=== PATIENT | female | born 1935 | race Caucasian/White ===

== ENCOUNTER → 2017-01-07 | Outpatient (CLI) | payer MEDICARE ==
[~2017-01-07] MED LIST: AMLO5TAB2 PO; ASP325T PO; ATEN50TA PO; GLIP10TA13 PO; LEVO88TA26 PO; LISI1TAB6 PO; LRT10T PO; MTF500T PO; NIAC1000 PO; OMEP20TA2 PO; PROP15DR OP; SIMV40TA2 PO
== END ==
LOC: RAD 10:31
PROVIDERS: ATTEND Nurse Practitioner
DX: Z12.31 Encounter for screening mammogram for malignant neoplasm of breast (principal)
CPT/HCPCS: 77067

== ENCOUNTER → 2017-02-02 | Outpatient (CLI) | payer MEDICARE ==
--- NOTE | 2017-02-02 12:55 | Diagnostic Imaging Report ---
INDICATION: Dyspnea PA and lateral views of the chest are obtained. Comparison is made to study of 12/23/2015. Overall heart size and pulmonary vascularity are at the upper limits of normal. There is blunting of the costophrenic sulci, bilaterally. No consolidation is seen to indicate lobar pneumonia. There is no pneumothorax. Adrenal calcification left upper quadrant of the abdomen is not significantly changed. IMPRESSION: Heart size and pulmonary vascularity are at the upper limits of normal with development of small amount of bilateral pleural fluid or thickening. No overt edema or other acute abnormality is identified. Dictated by: Dictated on workstation # [id number]
== END ==
LOC: RAD 12:05
PROVIDERS: ATTEND Internal Medicine
DX: R06.00 Dyspnea, unspecified (principal)
CPT/HCPCS: 71020

== ENCOUNTER → 2017-02-14 | Outpatient (CLI) | payer MEDICARE ==
--- NOTE | 2017-02-14 11:49 | Diagnostic Imaging Report ---
INDICATION: F/U PLEURAL EFFUSION COMPARISON: 02/02/2017 FINDINGS: Frontal and lateral views of the chest demonstrate normal heart size and pulmonary vascularity. The lungs are clear. There are no signs of infiltrate, pleural effusions or pneumothoraces. The visualized osseous structures show no acute abnormalities. IMPRESSION: 1. No acute process. No signs of infiltrates, effusions or pneumothoraces. Dictated by: Dictated on workstation # [id number]
== END ==
LOC: RAD 10:28
PROVIDERS: ATTEND Internal Medicine
DX: J90 Pleural effusion, not elsewhere classified (principal)
CPT/HCPCS: 71020

== ENCOUNTER 2017-03-08 10:21 | Inpatient (IN) | payer MEDICARE, MEDICAID ==
[~2017-03-08] VITALS: Ht 162.6 cm; Wt 100.9 kg
--- OUTSIDE RECORDS SUMMARY | 2017-03-08 10:26 | XMS REPORT | Referral Summary ---
Author Author [facility] Organization [facility] Address Unknown Phone Unavailable Encounter [facility] [id number] Date(s): 11/19/14 - 11/19/14 [facility] [address] [place] [address]- Discharge Disposition: 01-Home or Self Care Attending Physician: Rekha Romero MD Admitting Physician: Rekha Romero MD Vital Signs No data available for this section Problem List No data available for this section Allergies, Adverse Reactions, Alerts No data available for this section Medications No data available for this section Results No data available for this section Immunizations No data available for this section Procedures No data available for this section Social History No data available for this section Assessment and Plan No data available for this section
--- OUTSIDE RECORDS SUMMARY | 2017-03-08 10:27 | XMS REPORT ---
Author Author [facility] Address Unknown Care Team Providers [facility] Concierge Name Role Phone TYSHAWN ALVIN Unavailable PROBLEMS Unknown Problems ALLERGIES Substance Reaction Event Type Date Status N.K.D.A. Unknown Non Drug Allergy Apr, Unknown SOCIAL HISTORY No smoking Hx information available PLAN OF CARE Activity Details Follow Up prn Reason:prophy VITAL SIGNS Blood pressure systolic 158 mmHg 2016-05-07 Blood pressure diastolic 70 mmHg 2016-05-07 MEDICATIONS Medication Instructions Dosage Frequency Start Date End Date Duration Status Crestor Active Synthroid Active Amlodipine & Diet Manage Prod Active Omeprazole Active Effient Active Metformin HCl Active Lisinopril-Hydrochlorothiazide Active GlipiZIDE Active Atenolol Active RESULTS No Results PROCEDURES Procedure Date Ordered Related Diagnosis Body Site LTD ORAL EVALUATION - PROBLEM FOCUS May 07, 2016 INTRAORL-PERIAPICAL 1 FILM [id number] May 07, 2016 AMALGAM-TWO SURFACES PRIMARY/PERM May 07, 2016 IMMUNIZATIONS No Known Immunizations
[2017-03-08] MEDS ORDERED: fentaNYL INJECTION 100 MCG/2 ML AMP IVP ONE (10:45)
[2017-03-08 11:06] LABS: BASOPHILS % (AUTO) 0 % (0-10); EOSINOPHILS % (AUTO) 0 % (0-10); LYMPHOCYTES # (AUTO) 1.1 X 10^3 (1.0-4.0); LYMPHOCYTES % (AUTO) 8 % (12-44); MEAN CORPUSCULAR HEMOGLOBIN 29 PG (25-34); MEAN CORPUSCULAR HGB CONC 32 G/DL (32-36); MEAN CORPUSCULAR VOLUME 91 FL (80-99); MEAN PLATELET VOLUME 10.6 FL (7.4-10.4); MONOCYTES # (AUTO) 0.6 X 10^3 (0.0-1.0); MONOCYTES % (AUTO) 4 % (0-12); NEUTROPHILS # (AUTO) 12.4 X 10^3 (1.8-7.8); NEUTROPHILS % (AUTO) 88 % (42-75); PLATELET COUNT 289 10^3/uL (130-400); RED BLOOD COUNT 3.01 10^6/uL (4.35-5.85); RED CELL DISTRIBUTION WIDTH 13.7 % (10.0-14.5); WHITE BLOOD COUNT 14.1 10^3/uL (4.3-11.0)
[2017-03-08 11:22] LABS: BAND NEUTROPHILS 1 %; BASOPHILS % (MANUAL) 0 %; EOSINOPHILS % (MANUAL) 0 %; LYMPHOCYTES % (MANUAL) 8 %; NEUTROPHILS % (MANUAL) 90 %
[2017-03-08 11:26] LABS: ALBUMIN 3.8 GM/DL (3.2-4.5); BILIRUBIN,TOTAL 0.6 MG/DL (0.1-1.0); CALCIUM 8.9 MG/DL (8.5-10.1); CREATININE SERUM 1.82 MG/DL (0.60-1.30); POTASSIUM 4.6 MMOL/L (3.6-5.0); TOTAL PROTEIN 6.5 GM/DL (6.4-8.2)
--- NOTE | 2017-03-08 11:26 | Diagnostic Imaging Report ---
INDICATION: Recent fall. COMPARISON: 02/14/2017. FINDINGS: Single frontal view of the chest demonstrates normal heart size and pulmonary vascularity. The lungs are well aerated and clear. No large pleural effusion or pneumothorax is seen. The visualized osseous structures show no acute abnormalities. There is aortic atherosclerosis. IMPRESSION: 1. No acute cardiopulmonary process. Dictated by: Dictated on workstation # [id number]
--- NOTE | 2017-03-08 11:34 | Diagnostic Imaging Report ---
INDICATION: Fall. COMPARISON: None. FINDINGS: Four radiographic views of the right femur were obtained. There is acute comminuted fracture of the right femoral shaft near the junction of the mid and distal third portions. There is lateral subluxation of the distal fracture fragment by nearly one shaft width. There is also mild angulation with the apex projecting posteriorly. There is no extension into the joint space of the knee. Right femoral acetabular joint space appears maintained as well. Note is made of calcified arteriosclerosis. No unexpected radiopaque foreign bodies are seen. IMPRESSION: 1. Acute fracture of the right femur as described above. Dictated by: Dictated on workstation # [id number]
--- NOTE | 2017-03-08 11:34 | Diagnostic Imaging Report ---
INDICATION: Fall. COMPARISON: Femur radiographs from same day. FINDINGS: Single frontal radiographic view of the pelvis was obtained. There is foreshortened appearance to the bilateral proximal femurs. This however is felt to be positional. There is otherwise no evidence of acute fracture or dislocation of the pelvis or included portions of bilateral proximal femurs. Femoral acetabular joint spaces appear to be within normal limits on this single frontal view. Note is made of calcified arteriosclerosis. No unexpected radiopaque foreign bodies are seen. IMPRESSION: No radiographic evidence of acute fracture of the pelvis. Dictated by: Dictated on workstation # [id number]
--- NOTE | 2017-03-08 11:43 | ED Fall/Injury ---
General Chief Complaint: Trauma-Non Activation Stated Complaint: FALL Source: patient, EMS, old records Exam Limitations: no limitations History of Present Illness Time seen by provider: 10:22 Initial Comments This delightful 81-year-old woman presents to the emergency room via EMS after having a fall in her home. She was walking to the kitchen this morning and slipped on a piece of cucumber. She landed on her right side injuring her right thigh. She reports pain as 7 out of 10. She laid on the floor for a few hours unable to ambulate until the [employer] truck driver heavy came to her house. She had the truck driver heavy call 911. Patient denies any head or neck injury. She denies any loss of consciousness. The mechanism of fall seems to be purely mechanical. She has some numbness in her right lower extremity but can feel palpation on exam. She also complains of some shortness of breath recently, particularly with exertion. She was referred to Dr. Wright by Dr. Bojorquez for further evaluation of her dyspnea. She was to have an appointment today hence the [employer] arrival at her house. Dr. Raymond's her primary care provider and Dr. Bojorquez is her electric meter inspector. Allergies and Home Medications Allergies Coded Allergies: lisinopril (Unverified Allergy, Unknown, 10/22/14) DRY COUGH Home Medications Amlodipine Besylate 5 Mg Tablet, 5 MG PO DAILY, (Reported) Aspirin 325 Mg Tab, 325 MG PO DAILY, (Reported) Atenolol 50 Mg Tablet, 50 MG PO DAILY, (Reported) Glipizide 10 Mg Tablet, 10 MG PO BID, (Reported) Hctz/Lisinopril 1 Each Tablet, 1 EACH PO DAILY, (Reported) Levothyroxine Sodium 88 Mcg Tablet, 88 MCG PO DAILY, (Reported) Loratadine 10 Mg Tab, 10 MG PO DAILY PRN, (Reported) Metformin Hcl 500 Mg Tab, 1,000 MG PO BID, (Reported) Niacin 1,000 Mg Tablet.sa, 1,000 MG PO HS, (Reported) Omeprazole 20 Mg Tablet.dr, 20 MG PO PRN, (Reported) Propylene Glycol/Peg 400 5 Ml Drops, 5 ML OP QID, (Reported) Simvastatin 40 Mg Tablet, 40 MG PO DAILY, (Reported) Constitutional: no symptoms reported Eyes: No Symptoms Reported Ears, Nose, Mouth, Throat: no symptoms reported Respiratory: see HPI Cardiovascular: no symptoms reported Gastrointestinal: no symptoms reported Genitourinary: no symptoms reported Musculoskeletal: no symptoms reported Skin: no symptoms reported Psychiatric/Neurological: No Symptoms Reported Past Blyctvp-Uewloq-Rjogny Hx Surgeries History of Surgeries: Yes Surgeries: Coronary Stent, Eye Surgery Respiratory History of Respiratory Disorde: Yes (pulmonary hypertension) Cardiovascular History of Cardiac Disorders: Yes (pulmonary hypertension) Cardiac Disorders: Coronary Artery Disease, Hypertension, Valvular Heart Disease (aortic sclerosis) Neurological History of Neurological Disord: No Reproductive System : No Genitourinary History of Genitourinary Disor: No Gastrointestinal History of Gastrointestinal Di: No Musculoskeletal History of Musculoskeletal Dis: No Endocrine History of Endocrine Disorders: Yes Endocrine Disorders: Hypothyroidsim, Diabetes, Non-Insulin dep HEENT History of HEENT Disorders: Yes (diabetic retinopathy) HEENT Disorders: Macular Degeneration Cancer History of Cancer: No Psychosocial History of Psychiatric Problem: No Integumentary History of Skin or Integumenta: No Physical Exam Vital Signs Vital Sign - Last 12Hours 03/08/17 10:21 Temp 97.5 Pulse 86 Resp 18 B/P (MAP) 98/60 Pulse Ox 96 O2 Delivery Room Air Capillary Refill : General Appearance: WD/WN, mild distress HEENT: PERRL/EOMI, normal ENT inspection Neck: normal inspection Cardiovascular: regular rate, rhythm, no edema, no murmur Respiratory: lungs clear, normal breath sounds, no respiratory distress, no accessory muscle use Gastrointestinal: normal bowel sounds, non tender, soft Extremities: other (there is tenderness in the distal and mid right thigh. No tenderness over the hip joint. Pedal pulse, sensation, and movement of the foot intact. External rotation of the right leg noted) Neurologic/Psychiatric: silk spreader II-XII nml as tested, no motor/sensory deficits, alert, normal mood/affect, oriented x 3 Skin: normal color, warm/dry Progress/Results/Core Measures Results/Orders Lab Results Laboratory Tests Test 03/08/17 11:00 03/08/17 11:55 Range/Units White Blood Count 14.1 H 4.3-11.0 10^3/uL Red Blood Count 3.01 L 4.35-5.85 10^6/uL Hemoglobin 8.7 L 11.5-16.0 G/DL Hematocrit 28 L 35-52 % Mean Corpuscular Volume 91 80-99 FL Mean Corpuscular Hemoglobin 29 25-34 PG Mean Corpuscular Hemoglobin Concent 32 32-36 G/DL Red Cell Distribution Width 13.7 10.0-14.5 % Platelet Count 289 130-400 10^3/uL Mean Platelet Volume 10.6 H 7.4-10.4 FL Neutrophils (%) (Auto) 88 H 42-75 % Lymphocytes (%) (Auto) 8 L 12-44 % Monocytes (%) (Auto) 4 0-12 % Eosinophils (%) (Auto) 0 0-10 % Basophils (%) (Auto) 0 0-10 % Neutrophils # (Auto) 12.4 H 1.8-7.8 X 10^3 Lymphocytes # (Auto) 1.1 1.0-4.0 X 10^3 Monocytes # (Auto) 0.6 0.0-1.0 X 10^3 Eosinophils # (Auto) 0.0 0.0-0.3 10^3/uL Basophils # (Auto) 0.0 0.0-0.1 10^3/uL Neutrophils % (Manual) 90 % Lymphocytes % (Manual) 8 % Monocytes % (Manual) 1 % Eosinophils % (Manual) 0 % Basophils % (Manual) 0 % Band Neutrophils 1 % Blood Morphology Comment NORMAL Sodium Level 135 135-145 MMOL/L Potassium Level 4.6 3.6-5.0 MMOL/L Chloride Level 103 98-107 MMOL/L Carbon Dioxide Level 20 L 21-32 MMOL/L Anion Gap 12 5-14 MMOL/L Blood Urea Nitrogen 53 H 7-18 MG/DL Creatinine 1.82 H 0.60-1.30 MG/DL Estimat Glomerular Filtration Rate 27 BUN/Creatinine Ratio 29 Glucose Level 264 H 70-105 MG/DL Calcium Level 8.9 8.5-10.1 MG/DL Total Bilirubin 0.6 0.1-1.0 MG/DL Aspartate Amino Transf (AST/SGOT) 14 5-34 U/L Alanine Aminotransferase (ALT/SGPT) 12 0-55 U/L Alkaline Phosphatase 79 40-136 U/L Total Protein 6.5 6.4-8.2 GM/DL Albumin 3.8 3.2-4.5 GM/DL Urine Color YELLOW Urine Clarity SLIGHTLY CLOUDY Urine pH 5 5-9 Urine Specific [place] 1.015 L 1.016-1.022 Urine Protein 3+ H NEGATIVE Urine Glucose (UA) NEGATIVE NEGATIVE Urine Ketones NEGATIVE NEGATIVE Urine Nitrite NEGATIVE NEGATIVE Urine Bilirubin NEGATIVE NEGATIVE Urine Urobilinogen NORMAL NORMAL MG/DL Urine Leukocyte Esterase NEGATIVE NEGATIVE Urine RBC (Auto) NEGATIVE NEGATIVE Urine RBC RARE /HPF Urine WBC NONE /HPF Urine Squamous Epithelial Cells RARE /HPF Urine Crystals PRESENT H /LPF Urine Amorphous Sediment FEW ROSA URATES H /LPF Urine Bacteria NEGATIVE /HPF Urine Casts NONE /LPF Urine Mucus NEGATIVE /LPF Urine Culture Indicated NO My Orders Orders - JORGE LUIS DESAI MD Cbc With Automated Diff (03/08/17 10:38) Comprehensive Metabolic Panel (03/08/17 10:38) Ua Culture If Indicated (03/08/17 10:38) Saline Lock/Iv-Start (03/08/17 10:38) Chest 1 View, Ap/Pa Only (03/08/17 10:38) Femur, Right, 2 Views (03/08/17 10:38) Pelvis (03/08/17 10:38) Fentanyl Injection (Sublimaze Injection (03/08/17 10:45) Manual Differential (03/08/17 11:00) Medications Given in ED Current Medications Medications Dose Ordered Sig/Michael Route Start Time Stop Time Status Last Admin Dose Admin Fentanyl Citrate 25 mcg ONCE ONCE IVP 03/08/17 10:45 03/08/17 10:46 DC 03/08/17 11:05 25 MCG Vital Signs/I&O Vital Sign - Last 12Hours 03/08/17 03/08/17 03/08/17 10:21 11:05 12:00 Temp 97.5 98.1 97.5 Pulse 86 70 Resp 18 16 B/P (MAP) 98/60 98/68 (78) Pulse Ox 96 O2 Delivery Room Air Room Air Progress Note : Progress Note Femur fracture was identified on x-rays. Patient was given fentanyl for pain management. Anderson catheter was placed. Dr. Garduno and Dr. Katz was presented to the emergency room to evaluate the patient. Patient requested a DNR status. Diagnostic Imaging Diagonstic Imaging: Xray Plain Films/CT/US/NM/MRI: leg (right femur) Comments Right femur x-ray viewed by me and report reviewed. See report below: NAME: MARYSOL GALEAS REC#: [id number] PT STATUS: REG ER : 1935 PHYSICIAN: JORGE LUIS DESAI MD ADMIT DATE: 03/08/17/ER Draft Date of Exam:03/08/17 FEMUR, RIGHT, 2 VIEWS INDICATION: Fall. COMPARISON: None. FINDINGS: Four radiographic views of the right femur were obtained. There is acute comminuted fracture of the right femoral shaft near the junction of the mid and distal third portions. There is lateral subluxation of the distal fracture fragment by nearly one shaft width. There is also mild angulation with the apex projecting posteriorly. There is no extension into the joint space of the knee. Right femoral acetabular joint space appears maintained as well. Note is made of calcified arteriosclerosis. No unexpected radiopaque foreign bodies are seen. IMPRESSION: 1. Acute fracture of the right femur as described above. Dictated on workstation # [id number] Dict: 03/08/17 1125 Trans: 03/08/17 1133 [id number] Interpreted by: SARI WHITE MD Diagonstic Imaging: Xray Plain Films/CT/US/NM/MRI: chest Comments Pelvis x-ray viewed by me and report reviewed parents report below: NAME: MARYSOL GALEAS REC#: [id number] PT STATUS: REG ER : 1935 PHYSICIAN: JORGE LUIS DESAI MD ADMIT DATE: 03/08/17/ER Draft Date of Exam:03/08/17 PELVIS INDICATION: Fall. COMPARISON: Femur radiographs from same day. FINDINGS: Single frontal radiographic view of the pelvis was obtained. There is foreshortened appearance to the bilateral proximal femurs. This however is felt to be positional. There is otherwise no evidence of acute fracture or dislocation of the pelvis or included portions of bilateral proximal femurs. Femoral acetabular joint spaces appear to be within normal limits on this single frontal view. Note is made of calcified arteriosclerosis. No unexpected radiopaque foreign bodies are seen. IMPRESSION: No radiographic evidence of acute fracture of the pelvis. Dictated on workstation # [id number] Dict: 03/08/17 1127 Trans: 03/08/[address] [facility] [id number] Interpreted by: SARI WHITE MD Diagonstic Imaging: Xray Plain Films/CT/US/NM/MRI: chest Comments Chest x-ray viewed by me and report reviewed. See report below: NAME: MARYSOL GALEAS REC#: [id number] PT STATUS: REG ER : 1935 PHYSICIAN: JORGE LUIS DESAI MD ADMIT DATE: 03/08/17/ER Draft Date of Exam:03/08/17 CHEST 1 VIEW, AP/PA ONLY INDICATION: Recent fall. COMPARISON: 02/14/2017. FINDINGS: Single frontal view of the chest demonstrates normal heart size and pulmonary vascularity. The lungs are well aerated and clear. No large pleural effusion or pneumothorax is seen. The visualized osseous structures show no acute abnormalities. There is aortic atherosclerosis. IMPRESSION: 1. No acute cardiopulmonary process. Dictated on workstation # [id number] Dict: 03/08/17 1124 Trans: 03/08/17 1126 [facility] [phone] Interpreted by: SARI WHITE MD Departure Communication (Admissions) Time/Spoke to Admitting Phy: 11:46 Communication Case reviewed with Dr. Garduno. Films were reviewed by him. He agrees with admission to his service for surgery planned for tomorrow. He requests cardiology and internal medicine consults. Time/Spoke to Consulting Phy: 12:20 Communication/Consulting Case was reviewed with Dr. Katz and Dr. Bojorquez who both except consultation. Impression Impression: Primary Impression: Left femoral shaft fracture Qualified Codes: S72.352A - Displaced comminuted fracture of shaft of left femur, initial encounter for closed fracture Additional Impressions: Fall on same level from slipping Qualified Codes: W01.0XXA - Fall on same level from slipping, tripping and stumbling without subsequent striking against object, initial encounter Dyspnea Qualified Codes: R06.00 - Dyspnea, unspecified Chronic renal insufficiency Qualified Codes: N18.9 - Chronic kidney disease, unspecified Anemia Qualified Codes: D64.9 - Anemia, unspecified Disposition: 09 ADMITTED INPATIENT Condition: Improved Admissions Decision to Admit Reason: Admit from ER (Trauma) Decision to Admit/Date: Mar 08, 2017 Time/Decision to Admit Time: 11:30 Departure-Patient Inst. Referrals: FELIX RAYMOND MD (PCP/Family) Primary Care Physician JORGE LUIS DESAI MD Mar 08, 2017 11:43
[2017-03-08 12:04] LABS: BILIRUBIN,URINE NEGATIVE (NEGATIVE); KETONES,URINE NEGATIVE (NEGATIVE); LEUKOCYTE ESTERASE ,URINE NEGATIVE (NEGATIVE); NITRITE,URINE NEGATIVE (NEGATIVE); PH,URINE 5 (5-9); PROTEIN,URINE 3+ (NEGATIVE); UROBILINOGEN,URINE NORMAL (NORMAL)
[2017-03-08 12:14] LABS: SQUAMOUS EPITHELIAL CELL,UR RARE /HPF
[2017-03-08] MEDS ORDERED: morphine PCA 30 MG/30 ML VIAL IV PRN (12:45)
--- NOTE | 2017-03-08 12:55 | Consultation-Hospitalist ---
HPI History of Present Illness: HPI/Chief Complaint CC: Fall HPI: Pt is an 81yoCF with a PMH of CAD s/p stent, HTN, DMII who presented to the ER following a fall this morning. She report she awoke and was walking to her kitchen but did not use her flashlight to assist her as she normally does and she ended up slipping on a cucumber and falling. This was around 6am. She was unable to stand up or crawl to call for help. She was on the ground until about 10am when her [facility] arrived to bring her to Dr. Wright's office for a visit. She was then brought to the ER where she was found to have a distal femur fracture. Prior to this she reports she is in relatively good health. She states that she lives in assisted living and can normally walk, do her own grocery shopping, and care for herself. She has recently developed MORTENSEN though. She has a history of CAD and follows with Dr. Bojorquez and was evaluated for this by him and referred to Dr. Wright for further evaluation. She is unsure of the cause of her dyspnea. She is a lifetime nonsmoker. She reports compliance with her medicines. Source: patient, family, RN/MD Exam Limitations: no limitations Date Seen 03/08/17 Attending Physician Nani Katz MD PCP Carlos Ferguson MD Referring Physician Date of Admission Mar 08, 2017 at 12:24 Home Medications & Allergies Home Medications Reviewed patient Home Medication Reconciliation Form Allergies Allergies Coded Allergies lisinopril (Unverified Allergy, Unknown, 10/22/14) DRY COUGH Past Qrimtyq-Erbosp-Pegsvz Hx Patient Social History Employed/Student: retired Alcohol Use: Denies Use Recreational Drug Use: No Smoking Status: Never a Smoker Recent Foreign Travel: No Contact w/other who traveled: No Recent Infectious Disease Expo: No Surgeries Coronary Stent Respiratory No Cardiovascular Coronary Artery Disease, Hypertension Reproductive System : No Genitourinary No Gastrointestinal No Musculoskeletal No Endocrine History of Endocrine Disorders: Yes Endocrine Disorders: Diabetes, Insulin dep HEENT History of HEENT Disorders: No Cancer No Psychosocial History of Psychiatric Problem: No Integumentary History of Skin or Integumenta: No Review of Systems Constitutional: No chills, No fever EENTM: No blurred vision, No double vision Respiratory: No cough, dyspnea on exertion, short of breath Cardiovascular: No chest pain, Hx of Intervention, No palpitations Gastrointestinal: No constipation, No diarrhea, No nausea, No vomiting Genitourinary: No dysuria, No frequency Musculoskeletal: back pain, joint pain Skin: no symptoms reported Psychiatric/Neurological: No Symptoms Reported Physical Exam Physical Exam Vital Signs Vital Sign - Last 12Hours 03/08/17 10:21 Temp 97.5 Pulse 86 Resp 18 B/P (MAP) 98/60 Pulse Ox 96 O2 Delivery Room Air Capillary Refill : Less Than 3 Seconds General Appearance: No Apparent Distress, WD/WN Respiratory: Normal Breath Sounds, No Accessory Muscle Use, No Respiratory Distress Cardiovascular: Regular Rate, Rhythm, No Edema, No JVD, No Murmur, Normal Peripheral Pulses Gastrointestinal: Normal Bowel Sounds, No Organomegaly, No Pulsatile Mass, Non Tender, Soft Extremity: Normal Capillary Refill, No Calf Tenderness, No Pedal Edema, Other ( right leg externally rotated and appears shorter, tenderness to palpation over lower thigh, sensation intact, 2+ pulse in DP) Neurologic/Psychiatric: Alert, Oriented x3, No Motor/Sensory Deficits, Normal Mood/Affect Results Results/Procedures Lab Laboratory Tests 03/08/17 11:00 Radiology FEMUR, RIGHT, 2 VIEWS FINDINGS: Four radiographic views of the right femur were obtained. There is acute comminuted fracture of the right femoral shaft near the junction of the mid and distal third portions. There is lateral subluxation of the distal fracture fragment by nearly one shaft width. There is also mild angulation with the apex projecting posteriorly. There is no extension into the joint space of the knee. Right femoral acetabular joint space appears maintained as well. Note is made of calcified arteriosclerosis. No unexpected radiopaque foreign bodies are seen. IMPRESSION: 1. Acute fracture of the right femur as described above. Assessment/Plan Admission Diagnosis acute comminuted fracture of the right femoral shaft Diagnosis/Problems Diagnosis/Problems (1) Closed right femoral fracture Status: Acute Assessment & Plan: Management per ortho (primary service) Fentanyl for pain RCRI scores 2, risk of 6.6% for major cardiac event - Most risk as optimized as possible though will continue to provide IVF for JEY - Will defer recommendation regarding MORTENSEN to Dr. Bojorquez Qualifiers: Qualified Codes: S72.354A - Nondisplaced comminuted fracture of shaft of right femur, initial encounter for closed fracture (2) Acute on chronic renal insufficiency Status: Acute Assessment & Plan: I personally called and spoke with Dr. Ferguson's office Most recent creatinine 1.3 in December 18. today, will check CK and start IVF recheck in AM Will hold diuretic (3) Dyspnea Status: Acute Assessment & Plan: Has been progressing over past few months, is able to do grocery shopping (~4 mets) but at times can be short of breath Was to see Dr. Wright today as referred by Dr. Bojorquez during outpatient visit Will consult Dr. Wright while admitted for any further recommendations Qualifiers: Qualified Codes: R06.09 - Other forms of dyspnea (4) Anemia Status: Chronic Assessment & Plan: Again per report from Dr. Ferguson's office normal hemoglobin 9.6 T&S x2U per Ortho's request in prep for OR Qualifiers: Qualified Codes: D64.9 - Anemia, unspecified (5) CAD (coronary artery disease) Status: Chronic Assessment & Plan: Follows with Dr. Bojorquez, consulted- appreciate recs Feature of dyspnea concerning as possible cardiac etiology Defer to Dr. Bojorquez Hold ASA currently Qualifiers: Qualified Codes: I25.10 - Atherosclerotic heart disease of [place] coronary artery without angina pectoris (6) Essential (primary) hypertension Status: Chronic Assessment & Plan: Well controlled, will continue home meds when tolerating PO (7) Hypothyroidism Status: Chronic Assessment & Plan: Continue Synthroid (8) Diabetes mellitus Status: Chronic Assessment & Plan: A1c from December- 12.25 Relatively well controlled for age Will continue Lantus, hold Metformin Will start on SSI A Qualifiers: Qualified Codes: E11.9 - Type 2 diabetes mellitus without complications; Z79.4 - watermaster (current) use of insulin NANI KATZ MD Mar 08, 2017 12:55
[2017-03-08] MEDS ORDERED: NS IV 1000 ML 1,000 ML ONE (13:00)
[2017-03-08 13:21] LABS: PROTHROMBIN TIME PATIENT 13.3 SEC (12.2-14.7)
[2017-03-08] MEDS ORDERED: LOSA1TAB23 PO (13:23)
[2017-03-08] MEDS ORDERED: INSU100I10 SC (13:23)
[2017-03-08] MEDS ORDERED: AMLO10TA2 PO (13:23)
[2017-03-08] MEDS ORDERED: METF500T4 PO (13:23)
[2017-03-08] MEDS ORDERED: GLIP5TAB13 PO (13:23)
[2017-03-08] MEDS ORDERED: HYDR25TA4 PO (13:23)
[2017-03-08] MEDS ORDERED: POTA10TA14 PO (13:23)
[2017-03-08] MEDS ORDERED: ROSU5TAB9 PO (13:23)
[2017-03-08] MEDS ORDERED: LEVO88TA54 PO (13:23)
[2017-03-08] MEDS ORDERED: FURO20TA4 PO (13:23)
[2017-03-08 13:30] VITALS: BP 129/61
--- NOTE | 2017-03-08 13:32 | HISTORY AND PHYSICAL ---
DATE OF SERVICE: 03/08/2017 REASON FOR ADMISSION: Right femur fracture, closed, displaced. HISTORY: The patient is an 81-year-old independently living female who slipped on a cucumber this morning and was on the floor. She was found down and was brought to the emergency department where she was found to have a displaced right femoral shaft fracture which extends intraarticularly. She denies antecedent pain. She denies loss of consciousness. REVIEW OF SYSTEMS: No recent chest pain, shortness of breath, or dysuria. MEDICATIONS: Amlodipine, aspirin, atenolol, glipizide, hydrochlorothiazide, levothyroxine, loratadine, metformin, niacin, omeprazole, simvastatin. ALLERGIES: LISINOPRIL. PHYSICAL EXAMINATION: The right lower extremity is shortened and externally rotated. She has intact dorsiflexion, plantarflexion of the toes with symmetric pulses and brisk capillary refill. Sensation is intact throughout. Radiographs reveal a displaced right distal 3rd/middle 3rd shaft fracture which extends intraarticularly into the intercondylar notch as seen on the lateral projection. IMPRESSION: Right femoral shaft fracture with intraarticular extension, closed and displaced. PLAN: Open reduction and internal fixation of the right femur. The risks, benefits, alternatives, ramifications, and recovery were discussed with the patient and her sister. They understand and wish to proceed. Job ID: [id number] DocumentID: [id number] Dictated Date: 03/08/2017 12:39:27 Recycling Technician Date: 03/08/2017 13:31:57 Dictated By: CRISTÓBAL SOLIS MD
[2017-03-08] MEDS ORDERED: LORA10TA7 PO (13:56)
[2017-03-08] MEDS ORDERED: PROP15DR OU (13:56)
[2017-03-08] MEDS ORDERED: OMEP20TA7 PO (13:56)
[2017-03-08] MEDS ORDERED: ASPI-808 PO (13:56)
[2017-03-08] MEDS ORDERED: ATEN50TA PO (13:56)
[2017-03-08] MEDS ORDERED: NS IV 1000 ML 1,000 ML IV SCH (14:00)
[2017-03-08] MEDS ORDERED: LORATADINE (CLARITIN) 10 MG TAB PO PRN (14:45)
[2017-03-08] MEDS ORDERED: ARTIFICAL TEARS 0.4 ML UNIT DOSE (REFRESH PLUS) OU PRN (15:00)
--- NOTE | 2017-03-08 15:44 | Consultation-Cardiology ---
HPI-Cardiology Cardiology Consultation Date of Consultation 03/08/17 Date of Admission Time Seen by Provider: 15:38 Indication: Femur fracture, preoperative cardiac evaluation HPI 81 years old lady with history of coronary artery disease, COPD, hypertension and hyperlipidemia, was walking in her apartment when she slipped over a cucumber floor, sustained a fracture to her femur. Did not have a syncopal episode. Patient is reporting some chest tightness recently while she was in a class reunion and had to walk for a distance. She had to sit down and rest for a while. No palpitation, no syncope or near syncopal episodes. Currently having pain in her leg. Home Medications & Allergies Allergies: Coded Allergies: lisinopril (Unverified Allergy, Unknown, 10/22/14) DRY COUGH Home Medication List Reviewed: Yes CML-Vsdhna-Eqdolm Hx Patient Social History Employed/Student: retired Alcohol Use: Denies Use Recreational Drug Use: No Smoking Status: Never a Smoker Recent Foreign Travel: No Recent Infectious Disease Expo: No Physical Abuse Screen: No Sexual Abuse: No Past Medical History past medical history as discussed Family Medical History Family History: 19 FATHER Kidney disease Diabetes mellitus Cardiovascular disease 19 MOTHER Diabetes mellitus Cardiovascular disease G8 SISTER Diabetes mellitus Constitutional: no symptoms reported, see HPI EENTM: see HPI, no symptoms reported Respiratory: see HPI, No cough, dyspnea on exertion, No hemoptysis, No orthopnea, No phlegm, short of breath, No stridor, No wheezing, No other Cardiovascular: see HPI, chest pain, No edema, No Hx of Intervention, No palpitations, No syncope, No vascular heart diseas, No other Gastrointestinal: see HPI Genitourinary: no symptoms reported, see HPI Musculoskeletal: see HPI, back pain, joint pain, other (Fracture right femur) Skin: no symptoms reported, see HPI Psychiatric/Neurological: No Symptoms Reported, See HPI Reviewed Test Results Reviewed Test Results Lab Laboratory Tests Test 03/08/17 11:00 03/08/17 11:55 03/08/17 13:00 Range/Units White Blood Count 14.1 H 4.3-11.0 10^3/uL Red Blood Count 3.01 L 4.35-5.85 10^6/uL Hemoglobin 8.7 L 11.5-16.0 G/DL Hematocrit 28 L 35-52 % Mean Corpuscular Volume 91 80-99 FL Mean Corpuscular Hemoglobin 29 25-34 PG Mean Corpuscular Hemoglobin Concent 32 32-36 G/DL Red Cell Distribution Width 13.7 10.0-14.5 % Platelet Count 289 130-400 10^3/uL Mean Platelet Volume 10.6 H 7.4-10.4 FL Neutrophils (%) (Auto) 88 H 42-75 % Lymphocytes (%) (Auto) 8 L 12-44 % Monocytes (%) (Auto) 4 0-12 % Eosinophils (%) (Auto) 0 0-10 % Basophils (%) (Auto) 0 0-10 % Neutrophils # (Auto) 12.4 H 1.8-7.8 X 10^3 Lymphocytes # (Auto) 1.1 1.0-4.0 X 10^3 Monocytes # (Auto) 0.6 0.0-1.0 X 10^3 Eosinophils # (Auto) 0.0 0.0-0.3 10^3/uL Basophils # (Auto) 0.0 0.0-0.1 10^3/uL Neutrophils % (Manual) 90 % Lymphocytes % (Manual) 8 % Monocytes % (Manual) 1 % Eosinophils % (Manual) 0 % Basophils % (Manual) 0 % Band Neutrophils 1 % Blood Morphology Comment NORMAL Sodium Level 135 135-145 MMOL/L Potassium Level 4.6 3.6-5.0 MMOL/L Chloride Level 103 98-107 MMOL/L Carbon Dioxide Level 20 L 21-32 MMOL/L Anion Gap 12 5-14 MMOL/L Blood Urea Nitrogen 53 H 7-18 MG/DL Creatinine 1.82 H 0.60-1.30 MG/DL Estimat Glomerular Filtration Rate 27 BUN/Creatinine Ratio 29 Glucose Level 264 H 70-105 MG/DL Calcium Level 8.9 8.5-10.1 MG/DL Total Bilirubin 0.6 0.1-1.0 MG/DL Aspartate Amino Transf (AST/SGOT) 14 5-34 U/L Alanine Aminotransferase (ALT/SGPT) 12 0-55 U/L Alkaline Phosphatase 79 40-136 U/L Total Creatine Kinase 120 29-168 U/L Total Protein 6.5 6.4-8.2 GM/DL Albumin 3.8 3.2-4.5 GM/DL Urine Color YELLOW Urine Clarity SLIGHTLY CLOUDY Urine pH 5 5-9 Urine Specific [place] 1.015 L 1.016-1.022 Urine Protein 3+ H NEGATIVE Urine Glucose (UA) NEGATIVE NEGATIVE Urine Ketones NEGATIVE NEGATIVE Urine Nitrite NEGATIVE NEGATIVE Urine Bilirubin NEGATIVE NEGATIVE Urine Urobilinogen NORMAL NORMAL MG/DL Urine Leukocyte Esterase NEGATIVE NEGATIVE Urine RBC (Auto) NEGATIVE NEGATIVE Urine RBC RARE /HPF Urine WBC NONE /HPF Urine Squamous Epithelial Cells RARE /HPF Urine Crystals PRESENT H /LPF Urine Amorphous Sediment FEW ROSA URATES H /LPF Urine Bacteria NEGATIVE /HPF Urine Casts NONE /LPF Urine Mucus NEGATIVE /LPF Urine Culture Indicated NO Prothrombin Time 13.3 12.2-14.7 SEC INR Comment 1.0 0.8-1.4 Activated Partial Thromboplast Time 27 24-35 SEC Physical Exam Vital Signs Vital Sign - Last 12Hours 03/08/17 10:21 Temp 97.5 Pulse 86 Resp 18 B/P (MAP) 98/60 Pulse Ox 96 O2 Delivery Room Air Capillary Refill : Less Than 3 SecondsLess Than 3 Seconds General Appearance: WD/WN, Mild Distress Eyes: Bilateral Eye Normal Inspection, Bilateral Eye PERRL, Bilateral Eye EOMI HEENT: PERRL/EOMI, TMs Normal, Normal ENT Inspection, Pharynx Normal Neck: Full Range of Motion, Normal Inspection, Non Tender, Supple, Carotid Bruit Respiratory: Chest Non Tender, Lungs Clear, Normal Breath Sounds, No Accessory Muscle Use, No Respiratory Distress Cardiovascular: Regular Rate, Rhythm, No Edema, No JVD, Normal Peripheral Pulses, Systolic Murmur, Gallop/S3 Gastrointestinal: Normal Bowel Sounds, No Organomegaly, No Pulsatile Mass, Non Tender, Soft Back: Normal Inspection, No CVA Tenderness, No Vertebral Tenderness Extremity: Normal Capillary Refill, Normal Inspection, Non Tender, No Calf Tenderness, No Pedal Edema, Other (Right femur fracture) Neurologic/Psychiatric: Alert, Oriented x3, No Motor/Sensory Deficits, Normal Mood/Affect Skin: Normal Color, Warm/Dry Lymphatic: No Adenopathy A/P-Cardiology Admission Diagnosis Femur fracture Chest pain nonspecific etiology Coronary artery disease Shortness of breath Assessment/Plan Right femur fracture, scheduled for surgery with Dr. Garduno tomorrow. Chest pain nonspecific urology, had an episode recently, had extensive workup last year. I will evaluate 12-lead EKG. Coronary artery disease, history of cardiac catheterization done in November 2014 stent to the mid LAD using 2.514 mm resolute integrity stent done by Dr. Dontrell Vuong in [facility]. Otherwise she had mild to moderate disease. Most recent stress test and 2-D echocardiogram in March 2016 revealed no ischemia or infarct with normal EF. Continue current medication, continue to monitor Shortness of breath, Dyspnea on exertion, history of COPD, seen and followed by Dr. Wright Cough, secondary to ADRIAN inhibitor, intolerant to ADRIAN inhibitor. Continue to monitor. Chronic renal insufficiency, worsening on losartan, it was discontinued. Continue to monitor electrolytes closely Severe allergic reaction to IV contrast after the cardiac catheterization. continue to monitor History of TIA, echocardiogram showed normal LV size with moderate LVH, sigmoid shaped septum, EF 60 percent, mild MR, mild TR, PA 25 mmHg. Hypertension, start home medication and monitor blood pressure Hyperlipidemia, last lipid profile available from June 2016 showing total cholesterol 142, HDL 38, triglyceride 204, LDL 63, monitor lipids Obstructive sleep apnea, using C Pap machine, not using it at this time, followed by Dr. Wright Diabetes mellitus, managed and followed by primary care physician. Hypothyroidism, managed and followed by primary care physician. Mild bilateral carotid stenosis nonobstructive disease. Last ultrasound was done in earlier this month, continue to monitor. KIF6 positive. Patient is responsive to statin with improvement in her risk factors after statin administration. BMI 38, patient was educated previously on exercise, currently she will start with physical therapy after her surgery. CRISS BANUELOS MD Mar 08, 2017 3:44 pm
[2017-03-08 16:00] VITALS: BP 123/64
[2017-03-08] MEDS: NS IV 1000 ML 1,000 ML IV SCH (16:32)
[2017-03-08] MEDS ORDERED: inSUlin (REGULAR) HUMAN 1 UNIT/0.01 ML (CHARGE PER UNIT) ONE (16:50)
[2017-03-08] MEDS: inSUlin ASPART (NovoLOG) 1 UNIT/0.01 ML (CHARGE PER UNIT) SC SCH ×2 (18:10→21:05)
[2017-03-08] MEDS ORDERED: inSUlin ASPART (NovoLOG) 1 UNIT/0.01 ML (CHARGE PER UNIT) SC SCH (21:00)
[2017-03-08] MEDS: ATENOLOL 50 MG (TENORMIN) TAB PO SCH (21:05)
[2017-03-08 23:25] VITALS: BP 137/60
[2017-03-09] VITALS (7 sets, daily range): BP systolic 129–149; BP diastolic 60–74
[2017-03-09] MEDS: NS IV 1000 ML 1,000 ML IV SCH ×3 (00:57→20:32)
[2017-03-09 05:52] LABS: BASOPHILS % (AUTO) 0 % (0-10); EOSINOPHILS # (AUTO) 0.1 10^3/uL (0.0-0.3); EOSINOPHILS % (AUTO) 1 % (0-10); LYMPHOCYTES # (AUTO) 2.3 X 10^3 (1.0-4.0); LYMPHOCYTES % (AUTO) 24 % (12-44); MEAN CORPUSCULAR HEMOGLOBIN 30 PG (25-34); MEAN CORPUSCULAR HGB CONC 32 G/DL (32-36); MEAN CORPUSCULAR VOLUME 91 FL (80-99); MEAN PLATELET VOLUME 10.9 FL (7.4-10.4); MONOCYTES # (AUTO) 0.9 X 10^3 (0.0-1.0); MONOCYTES % (AUTO) 9 % (0-12); NEUTROPHILS # (AUTO) 6.4 X 10^3 (1.8-7.8); NEUTROPHILS % (AUTO) 66 % (42-75); PLATELET COUNT 219 10^3/uL (130-400); RED BLOOD COUNT 2.41 10^6/uL (4.35-5.85); RED CELL DISTRIBUTION WIDTH 13.7 % (10.0-14.5); WHITE BLOOD COUNT 9.7 10^3/uL (4.3-11.0)
[2017-03-09] MEDS: LEVOTHYROXINE 88 MCG (LEVOTHORID) TAB PO SCH (06:10)
[2017-03-09 06:43] LABS: ALBUMIN 3.4 GM/DL (3.2-4.5); BILIRUBIN,TOTAL 0.5 MG/DL (0.1-1.0); CALCIUM 8.2 MG/DL (8.5-10.1); CREATININE SERUM 1.65 MG/DL (0.60-1.30); POTASSIUM 4.5 MMOL/L (3.6-5.0)
[2017-03-09] MEDS: inSUlin ASPART (NovoLOG) 1 UNIT/0.01 ML (CHARGE PER UNIT) SC SCH ×4 (06:53→21:48)
[2017-03-09] MEDS ORDERED: PANTOPRAZOLE 20 MG TABLET (PROTONIX) PO PRN (07:00)
--- NOTE | 2017-03-09 09:00 | Cardiology Progress Note ---
Subjective Date Seen by Provider: Mar 09, 2017 Time Seen by Provider: 08:51 Subjective/Events-last exam Patient in bed. Complaining of right leg pain. Denies any CP or dyspnea. Review of Systems General: No Night Sweats, No Fatigue, No Malaise HEENT: No Visual Changes, No Dysphasia, No Sore Throat Pulmonary: No Dyspnea, No Cough, No Pleuritic Chest Pain Cardiovascular: Edema (RLE with trace edema), No: Chest Pain, Palpitations, Paroxysmal Noc. Dyspnea Gastrointestinal: No: Nausea, Vomiting, Abdominal Pain Genitourinary: No Dysuria, No Frequency Musculoskeletal: leg pain (right leg pain), No: neck pain, back pain Objective-Cardiology Exam Last Set of Vital Signs Vital Signs 03/09/17 03/10/17 03/10/17 15:16 04:00 06:13 Temp 98.0 Pulse 67 Resp 16 B/P (MAP) 142/70 Pulse Ox 95 O2 Delivery Nasal Cannula O2 Flow Rate 3.00 FiO2 28 Capillary Refill : Less Than 3 SecondsLess Than 3 Seconds I&O Intake and Output 03/11/17 00:00 Intake Total 200 ml Output Total 425 ml Balance -225 ml Intake Oral 200 ml Output Urine Total 425 ml General: Alert, Oriented X3, Cooperative HEENT: Atraumatic, PERRLA Neck: Supple, No JVD, No Thyromegaly Lungs: Clear to Auscultation, Normal Air Movement Heart: Regular Rate, Normal S1, Normal S2, No Murmurs Abdomen: Normal Bowel Sounds, Soft, No Tenderness, No Hepatosplenomegaly, No Masses Extremities: No Clubbing, No Cyanosis, No Edema, Normal Pulses, No Tenderness/ Swelling Skin: No Rashes, No Breakdown, No Significant Lesion Neuro: Normal Speech, Strength at 5/5 X4 Ext, Cranial Nerves 3-12 NL Psych/Mental Status: Mental Status NL, Mood NL Results Lab Laboratory Tests 03/09/17 13:40 03/10/17 05:39 A/P-Cardiology Admission Diagnosis Femur fracture Chest pain nonspecific etiology Coronary artery disease Shortness of breath Assessment/Plan Right femur fracture, scheduled for surgery with Dr. Garduno later today. Chest pain nonspecific etiology, had an episode recently, had extensive workup last year. EKG reveals no acute ST changes. Denies any pain at this time. Coronary artery disease, history of cardiac catheterization done in November 2014 stent to the mid LAD using 2.514 mm resolute integrity stent done by Dr. Dontrell Vuong in [facility]. Otherwise she had mild to moderate disease. Most recent stress test and 2-D echocardiogram in March 2016 revealed no ischemia or infarct with normal EF. Continue current medication, continue to monitor Shortness of breath, Dyspnea on exertion, history of COPD, seen and followed by Dr. Wright Cough, secondary to ADRIAN inhibitor, intolerant to ADRIAN inhibitor. Continue to monitor. Chronic renal insufficiency, worsening on losartan, it was discontinued. Continue to monitor electrolytes closely Acute on chronic anemia- Hgb 7.1. Continue to monitor. Transfuse as needed Severe allergic reaction to IV contrast after the cardiac catheterization. continue to monitor History of TIA, echocardiogram showed normal LV size with moderate LVH, sigmoid shaped septum, EF 60 percent, mild MR, mild TR, PA 25 mmHg. Hypertension, controlled. Continue to monitor BP/HR Hyperlipidemia, last lipid profile available from June 2016 showing total cholesterol 142, HDL 38, triglyceride 204, LDL 63, monitor lipids Obstructive sleep apnea, using C Pap machine, not using it at this time, followed by Dr. Wright Diabetes mellitus, managed and followed by primary care physician. Hypothyroidism, managed and followed by primary care physician. Mild bilateral carotid stenosis nonobstructive disease. Last ultrasound was done in earlier this month, continue to monitor. KIF6 positive. Patient is responsive to statin with improvement in her risk factors after statin administration. BMI 38, patient was educated previously on exercise, currently she will start with physical therapy after her surgery. Clinical Quality Measures DVT/VTE Risk/Contraindication: Risk Factor Score Per Nursin RFS Level Per Nursing on Admit: 4+=Very High Supervisory-Addendum Brief Supervisory Addendum Participated in pt care: history, MDM, physical Personally performed: exam, history, MDM Care discussed with: CAMMY Results interpretation: agree with documentation Notes: Late input for the evaluation on March 09, 2017 Patient was seen and evaluated yesterday postoperatively, she was recovering well. Denied any pain. Procedure done without complication. On examination lungs were clear to auscultation bilaterally, heart is regular. Normal S1 and S2. I will continue on current medication, monitor H&H closely. RICARDO BOBBY Mar 09, 2017 09:00 CRISS BANUELOS MD Mar 10, 2017 08:44
--- NOTE | 2017-03-09 09:52 | Pulmonary Consultation ---
History of Present Illness History of Present Illness Date of Consultation 03/09/17 09:46 Time Seen by Provider: 09:46 Date of Admission Reason for Visit: Femur fracture, preoperative cardiac evaluation History of Present Illness 81yo presented to ED after falling after slipping on a cucumber. Pt was suppose to see me in the office just prior to this admission. When brynn arrived they found her on the floor. She was unable to get up. I am consulted for pulmonary management. Allergies and Home Medications Allergies Coded Allergies: lisinopril (Unverified Allergy, Unknown, 10/22/14) DRY COUGH Home Medications Aspirin 325 Mg Tablet, 325 MG PO 1200, (Reported) Atenolol 50 Mg Tablet, 50 MG PO HS, (Reported) Diclofenac Sodium 100 Gm Gel..gram., 0 GM TOP QID PRN for PAIN-MILD for 30 Days , #1 Prescribed by: BETTY IGNACIO on 03/25/17858 Furosemide 20 Mg Tablet, 20 MG PO 1200, (Reported) Glipizide 5 Mg Tablet, 10 MG PO BID, (Reported) TAKES 2 (5MG) TABLETS Insulin Glargine,Hum.rec.anlog 100 Unit/1 Ml Insuln.pen, 6 UNITS SC HS, ( Reported) Lactulose 20 Gm/30 Ml Solution, 10 GM PO BID for 30 Days, #1 Prescribed by: BETTY IGNACIO on 03/25/17858 Levothyroxine Sodium 88 Mcg Tablet, 88 MCG PO DAILY, (Reported) Loratadine 10 Mg Tablet, 10 MG PO DAILY PRN for ALLERGIES, (Reported) Omeprazole 20 Mg Tablet.dr, 20 MG PO DAILY PRN for HEARTBURN, (Reported) Propylene Glycol/Peg 400 15 Ml Drops, 1-2 DROPS OU QID PRN for DRY EYES, ( Reported) Rosuvastatin Calcium 5 Mg Tablet, 5 MG PO 1200, (Reported) Tramadol HCl 50 Mg Tablet, 50 MG PO TID PRN for PAIN-MODERATE for 14 Days, #60 Prescribed by: BETTY IGNACIO on 03/25/17858 Past Uiyoktr-Lcgqfr-Thaqai Hx Patient Social History Alcohol Use: Denies Use Recreational Drug Use: No Smoking Status: Never a Smoker Recent Foreign Travel: No Contact w/Someone Who Travel: No Recent Infectious Disease Expo: No Immunizations Up To Date Date of Pneumonia Vaccine: October 18, 2014 Seasonal Allergies Seasonal Allergies: Yes (HEAD FULL X 2 MONTHS) Surgeries History of Surgeries: Yes (HEART STENT, EYE SURGERY (CATARACT) , RIGHT EYE SURGERY TO REMOVE FLUID) Surgeries: Coronary Stent Respiratory History of Respiratory Disorde: No Currently Using CPAP: No Currently Using BIPAP: No Cardiovascular History of Cardiac Disorders: Yes (pulmonary hypertension) Cardiac Disorders: Coronary Artery Disease, Hypertension Neurological History of Neurological Disord: No Reproductive System : No Genitourinary History of Genitourinary Disor: No Gastrointestinal History of Gastrointestinal Di: No Musculoskeletal History of Musculoskeletal Dis: No Endocrine History of Endocrine Disorders: Yes Endocrine Disorders: Diabetes, Insulin dep HEENT History of HEENT Disorders: No HEENT Disorders: Macular Degeneration Cancer History of Cancer: No Psychosocial History of Psychiatric Problem: No Integumentary History of Skin or Integumenta: No Blood Transfusions History of Blood Disorders: Yes (ANEMIA) Adverse Reaction to a Blood Tr: No Family Medical History Family Medial History: Cardiovascular disease 19 FATHER 19 MOTHER Diabetes mellitus 19 FATHER 19 MOTHER G8 SISTER Kidney disease 19 FATHER Review of Systems Time Seen by Provider: 09:16 Exam Exam Vital Signs Date Time Temp Pulse Resp B/P (MAP) Pulse Ox O2 Delivery O2 Flow Rate FiO2 03/09/17 08:00 96.9 60 20 133/60 94 Room Air 03/09/17 06:13 16 03/09/17 04:57 97.8 64 18 129/63 95 Room Air 03/08/17 23:25 98.1 67 18 137/60 95 Room Air 03/08/17 16:00 97.0 66 18 123/64 96 Room Air 03/08/17 14:25 95 Room Air 03/08/17 13:30 97.2 70 20 129/61 98 Room Air 03/08/17 12:40 97.5 70 16 96 03/08/17 12:00 97.5 70 16 98/68 (78) Room Air 03/08/17 11:05 98.1 03/08/17 10:21 97.5 86 18 98/60 96 Room Air General Appearance: No Apparent Distress, WD/WN HEENT: PERRL/EOMI, TMs Normal, Normal ENT Inspection, Pharynx Normal Neck: Full Range of Motion, Normal Inspection, Non Tender, Supple, Carotid Bruit Respiratory: Normal Breath Sounds, No Accessory Muscle Use, No Respiratory Distress Cardiovascular: Regular Rate, Rhythm, No Edema, No JVD, No Murmur, Normal Peripheral Pulses Capillary Refill: Less Than 3 Seconds Gastrointestinal: normal bowel sounds, non tender, soft Extremity: Normal Capillary Refill, No Calf Tenderness, No Pedal Edema, Other ( right leg externally rotated and appears shorter, tenderness to palpation over lower thigh, sensation intact, 2+ pulse in DP) Neurologic/Psychiatric: Alert, Oriented x3, No Motor/Sensory Deficits, Normal Mood/Affect Skin: Normal Color, Warm/Dry Lymphatic: No Adenopathy Results Lab Laboratory Tests 03/08/17 11:00 03/09/17 05:13 Assessment/Plan Assessment/Plan Right femur fracture post fall -Surgery pending COPD hx with Dyspnea -CXR shows no acute process -Sp02 is 95% on RA -SVNS CAD DANIELLE -Continue CPAP therapy Obesity Pt is ok from pulmonary standpoint for surgery. 254 Diagnosis/Problems Problems/Diagonsis (1) Closed right femoral fracture Status: Acute Assessment & Plan: Management per ortho (primary service) Fentanyl for pain RCRI scores 2, risk of 6.6% for major cardiac event - Most risk as optimized as possible though will continue to provide IVF for JEY - Will defer recommendation regarding MORTENSEN to Dr. Bojorquez Qualifiers: Qualified Codes: S72.354A - Nondisplaced comminuted fracture of shaft of right femur, initial encounter for closed fracture (2) Acute on chronic renal insufficiency Status: Resolved Assessment & Plan: I personally called and spoke with Dr. Ferguson's office Most recent creatinine 1.3 in December 18.8 today, will check CK and start IVF recheck in AM Will hold diuretic (3) Dyspnea Status: Acute Assessment & Plan: Has been progressing over past few months, is able to do grocery shopping (~4 mets) but at times can be short of breath Was to see Dr. Wright today as referred by Dr. Bojorquez during outpatient visit Will consult Dr. Wright while admitted for any further recommendations Qualifiers: Qualified Codes: R06.09 - Other forms of dyspnea (4) Anemia Status: Chronic Assessment & Plan: Again per report from Dr. Ferguson's office normal hemoglobin 9.6 T&S x2U per Ortho's request in prep for OR Qualifiers: Qualified Codes: D64.9 - Anemia, unspecified (5) CAD (coronary artery disease) Status: Chronic Assessment & Plan: Follows with Dr. Bojorquez, consulted- appreciate recs Feature of dyspnea concerning as possible cardiac etiology Defer to Dr. Bojorquez Hold ASA currently Qualifiers: Qualified Codes: I25.10 - Atherosclerotic heart disease of pala coronary artery without angina pectoris (6) Essential (primary) hypertension Status: Chronic Assessment & Plan: Well controlled, will continue home meds when tolerating PO (7) Hypothyroidism Status: Chronic Assessment & Plan: Continue Synthroid (8) Diabetes mellitus Status: Chronic Assessment & Plan: A1c from December- . Relatively well controlled for age Will continue Lantus, hold Metformin Will start on SSI A Qualifiers: Qualified Codes: E11.9 - Type 2 diabetes mellitus without complications; Z79.4 - FCI (current) use of insulin Clinical Quality Measures DVT/VTE Risk/Contraindication: Risk Factor Score Per Nursin RFS Level Per Nursing on Admit: 4+=Very High JAMES WRIGHT DO Mar 09, 2017 09:51
[2017-03-09] MEDS ORDERED: LIDOCAINE PF 2% 5 ML (XYLOCAINE) VIAL ONE (10:16)
[2017-03-09] MEDS ORDERED: proPOfol 200 MG/20 ML (DIPRIVAN) VIAL IV ONE (10:16)
[2017-03-09] MEDS ORDERED: SEVOFLURANE (ULTANE) 15 ML INHAL SOLN ONE ×8 (10:16→12:43)
[2017-03-09] MEDS ORDERED: fentaNYL INJECTION 100 MCG/2 ML AMP ONE (10:17)
[2017-03-09] MEDS ORDERED: ONDANSETRON 4 MG/2 ML (SDV) Z0FRAN ONE (10:17)
[2017-03-09] MEDS ORDERED: ROCURONIUM 50 MG/5 ML (ZEMURON) VIAL IV ONE (10:17)
--- NOTE | 2017-03-09 10:18 | Progress Note-Hospitalist ---
Progress Note HPI/CC on Admission CC: Fall HPI: Pt is an 81yoCF with a PMH of CAD s/p stent, HTN, DMII who presented to the ER following a fall this morning. She report she awoke and was walking to her kitchen but did not use her flashlight to assist her as she normally does and she ended up slipping on a cucumber and falling. This was around 6am. She was unable to stand up or crawl to call for help. She was on the ground until about 10am when her [facility] arrived to bring her to Dr. Wright's office for a visit. She was then brought to the ER where she was found to have a distal femur fracture. Prior to this she reports she is in relatively good health. She states that she lives in assisted living and can normally walk, do her own grocery shopping, and care for herself. She has recently developed MORTENSEN though. She has a history of CAD and follows with Dr. Bojorquez and was evaluated for this by him and referred to Dr. Wright for further evaluation. She is unsure of the cause of her dyspnea. She is a lifetime nonsmoker. She reports compliance with her medicines. Progress Notes/Assess & Plan Date Seen 03/09/17 Time Seen by Provider: 09:30 Diagonsis/Assessment & Plan Patient doing ok just waiting on surgery. Transfusion is ordered and will be initiated during surgery No pain reported currently Reviewed meds and labs AFVSS, pleasant, pale, chronically ill, obese RRR, CTAB minimal excursion No edema Assessment: (1) Closed right femoral fracture Status: Acute Assessment & Plan: Management per ortho (primary service) Fentanyl for pain RCRI scores 2, risk of 6.6% for major cardiac event - Most risk as optimized as possible though will continue to provide IVF for JEY - Will defer recommendation regarding MORTENSEN to Dr. Bojorquez Qualifiers: Qualified Codes: S72.354A - Nondisplaced comminuted fracture of shaft of right femur, initial encounter for closed fracture (2) Acute on chronic renal insufficiency Status: Acute Assessment & Plan: Dr Katz personally called and spoke with Dr. Ferguson's office Most recent creatinine 1.3 in December 18.8 today, will check CK and start IVF Monitor labs post op Will hold diuretic (3) Dyspnea Status: Acute Assessment & Plan: Has been progressing over past few months, is able to do grocery shopping (~4 mets) but at times can be short of breath Was to see Dr. Wright yesterday as referred by Dr. Bojorquez during outpatient visit Consulted Dr. Wright while admitted for any further recommendations Qualifiers: Qualified Codes: R06.09 - Other forms of dyspnea (4) Anemia Status: Chronic Assessment & Plan: Again per report from Dr. Ferguson's office normal hemoglobin 9.6 T&S x2U per Ortho's request and transfusing currently and will continue edwin- operative and post op transfusion Qualifiers: Qualified Codes: D64.9 - Anemia, unspecified (5) CAD (coronary artery disease) Status: Chronic Assessment & Plan: Follows with Dr. Bojorquez, consulted- appreciate recs Feature of dyspnea concerning as possible cardiac etiology Defer to Dr. Bojorquez Hold ASA currently Qualifiers: Qualified Codes: I25.10 - Atherosclerotic heart disease of [place] coronary artery without angina pectoris (6) Essential (primary) hypertension Status: Chronic Assessment & Plan: Well controlled, will continue home meds when tolerating PO (7) Hypothyroidism Status: Chronic Assessment & Plan: Continue Synthroid (8) Diabetes mellitus Status: Chronic Assessment & Plan: A1c from December- .8 Relatively well controlled for age Will continue Lantus, hold Metformin Will start on SSI A Qualifiers: Qualified Codes: E11.9 - Type 2 diabetes mellitus without complications; Z79.4 - prison (current) use of insulin Plan: Monitor BP and hgb post op Appreciate Mateus Wright and Maryellen's help SSI SCD's FINLEYROB BAXTERGabe BANKS Mar 09, 2017 10:18
[2017-03-09] MEDS ORDERED: LACTATED RINGERS 1,000 ML IV PRN (10:22)
[2017-03-09] MEDS ORDERED: morphine PCA 30 MG/30 ML VIAL IV PRN (11:00)
[2017-03-09] MEDS ORDERED: oxyCODONE/APAP 5/325MG (PERCOCET 5) TABLET PO PRN (11:00)
[2017-03-09] MEDS ORDERED: ACETAMINOPHEN 325 MG TABLET/CAPLET (TYLENOL) PO PRN (11:00)
[2017-03-09] MEDS ORDERED: ONDANSETRON 4 MG/2 ML (SDV) Z0FRAN IVP PRN ×2 (11:00→13:15)
[2017-03-09] MEDS ORDERED: ceFAZolin INJECTION 1,000 MG in NS (IVPB) 50 ML IV ONE (11:00)
[2017-03-09] MEDS ORDERED: ceFAZolin 1,000 MG (ANCEF) VIAL ONE (11:29)
[2017-03-09] MEDS ORDERED: NS (IVPB) 50 ML ONE (11:30)
[2017-03-09] MEDS ORDERED: BUPIVACAINE 0.5% 30 ML (SENSORCAINE) VIAL ONE (11:41)
[2017-03-09] MEDS: ROSUVASTATIN 5 MG (CRESTOR) TABLET PO SCH (12:00)
[2017-03-09] MEDS ORDERED: SUCCINYLCHOLINE INJ 100 MG/5 ML SYR ONE (12:44)
[2017-03-09] MEDS ORDERED: HETASTARCH 6% IV ONE (12:44)
[2017-03-09] MEDS ORDERED: MEPERIDINE (DEMEROL) INJ 50 MG/ML IVP PRN (13:15)
--- NOTE | 2017-03-09 13:27 | Progress Note-Post Operative ---
Post-Operative Progess Note Surgeon (s)/Loading Shovel Oiler (s) Surgeon CRISTÓBAL SOLIS MD Loading Shovel Oiler: Fareed Earl Pre-Operative Diagnosis closed, displaced right femur shaft fracture Post-Operative Diagnosis closed, displaced right femur shaft fracture Procedure & Operative Findings Date of Procedure 03/09/17 Procedure Performed/Findings open reduction and internal fixation of the right femur Anesthesia Type GETA Estimated Blood Loss Estimated blood loss (mL): 375 ml Specimens/Packing Specimens Removed none Packing: none CRISTÓBAL SOLIS MD Mar 09, 2017 13:27
[2017-03-09] MEDS ORDERED: morphine INJ 10 MG/ML 1ML (SYR OR VIAL) ONE (13:29)
[2017-03-09] MEDS: morphine INJ 10 MG/ML 1ML (SYR OR VIAL) IVP PRN ×2 (13:40→13:45)
--- NOTE | 2017-03-09 13:40 | Diagnostic Imaging Report ---
INDICATION: Right femur fracture IMPRESSION: 52.8 seconds of fluoroscopy was used by Dr. Mendoza during internal fixation of the right femur. Submitted digital images for the procedure show plate transfixing the distal femur fracture with screws proximal and distal to the fracture line. Bones appear to be in good alignment. Dictated by: Dictated on workstation # [id number]
[2017-03-09] MEDS ORDERED: RT-ALBUTEROL SULF 2.5 MG/3 ML PRE-MIX VIAL IH PRN (15:30)
[2017-03-09] MEDS: ceFAZolin INJECTION 1,000 MG in NS (IVPB) 50 ML IV SCH (18:49)
[2017-03-09] MEDS: ATENOLOL 50 MG (TENORMIN) TAB PO SCH (21:51)
[2017-03-09] MEDS: inSUlin DETERMIR 1 UNIT/0.01 ML (LEVEMIR) CHARGE PER UNIT SQ SCH (21:51)
[2017-03-10] VITALS (11 sets, daily range): BP systolic 141–195; BP diastolic 64–81
[2017-03-10] MEDS: ceFAZolin INJECTION 1,000 MG in NS (IVPB) 50 ML IV SCH (04:33)
[2017-03-10] MEDS: NS IV 1000 ML 1,000 ML IV SCH ×3 (04:34→20:59)
[2017-03-10] MEDS: inSUlin ASPART (NovoLOG) 1 UNIT/0.01 ML (CHARGE PER UNIT) SC SCH ×4 (06:03→20:59)
[2017-03-10] MEDS: LEVOTHYROXINE 88 MCG (LEVOTHORID) TAB PO SCH (06:03)
--- NOTE | 2017-03-10 07:21 | Pulmonary Progress Note ---
Subjective Time Seen by Provider: 07:20 Subjective/Events-last exam No complications noted. Exam Exam Vital Signs Date Time Temp Pulse Resp B/P (MAP) Pulse Ox O2 Delivery O2 Flow Rate FiO2 03/10/17 06:13 16 03/10/17 04:00 98.0 67 13 142/70 95 Nasal Cannula 3.00 03/10/17 02:20 93 Nasal Cannula 0.50 03/10/17 00:48 97.7 68 16 141/64 97 Nasal Cannula 3.00 03/09/17 22:35 98 Nasal Cannula 3.00 03/09/17 21:00 16 03/09/17 20:10 97.2 75 20 139/73 99 Nasal Cannula 3.00 03/09/17 18:56 98 Nasal Cannula 3.00 03/09/17 16:05 97.3 69 18 146/74 100 Nasal Cannula 3.00 03/09/17 15:16 60 97 28 03/09/17 15:15 97 Nasal Cannula 2.00 03/09/17 14:45 94.4 65 24 148/67 90 Nasal Cannula 3.00 03/09/17 13:45 97.0 03/09/17 13:45 97.0 03/09/17 12:21 98.2 62 03/09/17 08:00 96.9 60 20 133/60 94 Room Air General Appearance: No Apparent Distress, WD/WN HEENT: PERRL/EOMI, TMs Normal, Normal ENT Inspection, Pharynx Normal Neck: Full Range of Motion, Normal Inspection, Non Tender, Supple, Carotid Bruit Respiratory: Normal Breath Sounds, No Accessory Muscle Use, No Respiratory Distress Cardiovascular: Regular Rate, Rhythm, No Edema, No JVD, No Murmur, Normal Peripheral Pulses Capillary Refill: Less Than 3 Seconds Gastrointestinal: normal bowel sounds, non tender, soft Extremity: Normal Capillary Refill, No Calf Tenderness, No Pedal Edema, Other ( right leg externally rotated and appears shorter, tenderness to palpation over lower thigh, sensation intact, 2+ pulse in DP) Neurologic/Psychiatric: Alert, Oriented x3, No Motor/Sensory Deficits, Normal Mood/Affect Skin: Normal Color, Warm/Dry Lymphatic: No Adenopathy Results Lab Laboratory Tests 03/08/17 11:00 03/09/17 05:13 03/09/17 13:40 03/10/17 05:39 Assessment/Plan Assessment/Plan Right femur fracture post fall -s/p Surgery COPD hx with Dyspnea -CXR shows no acute process -Sp02 is 95% on RA -SVNS -outpatient PFT -advair CAD DANIELLE -pt is not compliant with CPAP therapy Obesity 232 Clinical Quality Measures DVT/VTE Risk/Contraindication: Risk Factor Score Per Nursin RFS Level Per Nursing on Admit: 4+=Very High JAMES BROWN DO Mar 10, 2017 07:21
[2017-03-10] MEDS ORDERED: NS IV 500 ML 500 ML IV ONE (07:45)
--- NOTE | 2017-03-10 07:45 | Progress Note-Standard ---
Standard Progress Note Progress Notes/Assess & Plan Date Seen by Provider: Mar 10, 2017 Time Seen by Provider: 07:43 Progress/Assessment & Plan no complaints Vital Signs Date Time Temp Pulse Resp B/P (MAP) Pulse Ox O2 Delivery O2 Flow Rate FiO2 03/10/17 06:13 16 03/10/17 04:00 98.0 67 13 142/70 95 Nasal Cannula 3.00 03/10/17 02:20 93 Nasal Cannula 0.50 03/10/17 00:48 97.7 68 16 141/64 97 Nasal Cannula 3.00 03/09/17 22:35 98 Nasal Cannula 3.00 03/09/17 21:00 16 03/09/17 20:10 97.2 75 20 139/73 99 Nasal Cannula 3.00 03/09/17 18:56 98 Nasal Cannula 3.00 03/09/17 16:05 97.3 69 18 146/74 100 Nasal Cannula 3.00 03/09/17 15:16 60 97 28 03/09/17 15:15 97 Nasal Cannula 2.00 03/09/17 14:45 94.4 65 24 148/67 90 Nasal Cannula 3.00 03/09/17 13:45 97.0 03/09/17 13:45 97.0 03/09/17 12:21 98.2 62 03/09/17 08:00 96.9 60 20 133/60 94 Room Air Laboratory Tests Test 03/09/17 13:40 03/09/17 16:09 03/09/17 21:00 03/10/17 05:13 Range/Units Hemoglobin 9.4 #L 11.5-16.0 G/DL Hematocrit 29 L 35-52 % Glucometer 183 H 233 H 218 H 70-110 MG/DL Test 03/10/17 05:39 Range/Units Hemoglobin 7.9 L 11.5-16.0 G/DL Hematocrit 24 L 35-52 % RLE--dressing intact. Intact DF and PF of toes and ankle. 2 plus DP pulse with brisk cap refill. Sensation intact throughout s/p ORIF R femur anemia--chronic with intra op blood loss--transfuse 2 units PRBC continue Anderson until tomorrow AM mobillize 50% WB RLE IRF CRISTÓBAL Santiago MD Mar 10, 2017 07:45
--- NOTE | 2017-03-10 08:29 | Cardiology Progress Note ---
Subjective Date Seen by Provider: Mar 10, 2017 Time Seen by Provider: 08:27 Subjective/Events-last exam Patient is in bed. Complains of right leg pain. Denies any CP or dyspnea. Review of Systems General: No Night Sweats, No Fatigue, No Malaise HEENT: No Visual Changes, No Dysphasia Pulmonary: No Dyspnea, No Cough Cardiovascular: No: Chest Pain, Palpitations, Orthopnea Gastrointestinal: No: Nausea, Vomiting, Abdominal Pain, Constipation Genitourinary: No Dysuria, No Frequency Musculoskeletal: leg pain (right leg), No: neck pain, back pain Neurological: Weakness, No: Numbness, Change in speech, Confusion Objective-Cardiology Exam Last Set of Vital Signs Vital Signs 03/09/17 03/10/17 03/10/17 15:16 04:00 06:13 Temp 98.0 Pulse 67 Resp 16 B/P (MAP) 142/70 Pulse Ox 95 O2 Delivery Nasal Cannula O2 Flow Rate 3.00 FiO2 28 Capillary Refill : Less Than 3 SecondsLess Than 3 Seconds I&O Intake and Output 03/11/17 00:00 Intake Total 200 ml Output Total 425 ml Balance -225 ml Intake Oral 200 ml Output Urine Total 425 ml General: Alert, Oriented X3, Cooperative HEENT: Atraumatic, PERRLA Neck: Supple, No JVD, No Thyromegaly Lungs: Clear to Auscultation, Normal Air Movement Heart: Regular Rate, Normal S1, Normal S2, No Murmurs Abdomen: Normal Bowel Sounds, Soft, No Tenderness, No Hepatosplenomegaly, No Masses Extremities: No Clubbing, No Cyanosis, No Edema, Normal Pulses, No Tenderness/ Swelling Skin: No Rashes, No Breakdown, No Significant Lesion Neuro: Normal Speech, Strength at 5/5 X4 Ext, Cranial Nerves 3-12 NL Psych/Mental Status: Mental Status NL, Mood NL Results Lab Laboratory Tests 03/09/17 13:40 03/10/17 05:39 A/P-Cardiology Admission Diagnosis Femur fracture Chest pain nonspecific etiology Coronary artery disease Shortness of breath Assessment/Plan Right femur fracture, s/p ORIF right femur on 03/09/17. Patient slowly recovering. Chest pain nonspecific etiology, had an episode recently, had extensive workup last year. EKG reveals no acute ST changes. Denies any pain at this time. Coronary artery disease, history of cardiac catheterization done in November 2014 stent to the mid LAD using 2.514 mm resolute integrity stent done by Dr. Dontrell Vuong in [facility]. Otherwise she had mild to moderate disease. Most recent stress test and 2-D echocardiogram in March 2016 revealed no ischemia or infarct with normal EF. Continue current medication, continue to monitor Shortness of breath, Dyspnea on exertion, history of COPD, seen and followed by Dr. Wright Cough, secondary to ADRIAN inhibitor, intolerant to ADRIAN inhibitor. Continue to monitor. Chronic renal insufficiency, worsening on losartan, it was discontinued. Continue to monitor electrolytes closely Acute on chronic anemia- Continue to monitor. Transfuse as needed Severe allergic reaction to IV contrast after the cardiac catheterization. continue to monitor History of TIA, echocardiogram showed normal LV size with moderate LVH, sigmoid shaped septum, EF 60 percent, mild MR, mild TR, PA 25 mmHg. Hypertension, controlled. Continue to monitor BP/HR Hyperlipidemia, last lipid profile available from June 2016 showing total cholesterol 142, HDL 38, triglyceride 204, LDL 63, monitor lipids Obstructive sleep apnea, using C Pap machine, not using it at this time, followed by Dr. Wright Diabetes mellitus, managed and followed by primary care physician. Hypothyroidism, managed and followed by primary care physician. Mild bilateral carotid stenosis nonobstructive disease. Last ultrasound was done in earlier this month, continue to monitor. KIF6 positive. Patient is responsive to statin with improvement in her risk factors after statin administration. BMI 38, patient was educated previously on exercise, currently she will start with physical therapy after her surgery. Clinical Quality Measures DVT/VTE Risk/Contraindication: Risk Factor Score Per Nursin RFS Level Per Nursing on Admit: 4+=Very High Supervisory-Addendum Brief Supervisory Addendum Participated in pt care: history, MDM, physical Personally performed: exam, history, MDM Care discussed with: CAMMY Results interpretation: agree with documentation Notes: patient was seen and evaluated, denied any chest pain, recovering from the surgery, receiving blood transfusion today. On examination lungs were clear to auscultation bilaterally, heart is regular rate and rhythm. Known to have extensive history, blood pressure is controlled. I will continue on current medication continue to monitor blood pressure and lipids. No changes are recommended. RICARDO BOBBY Mar 10, 2017 08:29 CRISS BANUELOS MD Mar 10, 2017 08:45
[2017-03-10] MEDS: RT-ADVAIR HFA 115/21 MCG PER PUFF IH SCH ×2 (08:40→19:08)
[2017-03-10] MEDS: ENOXAPARIN 40 MG/0.4 ML (LOVENOX) SYR SC SCH (08:56)
--- NOTE | 2017-03-10 10:59 | Physical Therapy Evaluation ---
PT Evaluation-General Medical Diagnosis Admission Date Mar 08, 2017 at 12:24 Medical Diagnosis: right femur fx Onset Date: Mar 09, 2017 Therapy Diagnosis Therapy Diagnosis: impaired mobility, strength, endurance Height/Weight Height (Feet): 5 Height (Inches): 4.00 Weight (Pounds): 222 Weight (Ounces): 7.0 Precautions Precautions/Isolations: Fall Prevention, Standard Precautions Weight Bear Status Weight Bearing Restriction: Partial Weight Bearing Location Restriction: R LE Comments 50% WB Referral Physician: Fareed Earl Reason for Referral: Evaluation/Treatment Medical History Pertinent Medical History: CAD, COPD, DM, HTN Additional Medical History obstructive sleep apnea, obesity Current History Patient fell at home and had a right femur fx Reviewed History: Yes Social History Home: Apartment Current Living Status: Alone Entry Into Home: Level Entry Prior/Core FIM Prior Level of Function Functional [place] Measure 0=Not Assessed/NA 4=Minimal Assistance 1=Total Assistance 5=Supervision or Setup 2=Maximal Assistance 6=Modified [place] 3=Moderate Assistance 7=Complete [place] Bed Mobility: 7 Transfers (B,C,W/C) (FIM): 7 Gait: 7 PT Evaluation-Current Subjective Patient in bed pre tx, agrees to PT, has pain of 6/10 in right leg. Patient has low hemoglobin and will be getting blood right after PT. Will not attempt to stand or walk at this time. Pt/Family Goals to be independent at home Objective Patient Orientation: Person, Place, Situation Attachments: Oxygen, Anderson Catheter, IV ROM/Strength ROM Lower Extremities NT Strenght Lower Extremities 2/5 gross right lower extremity Integumentary/Posture Bladder Incontinence: Anderson Cath Sensory Vision: Wears Glasses Hearing: Functional Sensation Right Lower Extremit: Intact Sensation Left Lower Extremity: Intact Sensation Lower Extremities Patient does describe some numbness around her incision on the right leg. Transfers Functional [place] Measure 0=Not Assessed/NA 4=Minimal Assistance 1=Total Assistance 5=Supervision or Setup 2=Maximal Assistance 6=Modified [place] 3=Moderate Assistance 7=Complete [place] Transfers (B, C, W/C) (FIM): 2 Scootin Rollin Supine to/from Sit: 2 Patient max assist of 2 for bed mobility and supine to sit. She was able to sit at the edge of the bed for about 10 min before laying back down. Patient had to roll after laying down to change draw sheet which was wet. Balance Sitting Static: Fair Sitting Dynamic: Fair Assessment/Needs Patient has impaired mobility, strength, endurance post right femur fx. Rehab Potential: Fair PT Inventory Coordinator Goals Senior Care Goals PT Inventory Coordinator Goals Time Frame: Mar 17, 2017 Transfers (B,C,W/C) (FIM): 4 Gait (FIM): 1 Distance: 10' Gait Level of Assist: 4 PT Plan Problem List Problem List: Activity Tolerance, Functional Strength, Safety, Balance, Gait, Transfer, Bed Mobility, ROM Treatment/Plan Treatment Plan: Continue Plan of Care Treatment Plan: Bed Mobility, Education, Functional Activity Lalo, Functional Strength, Gait, Safety, Therapeutic Exercise, Transfers Treatment Duration: Mar 17, 2017 Frequency: 11 times per week Estimated Hrs Per Day: .25 hour per day (15-30') Patient and/or Family Agrees t: Yes Safety Risks/Education Patient Education: Transfer Techniques, Reviewed Precautions, Correct Positioning, Safety Issues Teaching Recipient: Patient Teaching Methods: Demonstration, Discussion Response to Teaching: Reinforcement Needed Discharge Recommendations Plan Patient will perform bed mobility and transfer training, balance and endurance training, functional strengthening, stair training, gait training, and education , to improve functional mobility and independence at home. Therapy D/C Recommendations: Assisted Living, Home w/ Family Support, Retirement (TCU/NH) Time/GCodes Time In: 1030 Time Out: 1050 Total Billed Treatment Time: 20 Total Billed Treatment 1 visit NELIDA 20' MIKAELA GUO PT Mar 10, 2017 10:59
--- NOTE | 2017-03-10 11:50 | Progress Note-Hospitalist ---
Standard Progress Note Progress Notes/Assess & Plan Date Seen 03/10/17 Time Seen by Provider: 11:45 Diagnosis acute comminuted fracture of the right femoral shaft Assess & Plan/Chief Complaint The patient is a pleasant 81-year-old white female. She suffered a fall in her home and fractured her right femur. This was repaired on 03/09. To this point she is not done much more than 7 on the side of the bed. She had a hemoglobin of 8.7 at admission which fell to 7.1 and she had a 2 unit transfusion. This raised her hemoglobin to 9.4. Today it has fallen again to 7.9 and she is to receive 2 more units of blood. There is red blood noted on the lateral aspect of her right thigh dressing. She also states that she has had a relatively chronic problem with anemia but is not clear about to what degree. Physical exam: She is very pleasant and alert. Lungs are clear to auscultation. CV is regular without murmur. Abdomen is soft. Extremity as noted above shows fresh blood on her right thigh dressing. Impression: Comminuted fracture right femoral shaft. 2. Past history of anemia. 3.past history of arteriosclerotic heart disease and stenting. Plan: 2 units of packed red blood cells. IRF assessment. She will need to stabilize before going to IRF Labs Laboratory Tests 03/09/17 05:13 03/09/17 13:40 03/10/17 05:39 Diagnosis/Problems Diagnosis/Problems (1) Closed right femoral fracture Status: Acute Assessment & Plan: Management per ortho (primary service) Fentanyl for pain RCRI scores 2, risk of 6.6% for major cardiac event - Most risk as optimized as possible though will continue to provide IVF for JEY - Will defer recommendation regarding MORTENSEN to Dr. Bojorquez Qualifiers: Qualified Codes: S72.354A - Nondisplaced comminuted fracture of shaft of right femur, initial encounter for closed fracture (2) Acute on chronic renal insufficiency Status: Acute Assessment & Plan: I personally called and spoke with Dr. Ferguson's office Most recent creatinine 1.3 in December 18.8 today, will check CK and start IVF recheck in AM Will hold diuretic (3) Dyspnea Status: Acute Assessment & Plan: Has been progressing over past few months, is able to do grocery shopping (~4 mets) but at times can be short of breath Was to see Dr. Wright today as referred by Dr. Bojorquez during outpatient visit Will consult Dr. Wright while admitted for any further recommendations Qualifiers: Qualified Codes: R06.09 - Other forms of dyspnea (4) Anemia Status: Chronic Assessment & Plan: Again per report from Dr. Ferguson's office normal hemoglobin 9.6 T&S x2U per Ortho's request in prep for OR Qualifiers: Qualified Codes: D64.9 - Anemia, unspecified (5) CAD (coronary artery disease) Status: Chronic Assessment & Plan: Follows with Dr. Bojorquez, consulted- appreciate recs Feature of dyspnea concerning as possible cardiac etiology Defer to Dr. Bojorquez Hold ASA currently Qualifiers: Qualified Codes: I25.10 - Atherosclerotic heart disease of [place] coronary artery without angina pectoris (6) Essential (primary) hypertension Status: Chronic Assessment & Plan: Well controlled, will continue home meds when tolerating PO (7) Hypothyroidism Status: Chronic Assessment & Plan: Continue Synthroid (8) Diabetes mellitus Status: Chronic Assessment & Plan: A1c from December- 12.25 Relatively well controlled for age Will continue Lantus, hold Metformin Will start on SSI A Qualifiers: Qualified Codes: E11.9 - Type 2 diabetes mellitus without complications; Z79.4 - shelter (current) use of insulin TREY MCKNIGHT MD Mar 10, 2017 11:50
[2017-03-10] MEDS: ROSUVASTATIN 5 MG (CRESTOR) TABLET PO SCH (12:03)
--- NOTE | 2017-03-10 13:30 | Anesthesia-General Post-Op ---
General Patient Condition Mental Status/LOC: Same as Preop Cardiovascular: Satisfactory Nausea/Vomiting: Absent Respiratory: Satisfactory Pain: Controlled Complications: Absent Post Op Complications Complications None Follow Up Care/Instructions Patient Instructions None needed. Anesthesia/Patient Condition Patient Condition Patient is doing well, no complaints, stable vital signs, no apparent adverse anesthesia problems. No complications reported per nursing. IRVIN CASTRO CRNA Mar 10, 2017 13:30
--- NOTE | 2017-03-10 13:50 | Physical Therapy Daily Note ---
PT Daily Note-Current Subjective Patient receiving 1st of 2 units of PRBC. Agrees to exercises only. Pain Numeric Pain Scale: 10-Worst Possible Pain Location: Right Location Body Site: Thigh Pain Description: Acute, Sharp Mental Status Patient Orientation: Normal For Age Attachments: Oxygen, Anderson Catheter, IV Transfers Functional [place] Measure 0=Not Assessed/NA 4=Minimal Assistance 1=Total Assistance 5=Supervision or Setup 2=Maximal Assistance 6=Modified [place] 3=Moderate Assistance 7=Complete IndependenceIRFPAI Quality Coding Scale 6 Independent with activity with or without an assistive device 5 Patient requires set up or clean up by helper. Patient completes activity by themselves 4 Supervision or touching assist (CGA). Alfred provide cues , steadying assist 3 The helper provides less than half the effort to complete the activity 2 The helper provides more than half the effort to complete the activity 1 Dependent. The helper does all the effort to complete an activity 7 Patient refused to complete or attempt activity 9 The patient did not perform the activity before the current illness or injury 88 Not attempted due to Medical conditions or safety concerns Exercises Supine Ex: Ankle pumps, Glut sets, Heel Slides, Hip abd/add Supine Reps: 15 (AAROM with limited right knee flexion due to pain) Assessment Patient tolerated treatment well, however is very limited due to pain and receiving blood. Patient is PWB right LE, however, this will be difficult for patient to comply with due to morbid obesity, age and strength. From a PT standpoint, patient will require extended care to attain full recovery. PT Instructor Ground Services Goals [facility] Goals PT [facility] Goals Time Frame: Mar 17, 2017 Transfers (B,C,W/C) (FIM): 4 Gait (FIM): 1 Distance: 10' Gait Level of Assist: 4 PT Plan Treatment/Plan Treatment Plan: Continue Plan of Care Treatment Plan: Bed Mobility, Education, Functional Activity Lalo, Functional Strength, Gait, Safety, Therapeutic Exercise, Transfers Treatment Duration: Mar 17, 2017 Frequency: 11 times per week Estimated Hrs Per Day: .25 hour per day (15-30') Patient and/or Family Agrees t: Yes Discharge Recommendations Therapy D/C Recommendations: Usp (TCU/NH) Time/GCodes Time In: 1331 Time Out: 1341 Total Billed Treatment Time: 10 Total Billed Treatment 1 visit EX 10 min AGUSTÍN PHILLIPS PT Mar 10, 2017 13:50
[2017-03-10] MEDS: ATENOLOL 50 MG (TENORMIN) TAB PO SCH (20:59)
[2017-03-10] MEDS: inSUlin DETERMIR 1 UNIT/0.01 ML (LEVEMIR) CHARGE PER UNIT SQ SCH (20:59)
--- NOTE | 2017-03-10 22:16 | OPERATIVE REPORT ---
DATE OF SERVICE: 03/09/2017 PREOPERATIVE DIAGNOSIS: Right closed, displaced distal shaft femur fracture. POSTOPERATIVE DIAGNOSIS: Right closed, displaced distal shaft femur fracture. PROCEDURE: Open reduction and internal fixation of the right femur. SURGEON: Tyree Garduno MD METAL ROOM DENTAL TECHNICIAN: Fareed DOMINGUEZ, who assisted throughout the procedure and closed the incision. ANESTHESIA: General endotracheal by Fareed Lockhart CRNA ESTIMATED BLOOD LOSS: 375 mL. DRAINS: None. COMPLICATIONS: None. MATERIALS: Synthes 4.5 distal femoral plate. The patient was transported to the recovery room awake and in stable condition. POSTOPERATIVE PLAN: 50% weight bearing right lower extremity. STATEMENT OF MEDICAL NECESSITY: The patient is an 81-year-old female who sustained a right femoral shaft fracture. Radiographs revealed extension to the distal femur into the metaphysis with several butterfly fragments and because of this, it was not felt that she was a candidate for an intramedullary nail. Due to the displaced nature of the fracture, it was recommended the patient undergo operative fixation. PROCEDURE: After risks and benefits of the procedure were discussed and questions were answered and informed consent was signed and placed on the chart. The operative site was confirmed in the preoperative holding area and initialed by the surgeon. The patient was then transported to the operating room and after adequate levels of general endotracheal anesthesia was obtained, a time out was called confirming the operative site. The right lower extremity was then prepped and draped in the usual sterile fashion. An incision was made laterally from the knee joint extending proximally approximately one-third up the lateral thigh. Soft tissues were carefully dissected. Hemostasis was obtained with cautery. The iliotibial band was incised in-line with the incision and the vastus lateralis was elevated off of the femur. The fracture site was identified and anatomically reduced. A Synthes 4.5 distal femoral plate was then placed and the fracture demonstrated multiple butterfly fragments. The fracture site itself was felt to be in anatomic alignment and the plate was then fixed with temporary fixation. A compression screw was placed in the distal fragment and the distal cluster of screw holes were then filled with 5.0 locking screws with excellent purchase obtained. Five cortical screws were then placed proximal to the fracture site, all with excellent purchase. Additional compression screws were placed distally in standard fashion, grabbing the medial and posterior butterfly fragment with excellent purchase obtained. Fluoroscopy in the AP and lateral planes revealed well-reduced fracture with well-placed hardware. Under direct visualization, the fracture was stable to knee range of motion and distress at the fracture site. The wound was then irrigated with pulse lavage. The iliotibial band was closed in a running fashion with #1 Vicryl. Then, 0 Vicryl was used in the deep subcutaneous tissue, 2-0 Vicryl in the superficial subcutaneous tissues, harpal were used on the skin. A soft dressing was applied and the patient was transferred to the recovery room awake and in stable condition. Job ID: [id number] DocumentID: [id number] Dictated Date: 03/09/2017 13:24:22 Cost Estimator Date: 03/10/2017 07:15:10 Dictated By: TYREE GARDUNO MD
[2017-03-11 00:45] VITALS: BP 142/79
[2017-03-11 04:36] VITALS: BP 131/77
[2017-03-11] MEDS: inSUlin ASPART (NovoLOG) 1 UNIT/0.01 ML (CHARGE PER UNIT) SC SCH (05:54)
[2017-03-11] MEDS: LEVOTHYROXINE 88 MCG (LEVOTHORID) TAB PO SCH (05:54)
--- NOTE | 2017-03-11 06:42 | Progress Note-Standard ---
Standard Progress Note Progress Notes/Assess & Plan Date Seen by Provider: Mar 11, 2017 Time Seen by Provider: 06:40 Progress/Assessment & Plan no complaints Vital Signs Date Time Temp Pulse Resp B/P (MAP) Pulse Ox O2 Delivery O2 Flow Rate FiO2 03/10/17 06:13 16 03/10/17 04:00 98.0 67 13 142/70 95 Nasal Cannula 3.00 03/10/17 02:20 93 Nasal Cannula 0.50 03/10/17 00:48 97.7 68 16 141/64 97 Nasal Cannula 3.00 03/09/17 22:35 98 Nasal Cannula 3.00 03/09/17 21:00 16 03/09/17 20:10 97.2 75 20 139/73 99 Nasal Cannula 3.00 03/09/17 18:56 98 Nasal Cannula 3.00 03/09/17 16:05 97.3 69 18 146/74 100 Nasal Cannula 3.00 03/09/17 15:16 60 97 28 03/09/17 15:15 97 Nasal Cannula 2.00 03/09/17 14:45 94.4 65 24 148/67 90 Nasal Cannula 3.00 03/09/17 13:45 97.0 03/09/17 13:45 97.0 03/09/17 12:21 98.2 62 03/09/17 08:00 96.9 60 20 133/60 94 Room Air Laboratory Tests Test 03/09/17 13:40 03/09/17 16:09 03/09/17 21:00 03/10/17 05:13 Range/Units Hemoglobin 9.4 #L 11.5-16.0 G/DL Hematocrit 29 L 35-52 % Glucometer 183 H 233 H 218 H 70-110 MG/DL Test 03/10/17 05:39 Range/Units Hemoglobin 7.9 L 11.5-16.0 G/DL Hematocrit 24 L 35-52 % RLE--dressing intact. Intact DF and PF of toes and ankle. 2 plus DP pulse with brisk cap refill. Sensation intact throughout s/p ORIF R femur anemia--chronic with intra op blood loss--transfuse 2 units PRBC continue Anderson until tomorrow AM mobillize 50% WB RLE IRF eval Final Diagnosis No complaints Vital Signs Date Time Temp Pulse Resp B/P (MAP) Pulse Ox O2 Delivery O2 Flow Rate FiO2 03/11/17 06:22 18 03/11/17 04:36 98.9 69 20 131/77 96 Nasal Cannula 3.00 03/11/17 00:45 98.1 66 18 142/79 96 Nasal Cannula 3.00 03/10/17 21:36 98 Nasal Cannula 3.00 03/10/17 21:00 16 03/10/17 20:50 98.9 75 14 195/81 97 Nasal Cannula 3.00 03/10/17 20:00 Nasal Cannula 3.00 03/10/17 19:09 98 Nasal Cannula 3.00 03/10/17 16:34 99.8 73 14 179/78 93 Nasal Cannula 3.00 03/10/17 14:55 94 Room Air 03/10/17 14:17 98.0 72 16 170/74 03/10/17 14:05 99.4 73 151/64 03/10/17 14:02 99.4 73 151/64 03/10/17 12:00 98.4 68 20 152/68 94 Nasal Cannula 3.00 03/10/17 11:51 98.9 65 157/64 03/10/17 11:35 98.4 68 152/68 03/10/17 11:26 95 Room Air 03/10/17 08:41 95 Room Air 03/10/17 08:00 99.0 70 20 164/69 96 Nasal Cannula 3.00 03/10/17 08:00 94 Nasal Cannula 3.00 Laboratory Tests Test 03/10/17 11:05 03/10/17 12:40 03/10/17 15:59 03/10/17 20:48 Range/Units Glucometer 217 H 230 H 302 H 70-110 MG/DL Lab Scanned Report Transfusion Reaction Form [id number] Test 03/11/17 04:59 Range/Units Glucometer 183 H 70-110 MG/DL RLE--incision clean and dry. No calf tenderness. 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
[2017-03-11] MEDS ORDERED: morphine INJ 4 MG/ML 1 ML (VIAL/SYRINGE) IVP PRN (06:45)
[2017-03-11 08:00] VITALS: BP 161/70
[2017-03-11] MEDS: ENOXAPARIN 40 MG/0.4 ML (LOVENOX) SYR SC SCH (08:40)
--- NOTE | 2017-03-11 09:08 | Cardiology Progress Note ---
Subjective Date Seen by Provider: Mar 11, 2017 Time Seen by Provider: 09:07 Subjective/Events-last exam patient is laying down in bed, feeling better, denied any chest pain or shortness of breath Review of Systems General: No Chills, No Night Sweats, No Fatigue, No Malaise, No Appetite, No Other HEENT: No Head Aches, No Visual Changes, No Eye Pain, No Ear Pain, No Dysphasia , No Sinus Congestion, No Post Nasal Drip, No Sore Throat, No Other Pulmonary: No Dyspnea, No Cough, No Pleuritic Chest Pain, No Other Cardiovascular: No: Chest Pain, Palpitations, Orthopnea, Paroxysmal Noc. Dyspnea, Edema, Lt Headedness, Other Objective-Cardiology Exam Last Set of Vital Signs Vital Signs 03/09/17 03/11/17 15:16 08:00 Temp 98.9 Pulse 71 Resp 16 B/P (MAP) 161/70 Pulse Ox 100 O2 Delivery Nasal Cannula O2 Flow Rate 3.00 FiO2 28 Capillary Refill : Less Than 3 SecondsLess Than 3 Seconds I&O Intake and Output 03/12/17 00:00 Intake Total 300 ml Output Total 675 ml Balance -375 ml Intake Oral 300 ml Output Urine Total 675 ml General: Alert, Oriented X3, Cooperative HEENT: Atraumatic, PERRLA Neck: Supple, No JVD, No Thyromegaly Lungs: Clear to Auscultation, Normal Air Movement Heart: Regular Rate, Normal S1, Normal S2, No Murmurs Abdomen: Normal Bowel Sounds, Soft, No Tenderness, No Hepatosplenomegaly, No Masses Extremities: No Clubbing, No Cyanosis, No Edema, Normal Pulses, No Tenderness/ Swelling Skin: No Rashes, No Breakdown, No Significant Lesion Neuro: Normal Speech, Strength at 5/5 X4 Ext, Cranial Nerves 3-12 NL Psych/Mental Status: Mental Status NL, Mood NL Results Lab Laboratory Tests 03/11/17 07:11 A/P-Cardiology Admission Diagnosis Femur fracture Chest pain nonspecific etiology Coronary artery disease Shortness of breath Assessment/Plan Right femur fracture, s/p ORIF right femur on 03/09/17. Patient slowly recovering. Chest pain nonspecific etiology, no further episodes of chest pain. Continue to monitor. Coronary artery disease, history of cardiac catheterization done in November 2014 stent to the mid LAD using 2.514 mm resolute integrity stent done by Dr. Dontrell Vuong in [facility]. Otherwise she had mild to moderate disease. Most recent stress test and 2-D echocardiogram in March 2016 revealed no ischemia or infarct with normal EF. Continue current medication, continue to monitor Shortness of breath, Dyspnea on exertion, history of COPD, seen and followed by Dr. Wright Cough, secondary to ADRIAN inhibitor, intolerant to ADRIAN inhibitor. Continue to monitor. Chronic renal insufficiency, worsening on losartan, it was discontinued. Continue to monitor electrolytes closely Anemia, better today. Received blood transfusion yesterday. Monitored by primary care physician Severe allergic reaction to IV contrast after the cardiac catheterization. continue to monitor History of TIA, echocardiogram showed normal LV size with moderate LVH, sigmoid shaped septum, EF 60 percent, mild MR, mild TR, PA 25 mmHg. Hypertension, controlled. Continue to monitor BP/HR Hyperlipidemia, last lipid profile available from June 2016 showing total cholesterol 142, HDL 38, triglyceride 204, LDL 63, monitor lipids Obstructive sleep apnea, using C Pap machine, not using it at this time, followed by Dr. Wright Diabetes mellitus, managed and followed by primary care physician. Hypothyroidism, managed and followed by primary care physician. Mild bilateral carotid stenosis nonobstructive disease. Last ultrasound was done in earlier this month, continue to monitor. KIF6 positive. Patient is responsive to statin with improvement in her risk factors after statin administration. BMI 38, patient was educated previously on exercise, currently she will start with physical therapy after her surgery. Clinical Quality Measures DVT/VTE Risk/Contraindication: Risk Factor Score Per Nursin RFS Level Per Nursing on Admit: 4+=Very High CRISS BANUELOS MD Mar 11, 2017 09:08
[2017-03-11] MEDS ORDERED: OXYC-471 PO (10:03)
[2017-03-11] MEDS ORDERED: MORP4CAR IVP (10:03)
[2017-03-11] MEDS ORDERED: ENOX40DI8 SC (10:03)
--- NOTE | 2017-03-11 10:11 | Progress Note-Hospitalist ---
Subjective HPI/CC On Admission Date Seen by Provider: Mar 11, 2017 Time Seen by Provider: 09:40 CC: Fall HPI: Pt is an 81yoCF with a PMH of CAD s/p stent, HTN, DMII who presented to the ER following a fall this morning. She report she awoke and was walking to her kitchen but did not use her flashlight to assist her as she normally does and she ended up slipping on a cucumber and falling. This was around 6am. She was unable to stand up or crawl to call for help. She was on the ground until about 10am when her [facility] arrived to bring her to Dr. Wright's office for a visit. She was then brought to the ER where she was found to have a distal femur fracture. Prior to this she reports she is in relatively good health. She states that she lives in assisted living and can normally walk, do her own grocery shopping, and care for herself. She has recently developed MORTENSEN though. She has a history of CAD and follows with Dr. Bojorquez and was evaluated for this by him and referred to Dr. Wright for further evaluation. She is unsure of the cause of her dyspnea. She is a lifetime nonsmoker. She reports compliance with her medicines. Subjective/Events-last exam Pt reports feeling well. Ready to DC to rehab Objective Exam Vital Signs Vital Sign - Last 12Hours 03/08/17 03/09/17 03/09/17 10:21 14:45 15:16 Temp 97.5 Pulse 86 Resp 18 B/P (MAP) 98/60 Pulse Ox 96 O2 Delivery Room Air O2 Flow Rate 3.00 FiO2 28 Capillary Refill : Less Than 3 SecondsLess Than 3 Seconds General Appearance: No Apparent Distress, WD/WN Respiratory: Lungs Clear, No Respiratory Distress Cardiovascular: Regular Rate, Rhythm, No Murmur Gastrointestinal: Normal Bowel Sounds, Non Tender, Soft Extremity: Non Tender, No Calf Tenderness Neurologic/Psychiatric: Alert, Oriented x3 Results/Procedures Lab Laboratory Tests 03/11/17 07:11 Assessment/Plan Assessment and Plan Assess & Plan/Chief Complaint Hip fracture Diagnosis/Problems Diagnosis/Problems (1) Closed right femoral fracture Status: Acute Assessment & Plan: Management per ortho (primary service) Morphine for pain Plan to DC to IRF today Qualifiers: Qualified Codes: S72.354A - Nondisplaced comminuted fracture of shaft of right femur, initial encounter for closed fracture (2) Acute on chronic renal insufficiency Status: Resolved Assessment & Plan: Improved (3) Dyspnea Status: Acute Assessment & Plan: Will consult Dr. Wright while admitted for any further recommendations New oxygen requirement, will titrate as able Qualifiers: Qualified Codes: R06.09 - Other forms of dyspnea (4) Anemia Status: Chronic Assessment & Plan: Now s/p 4u pRBCS Hgb up over 2g today Qualifiers: Qualified Codes: D64.9 - Anemia, unspecified (5) CAD (coronary artery disease) Status: Chronic Assessment & Plan: Follows with Dr. Bojoqruez, consulted- appreciate recs Qualifiers: Qualified Codes: I25.10 - Atherosclerotic heart disease of [place] coronary artery without angina pectoris (6) Essential (primary) hypertension Status: Chronic Assessment & Plan: Relatively well controlled, will continue home meds (7) Hypothyroidism Status: Chronic Assessment & Plan: Continue Synthroid (8) Diabetes mellitus Status: Chronic Assessment & Plan: A1c from December- .8 Relatively well controlled for age Continue Lantus, hold Metformin Will start on SSI A Qualifiers: Qualified Codes: E11.9 - Type 2 diabetes mellitus without complications; Z79.4 - alf (current) use of insulin (9) Prophylactic measure Assessment & Plan: Lovenox ADA diet Saline NANI Gomes MD Mar 11, 2017 10:11
--- NOTE | 2017-03-12 07:41 | DISCHARGE SUMMARY ---
DATE OF SERVICE: 03/11/2017 DIAGNOSIS: 1. Right closed displaced distal femoral shaft fracture. 2. Chronic anemia with surgical blood loss. 3. Acute on chronic renal insufficiency. 4. Dyspnea. 5. Coronary artery disease. 6. Essential primary hypertension. 7. Hypothyroidism. 8. Diabetes mellitus. PROCEDURES: 1. Right femur open reduction internal fixation. 2. Transfusion of packed red blood cells. HISTORY: The patient is an 81-year-old female who was admitted the day of a fall. She was found to have a displaced right femoral shaft fracture which extended too far distally for an intramedullary colin. Therefore she underwent open reduction internal fixation. In addition she received packed red blood cells. At the time of discharge her hematocrit was 31. It was 22 postoperatively. The wound was clean and dry. She was progressing well in physical therapy. She had no calf tenderness and a negative Homans' sign. DISCHARGE PLAN: Transfer to the inpatient rehabilitation facility for continued physical and occupational therapy. Job ID: [id number] DocumentID: [id number] Dictated Date: 03/11/2017 12:46:27 [employer] Date: 03/12/2017 07:41:31 Dictated By: CRISTÓBAL SOLIS MD
--- NOTE | 2017-03-14 12:35 | Physician Query Clarification ---
PQ-Further Specificity Admission/Discharge Admission Date: Mar 08, 2017 at 12:24 Discharge Date: Mar 11, 2017 at 10:40 The medical record reflects the following clinical scenario: History/Risk Factors: Chronic anemia-Per Dr. Ferguson's office normal Hgb is 9.6 Surgical Blood Loss Clinical Findings: Hgb 7.1 post op, Hematocrit 22 post op Treatment: Transfused 4 units of Packed red blood cells Question: Can you further specify Anemia per the clinical indicators above? Please document below. 1. Acute blood loss anemia from surgical blood loss on top of chronic anemia. 2. Chronic anemia only. 3. Other, with explanation of the clinical findings. 4. Clinically undetermined, no explanation for the clinical findings. PHYSICIAN RESPONSE Can you specify per above: 1 In responding to this query, please exercise your independent professional judgment. The purpose of this communication is to more accurately reflect the complexity of your patients condition. The fact that a question is asked does not imply that any particular answer is desired or expected. Thank you for your timely response to this clarification. Requestors name: Adela Nicolas [facility] Phone # ext [phone] or [phone] THIS PHYSICIAN QUERY FORM IS A PERMANENT PART OF THE MEDICAL RECORD ADELA NICOLAS Mar 14, 2017 12:35 CRISTÓBAL SOLIS MD Mar 15, 2017 10:45
--- NOTE | 2017-03-14 12:48 | Physician Query Clarification ---
PQ-Conflicting Diagnosis Admission/Discharge Admission Date: Mar 08, 2017 at 12:24 Discharge Date: Mar 11, 2017 at 10:40 The medical record reflects the following clinical scenario: History/Risk Factors: Acute renal insufficiency Chronic renal insufficiency with (most recent creatinine of 1.[address] Ferguson's office). Clinical Findings: Creatinine of 1.82 on admission. Treatment: IV fluids at 1,000ml@100mls/hr-.Q10H Question: Do you agree with the impression of the JEY (acute kidney injury). Per consulting physician,Dr. Jayashree Katz's consult " will continue to provide IVF for JEY. Please document a response below. PHYSICIAN RESPONSE Do you agree w/Consulting Dx?: Yes In responding to this query, please exercise your independent professional judgment. The purpose of this communication is to more accurately reflect the complexity of your patients condition. The fact that a question is asked does not imply that any particular answer is desired or expected. Thank you for your timely response to this clarification. Requestors name: Wade Nioclas [facility] Phone # ext [phone] or [phone] THIS PHYSICIAN QUERY FORM IS A PERMANENT PART OF THE MEDICAL RECORD WADE NICOLAS Mar 14, 2017 12:47 CRISTÓBAL SOLIS MD Mar 16, 2017 07:35
[2017-03-25] MEDS ORDERED: LACT20SO2 PO (08:59)
[2017-03-25] MEDS ORDERED: TRAM50TA2 PO (08:59)
[2017-03-25] MEDS ORDERED: DICL100G18 TOP (08:59)
== END 2017-03-11 10:40 | DRG 481 ==
LOC: EDUNIT# 10:21 → ER 10:22 → 4TH 12:24
PROVIDERS: ADMIT Orthopaedic Surgery; ATTEND Orthopaedic Surgery
PROC: 0QS804Z Reposition Right Femoral Shaft with Internal Fixation Device, Open Approach (ICD-10-PCS; principal; 2017-03-09 11:20)
DX: S72.351A Displaced comminuted fracture of shaft of right femur, initial encounter for closed fracture (principal); I27.2 Other secondary pulmonary hypertension; D62 Acute posthemorrhagic anemia; N17.9 Acute kidney failure, unspecified; I12.9 Hypertensive chronic kidney disease with stage 1 through stage 4 chronic kidney disease, or unspecified chronic kidney disease; N18.9 Chronic kidney disease, unspecified; I25.10 Atherosclerotic heart disease of native coronary artery without angina pectoris; E11.319 Type 2 diabetes mellitus with unspecified diabetic retinopathy without macular edema; Z66 Do not resuscitate; R07.9 Chest pain, unspecified; J44.9 Chronic obstructive pulmonary disease, unspecified; G47.33 Obstructive sleep apnea (adult) (pediatric); E03.9 Hypothyroidism, unspecified; E78.5 Hyperlipidemia, unspecified; I08.1 Rheumatic disorders of both mitral and tricuspid valves; E66.9 Obesity, unspecified; I70.0 Atherosclerosis of aorta; H35.30 Unspecified macular degeneration; J30.2 Other seasonal allergic rhinitis; I65.23 Occlusion and stenosis of bilateral carotid arteries; W01.0XXA Fall on same level from slipping, tripping and stumbling without subsequent striking against object, initial encounter; Y92.000 Kitchen of unspecified non-institutional (private) residence as the place of occurrence of the external cause; Z95.5 Presence of coronary angioplasty implant and graft; Z68.38 Body mass index [BMI] 38.0-38.9, adult; Z86.73 Personal history of transient ischemic attack (TIA), and cerebral infarction without residual deficits; Z79.4 Long term (current) use of insulin
CPT/HCPCS: 36415; 51702; 71010; 72170; 73552; 76937; 80053; 81000; 82550; 82962; 85007; 85014; 85018; 85025; 85027; 85610; 85730; 86850; 86900; 86901; 86920; 87081; 93005; 94640; 94664; 94760; 96374

== ENCOUNTER 2017-03-11 10:11 | Inpatient (IN) | payer MEDICARE ==
[~2017-03-11] VITALS: Ht 162.6 cm; Wt 107.0 kg
[~2017-03-11 10:11] MED LIST changes: +AMLO10TA2 PO; +ASPI-808 PO; +ENOX40DI8 SC; +FURO20TA4 PO; +GLIP5TAB13 PO; +HYDR25TA4 PO; +INSU100I10 SC; +LEVO88TA54 PO; +LORA10TA7 PO; +LOSA1TAB70 PO; +METF500T4 PO; +MORP4CAR IVP; +OMEP20TA7 PO; +OXYC-471 PO; +POTA10TA14 PO; +PROP15DR OU; +ROSU5TAB9 PO
--- NOTE | 2017-03-11 11:43 | Physical Therapy Evaluation ---
PT Evaluation-General Medical Diagnosis Admission Date Mar 11, 2017 at 10:41 Medical Diagnosis: right distal femur fracture Onset Date: Mar 08, 2017 Therapy Diagnosis Therapy Diagnosis: generalized weakness/debility Height/Weight Height (Feet): 5 Height (Inches): 4.00 Weight (Pounds): 222 Weight (Ounces): 7.0 Precautions Precautions/Isolations: Standard Precautions Weight Bear Status Weight Bearing Restriction: Partial Weight Bearing Location Restriction: R LE Referral Physician: Ernesto Reason for Referral: Evaluation/Treatment Medical History Pertinent Medical History: CAD, COPD, DM, HTN Additional Medical History slipped on a cucumber on the floor Current History transfer to ARU Reviewed History: Yes Social History Home: Apartment Current Living Status: Alone Entry Into Home: Level Entry Prior/Core FIM Prior Level of Function Functional Hardy Measure 0=Not Assessed/NA 4=Minimal Assistance 1=Total Assistance 5=Supervision or Setup 2=Maximal Assistance 6=Modified Hardy 3=Moderate Assistance 7=Complete Hardy Bed Mobility: 7 Transfers (B,C,W/C) (FIM): 7 Gait: 7 cane short distances PT Evaluation-Current Subjective Patient agrees to PT. Pain Numeric Pain Scale: 8 Location: Right Location Body Site: Thigh Pain Description: Acute Pt/Family Goals return to home Objective Patient Orientation: Normal For Age Problem Solving: Good ROM/Strength ROM Lower Extremities right LE limited due to distal femur fracture left LE WNL Strenght Lower Extremities right knee flexion/extension 2-/5; hip flexion 2-/5; ankle dorsi/plantarflexion 2/5 left knee flexion/extension 3+/5; hip flexion 3/5; ankle dorsi/plantarflexion 3/ 5 Integumentary/Posture Integumentary refer to nursing notes Bowel Incontinence: No Bladder Incontinence: No Posture hip flexed posture Neuromuscular (Tone, Coordination, Reflexes) grossly intact Sensory Vision: Wears Glasses Hearing: Functional Sensation Right Lower Extremit: Intact Sensation Left Lower Extremity: Intact Transfers Functional Hardy Measure 0=Not Assessed/NA 4=Minimal Assistance 1=Total Assistance 5=Supervision or Setup 2=Maximal Assistance 6=Modified Hardy 3=Moderate Assistance 7=Complete IndependenceIRFPAI Quality Coding Scale 6 Independent with activity with or without an assistive device 5 Patient requires set up or clean up by helper. Patient completes activity by themselves 4 Supervision or touching assist (CGA). [place] provide cues , steadying assist 3 The helper provides less than half the effort to complete the activity 2 The helper provides more than half the effort to complete the activity 1 Dependent. The helper does all the effort to complete an activity 7 Patient refused to complete or attempt activity 9 The patient did not perform the activity before the current illness or injury 88 Not attempted due to Medical conditions or safety concerns Transfers (B, C, W/C) (FIM): 2 Scootin Rollin Roll Left to Right (QC): 2 Supine to/from Sit: 2 Sit to/from Stand: 2 bed t/f WC(FIM only if WC use): 2 Sit to Lying (QC): 2 Lying to Sitting/Side of Bed(Q: 2 Sit to Stand (QC): 2 Chair/Uqt-vc-Imiic Xfer(QC): 2 Car Transfer (QC): 2 Patient has difficulty maintaining PWB right LE due to inactivity PLOF and morbid obesity Gait Does the Patient Walk?: No and Walking Goal IS indicated Mode of Locomotion: Walk Anticipated Mode of Locomotion: Walk Gait Assistive Device: FWW Wheelchair Training Does the Pt Use a Wheelchair?: Yes Wheelchair (FIM): 1 Wheelchair Level of Assist: 1 Wheel 50 ft with 2 turns (QC): 1 Wheel 150 ft (QC): 1 Type of Wheelchair: Manual Stairs 1 Step (curb) (QC): 88 4 Steps (QC): 88 12 Steps (QC): 9 If not tested on admit;explain Patient unable to maintain PWB right LE due to weakness and morbid obesity Balance Sitting Static: Normal Sitting Dynamic: Normal Standing Static: Fair Treatment Patient performed sit to stand transfers in parallel bars x 6 sets max assist with patient maintaining stand for 1 minute each. bilateral LE exercises 15 reps x 2 sets AP, LAQ and standing right LE knee flexion/hip flexion (in parallel bars) Assessment/Needs 81 y.o. female, will benefit from skilled PT to address functional strength and mobility to improve current LOF and safely return to either home or care facility at maximum LOF. Rehab Potential: Good PT Senior Care Goals Senior Care Goals PT Senior Care Goals Time Frame: Apr 08, 2017 Transfers (B,C,W/C) (FIM): 6 Sit to Lying (QC): 5 Lying-Sitting on Side/Bed(QC): 5 Sit to Stand (QC): 5 Rollin Roll Left to Right (QC): 5 Chair/Dei-yy-Rldaf Xfer(QC): 5 Car Transfer (QC): 5 Does the Patient Walk: Yes Gait (FIM): 2 Gait distance (FIM): 3=718-91 ft (75') Distance: 75' Walk 10 feet (QC): 5 Walk 10ft-Uneven Surface(QC): 5 Walk 50ft with 2 Turns (QC): 5 Walk 150 ft (QC): 88 Gait Level of Assist: 6 Gait Assistive Device: FWW # of Steps: 1 1 Step (curb) (QC): 4 4 Steps (QC): 88 12 Steps (QC): 88 Stairs Level Of Assist: 5 Picking up an Object (QC): 4 PT Plan Problem List Problem List: Activity Tolerance, Functional Strength, Balance, Gait, Transfer , Bed Mobility, ROM Treatment/Plan Treatment Plan: Continue Plan of Care Treatment Plan: Bed Mobility, Concurrent Therapy, Education, Functional Activity Lalo, Functional Strength, Group Therapy, Gait, Safety, Therapeutic Exercise, Transfers Treatment Duration: Apr 08, 2017 Frequency: At least 5 of 7 days/Wk (IRF) Estimated Hrs Per Day: 1.5 hours per day Patient and/or Family Agrees t: Yes Safety Risks/Education Patient Education: Transfer Techniques, Safety Issues Teaching Recipient: Patient Teaching Methods: Demonstration, Discussion Response to Teaching: Verbalize Understanding, Return Demonstration Discharge Recommendations Therapy D/C Recommendations: Assisted Living, Physical Therapy Home Care, Halfway Placement Equpiment Recommendations-D/C: Front Wheeled Walker Time/GCodes Time In: 1025 Time Out: 1110 Total Billed Treatment Time: 45 Total Billed Treatment 1 visit EVModC 25 min FA 20 min G Codes Necessary: AGUSTÍN Wiggins PT Mar 11, 2017 11:43
--- NOTE | 2017-03-11 12:55 | Occupational Therapy Eval ---
OT Evaluation-General/PLF Medical Diagnosis Admission Date Mar 11, 2017 at 10:41 Medical Diagnosis: right distal femur fracture, anemia, dyspnea Onset Date: Mar 08, 2017 Therapy Diagnosis Therapy Diagnosis: weakness, decr self care, decr funct mob, decr activ tolerance Height/Weight Height (Feet): 5 Height (Inches): 4.00 Weight (Pounds): 222 Weight (Ounces): 7.0 Precautions Precautions/Isolations: Standard Precautions Weight Bear Status Weight Bearing Restriction: Partial Weight Bearing Location Restriction: R LE Referral Physician: Ernesto Referral Reason: Evaluation/Treatment Medical History Pertinent Medical History: CAD, COPD, DM, HTN, Hypothroidism Additional Medical History Aortic sclerosis, sleep apnea, obesity, eye problem affecting macula and vitreous (not macular degeneration, per patient report). Chronic renal insufficiency Current History Slipped on a cucumber slice at home. Was on the floor about 3 hours. ORIF on Social History Home: Apartment ([facility] in [place]) Current Living Status: Alone Entry Into Home: Level Entry ADL-Prior Level of Function ADL PLOF Comments Pt reported that she has been able to manage her basic self care needs at home. She doesn't drive because of her decreased vision and uses a magnifying glass to read. 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 DME/Equipment: Shower, Tub Occupation: retired Drive Self: No OT Current Status Subjective Pt seen inroom, up in w/c, agreeable to OT. Pain reported 0/10 Appearance Alert, cooperative. She tends to close her eyes when talking Mental Status/Objective Patient Orientation: Person, Place, Time, Situation Current Hearing Aids: No Dentures/Partials: No (had a partial but doesn't use it) Hand Dominance: Right Upper Extremity ROM Grossly WFL bilat Upper Extremity Sensation Pt reported no problems Upper Extremity Strength Grossly 4/5 bilat ADL-Treatment ADL-Current Pt's family will bring her clothes. After transfer attempt, discussed transfers with nursing and PT. Sit to stand lift would most likely put too much resistance to R femur, which has WB restriction. She transfers best to her L side. Functional [place] Measure 0=Not Assessed/NA 4=Minimal Assistance 1=Total Assistance 5=Supervision or Setup 2=Maximal Assistance 6=Modified [place] 3=Moderate Assistance 7=Complete IndependenceIRFPAI Quality Coding Scale 6 Independent with activity with or without an assistive device 5 Patient requires set up or clean up by helper. Patient completes activity by themselves 4 Supervision or touching assist (CGA). [place] provide cues , steadying assist 3 The helper provides less than half the effort to complete the activity 2 The helper provides more than half the effort to complete the activity 1 Dependent. The helper does all the effort to complete an activity 7 Patient refused to complete or attempt activity 9 The patient did not perform the activity before the current illness or injury 88 Not attempted due to Medical conditions or safety concerns Eating (FIM): 6 (Pt reported she doesn't have any difficulty opening packages, cutting food, feeding herself. May take extra time) Eating (QC): 6 Transfers (B, C, W/C) (FIM): 1 (Attempted transfer from w/c. Max assist sit to stand with FWW. Able to stand but unable to bear any weight on R LE and pivot to recliner. Two people required. Pt returned to w/c) Pt left up in w/c, per her request. All needs met. Education OT Patient Education: Purpose of tx/functional activities, Rehab process, Safety issues, Transfer techniques, Use of adapted equipment Teaching Recipient: Patient, Family Teaching Methods: Demonstration, Discussion Response to Teaching: Verbalize Understanding, Return Demonstration OT Short Term Goals Short Term Goals Time Frame: Mar 25, 2017 Lower Body Dressing(FIM): 3 Toilet/Commode Transfer(FIM): 3 Shower Transfer(FIM): 3 Additional Short Term Goals: 1-Demonstrate ADL Tasks, 2-Verbalize Understanding , 3-ImproveStrength/Lalo 1=Demonstrate adherence to instructed precautions during ADL tasks. 2=Patient will verbalize/demonstrate understanding of assistive devices/ modifications for ADL. 3=Patient will improve strength/tolerance for activity to enable patient to perform ADL's. OT Mechanical Engineering Lecturer Goals Nursing Home Goals Time Frame: Apr 08, 2017 Eating (FIM): 6 Eating (QC): 6 Groomin Oral Hygiene (QC): 6 Bathing(FIM): 5 Shower/Bathe Self (QC): 4 Upper Body Dressing(FIM): 5 Upper Body Dressing (QC): 5 Lower Body Dressing(FIM): 5 Lower Body Dressing (QC): 4 On/Off Footwear (QC): 5 Toileting(FIM): 5 Toileting Hygiene (QC): 4 Toilet/Commode Transfer(FIM): 5 Toilet/Commode Transfer (QC): 4 Shower Transfer(FIM): 5 Additional Goals: 2-Verbalize Understanding, 3-ImproveStrength/Lalo 1=Demonstrate adherence to instructed precautions during ADL tasks. 2=Patient will verbalize/demonstrate understanding of assistive devices/ modifications for ADL. 3=Patient will improve strength/tolerance for activity to enable patient to perform ADL's. OT Education/Plan Problem List/Assessment Assessment: Decreased Activ Tolerance, Decreased UE Strength, Dependent Transfers, Impaired Funct Balance, Impaired Self-Care Skills Pt would benefit from skilled OT to increase her independence in basic self care to allow her to safely return to her apartment and to decrease caregiver burden. Discharge Recommendations Plan/Recommendations: Continue POC Barriers to Progress decreased activity prior to injury. obesity Treatment Plan/Plan of Care Treatment,Training & Education: Yes Patient would benefit from OT for education, treatment and training to promote independence in ADL's, mobility, safety and/or upper extremity function for ADL' s. Plan of Care: ADL Retraining, Functional Mobility, Group Exercise/Act as Ind ( education, exercise, activ tolerance, funct activities, socialization), UE Funct Exercise/Act, UE Neuromus Re-Ed/Coord Treatment Duration: Apr 08, 2017 Frequency: At least 5 of 7 days/Wk (IRF) Estimated Hrs Per Day: 1.5 hours per day Agreement: Yes Rehab Potential: Fair Time/GCodes Start Time: 11:10 Stop Time: 12:05 Total Time Billed (hr/min): 55 Billed Treatment Time visit, evaluation moderate intensity 30 minutes, ADL 25 minutes JOSE ANGEL ORLANDO OT Mar 11, 2017 12:55
--- NOTE | 2017-03-11 13:00 | ST Cognitive Linguistic Eval ---
Speech Evaluation-General Medical Diagnosis right distal femur fracture Onset Date: Mar 08, 2017 Therapy Diagnosis Therapy Diagnosis: Cognitive Linguistic Skills Grossly WNL Precautions Precautions/Isolations: Standard Precautions Referral Referring Physician: Dr. Loyd Orozco Reason for Referral: Evaluation/Treatment Cognitive Linguistic Evaluation Medical History Pertinent Medical History: CAD, COPD, DM, HTN Reviewed History: Yes Social History Current Living Status: Alone Speech PLF-Current Status Prior Level of Function The patient denied prior challenges with speech, language, or cognition. Subjective The patient was recently admitted to [facility] following a right hip procedure. The patient greeted the clinician appropriately and was agreeable to participation in the cognitive linguistic evaluation. To note, the patient appeared fatigued, requiring intermittent verbal prompts from clinician for alertness. Per patient, she was "a little foggy" after the anesthesia, however, believes she is returning to baseline. Language Eval: Auditory Comprehends Simple Yes/No Ques: Functional Indent/Objects Multiple Gomez: Functional Ident/Pics in Multiple Gomez: Functional Follows 1-Step Commands: Functional Follows Complex Directions: Mild (Repetition and redirection to task was intermittently required. The patient appeared to perseverate on the reasoning for her hospitalization.) Follows General Conversations: Mild Language Eval: Verbal Language Completes Spontaneous Greeting: Functional Produces Auto, Serial Info: Functional Imitates Simple Words/Phrases: Functional Word Finding: Mild Requests Basic Needs: Functional States Basic Personal Info: Functional Expresses Complex Ideas: Functional Language Evaluation: Reading Comprehends Single Nouns: Functional Follows Simple Written Direct: Functional Cognitive Patient Orientation The patient is oriented to month, year, and location. The patient required one verbal prompt from the clinician for adequate identification of day of week and date. Objective Cognitive Domain Attention: WNL Memory: Mild Problem Solving: Mild Objective Impression The patient displayed minimal to mild intermittent confusion and tangential thought throughout the evaluation. The patient associated this tangential thought to her fatigue, which was displayed throughout the assessment. The patient displays cognitive linguistic skills grossly within normal limits for her age. If colleagues experience difficulty with problem solving following rest (an alleviation of her fatigue), speech pathology will re-evaluate. Communication/Social Cognition Comprehension: 5 Expression: 5 Social Interaction: 5 Problem Solvin Memory: 5 Speech Patient Assess Expression of Ideas/Wants: Expression (4) Understanding [place] Content: Usually Understands (3) Brief Interview-Mental Status: Yes Repetition of Three Words: Three (3) Temporal Orientation: Year: Correct (3) Temporal Orientation: Month: Accurate within 5 days(2) Temporal Orientation: Day: Incorrect or No Answer(0) Recall : Wear to say "Sock": No, could not recall (0) Recall : Color: Yes, no cue required (2) Recall : Bed: Yes, no cue required (2) Speech-Plan Treatment Plan Speech Therapy Treatment Plan: Discontinue ST Evaluation, only. Frequency: Modified Program (IRF) Estimated Hrs Per Day: Other Rehab Potential: Good Safety Risks/Education Teaching Recipient: Patient, Family Teaching Methods: Discussion Response to Teaching: Verbalize Understanding Education Topics Provided: Results, Recommendations, Plan of Care Time Speech Therapy Time In: 12:05 Speech Therapy Time Out: 12:20 Total Billed Time: 15 Billed Treatment Time 1, JIGNA ALFARO Mar 11, 2017 13:00
[2017-03-11] MEDS ORDERED: morphine INJ 4 MG/ML 1 ML (VIAL/SYRINGE) IVP PRN (14:03)
[2017-03-11] MEDS ORDERED: RT-ALBUTEROL SULF 2.5 MG/3 ML PRE-MIX VIAL IH PRN (14:03)
[2017-03-11] MEDS ORDERED: ENOXAPARIN 40 MG/0.4 ML (LOVENOX) SYR SC SCH (14:03)
[2017-03-11] MEDS ORDERED: LORATADINE (CLARITIN) 10 MG TAB PO PRN (14:03)
--- NOTE | 2017-03-11 14:43 | PM&R Post Admission Assessment ---
Post Admission Physician Asses The preadmission screen agrees with the post admission assessment that the patient is a good candidate for inpatient rehabilitation. The patient will have a comprehensive program of inpatient rehabilitation with a goal of maximizing level of functional independence prior to discharge home with [facility]. The patient will have PT/OT ninety minutes per day, each discipline , five days a week for 2 weeks for gait, strengthening, conditioning, balance, ADLs, any patient/family/caregiver training as necessary. Speech therapy to do cognitive assessment and treat as indicated. Rehabilitation nursing to assist with bowel, bladder, skin, wound care, medication administration, pain management. Mine Safety Engineer to assist with discharge planning, community reentry. SCD's for DVT prophylaxis. She appears to be well motivated to participate in three hours of therapy a day. She should be able to tolerate three hours of therapy a day from a medical and surgical standpoint. She should benefit from the three hours of therapy a day. She has a reasonable discharge plan, reasonable discharge rehabilitation goals and a supportive family. She has various comorbidities that need to be closely monitored with medications and treatments adjusted on a daily basis as needed. These include: Postop resp insufficiency DM Postop anemia COPD DANIELLE-noncompliant with CPAP Barriers to discharge for this patient who had been independent prior to this are for her to be modified independent to supervision for ADLs and mobility skills prior to discharge home with [facility], so as to lessen the burden of the caregivers. May have to focus on w/c level of function due to limited WB Status RLE Risks for this patient include: 1. Fall 2. Fracture 3. DVT 4. Pulmonary embolism 5. Wound infection 6. Skin breakdown 7. Contractures 8. Poorly controlled pain 9. Urinary retention 10. UTI 11. Respiratory infection 12. Aspiration 13. Exacerbation of COPD 14, Poorly controlled DM Estimated Length of Stay: 14days Prognosis: Rehab prognosis appears good for goal of discharge home with [facility] modified independent to supervision for ADLs and mobility skills at the W/C level of function.. BETTY IGNACIO MD Mar 11, 2017 14:43
--- NOTE | 2017-03-11 14:52 | Therapy Group Daily Note ---
Therapy Daily Group Note Patient Education Topic Fall Prevention, Other List Below Exercises LE Seated Exercise, Other Other/Notes Pt was an active participant in OT/PT group. She introduced herself and talked about the first car that she drove. She contributed to education/discussion on ARU/rehab process and fall prevention, identifying ways to help prevent future falls. She also did seated UE and LE exercises, modifying them as needed for her impairment. She was brought to group and returned to her room per w/c, O2 in place throughout. She transferred to bed with max assist stand pivot transfer and was left up in bed, all needs met. Start Time: 13:00 Stop Time: 14:20 Total Billed Treatment Time: 80 Total Billed Treatment visit, group 80 minutes JOSE ANGEL ORLANDO OT Mar 11, 2017 14:52
[2017-03-11] MEDS: oxyCODONE/APAP 5/325MG (PERCOCET 5) TABLET PO PRN (16:05)
[2017-03-11] MEDS: inSUlin ASPART (NovoLOG) 1 UNIT/0.01 ML (CHARGE PER UNIT) SC SCH ×2 (16:09→22:14)
--- NOTE | 2017-03-11 18:17 | HISTORY AND PHYSICAL ---
DATE OF SERVICE: 03/11/2017 CHIEF COMPLAINT: Difficulty with walking. HISTORY OF PRESENT ILLNESS: The patient is an 81-year-old female who had been independent living on her own half-way apartment in [place], [place] who tripped over a cucumber in her kitchen and sustained a right femoral shaft fracture with intraarticular extension closed and displaced. The patient was admitted to the service of Dr. Garduno, orthopedist and underwent ORIF of the right femur. She was made partial weight bearing right lower extremity. Postoperatively she was followed by hospitalist service in lieu of PCP Dr. Ferguson. The patient had respiratory insufficiency postoperatively and is currently on O2. Her Accu-Cheks were monitored. Her home insulin was adjusted accordingly. She requires assistance for ADLs and mobility skills at this point and is referred to inpatient rehabilitation unit for comprehensive program of inpatient orthopedic rehabilitation. She has a friend that lives nearby in her half-way complex. She has a sister that lives in [place], [place]. 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 PAST SURGICAL HISTORY: As per above. She does have history of COPD and DANIELLE as well and she is not compliant with CPAP therapy. CBC on 03/11 shows hemoglobin 10.3, hematocrit 31, platelet 219,000. Chemistry on 03/09 shows serum sodium 134, CO2 19, BUN 53, creatinine 1.65. Blood glucose 128, glucometer reading 269, calcium 8.2. Total protein 6.0. UA was negative on 03/08. ALLERGIES: LISINOPRIL. FAMILY HISTORY: Noncontributory. SOCIAL HISTORY: Single, retired and as per above. REVIEW OF SYSTEMS: A 10-point review of systems significant for leg pain, some shortness of breath. MEDICATIONS: Atenolol 50 mg p.o. q. bedtime, Synthroid 88 mcg p.o. q. day, Claritin 10 mg p.o. q. day p.r.n. allergies, Refresh Plus eye drops one drop as needed p.r.n. dry eyes, Crestor 5 mg p.o. q. day, Levemir insulin 6 units subcu q. bedtime, Protonix 20 mg p.o. q. day p.r.n. heartburn, sliding scale insulin regimen A, Percocet 5/325 1-2 tablets p.o. q. 4 hours p.r.n. moderate pain, Tylenol 650 mg p.o. q. 4 hours p.r.n. mild pain, Lovenox 40 mg subcu q. day for DVT prophylaxis, Proventil q. 6 hours p.r.n. wheezing, Advair 2 puffs b.i.d. PHYSICAL EXAMINATION: GENERAL: Significant for a pleasant female appearing her stated age. Alert and oriented in no acute distress. VITAL SIGNS: Within normal limits. She is afebrile. HEENT: Vision, speech and hearing grossly intact. No oral lesion is noted. NECK: Supple without mass. HEART: Regular rhythm. LUNGS: Clear. ABDOMEN: Soft, nontender. Bowel sounds present. EXTREMITIES: Trace edema. Right ankle incision healing well with dressing in place. MUSCULOSKELETAL: The patient has functional passive range of motion bilateral upper extremities and left lower extremity. NEUROLOGIC: Cognition intact. Speech therapy has seen and signed off. Sensation is grossly intact to touch. Strength left knee flexion and extension 3+/5, hip flexion 3/5, ankle dorsi and plantar flexion 3/5, right knee flexion and extension 2-/5, hip flexion 2-/5, ankle dorsi and plantar flexion 2/5. She has functional strength both upper extremities. She is currently max assist for transfers, bed mobility and has difficulty maintaining partial weight bearing right lower extremity with ambulation short distances with front wheeled walker. She is set up for eating and grooming, max assist for lower body dressing, mod assist for upper body dressing, min assist for grooming, mod assist for bathing. IMPRESSION: 1. Ambulatory dysfunction status post fall with resulting distal right femoral shaft fracture with intraarticular extension, closed and displaced, status post open reduction internal fixation of the right femur, Dr. Garduno, partial weightbearing right lower extremity. 2. Diabetes mellitus controlled with medication. 3. Postoperative anemia. 4. Chronic obstructive pulmonary disease. 5. Coronary artery disease stable. 6. Obesity. 7. Obstructive sleep apnea noncompliant with CPAP. 8. Hypertension, controlled with medication. 9. Postoperative respiratory insufficiency on O2 by nasal cannula. PLAN: The patient will have comprehensive program of inpatient rehabilitation with goal of maximizing level of functional independence prior to discharge back to her independent senior apartment. The patient will have PT and OT 90 minutes per day each discipline 5 days a week for 2 weeks for gait strengthening, conditioning, balance, ADLs, any patient and family caregiver training necessary, adaptive equipment training necessary. Will focus on wheelchair level of function, most likely due to her limited weight bearing status right lower extremity, limited tolerance for maintaining that weight bearing status. Speech therapy to do cognitive assessment and treat as indicated. They have done already and signed off. Rehabilitation nursing to assist with bowel, bladder, skin care, medication administration, pain management, wound care. human services supervisor for discharge planning and community reentry. Follow up with Hospitalist service and Dr. Garduno as per their schedule. Continue current medications. Therapy with cardiac and fall precautions. Respiratory therapy to follow up with O2 administration and weaning as able. Monitoring O2 sats. Monitor Accu-Cheks and adjust medications as necessary. Estimated length of stay: 2 weeks. PROGNOSIS: Rehab prognosis appears good for goal of discharging to home with home health care, hopefully modified independent supervision at the wheelchair level of function for ADLs and mobility skills. DIET: Carb consistent. CODE STATUS: Full code. Job ID: [id number] DocumentID: [id number] Dictated Date: 03/11/2017 14:33:55 Child Adolescent Psychiatrist Date: 03/11/2017 15:19:11 Dictated By: BETTY IGNACIO MD [facility]
[2017-03-11] MEDS: RT-ADVAIR HFA 115/21 MCG PER PUFF IH SCH (19:05)
[2017-03-11 20:00] VITALS: BP 131/67
[2017-03-11] MEDS: inSUlin DETERMIR 1 UNIT/0.01 ML (LEVEMIR) CHARGE PER UNIT SQ SCH (22:13)
[2017-03-11] MEDS: ATENOLOL 50 MG (TENORMIN) TAB PO SCH (22:13)
[2017-03-12 05:00] VITALS: BP 144/64
[2017-03-12] MEDS: inSUlin ASPART (NovoLOG) 1 UNIT/0.01 ML (CHARGE PER UNIT) SC SCH ×4 (06:01→20:31)
[2017-03-12] MEDS: LEVOTHYROXINE 88 MCG (LEVOTHORID) TAB PO SCH (06:23)
[2017-03-12] MEDS: oxyCODONE/APAP 5/325MG (PERCOCET 5) TABLET PO PRN ×2 (06:24→20:31)
[2017-03-12] MEDS: ENOXAPARIN 40 MG/0.4 ML (LOVENOX) SYR SC SCH (08:11)
--- NOTE | 2017-03-12 09:06 | Progress Note-Standard ---
Standard Progress Note Progress Notes/Assess & Plan Date Seen by Provider: Mar 12, 2017 Time Seen by Provider: 09:06 Progress/Assessment & Plan No complaints RLE dressing in place no calf tenderness. Neg Polo's s/p ORIF R femur PT/OT CRISTÓBAL SOLIS MD Mar 12, 2017 09:06
--- NOTE | 2017-03-12 09:41 | Occupational Ther Daily Note ---
OT Current Status-Daily Note Subjective No pain reported. Appearance Pt. in bed. Agrees to work with OT. Mental Status/Objective Patient Orientation: Person, Place Functional [place] Measure 0=Not Assessed/NA 4=Minimal Assistance 1=Total Assistance 5=Supervision or Setup 2=Maximal Assistance 6=Modified [place] 3=Moderate Assistance 7=Complete [place] Attachments: Oxygen ADL-Treatment Functional [place] Measure 0=Not Assessed/NA 4=Minimal Assistance 1=Total Assistance 5=Supervision or Setup 2=Maximal Assistance 6=Modified [place] 3=Moderate Assistance 7=Complete IndependenceIRFPAI Quality Coding Scale 6 Independent with activity with or without an assistive device 5 Patient requires set up or clean up by helper. Patient completes activity by themselves 4 Supervision or touching assist (CGA). [place] provide cues , steadying assist 3 The helper provides less than half the effort to complete the activity 2 The helper provides more than half the effort to complete the activity 1 Dependent. The helper does all the effort to complete an activity 7 Patient refused to complete or attempt activity 9 The patient did not perform the activity before the current illness or injury 88 Not attempted due to Medical conditions or safety concerns Bathing (FIM): 3 (Pt. requires assistance to wash [place] areas and bilateral LE. Able to wash torso and UE.) Shower/Bathe Self (QC): 3 Upper Body (FIM): 3 (Pt. unable to don her own bra. Demonstrated difficulty doing this. States she doesn't know how to do it without standing. ) Upper Body Dressing (QC): 3 Lower Body Dressing (FIM): 2 (Pt. requires max assist to don underwear, socks, and pants.) Lower Body Dressing (QC): 2 On/Off Footwear (QC): 2 Toileting (FIM): 2 (Max assist for clothing and to wipe self standing.) Toileting Hygiene (QC): 2 Transfers (B, C, W/C) (FIM): 2 (Max assist supine-sit and max sit-stand with walker.) Toilet/Commode Transfer (FIM): 1 (Max x 2 to pivot to commode.) Toilet Transfer (QC): 1 Other Treatment Pt. agrees to spongebathe on side of bed. After bath, requests to use the BSC. Demonstrates difficulty standing and pivoting to commode, maintaining PWB status. Stands, and then requires assist to pivot around to commode. Education OT Patient Education: Correct positioning, Modified ADL techniques, Progress toward Goal/Update tx plan, Purpose of tx/functional activities, Reviewed precautions, Rehab process, Transfer techniques Teaching Recipient: Patient Teaching Methods: Demonstration, Discussion Response to Teaching: Verbalize Understanding, Return Demonstration OT Short Term Goals Short Term Goals Time Frame: Mar 25, 2017 Lower Body Dressing(FIM): 3 Toilet/Commode Transfer(FIM): 3 Shower Transfer(FIM): 3 Additional Short Term Goals: 1-Demonstrate ADL Tasks, 2-Verbalize Understanding , 3-ImproveStrength/Lalo 1=Demonstrate adherence to instructed precautions during ADL tasks. 2=Patient will verbalize/demonstrate understanding of assistive devices/ modifications for ADL. 3=Patient will improve strength/tolerance for activity to enable patient to perform ADL's. OT Oil Burner Goals Oil Burner Goals Time Frame: Apr 08, 2017 Eating (FIM): 6 Eating (QC): 6 Groomin Oral Hygiene (QC): 6 Bathing(FIM): 5 Shower/Bathe Self (QC): 4 Upper Body Dressing(FIM): 5 Upper Body Dressing (QC): 5 Lower Body Dressing(FIM): 5 Lower Body Dressing (QC): 4 On/Off Footwear (QC): 5 Toileting(FIM): 5 Toileting Hygiene (QC): 4 Toilet/Commode Transfer(FIM): 5 Toilet/Commode Transfer (QC): 4 Shower Transfer(FIM): 5 Additional Goals: 2-Verbalize Understanding, 3-ImproveStrength/Lalo 1=Demonstrate adherence to instructed precautions during ADL tasks. 2=Patient will verbalize/demonstrate understanding of assistive devices/ modifications for ADL. 3=Patient will improve strength/tolerance for activity to enable patient to perform ADL's. OT Education/Plan Problem List/Assessment Assessment: Decreased Activ Tolerance, Decreased UE Strength, Dependent Transfers, Impaired Bed Mobility, Impaired Funct Balance, Impaired I ADL's, Impaired Self-Care Skills Pt would benefit from skilled OT to increase her independence in basic self care to allow her to safely return to her apartment and to decrease caregiver burden. Discharge Recommendations Plan/Recommendations: Continue POC Therapy D/C Recommendations: 24 hr Supervision Treatment Plan/Plan of Care Treatment,Training & Education: Yes Patient would benefit from OT for education, treatment and training to promote independence in ADL's, mobility, safety and/or upper extremity function for ADL' s. Plan of Care: ADL Retraining, Functional Mobility, Group Exercise/Act as Ind ( education, exercise, activ tolerance, funct activities, socialization), UE Funct Exercise/Act, UE Neuromus Re-Ed/Coord Treatment Duration: Apr 08, 2017 Frequency: At least 5 of 7 days/Wk (IRF) Estimated Hrs Per Day: 1.5 hours per day Agreement: Yes Rehab Potential: Fair Time/GCodes Start Time: 07:50 Stop Time: 08:30 Total Time Billed (hr/min): 40 Billed Treatment Time 1, ADL x 3 TRISTAN SHAFER OT Mar 12, 2017 09:41
[2017-03-12] MEDS: RT-ADVAIR HFA 115/21 MCG PER PUFF IH SCH ×3 (10:11→19:31)
--- NOTE | 2017-03-12 10:30 | Physical Therapy Daily Note ---
PT Daily Note-Current Subjective Pt. in bed, groggy, agrees to Rx. Explains that she has had falls previously as well as some back problems that cause her to stoop Pain Numeric Pain Scale: 4 Location: Right Location Body Site: Thigh Pain Description: Ache Transfers Functional [place] Measure 0=Not Assessed/NA 4=Minimal Assistance 1=Total Assistance 5=Supervision or Setup 2=Maximal Assistance 6=Modified [place] 3=Moderate Assistance 7=Complete IndependenceIRFPAI Quality Coding Scale 6 Independent with activity with or without an assistive device 5 Patient requires set up or clean up by helper. Patient completes activity by themselves 4 Supervision or touching assist (CGA). [place] provide cues , steadying assist 3 The helper provides less than half the effort to complete the activity 2 The helper provides more than half the effort to complete the activity 1 Dependent. The helper does all the effort to complete an activity 7 Patient refused to complete or attempt activity 9 The patient did not perform the activity before the current illness or injury 88 Not attempted due to Medical conditions or safety concerns Transfers (B, C, W/C) (FIM): 2 Scootin Rollin Supine to/from Sit: 3 Sit to/from Stand: 2 Weight Bearing Weight Bearing Restriction: Partial Weight Bearing Location Restriction: R LE Gait Training Does the Patient Walk?: No and Walking Goal IS indicated Gait (FIM): 1 Distance (FIM): 1=up to 49 ft (3-4 scooting ) Gait Level of Assist: 3 Gait Persons Needed: 1 Gait Assistive Device: FWW pt. with difficulty standing erect, shorter walker was obtained in hopes pt. can get better leverage. Pt. has great difficulty taking a step and realizing PWB etc Exercises Supine Ex: Ankle pumps, Quad Set, Rolling, Glut sets, Heel Slides, Short Arc Quads, Scooting, Straight leg raise, Hip abd/add Supine Reps: 12 (assist for all) Seated Therapy Exercises: Ankle pumps, Long arc quads Seated Reps: 10 Assessment Current Status: Fair Progress lethargic, dependent for all PT Law Instructor Goals Fdc Goals PT Law Instructor Goals Time Frame: Apr 08, 2017 Transfers (B,C,W/C) (FIM): 6 Sit to Lying (QC): 5 Lying-Sitting on Side/Bed(QC): 5 Sit to Stand (QC): 5 Rollin Roll Left to Right (QC): 5 Chair/Psu-xc-Bljea Xfer(QC): 5 Car Transfer (QC): 5 Does the Patient Walk: Yes Gait (FIM): 2 Gait distance (FIM): 7=672-66 ft (75') Distance: 75' Walk 10 feet (QC): 5 Walk 10ft-Uneven Surface(QC): 5 Walk 50ft with 2 Turns (QC): 5 Walk 150 ft (QC): 88 Gait Level of Assist: 6 Gait Assistive Device: FWW # of Steps: 1 1 Step (curb) (QC): 4 4 Steps (QC): 88 12 Steps (QC): 88 Stairs Level Of Assist: 5 Picking up an Object (QC): 4 PT Plan Treatment/Plan Treatment Plan: Continue Plan of Care Treatment Plan: Bed Mobility, Concurrent Therapy, Education, Functional Activity Lalo, Functional Strength, Group Therapy, Gait, Safety, Therapeutic Exercise, Transfers Treatment Duration: Apr 08, 2017 Frequency: At least 5 of 7 days/Wk (IRF) Estimated Hrs Per Day: 1.5 hours per day Patient and/or Family Agrees t: Yes Safety Risks/Education Patient Education: Gait Training, Transfer Techniques, Correct Positioning, Safety Issues Teaching Recipient: Patient Teaching Methods: Demonstration, Discussion Response to Teaching: Verbalize Understanding, Return Demonstration, Reinforcement Needed Time/GCodes Time In: 910 Time Out: 950 Total Billed Treatment Time: 40 Total Billed Treatment 1,FA25m,EX15m G Codes Necessary: AMANDA Singletary PBX TEACHER Mar 12, 2017 10:30
[2017-03-12] MEDS: FUROSEMIDE 20 MG (LASIX) TAB PO SCH (12:19)
[2017-03-12] MEDS: ROSUVASTATIN 5 MG (CRESTOR) TABLET PO SCH (12:19)
[2017-03-12] MEDS: ARTIFICAL TEARS 0.4 ML UNIT DOSE (REFRESH PLUS) OU PRN (12:20)
[2017-03-12] MEDS: glipiZIDE 5 MG (GLUCOTROL) TAB PO SCH (16:46)
[2017-03-12 17:41] VITALS: BP 143/64
[2017-03-12] MEDS: metFORMIN 500 MG (GLUCOPHAGE) TAB PO SCH (17:41)
[2017-03-12] MEDS: LACTULOSE SYRUP 10GM/15ML (ENULOSE) 30ML UDC PO SCH (20:30)
[2017-03-12] MEDS: ATENOLOL 50 MG (TENORMIN) TAB PO SCH (20:31)
[2017-03-12] MEDS: inSUlin DETERMIR 1 UNIT/0.01 ML (LEVEMIR) CHARGE PER UNIT SQ SCH (20:32)
[2017-03-13 05:49] VITALS: BP 147/70
[2017-03-13] MEDS: glipiZIDE 5 MG (GLUCOTROL) TAB PO SCH ×2 (05:54→15:20)
[2017-03-13] MEDS: metFORMIN 500 MG (GLUCOPHAGE) TAB PO SCH ×2 (05:54→16:14)
[2017-03-13] MEDS: inSUlin ASPART (NovoLOG) 1 UNIT/0.01 ML (CHARGE PER UNIT) SC SCH ×4 (05:54→20:43)
[2017-03-13] MEDS: LEVOTHYROXINE 88 MCG (LEVOTHORID) TAB PO SCH (05:54)
[2017-03-13] MEDS: oxyCODONE/APAP 5/325MG (PERCOCET 5) TABLET PO PRN ×3 (07:22→20:44)
[2017-03-13] MEDS: RT-ADVAIR HFA 115/21 MCG PER PUFF IH SCH ×2 (08:00→20:00)
[2017-03-13] MEDS: ENOXAPARIN 40 MG/0.4 ML (LOVENOX) SYR SC SCH (08:41)
[2017-03-13] MEDS: LACTULOSE SYRUP 10GM/15ML (ENULOSE) 30ML UDC PO SCH ×2 (08:43→20:42)
[2017-03-13] MEDS: FUROSEMIDE 20 MG (LASIX) TAB PO SCH (11:06)
[2017-03-13] MEDS: ROSUVASTATIN 5 MG (CRESTOR) TABLET PO SCH (11:06)
[2017-03-13] MEDS: ARTIFICAL TEARS 0.4 ML UNIT DOSE (REFRESH PLUS) OU PRN ×2 (11:07→15:20)
[2017-03-13 17:49] VITALS: BP 133/74
[2017-03-13] MEDS: ATENOLOL 50 MG (TENORMIN) TAB PO SCH (20:42)
[2017-03-13] MEDS: inSUlin DETERMIR 1 UNIT/0.01 ML (LEVEMIR) CHARGE PER UNIT SQ SCH (20:43)
[2017-03-14] MEDS: oxyCODONE/APAP 5/325MG (PERCOCET 5) TABLET PO PRN ×2 (04:58→15:44)
[2017-03-14] MEDS: inSUlin ASPART (NovoLOG) 1 UNIT/0.01 ML (CHARGE PER UNIT) SC SCH ×4 (05:02→21:13)
[2017-03-14 05:34] VITALS: BP 148/72
[2017-03-14] MEDS: metFORMIN 500 MG (GLUCOPHAGE) TAB PO SCH ×2 (06:20→16:02)
[2017-03-14] MEDS: LEVOTHYROXINE 88 MCG (LEVOTHORID) TAB PO SCH (06:20)
[2017-03-14] MEDS: PANTOPRAZOLE 20 MG TABLET (PROTONIX) PO PRN (06:20)
[2017-03-14] MEDS: glipiZIDE 5 MG (GLUCOTROL) TAB PO SCH ×2 (06:20→15:52)
--- NOTE | 2017-03-14 07:40 | Progress Note-Standard ---
Standard Progress Note Progress Notes/Assess & Plan Date Seen by Provider: Mar 14, 2017 Time Seen by Provider: 07:40 Progress/Assessment & Plan No complaints RLE dressing in place no calf tenderness. Neg Polo's s/p ORIF R femur PT/OT Final Diagnosis No complaints In chair RLE--dressing intact. No calf tenderness. Neg Polo's s/p ORIF R femur continue rehab CRISTÓBAL SOLIS MD Mar 14, 2017 07:40
[2017-03-14] MEDS: ENOXAPARIN 40 MG/0.4 ML (LOVENOX) SYR SC SCH (08:49)
[2017-03-14] MEDS: RT-ADVAIR HFA 115/21 MCG PER PUFF IH SCH ×3 (08:51→20:30)
[2017-03-14] MEDS: LACTULOSE SYRUP 10GM/15ML (ENULOSE) 30ML UDC PO SCH ×2 (08:51→21:15)
[2017-03-14 09:42] VITALS: BP 88/58
[2017-03-14 09:50] VITALS: BP 111/64
--- NOTE | 2017-03-14 09:52 | Physical Therapy Daily Note ---
PT Daily Note-Current Subjective Pt reports she feels groggy. Wonders if it is related to pain meds. Post treatment, reports she feels tired. Mental Status Patient Orientation: Person, Confused (slight in relation to problem solving or awareness), Place, Time, Situation Transfers Functional [place] Measure 0=Not Assessed/NA 4=Minimal Assistance 1=Total Assistance 5=Supervision or Setup 2=Maximal Assistance 6=Modified [place] 3=Moderate Assistance 7=Complete IndependenceIRFPAI Quality Coding Scale 6 Independent with activity with or without an assistive device 5 Patient requires set up or clean up by helper. Patient completes activity by themselves 4 Supervision or touching assist (CGA). [place] provide cues , steadying assist 3 The helper provides less than half the effort to complete the activity 2 The helper provides more than half the effort to complete the activity 1 Dependent. The helper does all the effort to complete an activity 7 Patient refused to complete or attempt activity 9 The patient did not perform the activity before the current illness or injury 88 Not attempted due to Medical conditions or safety concerns Sit to stand from recliner with mod of 2 assist. Stood a few minutes and then performed sPT with FWW with skilled cues for PWB status right and min assist to transfer. Slow with transfer using FWW and min assist at the gait belt and skilled cues for sequencing. Pt in wheelchair to the gym. Sit to lining closer // bars x 4 with mod assist to stand. Attempted to walk in the // bars but unable to PWB througth the right to advance the left foot. Pt able to stand with CG- SBA in // bars. Exercises Seated Therapy Exercises: Ankle pumps, Long arc quads, Hip flexion Seated Reps: 10 (2 reps; to increase LE strength for functional transfers and gait progression. ) Assessment Current Status: Fair Progress Able to slide feet for SPT transfer but unable to take steps in the // bars. In standing able to to PWB but unsure she will maintain precaution if she takes a step. She is aware of her PWB status and attempts to maintain. PT Senior Care Goals Senior Care Goals PT Senior Care Goals Time Frame: Apr 08, 2017 Transfers (B,C,W/C) (FIM): 6 Sit to Lying (QC): 5 Lying-Sitting on Side/Bed(QC): 5 Sit to Stand (QC): 5 Rollin Roll Left to Right (QC): 5 Chair/Orn-pb-Attmn Xfer(QC): 5 Car Transfer (QC): 5 Does the Patient Walk: Yes Gait (FIM): 2 Gait distance (FIM): 1=512-69 ft (75') Distance: 75' Walk 10 feet (QC): 5 Walk 10ft-Uneven Surface(QC): 5 Walk 50ft with 2 Turns (QC): 5 Walk 150 ft (QC): 88 Gait Level of Assist: 6 Gait Assistive Device: FWW # of Steps: 1 1 Step (curb) (QC): 4 4 Steps (QC): 88 12 Steps (QC): 88 Stairs Level Of Assist: 5 Picking up an Object (QC): 4 PT Plan Problem List Problem List: Activity Tolerance, Functional Strength, Safety, Balance, Gait, Transfer, Bed Mobility Treatment/Plan Treatment Plan: Continue Plan of Care Treatment Plan: Bed Mobility, Concurrent Therapy, Education, Functional Activity Lalo, Functional Strength, Group Therapy, Gait, Safety, Therapeutic Exercise, Transfers Treatment Duration: Apr 08, 2017 Frequency: At least 5 of 7 days/Wk (IRF) Estimated Hrs Per Day: 1.5 hours per day Patient and/or Family Agrees t: Yes Safety Risks/Education Patient Education: Reviewed Precautions, Safety Issues Teaching Recipient: Patient Teaching Methods: Demonstration, Discussion Response to Teaching: Verbalize Understanding, Reinforcement Needed Time/GCodes Time In: 830 Time Out: 933 Total Billed Treatment Time: 63 Total Billed Treatment visit FA 45 EX 18 MARYLIN DIXON PT Mar 14, 2017 09:52
--- NOTE | 2017-03-14 11:25 | Occupational Ther Daily Note ---
OT Current Status-Daily Note Subjective Pt sitting up in chair. Agrees to therapy. C/o dizziness, BP 88/55. Nrsg aware. Mental Status/Objective Patient Orientation: Person, Place, Time, Situation Functional [place] Measure 0=Not Assessed/NA 4=Minimal Assistance 1=Total Assistance 5=Supervision or Setup 2=Maximal Assistance 6=Modified [place] 3=Moderate Assistance 7=Complete [place] Attachments: IV ADL-Treatment Functional [place] Measure 0=Not Assessed/NA 4=Minimal Assistance 1=Total Assistance 5=Supervision or Setup 2=Maximal Assistance 6=Modified [place] 3=Moderate Assistance 7=Complete IndependenceIRFPAI Quality Coding Scale 6 Independent with activity with or without an assistive device 5 Patient requires set up or clean up by helper. Patient completes activity by themselves 4 Supervision or touching assist (CGA). [place] provide cues , steadying assist 3 The helper provides less than half the effort to complete the activity 2 The helper provides more than half the effort to complete the activity 1 Dependent. The helper does all the effort to complete an activity 7 Patient refused to complete or attempt activity 9 The patient did not perform the activity before the current illness or injury 88 Not attempted due to Medical conditions or safety concerns Bathing (FIM): 4 (After set up, pt able to complete bathing while seated. Assistance to dry feet. Using LH sponge, shower bench, grab bars, and handheld shower. ) Bathing Location: L Arm, R Arm, L Upper Leg, R Upper Leg, Chest, Abdomen, Buttocks, Perineal Area Shower/Bathe Self (QC): 3 Upper Body (FIM): 4 (Assistance to don bra, pt able to clasp by self. Dons shirt by self while seated. ) Upper Body Dressing (QC): 3 Lower Body Dressing (FIM): 2 (Pt donned L foot into underwear then assistance for R foot. Assistance to don underwear and pants. Max A x2 to stand and pull pants over hips. Assistance to don/doff socks. ) Lower Body Dressing (QC): 2 On/Off Footwear (QC): 2 (Assistance to don and doff socks. ) Transfers (B, C, W/C) (FIM): 2 (Max A for sit to stand, stand pivot transfer. Max A EOB to supine. ) Shower Transfer(FIM): 2 (Max A stand pivot in/out of shower using w/c, grab bars, and shower bench. ) Extended time needed for transfers. After therapy, pt lying in bed with phone and call light in reach. All needs met in room. OT Short Term Goals Short Term Goals Time Frame: Mar 25, 2017 Lower Body Dressing(FIM): 3 Toilet/Commode Transfer(FIM): 3 Shower Transfer(FIM): 3 Additional Short Term Goals: 1-Demonstrate ADL Tasks, 2-Verbalize Understanding , 3-ImproveStrength/Lalo 1=Demonstrate adherence to instructed precautions during ADL tasks. 2=Patient will verbalize/demonstrate understanding of assistive devices/ modifications for ADL. 3=Patient will improve strength/tolerance for activity to enable patient to perform ADL's. OT Setter Induction Heating Equipment Goals Setter Induction Heating Equipment Goals Time Frame: Apr 08, 2017 Eating (FIM): 6 Eating (QC): 6 Groomin Oral Hygiene (QC): 6 Bathing(FIM): 5 Shower/Bathe Self (QC): 4 Upper Body Dressing(FIM): 5 Upper Body Dressing (QC): 5 Lower Body Dressing(FIM): 5 Lower Body Dressing (QC): 4 On/Off Footwear (QC): 5 Toileting(FIM): 5 Toileting Hygiene (QC): 4 Toilet/Commode Transfer(FIM): 5 Toilet/Commode Transfer (QC): 4 Shower Transfer(FIM): 5 Additional Goals: 2-Verbalize Understanding, 3-ImproveStrength/Lalo 1=Demonstrate adherence to instructed precautions during ADL tasks. 2=Patient will verbalize/demonstrate understanding of assistive devices/ modifications for ADL. 3=Patient will improve strength/tolerance for activity to enable patient to perform ADL's. OT Education/Plan Problem List/Assessment Pt would benefit from skilled OT to increase her independence in basic self care to allow her to safely return to her apartment and to decrease caregiver burden. Discharge Recommendations Plan/Recommendations: Continue POC Treatment Plan/Plan of Care Patient would benefit from OT for education, treatment and training to promote independence in ADL's, mobility, safety and/or upper extremity function for ADL' s. Plan of Care: ADL Retraining, Functional Mobility, Group Exercise/Act as Ind ( education, exercise, activ tolerance, funct activities, socialization), UE Funct Exercise/Act, UE Neuromus Re-Ed/Coord Treatment Duration: Apr 08, 2017 Frequency: At least 5 of 7 days/Wk (IRF) Estimated Hrs Per Day: 1.5 hours per day Agreement: Yes Rehab Potential: Fair Time/GCodes Start Time: 10:00 Stop Time: 11:15 Total Time Billed (hr/min): 75 Billed Treatment Time 1 visit, ADL 5 (75 minutes) MARYLIN VILLARREAL Mar 14, 2017 11:25
[2017-03-14] MEDS: ONDANSETRON 4 MG/2 ML (SDV) Z0FRAN IVP PRN (11:52)
[2017-03-14 12:10] VITALS: BP 114/69
[2017-03-14] MEDS: FUROSEMIDE 20 MG (LASIX) TAB PO SCH (12:22)
[2017-03-14] MEDS: ROSUVASTATIN 5 MG (CRESTOR) TABLET PO SCH (12:22)
--- NOTE | 2017-03-14 13:30 | Occupational Ther Daily Note ---
OT Current Status-Daily Note Subjective Pt sitting in w/c. No c/o pain. Agrees to therapy. Mental Status/Objective Patient Orientation: Person, Place, Time, Situation Functional [place] Measure 0=Not Assessed/NA 4=Minimal Assistance 1=Total Assistance 5=Supervision or Setup 2=Maximal Assistance 6=Modified [place] 3=Moderate Assistance 7=Complete [place] Attachments: IV ADL-Treatment Functional [place] Measure 0=Not Assessed/NA 4=Minimal Assistance 1=Total Assistance 5=Supervision or Setup 2=Maximal Assistance 6=Modified [place] 3=Moderate Assistance 7=Complete IndependenceIRFPAI Quality Coding Scale 6 Independent with activity with or without an assistive device 5 Patient requires set up or clean up by helper. Patient completes activity by themselves 4 Supervision or touching assist (CGA). [place] provide cues , steadying assist 3 The helper provides less than half the effort to complete the activity 2 The helper provides more than half the effort to complete the activity 1 Dependent. The helper does all the effort to complete an activity 7 Patient refused to complete or attempt activity 9 The patient did not perform the activity before the current illness or injury 88 Not attempted due to Medical conditions or safety concerns Other Treatment Pt educated on AE used for dressing. Pt verbalized understanding of dressing stick, sock aid, and director external communications. Pt doffed socks using dressing stick and donned socks with sock aid requiring verbal cues. Pt transferred from w/c to EOB and EOB to supine with mod A. After therapy, pt lying in bed with phone and call light in reach. All needs met. Education OT Patient Education: Use of adapted equipment Teaching Recipient: Patient Teaching Methods: Demonstration, Discussion Response to Teaching: Verbalize Understanding, Return Demonstration OT Short Term Goals Short Term Goals Time Frame: Mar 25, 2017 Lower Body Dressing(FIM): 3 Toilet/Commode Transfer(FIM): 3 Shower Transfer(FIM): 3 Additional Short Term Goals: 1-Demonstrate ADL Tasks, 2-Verbalize Understanding , 3-ImproveStrength/Lalo 1=Demonstrate adherence to instructed precautions during ADL tasks. 2=Patient will verbalize/demonstrate understanding of assistive devices/ modifications for ADL. 3=Patient will improve strength/tolerance for activity to enable patient to perform ADL's. OT Facility Operations Manager Goals Detention Goals Time Frame: Apr 08, 2017 Eating (FIM): 6 Eating (QC): 6 Groomin Oral Hygiene (QC): 6 Bathing(FIM): 5 Shower/Bathe Self (QC): 4 Upper Body Dressing(FIM): 5 Upper Body Dressing (QC): 5 Lower Body Dressing(FIM): 5 Lower Body Dressing (QC): 4 On/Off Footwear (QC): 5 Toileting(FIM): 5 Toileting Hygiene (QC): 4 Toilet/Commode Transfer(FIM): 5 Toilet/Commode Transfer (QC): 4 Shower Transfer(FIM): 5 Additional Goals: 2-Verbalize Understanding, 3-ImproveStrength/Lalo 1=Demonstrate adherence to instructed precautions during ADL tasks. 2=Patient will verbalize/demonstrate understanding of assistive devices/ modifications for ADL. 3=Patient will improve strength/tolerance for activity to enable patient to perform ADL's. OT Education/Plan Problem List/Assessment Pt would benefit from skilled OT to increase her independence in basic self care to allow her to safely return to her apartment and to decrease caregiver burden. Discharge Recommendations Plan/Recommendations: Continue POC Treatment Plan/Plan of Care Patient would benefit from OT for education, treatment and training to promote independence in ADL's, mobility, safety and/or upper extremity function for ADL' s. Plan of Care: ADL Retraining, Functional Mobility, Group Exercise/Act as Ind ( education, exercise, activ tolerance, funct activities, socialization), UE Funct Exercise/Act, UE Neuromus Re-Ed/Coord Treatment Duration: Apr 08, 2017 Frequency: At least 5 of 7 days/Wk (IRF) Estimated Hrs Per Day: 1.5 hours per day Agreement: Yes Rehab Potential: Fair Time/GCodes Start Time: 13:00 Stop Time: 13:25 Total Time Billed (hr/min): 25 Billed Treatment Time 1 visit, FA 2 (25 minutes) MARYLIN VILLARREAL Mar 14, 2017 13:30
[2017-03-14 15:45] VITALS: BP 148/73
--- NOTE | 2017-03-14 15:52 | Physical Therapy Daily Note ---
PT Daily Note-Current Subjective Reports nausea during lunch but feeling better now. Mental Status Patient Orientation: Person, Place, Time, Situation Transfers Functional [place] Measure 0=Not Assessed/NA 4=Minimal Assistance 1=Total Assistance 5=Supervision or Setup 2=Maximal Assistance 6=Modified [place] 3=Moderate Assistance 7=Complete IndependenceIRFPAI Quality Coding Scale 6 Independent with activity with or without an assistive device 5 Patient requires set up or clean up by helper. Patient completes activity by themselves 4 Supervision or touching assist (CGA). [place] provide cues , steadying assist 3 The helper provides less than half the effort to complete the activity 2 The helper provides more than half the effort to complete the activity 1 Dependent. The helper does all the effort to complete an activity 7 Patient refused to complete or attempt activity 9 The patient did not perform the activity before the current illness or injury 88 Not attempted due to Medical conditions or safety concerns Treatments Supine to sit EOB with HOB elevated with mod assist. Sit to stand with mod assist and SPT to wheelchair with FWW with close min asssit and PWB right cues. Slow with transfer and takes extra time, unable to fully lift feet to take steps, rather she scoots her feet. Wheelchair mobility in her room using B UE' s x 20 ft and then in the gaines x 40 ft with 1 turn. Pt in chair post treatment with OT to follow. Assessment Progressing slowly. Difficulty unweighting to take steps and difficulty with PWB status. PT Assisted Goals Assisted Goals PT Assisted Goals Time Frame: Apr 08, 2017 Transfers (B,C,W/C) (FIM): 6 Sit to Lying (QC): 5 Lying-Sitting on Side/Bed(QC): 5 Sit to Stand (QC): 5 Rollin Roll Left to Right (QC): 5 Chair/[place]ckot Xfer(QC): 5 Car Transfer (QC): 5 Does the Patient Walk: Yes Gait (FIM): 2 Gait distance (FIM): 8=447-23 ft (75') Distance: 75' Walk 10 feet (QC): 5 Walk 10ft-Uneven Surface(QC): 5 Walk 50ft with 2 Turns (QC): 5 Walk 150 ft (QC): 88 Gait Level of Assist: 6 Gait Assistive Device: FWW # of Steps: 1 1 Step (curb) (QC): 4 4 Steps (QC): 88 12 Steps (QC): 88 Stairs Level Of Assist: 5 Picking up an Object (QC): 4 PT Plan Problem List Problem List: Activity Tolerance, Functional Strength Treatment/Plan Treatment Plan: Continue Plan of Care Treatment Plan: Bed Mobility, Concurrent Therapy, Education, Functional Activity Lalo, Functional Strength, Group Therapy, Gait, Safety, Therapeutic Exercise, Transfers Treatment Duration: Apr 08, 2017 Frequency: At least 5 of 7 days/Wk (IRF) Estimated Hrs Per Day: 1.5 hours per day Patient and/or Family Agrees t: Yes Safety Risks/Education Patient Education: Transfer Techniques, Reviewed Precautions (PWB) Teaching Recipient: Patient Teaching Methods: Demonstration, Discussion Response to Teaching: Reinforcement Needed Time/GCodes Time In: 1229 Time Out: 1300 Total Billed Treatment Time: 31 Total Billed Treatment visit FA 15 WC 16 MARYLIN DIXON PT Mar 14, 2017 15:51
--- NOTE | 2017-03-14 21:02 | PM & R (SOAP) Progress Note ---
Subjective Time Seen by Provider: 20:45 Subjective/Events-last exam Patient was seen in her room this evening Had nausea this AM but feeling better now Accucheks noted Patient min assist for transfers PWB RLE.Appreciate DR Ziegler note and DR Ruggiero orders. Review of Systems Gastrointestinal: Nausea Musculoskeletal: leg pain Objective Exam Last Set of Vital Signs Vital Signs Date Time Temp Pulse Resp B/P (MAP) Pulse Ox O2 Delivery O2 Flow Rate FiO2 03/14/17 15:45 97.7 65 20 148/73 98 Room Air 03/12/17 17:41 0.00 03/12/17 10:17 21 Capillary Refill : Less Than 3 Seconds I&O Intake and Output 03/15/17 00:00 Intake Total 1370 ml Balance 1370 ml Intake Oral 1370 ml # Voids 6 # Bowel Movements 1 General: Alert, Oriented X3, Cooperative, No Acute Distress HEENT: Atraumatic, PERRLA, EOMI, Mucous Memb Moist/[place] Neck: Supple, No JVD Lungs: Clear to Auscultation Heart: Regular Rate Abdomen: Normal Bowel Sounds, Soft, No Tenderness, Other (obese) Extremities: Other (normal postop swelling rt leg) Skin: Other ([place] dressing in place clean and dry) Neuro: Other (RT LE Strength 2/5 Left LE 3+/5) Results Lab Laboratory Tests 03/11/17 21:51: Glucometer 272H 03/12/17 05:44: Glucometer 196H 03/12/17 10:50: Glucometer 195H 03/12/17 16:15: Glucometer 269H 03/12/17 20:23: Glucometer 242H 03/13/17 05:52: Glucometer 110 03/13/17 11:09: Glucometer 195H 03/13/17 16:13: Glucometer 165H 03/13/17 20:35: Glucometer 202H 03/14/17 04:57: Glucometer 113H 03/14/17 12:12: Glucometer 219H 03/14/17 15:50: Glucometer 127H Assessment/Plan Assessment Fall with fracture rt distal femur s/p ORIF DR Garduno PWB RLE Nausea resolved HTN controlled DM controlled Plan Continue PT/OT TEam Conference 03/16/17 Monitor labs and adjust meds as appropriate with Hospitalist service following BETTY IGNACIO MD Mar 14, 2017 21:02
[2017-03-14] MEDS: ATENOLOL 50 MG (TENORMIN) TAB PO SCH (21:15)
[2017-03-14] MEDS: inSUlin DETERMIR 1 UNIT/0.01 ML (LEVEMIR) CHARGE PER UNIT SQ SCH (21:15)
[2017-03-15] MEDS: oxyCODONE/APAP 5/325MG (PERCOCET 5) TABLET PO PRN (03:40)
[2017-03-15] MEDS: inSUlin ASPART (NovoLOG) 1 UNIT/0.01 ML (CHARGE PER UNIT) SC SCH ×4 (05:56→20:53)
[2017-03-15 06:26] VITALS: BP 131/70
[2017-03-15] MEDS: LEVOTHYROXINE 88 MCG (LEVOTHORID) TAB PO SCH (06:26)
[2017-03-15] MEDS: metFORMIN 500 MG (GLUCOPHAGE) TAB PO SCH ×2 (06:26→17:57)
[2017-03-15] MEDS: glipiZIDE 5 MG (GLUCOTROL) TAB PO SCH ×2 (06:26→17:57)
[2017-03-15] MEDS: RT-ADVAIR HFA 115/21 MCG PER PUFF IH SCH (08:00)
[2017-03-15] MEDS: LACTULOSE SYRUP 10GM/15ML (ENULOSE) 30ML UDC PO SCH ×2 (08:38→21:21)
[2017-03-15] MEDS: PANTOPRAZOLE 20 MG TABLET (PROTONIX) PO PRN (08:38)
[2017-03-15] MEDS: ENOXAPARIN 40 MG/0.4 ML (LOVENOX) SYR SC SCH (08:38)
[2017-03-15] MEDS: ONDANSETRON 4 MG/2 ML (SDV) Z0FRAN IVP PRN (08:39)
[2017-03-15 09:07] LABS: CALCIUM 8.3 MG/DL (8.5-10.1); CREATININE SERUM 1.8 MG/DL (0.60-1.30); POTASSIUM 4.2 MMOL/L (3.6-5.0)
--- NOTE | 2017-03-15 09:22 | Progress Note-Hospitalist ---
Progress Note Progress Notes/Assess & Plan Date Seen 03/15/17 Time Seen by Provider: 09:00 Diagonsis/Assessment & Plan Pt doing well Creat 1.8 today BM moving ok Pain controlled Checked meds and labs AFVSS, [place], O x 3 RRR, CTAB No edema A/P: hip fracture status post uncomplicated repair Chronic debility on severe debility since hip fracture Diabetes mellitus COPD DANIELLE CAD Plan: rehab DM treatment BM regimen JOSE FINLEY DO Mar 15, 2017 09:22
--- NOTE | 2017-03-15 10:16 | Physical Therapy Daily Note ---
PT Daily Note-Current Subjective Agreeable to PT. Continues to note feeling "woozy" at times during treatment but able to participate. Pain Numeric Pain Scale: 5-Moderate Pain Location: Right Location Body Site: Hip (thigh region) Pain Description: Ache Comment: declines pain meds at this time. Mental Status Patient Orientation: Person, Place, Time, Situation Transfers Functional [place] Measure 0=Not Assessed/NA 4=Minimal Assistance 1=Total Assistance 5=Supervision or Setup 2=Maximal Assistance 6=Modified [place] 3=Moderate Assistance 7=Complete IndependenceIRFPAI Quality Coding Scale 6 Independent with activity with or without an assistive device 5 Patient requires set up or clean up by helper. Patient completes activity by themselves 4 Supervision or touching assist (CGA). [place] provide cues , steadying assist 3 The helper provides less than half the effort to complete the activity 2 The helper provides more than half the effort to complete the activity 1 Dependent. The helper does all the effort to complete an activity 7 Patient refused to complete or attempt activity 9 The patient did not perform the activity before the current illness or injury 88 Not attempted due to Medical conditions or safety concerns Supine to sit eOB with HOB upright with min assist and skilled cues for sequencing. Pt able to slide her left leg in bed with her sock removed--thus reducing friction and making it easier. Sit to stand with min assist and skilled cues for sequencing and SPT bed to commode to wheelchair with close CGA and pt lifting up on toes left to twist/ turn. Takes extra time to transfer and skilled cuing but does not need significant physical assist. Sit to card punching machine operator // bars x 2 with min assist. Weight Bearing Right Lower Extremity: Right Left Lower Extremity: Left Full Weight Bearing Wheelchair Training Wheelchair mobility x 25 ft and then 50 ft with 1 turn with SBA primarily using UEs to propel. Treatments Had discussion regarding her primary limit is PWB status and question if she will be able to maintain and still ambulate. Pt feels she would be able to manage in her home at a wheelchair level if necessary until the WB status progressed. Assessment She is making functional progress and did better with transfers today. working of effectively performing SPT with FWW. PT Research Methodologist Goals Research Methodologist Goals PT Group Home Goals Time Frame: Apr 08, 2017 Transfers (B,C,W/C) (FIM): 6 Sit to Lying (QC): 5 Lying-Sitting on Side/Bed(QC): 5 Sit to Stand (QC): 5 Rollin Roll Left to Right (QC): 5 Chair/Kgz-sz-Usjoe Xfer(QC): 5 Car Transfer (QC): 5 Does the Patient Walk: Yes Gait (FIM): 2 Gait distance (FIM): 6=791-39 ft (75') Distance: 75' Walk 10 feet (QC): 5 Walk 10ft-Uneven Surface(QC): 5 Walk 50ft with 2 Turns (QC): 5 Walk 150 ft (QC): 88 Gait Level of Assist: 6 Gait Assistive Device: FWW # of Steps: 1 1 Step (curb) (QC): 4 4 Steps (QC): 88 12 Steps (QC): 88 Stairs Level Of Assist: 5 Picking up an Object (QC): 4 PT Plan Problem List Problem List: Activity Tolerance, Functional Strength, Safety, Balance, Gait, Transfer, Bed Mobility Treatment/Plan Treatment Plan: Continue Plan of Care Treatment Plan: Bed Mobility, Concurrent Therapy, Education, Functional Activity Lalo, Functional Strength, Group Therapy, Gait, Safety, Therapeutic Exercise, Transfers Treatment Duration: Apr 08, 2017 Frequency: At least 5 of 7 days/Wk (IRF) Estimated Hrs Per Day: 1.5 hours per day Patient and/or Family Agrees t: Yes Safety Risks/Education Patient Education: Transfer Techniques, Safety Issues Teaching Recipient: Patient Teaching Methods: Demonstration, Discussion Response to Teaching: Verbalize Understanding, Reinforcement Needed Discharge Recommendations Therapy D/C Recommendations: Physical Therapy Home Care Time/GCodes Time In: 830 Time Out: 932 Total Billed Treatment Time: 62 Total Billed Treatment visit FA 47 WC 15 MARYLIN DIXON PT Mar 15, 2017 10:16
[2017-03-15] MEDS: ROSUVASTATIN 5 MG (CRESTOR) TABLET PO SCH (11:37)
[2017-03-15] MEDS: FUROSEMIDE 20 MG (LASIX) TAB PO SCH (11:37)
--- NOTE | 2017-03-15 12:23 | Occupational Ther Daily Note ---
OT Current Status-Daily Note Subjective Pt sitting up in w/c. Agrees to therapy. C/o nausea, nrsg aware and gave meds. Mental Status/Objective Patient Orientation: Person, Place, Time, Situation Functional [place] Measure 0=Not Assessed/NA 4=Minimal Assistance 1=Total Assistance 5=Supervision or Setup 2=Maximal Assistance 6=Modified [place] 3=Moderate Assistance 7=Complete [place] Attachments: IV ADL-Treatment Functional [place] Measure 0=Not Assessed/NA 4=Minimal Assistance 1=Total Assistance 5=Supervision or Setup 2=Maximal Assistance 6=Modified [place] 3=Moderate Assistance 7=Complete IndependenceIRFPAI Quality Coding Scale 6 Independent with activity with or without an assistive device 5 Patient requires set up or clean up by helper. Patient completes activity by themselves 4 Supervision or touching assist (CGA). [place] provide cues , steadying assist 3 The helper provides less than half the effort to complete the activity 2 The helper provides more than half the effort to complete the activity 1 Dependent. The helper does all the effort to complete an activity 7 Patient refused to complete or attempt activity 9 The patient did not perform the activity before the current illness or injury 88 Not attempted due to Medical conditions or safety concerns Grooming (FIM): 6 (Pt able to brush teeth, comb hair, wash face and hands while seated at sink. ) Oral Hygiene (QC): 6 Upper Body (FIM): 5 (After set up, pt able to don/doff shirt by self. Bra already on. ) Upper Body Dressing (QC): 5 Lower Body Dressing (FIM): 2 (Using dressing stick, pt donned L foot into underwear and pants then assistance for R foot. Mod A x2 to stand and pull pants over hips. Assistance needed to get sock aid over heels to don socks. ) Lower Body Dressing (QC): 2 On/Off Footwear (QC): 3 (Pt able to doff socks with dressing stick. Assistance to get sock aid over heel when donning socks.) Transfers (B, C, W/C) (FIM): 2 (Mod A sit to stand. Max assist stand pivot transfer, pt stops in middle and sits down before it is safe. ) Other Treatment After ADL tasks, pt propelled self to therapy gym approximately 30 ft then transported rest of way to increase UE strength for w/c mobility. Pt completes w /c pushups 1 arm at a time, 3 sets of 5 to increase tricep strength for sit to stand transfers. Pt is transported back to room in w/c. Pt transfers from w/c to bed using FWW and mod A sit to stand, in middle of transfer pt stops and states she can't do it then sits suddenly as therapist pivots pt to safe sitting on EOB. Pt educated on transfers and feeling surface on back of legs before sitting. EOB to supine with max A. After therapy, pt lying in bed with phone and call light in reach. All needs met. Education OT Patient Education: Safety issues, Transfer techniques Teaching Recipient: Patient Teaching Methods: Demonstration, Discussion Response to Teaching: Verbalize Understanding OT Short Term Goals Short Term Goals Time Frame: Mar 25, 2017 Lower Body Dressing(FIM): 3 Toilet/Commode Transfer(FIM): 3 Shower Transfer(FIM): 3 Additional Short Term Goals: 1-Demonstrate ADL Tasks, 2-Verbalize Understanding , 3-ImproveStrength/Lalo 1=Demonstrate adherence to instructed precautions during ADL tasks. 2=Patient will verbalize/demonstrate understanding of assistive devices/ modifications for ADL. 3=Patient will improve strength/tolerance for activity to enable patient to perform ADL's. OT Residential Goals Residential Goals Time Frame: Apr 08, 2017 Eating (FIM): 6 Eating (QC): 6 Groomin Oral Hygiene (QC): 6 Bathing(FIM): 5 Shower/Bathe Self (QC): 4 Upper Body Dressing(FIM): 5 Upper Body Dressing (QC): 5 Lower Body Dressing(FIM): 5 Lower Body Dressing (QC): 4 On/Off Footwear (QC): 5 Toileting(FIM): 5 Toileting Hygiene (QC): 4 Toilet/Commode Transfer(FIM): 5 Toilet/Commode Transfer (QC): 4 Shower Transfer(FIM): 5 Additional Goals: 2-Verbalize Understanding, 3-ImproveStrength/Lalo 1=Demonstrate adherence to instructed precautions during ADL tasks. 2=Patient will verbalize/demonstrate understanding of assistive devices/ modifications for ADL. 3=Patient will improve strength/tolerance for activity to enable patient to perform ADL's. OT Education/Plan Problem List/Assessment Pt would benefit from skilled OT to increase her independence in basic self care to allow her to safely return to her apartment and to decrease caregiver burden. Discharge Recommendations Plan/Recommendations: Continue POC Treatment Plan/Plan of Care Patient would benefit from OT for education, treatment and training to promote independence in ADL's, mobility, safety and/or upper extremity function for ADL' s. Plan of Care: ADL Retraining, Functional Mobility, Group Exercise/Act as Ind ( education, exercise, activ tolerance, funct activities, socialization), UE Funct Exercise/Act, UE Neuromus Re-Ed/Coord Treatment Duration: Apr 08, 2017 Frequency: At least 5 of 7 days/Wk (IRF) Estimated Hrs Per Day: 1.5 hours per day Agreement: Yes Rehab Potential: Fair Time/GCodes Start Time: 10:00 Stop Time: 11:00 Total Time Billed (hr/min): 60 Billed Treatment Time 1 visit, ADL 3 (40 minutes) EX 1 (20 minutes) MARYLIN VILLARREAL Mar 15, 2017 12:23
--- NOTE | 2017-03-15 13:22 | PM & R (SOAP) Progress Note ---
Subjective Time Seen by Provider: 07:45 Subjective/Events-last exam Patient was seen in her room this AM No further nausea but RN relates that patient c/o dizziness which patient associates with Percocet generic and requests something else for pain Will try Tramodol.Patient CGA for transfere Min assist for gait in // bars short distances Review of Systems Neurological: Other (dizziness) Objective Exam Last Set of Vital Signs Vital Signs Date Time Temp Pulse Resp B/P (MAP) Pulse Ox O2 Delivery O2 Flow Rate FiO2 03/15/17 08:33 96 Nasal Cannula 03/15/17 06:26 98.7 64 18 131/70 03/12/17 17:41 0.00 03/12/17 10:17 21 Capillary Refill : Less Than 3 Seconds I&O Intake and Output 03/16/17 00:00 Intake Total 600 ml Balance 600 ml Intake Oral 600 ml # Voids 2 General: Alert, Oriented X3, Cooperative, No Acute Distress HEENT: Atraumatic, PERRLA, EOMI, Mucous Memb Moist/[place] Neck: Supple, No JVD Lungs: Clear to Auscultation Heart: Regular Rate Abdomen: Normal Bowel Sounds, Soft, No Tenderness, Other (obese) Extremities: Other (normal postop swelling rt leg) Skin: Other ([place] dressing in place clean and dry) Neuro: Other (RT LE Strength 2/5 Left LE 3+/5) Results Lab Laboratory Tests 03/12/17 16:15: Glucometer 269H 03/12/17 20:23: Glucometer 242H 03/13/17 05:52: Glucometer 110 03/13/17 11:09: Glucometer 195H 03/13/17 16:13: Glucometer 165H 03/13/17 20:35: Glucometer 202H 03/14/17 04:57: Glucometer 113H 03/14/17 12:12: Glucometer 219H 03/14/17 15:50: Glucometer 127H 03/14/17 20:50: Glucometer 87 03/15/17 05:06: Glucometer 127H 03/15/17 08:35: Sodium Level 133L, Potassium Level 4.2, Chloride Level 102, Carbon Dioxide Level 20L, Anion Gap 11, Blood Urea Nitrogen 52H, Creatinine 1.80H, Estimat Glomerular Filtration Rate 27, BUN/Creatinine Ratio 29, Glucose Level 154H, Calcium Level 8.3L 03/15/17 11:08: Glucometer 211H Assessment/Plan Assessment Fall with fracture rt distal femur s/p ORIF DR Garduno PWB RLE Nausea resolved HTN controlled DM controlled Dizziness-tracey change pain meds Plan Continue PT/OT TEam Conference tomorrow 03/16/17 Monitor labs and adjust meds as appropriate with Hospitalist service following Trial of Tramadol See orders BETTY IGNACIO MD Mar 15, 2017 13:21
--- NOTE | 2017-03-15 13:25 | Occupational Ther Daily Note ---
OT Current Status-Daily Note Subjective Pt lying in bed. Agrees to therapy. States that she is feeling a little better but very tired. Mental Status/Objective Patient Orientation: Person, Place, Time, Situation Functional [place] Measure 0=Not Assessed/NA 4=Minimal Assistance 1=Total Assistance 5=Supervision or Setup 2=Maximal Assistance 6=Modified [place] 3=Moderate Assistance 7=Complete [place] Attachments: IV ADL-Treatment Functional [place] Measure 0=Not Assessed/NA 4=Minimal Assistance 1=Total Assistance 5=Supervision or Setup 2=Maximal Assistance 6=Modified [place] 3=Moderate Assistance 7=Complete IndependenceIRFPAI Quality Coding Scale 6 Independent with activity with or without an assistive device 5 Patient requires set up or clean up by helper. Patient completes activity by themselves 4 Supervision or touching assist (CGA). [place] provide cues , steadying assist 3 The helper provides less than half the effort to complete the activity 2 The helper provides more than half the effort to complete the activity 1 Dependent. The helper does all the effort to complete an activity 7 Patient refused to complete or attempt activity 9 The patient did not perform the activity before the current illness or injury 88 Not attempted due to Medical conditions or safety concerns Other Treatment Pt completed 6 B UE exercises with min resistive theraband 3 sets 10 reps to increase strength and activity tolerance for ADLs and transfers. Pt tolerated well with verbal reminders and demonstration before every set on proper technique. After therapy, pt sitting in bed with phone and call light in reach. All needs met. OT Short Term Goals Short Term Goals Time Frame: Mar 25, 2017 Lower Body Dressing(FIM): 3 Toilet/Commode Transfer(FIM): 3 Shower Transfer(FIM): 3 Additional Short Term Goals: 1-Demonstrate ADL Tasks, 2-Verbalize Understanding , 3-ImproveStrength/Lalo 1=Demonstrate adherence to instructed precautions during ADL tasks. 2=Patient will verbalize/demonstrate understanding of assistive devices/ modifications for ADL. 3=Patient will improve strength/tolerance for activity to enable patient to perform ADL's. OT Paintings Conservator Goals Paintings Conservator Goals Time Frame: Apr 08, 2017 Eating (FIM): 6 Eating (QC): 6 Groomin Oral Hygiene (QC): 6 Bathing(FIM): 5 Shower/Bathe Self (QC): 4 Upper Body Dressing(FIM): 5 Upper Body Dressing (QC): 5 Lower Body Dressing(FIM): 5 Lower Body Dressing (QC): 4 On/Off Footwear (QC): 5 Toileting(FIM): 5 Toileting Hygiene (QC): 4 Toilet/Commode Transfer(FIM): 5 Toilet/Commode Transfer (QC): 4 Shower Transfer(FIM): 5 Additional Goals: 2-Verbalize Understanding, 3-ImproveStrength/Lalo 1=Demonstrate adherence to instructed precautions during ADL tasks. 2=Patient will verbalize/demonstrate understanding of assistive devices/ modifications for ADL. 3=Patient will improve strength/tolerance for activity to enable patient to perform ADL's. OT Education/Plan Problem List/Assessment Pt would benefit from skilled OT to increase her independence in basic self care to allow her to safely return to her apartment and to decrease caregiver burden. Discharge Recommendations Plan/Recommendations: Continue POC Treatment Plan/Plan of Care Patient would benefit from OT for education, treatment and training to promote independence in ADL's, mobility, safety and/or upper extremity function for ADL' s. Plan of Care: ADL Retraining, Functional Mobility, Group Exercise/Act as Ind ( education, exercise, activ tolerance, funct activities, socialization), UE Funct Exercise/Act, UE Neuromus Re-Ed/Coord Treatment Duration: Apr 08, 2017 Frequency: At least 5 of 7 days/Wk (IRF) Estimated Hrs Per Day: 1.5 hours per day Agreement: Yes Rehab Potential: Fair Time/GCodes Start Time: 12:50 Stop Time: 13:20 Total Time Billed (hr/min): 30 Billed Treatment Time 1 visit, EX 2 (30 minutes) MARYLIN VILLARREAL Mar 15, 2017 13:24
--- NOTE | 2017-03-15 14:01 | Individualized Plan of Care ---
Individualized Plan of Care Rehab Nursing IPOC Order Admission Date Mar 11, 2017 at 10:41 Current Orders Orders Admission-Acute Rehab Unit (03/11/17 10:25) Pt Evaluate/Treat Request (03/11/17 10:25) Request Ot Evaluate & Treat (03/11/17 10:25) Request Speech/Language Servic (03/11/17 10:25) Admission Arrival Bed Request (03/11/17 10:25) Admission Arrival Bed Request (03/11/17 10:25) Admission-Acute Rehab Unit (03/11/17 10:43) Code/Resuscitation (03/11/17 12:09) Accucheck Achs ACHS (03/11/17 12:09) Dressing Order & Int (Surg/Med DAILY (03/11/17 12:09) Ice: Apply To Affected Area (03/11/17 12:09) Incentive Spirometry (Nursing) Q2H (03/11/17 12:09) Initiate Admission Nursing Pro .admission (03/11/17 12:09) Mat Protocol-Rt Rfs (03/11/17 12:14) Mdi Rt-Rfs (03/11/17 12:19) Up With Assistance As Tolerate (03/11/17 12:19) Sequential Compression Device 08,20 (03/11/17 12:19) Chandler Lorrainee , (03/11/17 12:19) Cho 60g/M 1snack (16-2000 Marcial) (03/11/17 Lunch) Patient Visit (03/11/17 ) Speech Sound Lang Comp (03/11/17 ) Patient Visit (03/11/17 ) Pt Eval Moderate Complexity (03/11/17 ) Functional Activities, Ea 15 (03/11/17 ) Ambulate TID (03/11/17 13:39) Sequential Compression Device 08,20 (03/11/17 13:39) Dvt/Vte Risk - Notifiy Physici (03/11/17 13:39) Atenolol Tablet (Tenormin Tablet) (03/11/17 14:03) Levothyroxine Tablet (Synthroid Tablet) (03/11/17 14:03) Loratadine Tablet (Claritin Tablet) (03/11/17 14:03) Carboxymethylcell Ophth Soln (Refresh Pl (03/11/17 14:03) Rosuvastatin Tablet (Crestor Tablet) (03/11/17 14:03) Insulin Determir (Per Unit) (Levemir (Pe (03/11/17 14:03) Pantoprazole Tablet (Protonix Tablet) (03/11/17 14:03) Insulin Aspart (Novolog) (Novolog (Charg (03/11/17 14:03) Oxycodone/Apap 5/325mg Tablet (Percocet (03/11/17 14:03) Acetaminophen Tablet/Caplet (Tylenol T (03/11/17 14:03) Ondansetron Injection (Zofran Injectio (03/11/17 14:03) Enoxaparin Injection (Lovenox Injection) (03/11/17 14:03) Albuterol Pre-Mix Nebs (Rt) (Proventil P (03/11/17 14:03) Fluticasone/Salmeterol Common (Advair 11 (03/11/17 14:03) Morphine Injection (Morphine Injection (03/11/17 14:03) Influenza Vac Order Indicated (03/11/17 15:03) Enoxaparin Injection (Lovenox Injection) (03/12/17 08:00) Patient Visit (03/11/17 ) Furosemide Tablet (Lasix Tablet) (03/12/17 12:00) Glipizide Tablet (Glucotrol Tablet) (03/12/17 16:00) Metformin Tablet (Glucophage Tablet) (03/12/17 17:00) Consult Physician (03/12/17 11:40) Lactulose Oral Solution (Enulose Oral So (03/12/17 21:00) Patient Visit (03/12/17 ) Functional Activities, Ea 15 (03/12/17 ) Exercise Therap, Ea 15 Min (03/12/17 ) Basic Metabolic Panel (03/15/17 06:00) Patient Visit (03/14/17 ) Functional Activities, Ea 15 (03/14/17 ) Wheelchair Mgmt/Propulsn 15min (03/14/17 ) Exercise Therap, Ea 15 Min (03/14/17 ) Diclofenac 1% Gel (Voltaren 1% Gel) (03/15/17 10:30) Tramadol Tablet (Ultram Tablet) (03/15/17 13:30) Other Nursing Orders: monitor for postop constipation and urinary retention Intensity of Therapy to be met Patient to be seen: Min.3h per day/5 of 7d PT IPOC Problem List: Activity Tolerance, Functional Strength, Safety, Balance, Gait, Transfer, Bed Mobility Treatment Plan: Continue Plan of Care Bed Mobility, Concurrent Therapy, Education, Functional Activity Lalo, Functional Strength, Group Therapy, Gait, Safety, Therapeutic Exercise, Transfers Treatment Duration: Apr 08, 2017 Frequency: At least 5 of 7 days/Wk (IRF) Estimated Hrs Per Day: 1.5 hours per day OT IPOC Problems: Decreased Activ Tolerance, Decreased UE Strength, Dependent Transfers , Impaired Bed Mobility, Impaired Funct Balance, Impaired I ADL's, Impaired Self -Care Skills OT Treatment, Training and Edu: Yes OT Problems Pt would benefit from skilled OT to increase her independence in basic self care to allow her to safely return to her apartment and to decrease caregiver burden. Plan of Care: ADL Retraining, Functional Mobility, Group Exercise/Act as Ind ( education, exercise, activ tolerance, funct activities, socialization), UE Funct Exercise/Act, UE Neuromus Re-Ed/Coord Treatment Duration: Apr 08, 2017 Frequency: At least 5 of 7 days/Wk (IRF) Estimated Hrs Per Day: 1.[address] IPOC Speech Therapy Treatment Plan: Discontinue ST Treatment Duration: Mar 14, 2017 Frequency: Modified Program (IRF) Estimated Hrs Per Day: Other Regulatory Leader/Case Mgmt Regulatory Leader/Case Managemen: Discharge Planning, Patient/Family Counseling Physician IPOC Medical Issues being managed closely and that require the 24 hour availability of a physician:post op dizziness and nausea ,DM,COPD,DANIELLE,CAD Medical Issues: Bowel/Bladder Function, DVT Prophylaxis, Falls Precautions, Fluid/Electrolyte/Nutrition Balance, Infection Protection, Pain Management, Weight Bearing Precautions, Wound Care, Other (List) (as per above) Brief Synthesis of Preadmission Screen, Post-Admission Evaluation, and Therapy Evaluations: 81 yo female who slipped on a cucumber and had resulting distal femur frx s/p ORIF DR Garduno.Had been Independent prior to this Had postop nausea and dizziness with meds adjusted,Comorbidities as per above Medical Prognosis: good Anticipated Length of Stay: 04-08-2017 Rehab Goals Modified Independent for mobility and adls at the w/c level of function due to limited WB RLE Anticipated discharge destinat: Home with [facility] BETTY IGNACIO MD Mar 15, 2017 14:01
--- NOTE | 2017-03-15 15:40 | Physical Therapy Daily Note ---
PT Daily Note-Current Subjective Pt was lying in bed prior to tx and agreeable to PT. Pt reports she needs to use bathroom and completes toileting during tx. Pt reports 5/10 pain in R LE. Pt was lying in bed with nurse call, phone, tray in reach, all needs met post tx. Pain Numeric Pain Scale: 5-Moderate Pain Location Body Site: Hip Pain Description: Ache Mental Status Patient Orientation: Normal For Age Transfers Functional [place] Measure 0=Not Assessed/NA 4=Minimal Assistance 1=Total Assistance 5=Supervision or Setup 2=Maximal Assistance 6=Modified [place] 3=Moderate Assistance 7=Complete IndependenceIRFPAI Quality Coding Scale 6 Independent with activity with or without an assistive device 5 Patient requires set up or clean up by helper. Patient completes activity by themselves 4 Supervision or touching assist (CGA). [place] provide cues , steadying assist 3 The helper provides less than half the effort to complete the activity 2 The helper provides more than half the effort to complete the activity 1 Dependent. The helper does all the effort to complete an activity 7 Patient refused to complete or attempt activity 9 The patient did not perform the activity before the current illness or injury 88 Not attempted due to Medical conditions or safety concerns Transfers (B, C, W/C) (FIM): 4 Sit to/from Stand: 4 Pt completes stand pivot transfer to/from commode with min assist. Pt requires set up and transfers to her right, as she has difficulty with stepping with right leg and complying with WBS. Weight Bearing Right Lower Extremity: Right Partial Weight Bearing Left Lower Extremity: Left Full Weight Bearing Exercises Supine Ex: Ankle pumps, Quad Set, Glut sets, Heel Slides Supine Reps: 20 Treatments Pt is toileted during treatment and completes stand pivot transfers using FWW for support. Pt also completes supine exercises to increase functional LE strengthening. Assessment Current Status: Fair Progress Pt does not comply with WBS. Pt is also verbally cued for hand placement and safety throughout tx. PT Supervisory Lifeguard Goals Supervisory Lifeguard Goals PT Correction Goals Time Frame: Apr 08, 2017 Transfers (B,C,W/C) (FIM): 6 Sit to Lying (QC): 5 Lying-Sitting on Side/Bed(QC): 5 Sit to Stand (QC): 5 Rollin Roll Left to Right (QC): 5 Chair/Pxh-yp-[place] Xfer(QC): 5 Car Transfer (QC): 5 Does the Patient Walk: Yes Gait (FIM): 2 Gait distance (FIM): 2=643-38 ft (75') Distance: 75' Walk 10 feet (QC): 5 Walk 10ft-Uneven Surface(QC): 5 Walk 50ft with 2 Turns (QC): 5 Walk 150 ft (QC): 88 Gait Level of Assist: 6 Gait Assistive Device: FWW # of Steps: 1 1 Step (curb) (QC): 4 4 Steps (QC): 88 12 Steps (QC): 88 Stairs Level Of Assist: 5 Picking up an Object (QC): 4 PT Plan Problem List Problem List: Activity Tolerance, Functional Strength, Safety, Balance, Gait, Transfer, Bed Mobility, ROM Treatment/Plan Treatment Plan: Continue Plan of Care Treatment Plan: Bed Mobility, Concurrent Therapy, Education, Functional Activity Lalo, Functional Strength, Group Therapy, Gait, Safety, Therapeutic Exercise, Transfers Treatment Duration: Apr 08, 2017 Frequency: At least 5 of 7 days/Wk (IRF) Estimated Hrs Per Day: 1.5 hours per day Patient and/or Family Agrees t: Yes Safety Risks/Education Patient Education: Transfer Techniques, Reviewed Precautions, Correct Positioning, Safety Issues Teaching Recipient: Patient Teaching Methods: Demonstration, Discussion Response to Teaching: Verbalize Understanding, Reinforcement Needed Time/GCodes Time In: 1500 Time Out: 1530 Total Billed Treatment Time: 30 Total Billed Treatment 1 visit FA 15 EX 15 MIKAELA GUO PT Mar 15, 2017 15:40
[2017-03-15] MEDS: DICLOFENAC 1% GEL 100 GM (VOLTAREN) TUBE TOP PRN (15:57)
[2017-03-15] MEDS: ATENOLOL 50 MG (TENORMIN) TAB PO SCH (21:21)
[2017-03-15] MEDS: inSUlin DETERMIR 1 UNIT/0.01 ML (LEVEMIR) CHARGE PER UNIT SQ SCH (21:22)
[2017-03-16 06:09] VITALS: BP 125/70
[2017-03-16] MEDS: metFORMIN 500 MG (GLUCOPHAGE) TAB PO SCH (06:15)
[2017-03-16] MEDS: LEVOTHYROXINE 88 MCG (LEVOTHORID) TAB PO SCH (06:15)
[2017-03-16] MEDS: inSUlin ASPART (NovoLOG) 1 UNIT/0.01 ML (CHARGE PER UNIT) SC SCH ×4 (06:15→20:27)
[2017-03-16] MEDS: glipiZIDE 5 MG (GLUCOTROL) TAB PO SCH ×2 (06:15→15:50)
--- NOTE | 2017-03-16 07:28 | Progress Note-Standard ---
Standard Progress Note Progress Notes/Assess & Plan Date Seen by Provider: Mar 16, 2017 Time Seen by Provider: 07:27 Progress/Assessment & Plan No complaints RLE dressing in place no calf tenderness. Neg Polo's s/p ORIF R femur PT/OT Final Diagnosis No complaints RLE--incision clean and dry. no calf tenderness. Neg Polo's s/p R femur ORIF continue PT/OT CRISTÓBAL SOLIS MD Mar 16, 2017 07:28
[2017-03-16] MEDS: ENOXAPARIN 40 MG/0.4 ML (LOVENOX) SYR SC SCH (08:30)
[2017-03-16] MEDS: PANTOPRAZOLE 20 MG TABLET (PROTONIX) PO SCH (08:31)
[2017-03-16] MEDS: LACTULOSE SYRUP 10GM/15ML (ENULOSE) 30ML UDC PO SCH ×2 (08:31→20:27)
--- NOTE | 2017-03-16 08:55 | PM & R (SOAP) Progress Note ---
Subjective Time Seen by Provider: 07:40 Subjective/Events-last exam Patient was seen in her room this AM Discussed case with RN Patient still with occasional nausea in AM Pain meds adjusted yesterday Protonix scheduled for today.Patient CGA for SP Transfers Review of Systems Gastrointestinal: Nausea Objective Exam Last Set of Vital Signs Vital Signs Date Time Temp Pulse Resp B/P (MAP) Pulse Ox O2 Delivery O2 Flow Rate FiO2 03/16/17 06:09 98.4 59 16 125/70 96 Room Air 03/12/17 17:41 0.00 03/12/17 10:17 21 Capillary Refill : Less Than 3 Seconds I&O Intake and Output 03/17/17 00:00 Intake Total 300 ml Balance 300 ml Intake Oral 300 ml # Voids 2 # Bowel Movements 1 General: Alert, Oriented X3, Cooperative, No Acute Distress HEENT: Atraumatic, PERRLA, EOMI, Mucous Memb Moist/[place] Neck: Supple, No JVD Lungs: Clear to Auscultation Heart: Regular Rate Abdomen: Normal Bowel Sounds, Soft, No Tenderness, Other (obese) Extremities: Other (normal postop swelling rt leg) Skin: Other ([place] dressing in place clean and dry) Neuro: Other (RT LE Strength 2/5 Left LE 3+/5) Results Lab Laboratory Tests 03/13/17 11:09: Glucometer 195H 03/13/17 16:13: Glucometer 165H 03/13/17 20:35: Glucometer 202H 03/14/17 04:57: Glucometer 113H 03/14/17 12:12: Glucometer 219H 03/14/17 15:50: Glucometer 127H 03/14/17 20:50: Glucometer 87 03/15/17 05:06: Glucometer 127H 03/15/17 08:35: Sodium Level 133L, Potassium Level 4.2, Chloride Level 102, Carbon Dioxide Level 20L, Anion Gap 11, Blood Urea Nitrogen 52H, Creatinine 1.80H, Estimat Glomerular Filtration Rate 27, BUN/Creatinine Ratio 29, Glucose Level 154H, Calcium Level 8.3L 03/15/17 11:08: Glucometer 211H 03/15/17 15:30: Glucometer 125H 03/15/17 20:38: Glucometer 200H 03/16/17 05:20: Glucometer 97 Assessment/Plan Assessment Fall with fracture rt distal femur s/p ORIF DR Garduno PWB RLE Nausea meds adjusted further HTN controlled DM controlled Dizziness-will change pain meds-improved -See bunny Plan Continue PT/OT TEam Conference later today- 03/16/17-See report for full functional update and POC and ELOS Monitor labs and adjust meds as appropriate with Hospitalist service following Trial of Tramadol-done D/C Percocet-done Schedule Protonix-done See orders F/U with DR Garduno and Hospitalist PRN-Appreciate their notes BETTY IGNACIO MD Mar 16, 2017 08:55
[2017-03-16] MEDS: RT-ADVAIR HFA 115/21 MCG PER PUFF IH SCH ×3 (10:12→19:16)
--- NOTE | 2017-03-16 10:29 | Occupational Ther Daily Note ---
OT Current Status-Daily Note Subjective Pt sitting in chair. No c/o pain. Agrees to therapy and shower. Mental Status/Objective Patient Orientation: Person, Place, Time, Situation Functional [place] Measure 0=Not Assessed/NA 4=Minimal Assistance 1=Total Assistance 5=Supervision or Setup 2=Maximal Assistance 6=Modified [place] 3=Moderate Assistance 7=Complete [place] Attachments: IV ADL-Treatment Functional [place] Measure 0=Not Assessed/NA 4=Minimal Assistance 1=Total Assistance 5=Supervision or Setup 2=Maximal Assistance 6=Modified [place] 3=Moderate Assistance 7=Complete IndependenceIRFPAI Quality Coding Scale 6 Independent with activity with or without an assistive device 5 Patient requires set up or clean up by helper. Patient completes activity by themselves 4 Supervision or touching assist (CGA). [place] provide cues , steadying assist 3 The helper provides less than half the effort to complete the activity 2 The helper provides more than half the effort to complete the activity 1 Dependent. The helper does all the effort to complete an activity 7 Patient refused to complete or attempt activity 9 The patient did not perform the activity before the current illness or injury 88 Not attempted due to Medical conditions or safety concerns Grooming (FIM): 6 (Pt brushes teeth and hair while seated at sink. Washes face and hands in shower. ) Bathing (FIM): 4 (After set up, pt able to complete bathing while seated. Assistance to stand to dry buttocks and [place] area. Using LH sponge, shower bench , grab bars, and handheld shower. ) Bathing Location: L Arm, R Arm, L Upper Leg, R Upper Leg, L Lower Leg ( including foot), R Lower Leg (including foot), Chest, Abdomen, Buttocks, Perineal Area Upper Body (FIM): 5 (After set up, pt able to don and doff bra and shirt by self. ) Lower Body Dressing (FIM): 3 (Assistance to R foot into underwear. Assist to don pants over feet with dressing stick, assist to stand and pull pants over hips. Pt able to don socks with sock aid. Doff socks with dressing stick. Extended time needed to dress lower body. ) Transfers (B, C, W/C) (FIM): 3 (Mod A stand pivot transfer using FWW. Verbal cues needed to move feet and put weight through arms. ) Shower Transfer(FIM): 3 (Mod A stand pivot transfer into shower using w/c, grab bars, and shower bench. Verbal cues needed to move feet. ) Pt requires verbal cues with all transfers for foot placement and when to sit down. Pt has difficulty with moving feet in standing and gets 'stuck' then wants to sit down. Encouragement is needed for pt to keep trying to move feet. Transfers take increased time to complete. Pt incontinent of urine in shower. Other Treatment Pt completed bathing and dressing with extended time to transfer to and from w/c , shower bench,and recliner. After therapy, pt sitting in recliner with phone and call light in reach. Guests present. All needs met. Education OT Patient Education: Transfer techniques Teaching Recipient: Patient Teaching Methods: Demonstration, Discussion Response to Teaching: Verbalize Understanding, Return Demonstration OT Short Term Goals Short Term Goals Time Frame: Mar 25, 2017 Lower Body Dressing(FIM): 3 Toilet/Commode Transfer(FIM): 3 Shower Transfer(FIM): 3 Additional Short Term Goals: 1-Demonstrate ADL Tasks, 2-Verbalize Understanding , 3-ImproveStrength/Lalo 1=Demonstrate adherence to instructed precautions during ADL tasks. 2=Patient will verbalize/demonstrate understanding of assistive devices/ modifications for ADL. 3=Patient will improve strength/tolerance for activity to enable patient to perform ADL's. OT Fci Goals Fci Goals Time Frame: Apr 08, 2017 Eating (FIM): 6 Eating (QC): 6 Groomin Oral Hygiene (QC): 6 Bathing(FIM): 5 Shower/Bathe Self (QC): 4 Upper Body Dressing(FIM): 5 Upper Body Dressing (QC): 5 Lower Body Dressing(FIM): 5 Lower Body Dressing (QC): 4 On/Off Footwear (QC): 5 Toileting(FIM): 5 Toileting Hygiene (QC): 4 Toilet/Commode Transfer(FIM): 5 Toilet/Commode Transfer (QC): 4 Shower Transfer(FIM): 5 Additional Goals: 2-Verbalize Understanding, 3-ImproveStrength/Lalo 1=Demonstrate adherence to instructed precautions during ADL tasks. 2=Patient will verbalize/demonstrate understanding of assistive devices/ modifications for ADL. 3=Patient will improve strength/tolerance for activity to enable patient to perform ADL's. OT Education/Plan Problem List/Assessment Pt would benefit from skilled OT to increase her independence in basic self care to allow her to safely return to her apartment and to decrease caregiver burden. Discharge Recommendations Plan/Recommendations: Continue POC Treatment Plan/Plan of Care Patient would benefit from OT for education, treatment and training to promote independence in ADL's, mobility, safety and/or upper extremity function for ADL' s. Plan of Care: ADL Retraining, Functional Mobility, Group Exercise/Act as Ind ( education, exercise, activ tolerance, funct activities, socialization), UE Funct Exercise/Act, UE Neuromus Re-Ed/Coord Treatment Duration: Apr 08, 2017 Frequency: At least 5 of 7 days/Wk (IRF) Estimated Hrs Per Day: 1.5 hours per day Agreement: Yes Rehab Potential: Fair Time/GCodes Start Time: 09:00 Stop Time: 10:30 Total Time Billed (hr/min): 90 Billed Treatment Time 1 visit, ADL 6 (90 minutes) MARYLIN VILLARREAL Mar 16, 2017 10:29
[2017-03-16] MEDS: FUROSEMIDE 20 MG (LASIX) TAB PO SCH (11:06)
[2017-03-16] MEDS: ROSUVASTATIN 5 MG (CRESTOR) TABLET PO SCH (11:06)
--- NOTE | 2017-03-16 12:31 | Physical Therapy Daily Note ---
PT Daily Note-Current Subjective Pt. up in chair. Agrees to Rx. Describes that she is not active at home, even having someone get her mail for her. Sates a lot of her problem is a past fractured ankle on right as well as history of back pain and problems. pt. strongly wants to go home ans is not in favor of skilled care for her rehab but feels she is worn out here by therapies. Pain Numeric Pain Scale: 2 Location: Right Location Body Site: Thigh Pain Description: Ache Mental Status Patient Orientation: Normal For Age pt. has consistent difficulty with following commands and instruction for w/c use as well as gait sequence and sit to stand safe habits. Transfers Functional [place] Measure 0=Not Assessed/NA 4=Minimal Assistance 1=Total Assistance 5=Supervision or Setup 2=Maximal Assistance 6=Modified [place] 3=Moderate Assistance 7=Complete IndependenceIRFPAI Quality Coding Scale 6 Independent with activity with or without an assistive device 5 Patient requires set up or clean up by helper. Patient completes activity by themselves 4 Supervision or touching assist (CGA). [place] provide cues , steadying assist 3 The helper provides less than half the effort to complete the activity 2 The helper provides more than half the effort to complete the activity 1 Dependent. The helper does all the effort to complete an activity 7 Patient refused to complete or attempt activity 9 The patient did not perform the activity before the current illness or injury 88 Not attempted due to Medical conditions or safety concerns Transfers (B, C, W/C) (FIM): 5 Scootin Rollin Supine to/from Sit: 5 Sit to/from Stand: 5 Weight Bearing Right Lower Extremity: Right Partial Weight Bearing Left Lower Extremity: Left Full Weight Bearing Gait Training Does the Patient Walk?: Yes Gait (FIM): 1 Distance (FIM): 1=up to 49 ft (8ftx2, 3ftx3) Gait Level of Assist: 3 Gait Persons Needed: 1 Gait Assistive Device: FWW w/c to follow, pt. extraordinarly slow and has extreme toe out bilaterally and knees bent with heels touching and actually inhibiting each step . Great difficulty with gait, not really wt bearing even 50% on RLE. Pt. admitting fear is in her way Wheelchair Training Does the Pt Use a Wheelchair?: Yes Wheelchair (FIM): 3 Wheelchair Distance: 3=150 ft Wheelchair Level of Assist: 3 Type of Wheelchair: Manual needs instruction for all jones turns and reminders every time to lock unlock brakes of w/c Exercises Supine Ex: Ankle pumps, Quad Set, Rolling, Glut sets, Heel Slides, Hip abd/add Supine Reps: 12 Seated Therapy Exercises: Ankle pumps, Sit to stand, Long arc quads Seated Reps: 15 Treatments much tome spent on gait and TRF SPT. Pt. stands in place an very long time before attempting a step forward. this WORK ORDER CLERK encouraging and educating pt a great deal today but no real increase in gait stability Assessment Current Status: Fair Progress pt. making minimal progress, requires assist for all mobility. Pt. may be more successful in Skilled therapy with shorter Rx time and longer duration etc. Pt. fatigued with Rx PT Assisted Goals Assisted Goals PT Water Reclamation Systems Operator Goals Time Frame: Apr 08, 2017 Transfers (B,C,W/C) (FIM): 6 Sit to Lying (QC): 5 Lying-Sitting on Side/Bed(QC): 5 Sit to Stand (QC): 5 Rollin Roll Left to Right (QC): 5 Chair/Hnv-wr-Coaio Xfer(QC): 5 Car Transfer (QC): 5 Does the Patient Walk: Yes Gait (FIM): 2 Gait distance (FIM): 5=518-86 ft (75') Distance: 75' Walk 10 feet (QC): 5 Walk 10ft-Uneven Surface(QC): 5 Walk 50ft with 2 Turns (QC): 5 Walk 150 ft (QC): 88 Gait Level of Assist: 6 Gait Assistive Device: FWW # of Steps: 1 1 Step (curb) (QC): 4 4 Steps (QC): 88 12 Steps (QC): 88 Stairs Level Of Assist: 5 Picking up an Object (QC): 4 PT Plan Treatment/Plan Treatment Plan: Continue Plan of Care Treatment Plan: Bed Mobility, Concurrent Therapy, Education, Functional Activity Lalo, Functional Strength, Group Therapy, Gait, Safety, Therapeutic Exercise, Transfers Treatment Duration: Apr 08, 2017 Frequency: At least 5 of 7 days/Wk (IRF) Estimated Hrs Per Day: 1.5 hours per day Patient and/or Family Agrees t: Yes Safety Risks/Education Patient Education: Gait Training, Transfer Techniques, Correct Positioning, Disease Process, Safety Issues Teaching Recipient: Patient Teaching Methods: Demonstration, Discussion Response to Teaching: Verbalize Understanding, Return Demonstration, Reinforcement Needed Time/GCodes Time In: 1105 Time Out: 1230 Total Billed Treatment Time: 85 Total Billed Treatment 1,GT30m,WC30m,EX25m G Codes Necessary: AMANDA Singletary WORK ORDER CLERK Mar 16, 2017 12:31
--- NOTE | 2017-03-16 14:36 | Physical Therapy Daily Note ---
PT Daily Note-Current Subjective Pt. agrees to exercise Transfers Functional [place] Measure 0=Not Assessed/NA 4=Minimal Assistance 1=Total Assistance 5=Supervision or Setup 2=Maximal Assistance 6=Modified [place] 3=Moderate Assistance 7=Complete IndependenceIRFPAI Quality Coding Scale 6 Independent with activity with or without an assistive device 5 Patient requires set up or clean up by helper. Patient completes activity by themselves 4 Supervision or touching assist (CGA). [place] provide cues , steadying assist 3 The helper provides less than half the effort to complete the activity 2 The helper provides more than half the effort to complete the activity 1 Dependent. The helper does all the effort to complete an activity 7 Patient refused to complete or attempt activity 9 The patient did not perform the activity before the current illness or injury 88 Not attempted due to Medical conditions or safety concerns Weight Bearing Right Lower Extremity: Right Partial Weight Bearing Left Lower Extremity: Left Full Weight Bearing Exercises Supine Ex: Ankle pumps, Quad Set, Heel Slides, Short Arc Quads, Straight leg raise, Hip abd/add Supine Reps: 12 Assessment Current Status: Fair Progress continues with difficulty progressing functionally PT Employee Development Director Goals Employee Development Director Goals PT Intermediate Goals Time Frame: Apr 08, 2017 Transfers (B,C,W/C) (FIM): 6 Sit to Lying (QC): 5 Lying-Sitting on Side/Bed(QC): 5 Sit to Stand (QC): 5 Rollin Roll Left to Right (QC): 5 Chair/Dgn-ml-Gtpyi Xfer(QC): 5 Car Transfer (QC): 5 Does the Patient Walk: Yes Gait (FIM): 2 Gait distance (FIM): 0=445-77 ft (75') Distance: 75' Walk 10 feet (QC): 5 Walk 10ft-Uneven Surface(QC): 5 Walk 50ft with 2 Turns (QC): 5 Walk 150 ft (QC): 88 Gait Level of Assist: 6 Gait Assistive Device: FWW # of Steps: 1 1 Step (curb) (QC): 4 4 Steps (QC): 88 12 Steps (QC): 88 Stairs Level Of Assist: 5 Picking up an Object (QC): 4 PT Plan Treatment/Plan Treatment Plan: Continue Plan of Care Treatment Plan: Bed Mobility, Concurrent Therapy, Education, Functional Activity Lalo, Functional Strength, Group Therapy, Gait, Safety, Therapeutic Exercise, Transfers Treatment Duration: Apr 08, 2017 Frequency: At least 5 of 7 days/Wk (IRF) Estimated Hrs Per Day: 1.5 hours per day Patient and/or Family Agrees t: Yes Time/GCodes Time In: 1430 Time Out: 1440 Total Billed Treatment Time: 10 Total Billed Treatment 1,EX G Codes Necessary: No AMANDA MARTINEZ SUPERVISOR AREA Mar 16, 2017 14:35
[2017-03-16 19:44] VITALS: BP 125/70
[2017-03-16] MEDS ORDERED: RT-ADVAIR HFA 115/21 MCG PER PUFF IH PRN (20:00)
[2017-03-16] MEDS: ATENOLOL 50 MG (TENORMIN) TAB PO SCH (20:27)
[2017-03-16] MEDS: ACETAMINOPHEN 325 MG TABLET/CAPLET (TYLENOL) PO PRN (20:27)
[2017-03-16] MEDS: inSUlin DETERMIR 1 UNIT/0.01 ML (LEVEMIR) CHARGE PER UNIT SQ SCH (20:28)
[2017-03-17] MEDS: inSUlin ASPART (NovoLOG) 1 UNIT/0.01 ML (CHARGE PER UNIT) SC SCH ×4 (05:48→20:44)
[2017-03-17] MEDS: LEVOTHYROXINE 88 MCG (LEVOTHORID) TAB PO SCH (06:00)
[2017-03-17] MEDS: PANTOPRAZOLE 20 MG TABLET (PROTONIX) PO SCH (06:26)
[2017-03-17] MEDS: glipiZIDE 5 MG (GLUCOTROL) TAB PO SCH ×2 (06:26→16:07)
[2017-03-17 06:29] VITALS: BP 136/71
[2017-03-17] MEDS: LACTULOSE SYRUP 10GM/15ML (ENULOSE) 30ML UDC PO SCH ×2 (09:00→20:45)
[2017-03-17] MEDS: ENOXAPARIN 30 MG/0.3 ML (LOVENOX) SYR SC SCH (09:00)
[2017-03-17] MEDS: ROSUVASTATIN 5 MG (CRESTOR) TABLET PO SCH (11:15)
[2017-03-17] MEDS: FUROSEMIDE 20 MG (LASIX) TAB PO SCH (11:15)
[2017-03-17] MEDS: ACETAMINOPHEN 325 MG TABLET/CAPLET (TYLENOL) PO PRN (12:57)
--- NOTE | 2017-03-17 15:12 | Occupational Ther Daily Note ---
OT Current Status-Daily Note Subjective Pt seen inroom, up in bed, agreeable to OT. No pain mentioned. Appearance Alert, cooperative Mental Status/Objective Patient Orientation: Person, Place, Time, Situation Functional [place] Measure 0=Not Assessed/NA 4=Minimal Assistance 1=Total Assistance 5=Supervision or Setup 2=Maximal Assistance 6=Modified [place] 3=Moderate Assistance 7=Complete [place] ADL-Treatment Pt did not want to shower but agreed to sponge bath. She was able to sit EOB and wash under arms with setup and stood CGA, FWW to wash [place] front and back. Walked with mod assist, FWW about 5 feet to [facility], requiring cues for walker and hand placement. She took very small steps and had difficulty with using arms to lift L leg. After toileting, she tried to stand/pivot to w/c but was unable to move feet adequately so BSc pulled out from behind her and replaced with W/C. Pt left up in w/c, with physician. All ADLs took longer than usual Functional [place] Measure 0=Not Assessed/NA 4=Minimal Assistance 1=Total Assistance 5=Supervision or Setup 2=Maximal Assistance 6=Modified [place] 3=Moderate Assistance 7=Complete IndependenceIRFPAI Quality Coding Scale 6 Independent with activity with or without an assistive device 5 Patient requires set up or clean up by helper. Patient completes activity by themselves 4 Supervision or touching assist (CGA). [place] provide cues , steadying assist 3 The helper provides less than half the effort to complete the activity 2 The helper provides more than half the effort to complete the activity 1 Dependent. The helper does all the effort to complete an activity 7 Patient refused to complete or attempt activity 9 The patient did not perform the activity before the current illness or injury 88 Not attempted due to Medical conditions or safety concerns Bathing (FIM): 4 Upper Body (FIM): 5 (Doffed and donned clothing with setup) Lower Body Dressing (FIM): 4 (CGA to stand to pull pants up/down, FWW. Pt educ dressing stick to doff and don socks and pants. Pt ed use of sock aid to don socks. ) Toileting (FIM): 4 (CGA to manage clothing. Pt able to wipe with setup. BSC) Toilet/Commode Transfer (FIM): 4 (Skilled cues for hand placement, BSC, FWW) Education OT Patient Education: Modified ADL techniques, Purpose of tx/functional activities, Safety issues, Transfer techniques, Use of adapted equipment Teaching Recipient: Patient Teaching Methods: Demonstration, Discussion Response to Teaching: Reinforcement Needed OT Short Term Goals Short Term Goals Time Frame: Mar 25, 2017 Lower Body Dressing(FIM): 3 Toilet/Commode Transfer(FIM): 3 Shower Transfer(FIM): 3 Additional Short Term Goals: 1-Demonstrate ADL Tasks, 2-Verbalize Understanding , 3-ImproveStrength/Lalo 1=Demonstrate adherence to instructed precautions during ADL tasks. 2=Patient will verbalize/demonstrate understanding of assistive devices/ modifications for ADL. 3=Patient will improve strength/tolerance for activity to enable patient to perform ADL's. OT Yarn Washer Goals Correction Goals Time Frame: Apr 08, 2017 Eating (FIM): 6 Eating (QC): 6 Groomin Oral Hygiene (QC): 6 Bathing(FIM): 5 Shower/Bathe Self (QC): 4 Upper Body Dressing(FIM): 5 Upper Body Dressing (QC): 5 Lower Body Dressing(FIM): 5 Lower Body Dressing (QC): 4 On/Off Footwear (QC): 5 Toileting(FIM): 5 Toileting Hygiene (QC): 4 Toilet/Commode Transfer(FIM): 5 Toilet/Commode Transfer (QC): 4 Shower Transfer(FIM): 5 Additional Goals: 2-Verbalize Understanding, 3-ImproveStrength/Lalo 1=Demonstrate adherence to instructed precautions during ADL tasks. 2=Patient will verbalize/demonstrate understanding of assistive devices/ modifications for ADL. 3=Patient will improve strength/tolerance for activity to enable patient to perform ADL's. OT Education/Plan Problem List/Assessment Pt would benefit from skilled OT to increase her independence in basic self care to allow her to safely return to her apartment and to decrease caregiver burden. Discharge Recommendations Plan/Recommendations: Continue POC Treatment Plan/Plan of Care Patient would benefit from OT for education, treatment and training to promote independence in ADL's, mobility, safety and/or upper extremity function for ADL' s. Plan of Care: ADL Retraining, Functional Mobility, Group Exercise/Act as Ind ( education, exercise, activ tolerance, funct activities, socialization), UE Funct Exercise/Act, UE Neuromus Re-Ed/Coord Treatment Duration: Apr 08, 2017 Frequency: At least 5 of 7 days/Wk (IRF) Estimated Hrs Per Day: 1.5 hours per day Agreement: Yes Rehab Potential: Fair Time/GCodes Start Time: 09:00 Stop Time: 10:00 Total Time Billed (hr/min): 60 Billed Treatment Time visit, 60 minutes ADL JOSE ANGEL ORLANDO OT Mar 17, 2017 15:12
--- NOTE | 2017-03-17 15:38 | Occupational Ther Daily Note ---
OT Current Status-Daily Note Subjective Pt seen in room, up in recliner, agreeable to OT. No pain mentioned. Appearance Alert, cooperative Mental Status/Objective Functional [place] Measure 0=Not Assessed/NA 4=Minimal Assistance 1=Total Assistance 5=Supervision or Setup 2=Maximal Assistance 6=Modified [place] 3=Moderate Assistance 7=Complete [place] ADL-Treatment Functional [place] Measure 0=Not Assessed/NA 4=Minimal Assistance 1=Total Assistance 5=Supervision or Setup 2=Maximal Assistance 6=Modified [place] 3=Moderate Assistance 7=Complete IndependenceIRFPAI Quality Coding Scale 6 Independent with activity with or without an assistive device 5 Patient requires set up or clean up by helper. Patient completes activity by themselves 4 Supervision or touching assist (CGA). [place] provide cues , steadying assist 3 The helper provides less than half the effort to complete the activity 2 The helper provides more than half the effort to complete the activity 1 Dependent. The helper does all the effort to complete an activity 7 Patient refused to complete or attempt activity 9 The patient did not perform the activity before the current illness or injury 88 Not attempted due to Medical conditions or safety concerns Other Treatment Pt did 10 reps bilat UE exercise with 1# weight, with pt educ on each exercise and physical/verbal assistance to do them correctly. She also did 10 reps bilat UE ex with yellow theraband, following along with written instructions, with intent to be able to do them independently once she goes home. To strengthen arms to help with weight bearing for standing and walking. pt left up in recliner, all needs met. Education OT Patient Education: Exercise program, Purpose of tx/functional activities Teaching Recipient: Patient Teaching Methods: Demonstration, Discussion Response to Teaching: Verbalize Understanding, Return Demonstration, Reinforcement Needed OT Short Term Goals Short Term Goals Time Frame: Mar 25, 2017 Lower Body Dressing(FIM): 3 Toilet/Commode Transfer(FIM): 3 Shower Transfer(FIM): 3 Additional Short Term Goals: 1-Demonstrate ADL Tasks, 2-Verbalize Understanding , 3-ImproveStrength/Lalo 1=Demonstrate adherence to instructed precautions during ADL tasks. 2=Patient will verbalize/demonstrate understanding of assistive devices/ modifications for ADL. 3=Patient will improve strength/tolerance for activity to enable patient to perform ADL's. OT Custodial Goals Rear Admiral Goals Time Frame: Apr 08, 2017 Eating (FIM): 6 Eating (QC): 6 Groomin Oral Hygiene (QC): 6 Bathing(FIM): 5 Shower/Bathe Self (QC): 4 Upper Body Dressing(FIM): 5 Upper Body Dressing (QC): 5 Lower Body Dressing(FIM): 5 Lower Body Dressing (QC): 4 On/Off Footwear (QC): 5 Toileting(FIM): 5 Toileting Hygiene (QC): 4 Toilet/Commode Transfer(FIM): 5 Toilet/Commode Transfer (QC): 4 Shower Transfer(FIM): 5 Additional Goals: 2-Verbalize Understanding, 3-ImproveStrength/Lalo 1=Demonstrate adherence to instructed precautions during ADL tasks. 2=Patient will verbalize/demonstrate understanding of assistive devices/ modifications for ADL. 3=Patient will improve strength/tolerance for activity to enable patient to perform ADL's. OT Education/Plan Problem List/Assessment Pt would benefit from skilled OT to increase her independence in basic self care to allow her to safely return to her apartment and to decrease caregiver burden. Discharge Recommendations Plan/Recommendations: Continue POC Treatment Plan/Plan of Care Patient would benefit from OT for education, treatment and training to promote independence in ADL's, mobility, safety and/or upper extremity function for ADL' s. Plan of Care: ADL Retraining, Functional Mobility, Group Exercise/Act as Ind ( education, exercise, activ tolerance, funct activities, socialization), UE Funct Exercise/Act, UE Neuromus Re-Ed/Coord Treatment Duration: Apr 08, 2017 Frequency: At least 5 of 7 days/Wk (IRF) Estimated Hrs Per Day: 1.5 hours per day Agreement: Yes Rehab Potential: Fair Time/GCodes Start Time: 13:00 Stop Time: 13:30 Total Time Billed (hr/min): 30 Billed Treatment Time visit, 30 minutes exercise JOSE ANGEL ORLANDO OT Mar 17, 2017 15:38
--- NOTE | 2017-03-17 15:49 | PM & R (SOAP) Progress Note ---
Subjective Time Seen by Provider: 07:55 Subjective/Events-last exam Patient was seen in her room this AM GI norton feeling better no nausea this AM Patient SBA for transfers Review of Systems Musculoskeletal: leg pain Objective Exam Last Set of Vital Signs Vital Signs Date Time Temp Pulse Resp B/P (MAP) Pulse Ox O2 Delivery O2 Flow Rate FiO2 03/17/17 09:38 Room Air 03/17/17 06:29 98.2 61 18 136/71 99 03/16/17 19:44 21 03/12/17 17:41 0.00 Capillary Refill : Less Than 3 Seconds I&O Intake and Output 03/18/17 00:00 Intake Total 100 ml Balance 100 ml Intake Oral 100 ml # Voids 2 General: Alert, Oriented X3, Cooperative, No Acute Distress HEENT: Atraumatic, PERRLA, EOMI, Mucous Memb Moist/[place] Neck: Supple, No JVD Lungs: Clear to Auscultation Heart: Regular Rate Abdomen: Normal Bowel Sounds, Soft, No Tenderness, Other (obese) Extremities: Other (normal postop swelling rt leg) Skin: Other ([place] dressing in place clean and dry) Neuro: Other (RT LE Strength 2/5 Left LE 3+/5) Results Lab Laboratory Tests 03/14/17 15:50: Glucometer 127H 03/14/17 20:50: Glucometer 87 03/15/17 05:06: Glucometer 127H 03/15/17 08:35: Sodium Level 133L, Potassium Level 4.2, Chloride Level 102, Carbon Dioxide Level 20L, Anion Gap 11, Blood Urea Nitrogen 52H, Creatinine 1.80H, Estimat Glomerular Filtration Rate 27, BUN/Creatinine Ratio 29, Glucose Level 154H, Calcium Level 8.3L 03/15/17 11:08: Glucometer 211H 03/15/17 15:30: Glucometer 125H 03/15/17 20:38: Glucometer 200H 03/16/17 05:20: Glucometer 97 03/16/17 10:35: Glucometer 167H 03/16/17 15:50: Glucometer 172H 03/16/17 20:19: Glucometer 185H 03/17/17 05:40: Glucometer 94 03/17/17 10:42: Glucometer 249H Assessment/Plan Assessment Fall with fracture rt distal femur s/p ORIF DR Garduno PWB RLE Nausea meds adjusted further HTN controlled DM controlled Dizziness-will change pain meds-improved -See orders Plan Continue PT/OT TEam Conference held yesterday- 03/16/17-See report for full functional update and POC and ELOS Monitor labs and adjust meds as appropriate with Hospitalist service following Trial of Tramadol-done D/C Percocet-done Schedule Protonix-done See orders F/U with DR Garduno and Hospitalist PRN-Appreciate their notes BETTY IGNACIO MD Mar 17, 2017 15:49
--- NOTE | 2017-03-17 16:19 | Physical Therapy Daily Note ---
PT Daily Note-Current Subjective Pt sitting in recliner upon arrival. Pt reluctantly agrees to PT. Pain Numeric Pain Scale: 5-Moderate Pain Location: Right Location Body Site: Thigh Pain Description: Ache Mental Status Patient Orientation: Person, Place, Situation Transfers Functional [place] Measure 0=Not Assessed/NA 4=Minimal Assistance 1=Total Assistance 5=Supervision or Setup 2=Maximal Assistance 6=Modified [place] 3=Moderate Assistance 7=Complete IndependenceIRFPAI Quality Coding Scale 6 Independent with activity with or without an assistive device 5 Patient requires set up or clean up by helper. Patient completes activity by themselves 4 Supervision or touching assist (CGA). [place] provide cues , steadying assist 3 The helper provides less than half the effort to complete the activity 2 The helper provides more than half the effort to complete the activity 1 Dependent. The helper does all the effort to complete an activity 7 Patient refused to complete or attempt activity 9 The patient did not perform the activity before the current illness or injury 88 Not attempted due to Medical conditions or safety concerns Scootin Sit to/from Stand: 3 Weight Bearing Right Lower Extremity: Right Partial Weight Bearing Left Lower Extremity: Left Full Weight Bearing Gait Training Does the Patient Walk?: Yes Distance (FIM): 1=up to 49 ft Distance: 2' Gait Level of Assist: 2 Gait Assistive Device: FWW Pt's gait is very slow and pt is very anxious to put any weight or weight shift during transfers or attempting to ambulate even short distances. Wheelchair Training Does the Pt Use a Wheelchair?: Yes Wheelchair Distance: 3=150 ft Exercises Seated Therapy Exercises: Ankle pumps, Long arc quads, Hip flexion, Kicking activity Standing: Sit to Stand Treatments Pt attempts to stand and ambulate a couple of feet to [facility]. PT has to pull WC behind pt due to pt reporting could not make it ambulating. PT propels [facility] in hallway to Therapy Gym. Pt completes Seated Ex in [facility]. Pt attempts sit to stand transfers and weight shifting at //bars. Assessment Current Status: Fair Progress Pt has lack of motivation and limits self during tx. Pt continues to exhibit weakness and difficulty transferring/ambulating. PT Hospital Chief Executive Officer Goals Mcfp Goals PT Hospital Chief Executive Officer Goals Time Frame: Apr 08, 2017 Transfers (B,C,W/C) (FIM): 6 Sit to Lying (QC): 5 Lying-Sitting on Side/Bed(QC): 5 Sit to Stand (QC): 5 Rollin Roll Left to Right (QC): 5 Chair/Pym-xh-Vulls Xfer(QC): 5 Car Transfer (QC): 5 Does the Patient Walk: Yes Gait (FIM): 2 Gait distance (FIM): 2=716-70 ft (75') Distance: 75' Walk 10 feet (QC): 5 Walk 10ft-Uneven Surface(QC): 5 Walk 50ft with 2 Turns (QC): 5 Walk 150 ft (QC): 88 Gait Level of Assist: 6 Gait Assistive Device: FWW # of Steps: 1 1 Step (curb) (QC): 4 4 Steps (QC): 88 12 Steps (QC): 88 Stairs Level Of Assist: 5 Picking up an Object (QC): 4 PT Plan Problem List Problem List: Activity Tolerance, Functional Strength, Safety, Balance, Gait, Transfer, Bed Mobility Treatment/Plan Treatment Plan: Continue Plan of Care Treatment Plan: Bed Mobility, Concurrent Therapy, Education, Functional Activity Lalo, Functional Strength, Group Therapy, Gait, Safety, Therapeutic Exercise, Transfers Treatment Duration: Apr 08, 2017 Frequency: At least 5 of 7 days/Wk (IRF) Estimated Hrs Per Day: 1.5 hours per day Patient and/or Family Agrees t: Yes Safety Risks/Education Patient Education: Gait Training, Transfer Techniques, Correct Positioning, W/ C Management, Safety Issues Teaching Recipient: Patient Teaching Methods: Discussion Response to Teaching: Verbalize Understanding Time/GCodes Time In: 1115 Time Out: 1215 Total Billed Treatment Time: 60 Total Billed Treatment visit, FA x2 (30m), W[facility] (15m) & EX (15m) ANTHONY ELY PTA Mar 17, 2017 16:19
--- NOTE | 2017-03-17 16:28 | Physical Therapy Daily Note ---
PT Daily Note-Current Subjective Pt at [facility] upon arrival. Pt agrees to PT. Pain Numeric Pain Scale: 3 Location: Right Location Body Site: Knee Pain Description: Ache Mental Status Patient Orientation: Person, Place, Situation Transfers Functional [place] Measure 0=Not Assessed/NA 4=Minimal Assistance 1=Total Assistance 5=Supervision or Setup 2=Maximal Assistance 6=Modified [place] 3=Moderate Assistance 7=Complete IndependenceIRFPAI Quality Coding Scale 6 Independent with activity with or without an assistive device 5 Patient requires set up or clean up by helper. Patient completes activity by themselves 4 Supervision or touching assist (CGA). [place] provide cues , steadying assist 3 The helper provides less than half the effort to complete the activity 2 The helper provides more than half the effort to complete the activity 1 Dependent. The helper does all the effort to complete an activity 7 Patient refused to complete or attempt activity 9 The patient did not perform the activity before the current illness or injury 88 Not attempted due to Medical conditions or safety concerns Scootin Sit to/from Stand: 3 Sit to Stand (QC): 3 Chair/Hho-xf-Dxbdc Xfer(QC): 3 Weight Bearing Right Lower Extremity: Right Partial Weight Bearing Left Lower Extremity: Left Full Weight Bearing Wheelchair Training Does the Pt Use a Wheelchair?: Yes Wheelchair Distance: 3=150 ft Distance: 150' Wheelchair Level of Assist: 4 Wheel 50 ft with 2 turns (QC): 4 Type of Wheelchair: Manual Exercises Seated Therapy Exercises: Ankle pumps, Long arc quads, Hip flexion, Kicking activity Treatments Pt stands from [facility] to [facility]. PT brings [facility] behind pt & pt sits. Pt propels WC in hallway before resting in [facility]. Pt completes Seated Ex in [facility] followed by transferring from sit to stand using FWW at Min A. Pt stands for 1m before sitting and propelling back to room. Pt transfers back to recliner at end of tx with all needs met. Assessment Current Status: Fair Progress Pt fatigues and continues to have difficulty weight shifting or walking. PT Half-Way Goals Half-Way Goals PT Half-Way Goals Time Frame: Apr 08, 2017 Transfers (B,C,W/C) (FIM): 6 Sit to Lying (QC): 5 Lying-Sitting on Side/Bed(QC): 5 Sit to Stand (QC): 5 Rollin Roll Left to Right (QC): 5 Chair/Bzc-yh-Xavdn Xfer(QC): 5 Car Transfer (QC): 5 Does the Patient Walk: Yes Gait (FIM): 2 Gait distance (FIM): 2=039-01 ft (75') Distance: 75' Walk 10 feet (QC): 5 Walk 10ft-Uneven Surface(QC): 5 Walk 50ft with 2 Turns (QC): 5 Walk 150 ft (QC): 88 Gait Level of Assist: 6 Gait Assistive Device: FWW # of Steps: 1 1 Step (curb) (QC): 4 4 Steps (QC): 88 12 Steps (QC): 88 Stairs Level Of Assist: 5 Picking up an Object (QC): 4 PT Plan Problem List Problem List: Activity Tolerance, Functional Strength, Safety, Balance, Gait, Transfer Treatment/Plan Treatment Plan: Continue Plan of Care Treatment Plan: Bed Mobility, Concurrent Therapy, Education, Functional Activity Lalo, Functional Strength, Group Therapy, Gait, Safety, Therapeutic Exercise, Transfers Treatment Duration: Apr 08, 2017 Frequency: At least 5 of 7 days/Wk (IRF) Estimated Hrs Per Day: 1.5 hours per day Patient and/or Family Agrees t: Yes Safety Risks/Education Patient Education: Gait Training, Transfer Techniques, Correct Positioning, Safety Issues Teaching Recipient: Patient Teaching Methods: Discussion Response to Teaching: Verbalize Understanding Time/GCodes Time In: 1430 Time Out: 1504 Total Billed Treatment Time: 34 Total Billed Treatment visit, [facility] (15m) & [facility] (19m) ANTHONY ELY PTA Mar 17, 2017 16:27
[2017-03-17 17:21] VITALS: BP 146/79
[2017-03-17] MEDS: inSUlin DETERMIR 1 UNIT/0.01 ML (LEVEMIR) CHARGE PER UNIT SQ SCH (20:45)
[2017-03-17] MEDS: ATENOLOL 50 MG (TENORMIN) TAB PO SCH (20:45)
[2017-03-18 05:00] VITALS: BP 134/78
[2017-03-18] MEDS: inSUlin ASPART (NovoLOG) 1 UNIT/0.01 ML (CHARGE PER UNIT) SC SCH ×4 (05:39→21:06)
[2017-03-18] MEDS: glipiZIDE 5 MG (GLUCOTROL) TAB PO SCH ×2 (06:02→16:13)
[2017-03-18] MEDS: PANTOPRAZOLE 20 MG TABLET (PROTONIX) PO SCH (06:02)
[2017-03-18] MEDS: LEVOTHYROXINE 88 MCG (LEVOTHORID) TAB PO SCH (06:02)
--- NOTE | 2017-03-18 06:57 | Progress Note-Standard ---
Standard Progress Note Progress Notes/Assess & Plan Date Seen by Provider: Mar 18, 2017 Time Seen by Provider: 06:56 Progress/Assessment & Plan No complaints RLE dressing in place no calf tenderness. Neg Polo's s/p ORIF R femur PT/OT Final Diagnosis Feeling well RLE--incision clean and dry. no calf tenderness. no pain with IR/ER of thigh s/p ORIF R femur continue PT/OT CRISTÓBAL SOLIS MD Mar 18, 2017 06:57
[2017-03-18] MEDS: ENOXAPARIN 30 MG/0.3 ML (LOVENOX) SYR SC SCH (08:28)
[2017-03-18] MEDS: LACTULOSE SYRUP 10GM/15ML (ENULOSE) 30ML UDC PO SCH ×2 (08:29→20:35)
--- NOTE | 2017-03-18 09:09 | PM & R (SOAP) Progress Note ---
Subjective Time Seen by Provider: 08:00 Subjective/Events-last exam Patient was seen in her room this AM Patient Min assist for transfers Pain control adequate Having BMS Sleeping OK Objective Exam Last Set of Vital Signs Vital Signs Date Time Temp Pulse Resp B/P (MAP) Pulse Ox O2 Delivery O2 Flow Rate FiO2 03/18/17 07:52 95 Room Air 03/18/17 05:00 98.4 50 16 134/78 03/16/17 19:44 21 03/12/17 17:41 0.00 Capillary Refill : Less Than 3 Seconds I&O Intake and Output 03/19/17 00:00 Intake Total 150 ml Balance 150 ml Intake Oral 150 ml # Voids 3 General: Alert, Oriented X3, Cooperative, No Acute Distress HEENT: Atraumatic, PERRLA, EOMI, Mucous Memb Moist/[place] Neck: Supple, No JVD Lungs: Clear to Auscultation Heart: Regular Rate Abdomen: Normal Bowel Sounds, Soft, No Tenderness, Other (obese) Extremities: Other (normal postop swelling rt leg) Skin: Other ([place] dressing in place clean and dry) Neuro: Other (RT LE Strength 2/5 Left LE 3+/5) Results Lab Laboratory Tests 03/15/17 11:08: Glucometer 211H 03/15/17 15:30: Glucometer 125H 03/15/17 20:38: Glucometer 200H 03/16/17 05:20: Glucometer 97 03/16/17 10:35: Glucometer 167H 03/16/17 15:50: Glucometer 172H 03/16/17 20:19: Glucometer 185H 03/17/17 05:40: Glucometer 94 03/17/17 10:42: Glucometer 249H 03/17/17 15:41: Glucometer 143H 03/17/17 20:36: Glucometer 226H 03/18/17 05:38: Glucometer 79 Assessment/Plan Assessment Fall with fracture rt distal femur s/p ORIF DR Garduno PWB RLE Nausea meds adjusted further-improved HTN controlled DM controlled Dizziness-will change pain meds-improved -See orders Plan Continue PT/OT TEam Conference held - 03/16/17-See report for full functional update and POC and ELOS Monitor labs and adjust meds as appropriate with Hospitalist service following Trial of Tramadol-done D/C Percocet-done Schedule Protonix-done See orders F/U with DR Garduno and Hospitalist PRN-Appreciate their notes BETTY IGNACIO MD Mar 18, 2017 09:09
--- NOTE | 2017-03-18 10:08 | Physical Therapy Daily Note ---
PT Daily Note-Current Subjective Pt. states she feels she is better. Agrees to Rx. Pain Numeric Pain Scale: 0-No Pain Mental Status Patient Orientation: Normal For Age following commands better today Transfers Functional [place] Measure 0=Not Assessed/NA 4=Minimal Assistance 1=Total Assistance 5=Supervision or Setup 2=Maximal Assistance 6=Modified [place] 3=Moderate Assistance 7=Complete IndependenceIRFPAI Quality Coding Scale 6 Independent with activity with or without an assistive device 5 Patient requires set up or clean up by helper. Patient completes activity by themselves 4 Supervision or touching assist (CGA). [place] provide cues , steadying assist 3 The helper provides less than half the effort to complete the activity 2 The helper provides more than half the effort to complete the activity 1 Dependent. The helper does all the effort to complete an activity 7 Patient refused to complete or attempt activity 9 The patient did not perform the activity before the current illness or injury 88 Not attempted due to Medical conditions or safety concerns Transfers (B, C, W/C) (FIM): 4 Scootin Rollin Supine to/from Sit: 5 Sit to/from Stand: 5 Bed to/from Chair: 4 Weight Bearing Right Lower Extremity: Right Partial Weight Bearing Left Lower Extremity: Left Full Weight Bearing Gait Training Does the Patient Walk?: Yes Gait (FIM): 1 Distance (FIM): 1=up to 49 ft (8ftx3) Gait Level of Assist: 4 Gait Persons Needed: 1 Gait Assistive Device: FWW flexed at hips and knees with with externally rotated, heels nearly touching and interfering with forward advancement of feet etc Wheelchair Training Does the Pt Use a Wheelchair?: Yes Wheelchair (FIM): 4 Wheelchair Distance: 3=150 ft (x2) Wheelchair Level of Assist: 4 Type of Wheelchair: Manual slow, needs many cues Exercises Supine Ex: Quad Set, Heel Slides, Hip abd/add Supine Reps: 15 Seated Therapy Exercises: Ankle pumps, Sit to stand, Hip abd/add Seated Reps: 15 Assessment Current Status: Good Progress PT Short Term Goals Short Term Goals Wheelchair Distance: 150' PT [facility] Goals [facility] Goals PT [facility] Goals Time Frame: Apr 08, 2017 Transfers (B,C,W/C) (FIM): 6 Sit to Lying (QC): 5 Lying-Sitting on Side/Bed(QC): 5 Sit to Stand (QC): 5 Rollin Roll Left to Right (QC): 5 Chair/Thl-qx-Mgpzp Xfer(QC): 5 Car Transfer (QC): 5 Does the Patient Walk: Yes Gait (FIM): 2 Gait distance (FIM): 1=737-02 ft (75') Distance: 75' Walk 10 feet (QC): 5 Walk 10ft-Uneven Surface(QC): 5 Walk 50ft with 2 Turns (QC): 5 Walk 150 ft (QC): 88 Gait Level of Assist: 6 Gait Assistive Device: FWW # of Steps: 1 1 Step (curb) (QC): 4 4 Steps (QC): 88 12 Steps (QC): 88 Stairs Level Of Assist: 5 Picking up an Object (QC): 4 PT Plan Treatment/Plan Treatment Plan: Continue Plan of Care Treatment Plan: Bed Mobility, Concurrent Therapy, Education, Functional Activity Lalo, Functional Strength, Group Therapy, Gait, Safety, Therapeutic Exercise, Transfers Treatment Duration: Apr 08, 2017 Frequency: At least 5 of 7 days/Wk (IRF) Estimated Hrs Per Day: 1.5 hours per day Patient and/or Family Agrees t: Yes Safety Risks/Education Patient Education: Gait Training, Transfer Techniques, Correct Positioning, W/ C Management, Disease Process, Safety Issues Teaching Recipient: Patient Teaching Methods: Demonstration, Discussion Response to Teaching: Verbalize Understanding, Return Demonstration, Reinforcement Needed Time/GCodes Time In: 930 Time Out: 1000 Total Billed Treatment Time: 30 Total Billed Treatment 1,FA15m,w/c 15m G Codes Necessary: AMANDA Singletary PTA Mar 18, 2017 10:08
[2017-03-18] MEDS: FUROSEMIDE 20 MG (LASIX) TAB PO SCH (12:44)
[2017-03-18] MEDS: ROSUVASTATIN 5 MG (CRESTOR) TABLET PO SCH (12:44)
--- NOTE | 2017-03-18 12:44 | Occupational Ther Daily Note ---
OT Current Status-Daily Note Subjective Pt sitting in chair. No c/o pain. Agrees to therapy, would like to take shower. Mental Status/Objective Patient Orientation: Person, Place, Time, Situation Functional [place] Measure 0=Not Assessed/NA 4=Minimal Assistance 1=Total Assistance 5=Supervision or Setup 2=Maximal Assistance 6=Modified [place] 3=Moderate Assistance 7=Complete [place] ADL-Treatment Functional [place] Measure 0=Not Assessed/NA 4=Minimal Assistance 1=Total Assistance 5=Supervision or Setup 2=Maximal Assistance 6=Modified [place] 3=Moderate Assistance 7=Complete IndependenceIRFPAI Quality Coding Scale 6 Independent with activity with or without an assistive device 5 Patient requires set up or clean up by helper. Patient completes activity by themselves 4 Supervision or touching assist (CGA). [place] provide cues , steadying assist 3 The helper provides less than half the effort to complete the activity 2 The helper provides more than half the effort to complete the activity 1 Dependent. The helper does all the effort to complete an activity 7 Patient refused to complete or attempt activity 9 The patient did not perform the activity before the current illness or injury 88 Not attempted due to Medical conditions or safety concerns Bathing (FIM): 4 (Pt able to complete bathing while seated. Min A to stand while pt washes buttocks and [place] area. Using LH sponge, shower chair, handheld shower, and grab bars. ) Bathing Location: L Arm, R Arm, L Upper Leg, R Upper Leg, L Lower Leg ( including foot), R Lower Leg (including foot), Chest, Abdomen, Buttocks, Perineal Area Upper Body (FIM): 4 (After set up, pt able to don/doff shirt and bra while seated. Assist to fasten bra in back. ) Lower Body Dressing (FIM): 3 (Assist to don underwear and pants over R foot. Able to don L. Assist to stand while pt pulls pants up. Able to don socks using sock aid with assist to get sock aid over R heel. Assist to don shoes. Able to doff shoes/socks using dressing stick. ) Toileting (FIM): 4 (Pt able to manipulate clothing while standing using FWW. Assist to complete hygiene while standing. Using BSC over toilet. ) Transfers (B, C, W/C) (FIM): 3 (Mod A for stand pivot transfer using FWW.) Toilet/Commode Transfer (FIM): 3 (Mod A for stand pivot transfer to/from w/c to BSC over toilet. ) Shower Transfer(FIM): 3 (Mod A for stand pivot transfer from w/c to shower bench using grab bars. ) After therapy, pt sitting in recliner with phone and call light in reach. All needs met. OT Short Term Goals Short Term Goals Time Frame: Mar 25, 2017 Lower Body Dressing(FIM): 3 Toilet/Commode Transfer(FIM): 3 Shower Transfer(FIM): 3 Additional Short Term Goals: 1-Demonstrate ADL Tasks, 2-Verbalize Understanding , 3-ImproveStrength/Lalo 1=Demonstrate adherence to instructed precautions during ADL tasks. 2=Patient will verbalize/demonstrate understanding of assistive devices/ modifications for ADL. 3=Patient will improve strength/tolerance for activity to enable patient to perform ADL's. OT Payer Specialist Goals Payer Specialist Goals Time Frame: Apr 08, 2017 Eating (FIM): 6 Eating (QC): 6 Groomin Oral Hygiene (QC): 6 Bathing(FIM): 5 Shower/Bathe Self (QC): 4 Upper Body Dressing(FIM): 5 Upper Body Dressing (QC): 5 Lower Body Dressing(FIM): 5 Lower Body Dressing (QC): 4 On/Off Footwear (QC): 5 Toileting(FIM): 5 Toileting Hygiene (QC): 4 Toilet/Commode Transfer(FIM): 5 Toilet/Commode Transfer (QC): 4 Shower Transfer(FIM): 5 Additional Goals: 2-Verbalize Understanding, 3-ImproveStrength/Lalo 1=Demonstrate adherence to instructed precautions during ADL tasks. 2=Patient will verbalize/demonstrate understanding of assistive devices/ modifications for ADL. 3=Patient will improve strength/tolerance for activity to enable patient to perform ADL's. OT Education/Plan Problem List/Assessment Pt would benefit from skilled OT to increase her independence in basic self care to allow her to safely return to her apartment and to decrease caregiver burden. Discharge Recommendations Plan/Recommendations: Continue POC Treatment Plan/Plan of Care Patient would benefit from OT for education, treatment and training to promote independence in ADL's, mobility, safety and/or upper extremity function for ADL' s. Plan of Care: ADL Retraining, Functional Mobility, Group Exercise/Act as Ind ( education, exercise, activ tolerance, funct activities, socialization), UE Funct Exercise/Act, UE Neuromus Re-Ed/Coord Treatment Duration: Apr 08, 2017 Frequency: At least 5 of 7 days/Wk (IRF) Estimated Hrs Per Day: 1.5 hours per day Agreement: Yes Rehab Potential: Fair Time/GCodes Start Time: 11:00 Stop Time: 12:06 Total Time Billed (hr/min): 66 Billed Treatment Time 1 visit, ADL 4 (66 minutes) MARYLIN VILLARREAL Mar 18, 2017 12:44
--- NOTE | 2017-03-18 14:44 | Therapy Group Daily Note ---
Therapy Daily Group Note Patient Education Topic Other List Below (memory strategies) Exercises LE Seated Exercise, UE Exercise Other/Notes Pt propelled self to therapy gym via w/c to therapy gym for OT/PT group. Group consisted of introductions (name, place living, shared rehab story), socialization, education on memory strategies, memory activity and identify own memory tools used to strategize. Pt was able to introduce self and share stories with peers appropriately. Pt contributed to conversations throughout group. Pt interacted with peers appropriately and engaged pt sitting beside her in conversation. Pt was able to describe own memory strategy, such as receiving phone calls for reminders. Pt led UE/LE seated exercises without difficulty. Pt propelled self back to room in w/c. After therapy, pt lying in bed with call light/phone in reach. All needs met in room. Start Time: 13:00 Stop Time: 14:15 Total Billed Treatment Time: 75 Total Billed Treatment 1-GRP MARYLIN VILLARREAL Mar 18, 2017 14:44
[2017-03-18] MEDS: DICLOFENAC 1% GEL 100 GM (VOLTAREN) TUBE TOP PRN (14:54)
--- NOTE | 2017-03-18 15:37 | Physical Therapy Daily Note ---
PT Daily Note-Current Subjective Pt was sitting in chair prior to tx and agreeable to PT. Pt reports 6/10 pain in right LE and has just received pain medications from nursing. Pt requests to sit up in chair for awhile, pt is sitting in chair with feet elevated, heels floating, has nurse call, phone, tray, all needs met post tx. Pain Numeric Pain Scale: 6 Location Body Site: Hip (right) Pain Description: Ache Mental Status Patient Orientation: Normal For Age Transfers Functional [place] Measure 0=Not Assessed/NA 4=Minimal Assistance 1=Total Assistance 5=Supervision or Setup 2=Maximal Assistance 6=Modified [place] 3=Moderate Assistance 7=Complete IndependenceIRFPAI Quality Coding Scale 6 Independent with activity with or without an assistive device 5 Patient requires set up or clean up by helper. Patient completes activity by themselves 4 Supervision or touching assist (CGA). [place] provide cues , steadying assist 3 The helper provides less than half the effort to complete the activity 2 The helper provides more than half the effort to complete the activity 1 Dependent. The helper does all the effort to complete an activity 7 Patient refused to complete or attempt activity 9 The patient did not perform the activity before the current illness or injury 88 Not attempted due to Medical conditions or safety concerns Scootin Sit to/from Stand: 5 Pt completes sit to stands (x5) with CGA for safety. Weight Bearing Right Lower Extremity: Right Partial Weight Bearing Left Lower Extremity: Left Full Weight Bearing Exercises Seated Therapy Exercises: Ankle pumps, Sit to stand (5x), Shoulder Flex, Long arc quads, Hip flexion, Hamstring Curls, Reaching activity, Hip abd/add, Glut set Seated Reps: 20 Treatments Pt completes seated LE exercises, weight shifting and reaching, UE strengthening with theraband (x10) to increase functional strength in LEs, trunk , and UEs and sitting balance. Assessment Current Status: Good Progress Pt strength is increasing, patient is in good spirits but in a lot of pain this afternoon, guarded slow movements. PT Short Term Goals Short Term Goals Wheelchair Distance: 150' PT Alf Goals Director Learning Goals PT Director Learning Goals Time Frame: Apr 08, 2017 Transfers (B,C,W/C) (FIM): 6 Sit to Lying (QC): 5 Lying-Sitting on Side/Bed(QC): 5 Sit to Stand (QC): 5 Rollin Roll Left to Right (QC): 5 Chair/Dhp-ef-Wgygm Xfer(QC): 5 Car Transfer (QC): 5 Does the Patient Walk: Yes Gait (FIM): 2 Gait distance (FIM): 6=097-59 ft (75') Distance: 75' Walk 10 feet (QC): 5 Walk 10ft-Uneven Surface(QC): 5 Walk 50ft with 2 Turns (QC): 5 Walk 150 ft (QC): 88 Gait Level of Assist: 6 Gait Assistive Device: FWW # of Steps: 1 1 Step (curb) (QC): 4 4 Steps (QC): 88 12 Steps (QC): 88 Stairs Level Of Assist: 5 Picking up an Object (QC): 4 PT Plan Problem List Problem List: Activity Tolerance, Functional Strength, Safety, Balance, Gait, Transfer, Bed Mobility, ROM Treatment/Plan Treatment Plan: Continue Plan of Care Treatment Plan: Bed Mobility, Concurrent Therapy, Education, Functional Activity Lalo, Functional Strength, Group Therapy, Gait, Safety, Therapeutic Exercise, Transfers Treatment Duration: Apr 08, 2017 Frequency: At least 5 of 7 days/Wk (IRF) Estimated Hrs Per Day: 1.5 hours per day Patient and/or Family Agrees t: Yes Safety Risks/Education Patient Education: Reviewed Precautions, Correct Positioning, Safety Issues Teaching Recipient: Patient Teaching Methods: Demonstration, Discussion Response to Teaching: Verbalize Understanding, Reinforcement Needed Time/GCodes Time In: 1516 Time Out: 1531 Total Billed Treatment Time: 15 Total Billed Treatment 1 visit 15 EX MIKAELA GUO PT Mar 18, 2017 15:37
[2017-03-18 18:20] VITALS: BP 158/76
[2017-03-18] MEDS: ATENOLOL 50 MG (TENORMIN) TAB PO SCH (20:35)
[2017-03-18] MEDS: inSUlin DETERMIR 1 UNIT/0.01 ML (LEVEMIR) CHARGE PER UNIT SQ SCH (21:20)
[2017-03-19 05:27] VITALS: BP 152/79
[2017-03-19] MEDS: inSUlin ASPART (NovoLOG) 1 UNIT/0.01 ML (CHARGE PER UNIT) SC SCH ×4 (05:40→20:22)
[2017-03-19] MEDS: PANTOPRAZOLE 20 MG TABLET (PROTONIX) PO SCH (05:48)
[2017-03-19] MEDS: glipiZIDE 5 MG (GLUCOTROL) TAB PO SCH ×2 (05:48→16:56)
[2017-03-19] MEDS: LEVOTHYROXINE 88 MCG (LEVOTHORID) TAB PO SCH (05:48)
[2017-03-19] MEDS: LACTULOSE SYRUP 10GM/15ML (ENULOSE) 30ML UDC PO SCH ×2 (08:17→20:14)
[2017-03-19] MEDS: ENOXAPARIN 30 MG/0.3 ML (LOVENOX) SYR SC SCH (08:17)
[2017-03-19] MEDS: ROSUVASTATIN 5 MG (CRESTOR) TABLET PO SCH (12:54)
[2017-03-19] MEDS: FUROSEMIDE 20 MG (LASIX) TAB PO SCH (12:54)
[2017-03-19 14:09] VITALS: BP 152/79
--- NOTE | 2017-03-19 14:33 | Physical Therapy Daily Note ---
PT Daily Note-Current Subjective Hopes she is finally making some progress. Agrees to TRF training SPTs and short dist gait Pain Numeric Pain Scale: 0-No Pain Mental Status Patient Orientation: Normal For Age Transfers Functional [place] Measure 0=Not Assessed/NA 4=Minimal Assistance 1=Total Assistance 5=Supervision or Setup 2=Maximal Assistance 6=Modified [place] 3=Moderate Assistance 7=Complete IndependenceIRFPAI Quality Coding Scale 6 Independent with activity with or without an assistive device 5 Patient requires set up or clean up by helper. Patient completes activity by themselves 4 Supervision or touching assist (CGA). [place] provide cues , steadying assist 3 The helper provides less than half the effort to complete the activity 2 The helper provides more than half the effort to complete the activity 1 Dependent. The helper does all the effort to complete an activity 7 Patient refused to complete or attempt activity 9 The patient did not perform the activity before the current illness or injury 88 Not attempted due to Medical conditions or safety concerns Transfers (B, C, W/C) (FIM): 5 Scootin Sit to/from Stand: 5 SPTs x6 trials chair to chair etc. Weight Bearing Right Lower Extremity: Right Partial Weight Bearing Left Lower Extremity: Left Full Weight Bearing Gait Training Does the Patient Walk?: Yes Gait (FIM): 1 Distance (FIM): 1=up to 49 ft (5ftx2) Gait Level of Assist: 4 Gait Persons Needed: 1 Exercises Seated Therapy Exercises: Ankle pumps, Sit to stand, Long arc quads, Hip abd/ add, Glut set Seated Reps: 15 Assessment Current Status: Good Progress increased TRF skills SPTs left to right chair to chair, needs cues to wt bear on hands/FWW for maintaining Wt bearing etc PT Short Term Goals Short Term Goals Wheelchair Distance: 150' PT [employer] Property [employer] Goals Group Home Goals PT Group Home Goals Time Frame: Apr 08, 2017 Transfers (B,C,W/C) (FIM): 6 Sit to Lying (QC): 5 Lying-Sitting on Side/Bed(QC): 5 Sit to Stand (QC): 5 Rollin Roll Left to Right (QC): 5 Chair/Vch-ok-Rmyzq Xfer(QC): 5 Car Transfer (QC): 5 Does the Patient Walk: Yes Gait (FIM): 2 Gait distance (FIM): 5=274-65 ft (75') Distance: 75' Walk 10 feet (QC): 5 Walk 10ft-Uneven Surface(QC): 5 Walk 50ft with 2 Turns (QC): 5 Walk 150 ft (QC): 88 Gait Level of Assist: 6 Gait Assistive Device: FWW # of Steps: 1 1 Step (curb) (QC): 4 4 Steps (QC): 88 12 Steps (QC): 88 Stairs Level Of Assist: 5 Picking up an Object (QC): 4 PT Plan Treatment/Plan Treatment Plan: Continue Plan of Care Treatment Plan: Bed Mobility, Concurrent Therapy, Education, Functional Activity Lalo, Functional Strength, Group Therapy, Gait, Safety, Therapeutic Exercise, Transfers Treatment Duration: Apr 08, 2017 Frequency: At least 5 of 7 days/Wk (IRF) Estimated Hrs Per Day: 1.5 hours per day Patient and/or Family Agrees t: Yes Safety Risks/Education Patient Education: Gait Training, Transfer Techniques Teaching Recipient: Patient Teaching Methods: Demonstration, Discussion Response to Teaching: Verbalize Understanding, Return Demonstration, Reinforcement Needed Time/GCodes Time In: 1310 Time Out: 1340 Total Billed Treatment Time: 30 Total Billed Treatment 1,FA30m G Codes Necessary: AMANDA Singletary CERTIFIED FORKLIFT OPERATOR Mar 19, 2017 14:33
[2017-03-19 18:05] VITALS: BP 102/67
[2017-03-19] MEDS: ACETAMINOPHEN 325 MG TABLET/CAPLET (TYLENOL) PO PRN (18:38)
[2017-03-19] MEDS: inSUlin DETERMIR 1 UNIT/0.01 ML (LEVEMIR) CHARGE PER UNIT SQ SCH (20:16)
[2017-03-19] MEDS: ATENOLOL 50 MG (TENORMIN) TAB PO SCH (20:16)
[2017-03-20 05:00] VITALS: BP 145/79
[2017-03-20] MEDS: PANTOPRAZOLE 20 MG TABLET (PROTONIX) PO SCH (06:27)
[2017-03-20] MEDS: inSUlin ASPART (NovoLOG) 1 UNIT/0.01 ML (CHARGE PER UNIT) SC SCH ×4 (06:27→20:57)
[2017-03-20] MEDS: glipiZIDE 5 MG (GLUCOTROL) TAB PO SCH ×2 (06:27→16:44)
[2017-03-20] MEDS: LEVOTHYROXINE 88 MCG (LEVOTHORID) TAB PO SCH (06:27)
[2017-03-20] MEDS ORDERED: INFLUENZA TRIvalent 2017-2018 0.5 ML/45 MCG SYR IM ONE (07:45)
[2017-03-20] MEDS: ENOXAPARIN 30 MG/0.3 ML (LOVENOX) SYR SC SCH (08:07)
[2017-03-20] MEDS: LACTULOSE SYRUP 10GM/15ML (ENULOSE) 30ML UDC PO SCH ×2 (08:08→21:02)
[2017-03-20] MEDS: ROSUVASTATIN 5 MG (CRESTOR) TABLET PO SCH (12:18)
[2017-03-20] MEDS: FUROSEMIDE 20 MG (LASIX) TAB PO SCH (12:18)
[2017-03-20 18:24] VITALS: BP 122/66
[2017-03-20] MEDS: ATENOLOL 50 MG (TENORMIN) TAB PO SCH (21:02)
[2017-03-20] MEDS: inSUlin DETERMIR 1 UNIT/0.01 ML (LEVEMIR) CHARGE PER UNIT SQ SCH (21:03)
[2017-03-21 05:45] VITALS: BP 135/74
[2017-03-21] MEDS: inSUlin ASPART (NovoLOG) 1 UNIT/0.01 ML (CHARGE PER UNIT) SC SCH ×4 (06:06→21:00)
[2017-03-21] MEDS: PANTOPRAZOLE 20 MG TABLET (PROTONIX) PO SCH (06:16)
[2017-03-21] MEDS: LEVOTHYROXINE 88 MCG (LEVOTHORID) TAB PO SCH (06:16)
[2017-03-21] MEDS: glipiZIDE 5 MG (GLUCOTROL) TAB PO SCH ×2 (06:16→16:57)
[2017-03-21] MEDS: ENOXAPARIN 30 MG/0.3 ML (LOVENOX) SYR SC SCH (08:24)
[2017-03-21] MEDS: LACTULOSE SYRUP 10GM/15ML (ENULOSE) 30ML UDC PO SCH ×2 (08:24→20:22)
[2017-03-21] MEDS: DICLOFENAC 1% GEL 100 GM (VOLTAREN) TUBE TOP PRN (08:29)
--- NOTE | 2017-03-21 09:19 | Physical Therapy Daily Note ---
PT Daily Note-Current Subjective States she feels a little bit better and feels taking a pain pill before Rx really helped as well as better management of her fear Pain Numeric Pain Scale: 0-No Pain Mental Status Patient Orientation: Normal For Age needs multiple repeated instructions for sequence as well as repeated reminders which is left and which is right Transfers Functional [place] Measure 0=Not Assessed/NA 4=Minimal Assistance 1=Total Assistance 5=Supervision or Setup 2=Maximal Assistance 6=Modified [place] 3=Moderate Assistance 7=Complete IndependenceIRFPAI Quality Coding Scale 6 Independent with activity with or without an assistive device 5 Patient requires set up or clean up by helper. Patient completes activity by themselves 4 Supervision or touching assist (CGA). [place] provide cues , steadying assist 3 The helper provides less than half the effort to complete the activity 2 The helper provides more than half the effort to complete the activity 1 Dependent. The helper does all the effort to complete an activity 7 Patient refused to complete or attempt activity 9 The patient did not perform the activity before the current illness or injury 88 Not attempted due to Medical conditions or safety concerns Transfers (B, C, W/C) (FIM): 5 Scootin Sit to/from Stand: 5 Weight Bearing Right Lower Extremity: Right Partial Weight Bearing Left Lower Extremity: Left Full Weight Bearing Gait Training Does the Patient Walk?: Yes Gait (FIM): 1 Distance (FIM): 1=up to 49 ft (15ftx3) Gait Level of Assist: 4 Gait Persons Needed: 1 Gait Assistive Device: FWW w/c close behind. hips and knees bent, kyphotic, PWB RLE Wheelchair Training Does the Pt Use a Wheelchair?: Yes Wheelchair (FIM): 5 Wheelchair Distance: 3=150 ft (x2) Wheelchair Level of Assist: 5 Type of Wheelchair: Manual Exercises Seated Therapy Exercises: Ankle pumps, Sit to stand, Long arc quads Seated Reps: 12 Assessment Current Status: Good Progress PT Short Term Goals Short Term Goals Wheelchair Distance: 150' PT Custodial Goals Custodial Goals PT Custodial Goals Time Frame: Apr 08, 2017 Transfers (B,C,W/C) (FIM): 6 Sit to Lying (QC): 5 Lying-Sitting on Side/Bed(QC): 5 Sit to Stand (QC): 5 Rollin Roll Left to Right (QC): 5 Chair/Fvs-hj-Tmimo Xfer(QC): 5 Car Transfer (QC): 5 Does the Patient Walk: Yes Gait (FIM): 2 Gait distance (FIM): 1=852-43 ft (75') Distance: 75' Walk 10 feet (QC): 5 Walk 10ft-Uneven Surface(QC): 5 Walk 50ft with 2 Turns (QC): 5 Walk 150 ft (QC): 88 Gait Level of Assist: 6 Gait Assistive Device: FWW # of Steps: 1 1 Step (curb) (QC): 4 4 Steps (QC): 88 12 Steps (QC): 88 Stairs Level Of Assist: 5 Picking up an Object (QC): 4 PT Plan Treatment/Plan Treatment Plan: Continue Plan of Care Treatment Plan: Bed Mobility, Concurrent Therapy, Education, Functional Activity Lalo, Functional Strength, Group Therapy, Gait, Safety, Therapeutic Exercise, Transfers Treatment Duration: Apr 08, 2017 Frequency: At least 5 of 7 days/Wk (IRF) Estimated Hrs Per Day: 1.5 hours per day Patient and/or Family Agrees t: Yes Safety Risks/Education Patient Education: Gait Training, Transfer Techniques Teaching Recipient: Patient Teaching Methods: Demonstration, Discussion Response to Teaching: Verbalize Understanding, Return Demonstration, Reinforcement Needed Time/GCodes Time In: 845 Time Out: 930 Total Billed Treatment Time: 45 Total Billed Treatment 1,GT25m,WC20m G Codes Necessary: AMANDA Singletary PTA Mar 21, 2017 09:19
[2017-03-21] MEDS: ROSUVASTATIN 5 MG (CRESTOR) TABLET PO SCH (12:09)
[2017-03-21] MEDS: FUROSEMIDE 20 MG (LASIX) TAB PO SCH (12:09)
--- NOTE | 2017-03-21 13:50 | Occupational Ther Daily Note ---
OT Current Status-Daily Note Subjective Pt seen in room, up in recliner, agreeable to OT. No pain mentioned. Appearance Alert, cooperative Mental Status/Objective Functional [place] Measure 0=Not Assessed/NA 4=Minimal Assistance 1=Total Assistance 5=Supervision or Setup 2=Maximal Assistance 6=Modified [place] 3=Moderate Assistance 7=Complete [place] ADL-Treatment Pt had a little difficulty problem-solving for sequencing ADLs. For example, she wanted to take pants off before transferring to shower bench. Skilled cues to plan sequence for some components of ADLs. All ADLs took longer than usual. Functional [place] Measure 0=Not Assessed/NA 4=Minimal Assistance 1=Total Assistance 5=Supervision or Setup 2=Maximal Assistance 6=Modified [place] 3=Moderate Assistance 7=Complete IndependenceIRFPAI Quality Coding Scale 6 Independent with activity with or without an assistive device 5 Patient requires set up or clean up by helper. Patient completes activity by themselves 4 Supervision or touching assist (CGA). [place] provide cues , steadying assist 3 The helper provides less than half the effort to complete the activity 2 The helper provides more than half the effort to complete the activity 1 Dependent. The helper does all the effort to complete an activity 7 Patient refused to complete or attempt activity 9 The patient did not perform the activity before the current illness or injury 88 Not attempted due to Medical conditions or safety concerns Grooming (FIM): 5 (brushed teeth and combed hair at sink, w/c level, with setup. Washed face and hands in shower. ) Oral Hygiene (QC): 5 Bathing (FIM): 4 (Skilled cues to dry feet using long handled sponge. Washed and dried all parts but CGA needed when standing to wash bottom and [place]. Cues for hand placement on grab bars when standing and washing. Shower bench, grab bars, hand held shower, long handled sponge) Upper Body (FIM): 4 (Doffed top without assistance and donned shirt setup. needed min assist to hook bra in back) Lower Body Dressing (FIM): 3 (Able to get pants over L foot but help needed to get them over R foot, using dressing stick. Assist to use sock aid. CGA to stand and a little help needed to pull pants up over hips. ) Transfers (B, C, W/C) (FIM): 3 (Difficulty bearing weight through arms to be able to move L foot. Help with hand placement and sequencing feet. FWW) Shower Transfer(FIM): 3 (Difficulty moving L leg with SPT and bearing weight through arms and R leg. From w/c to shower bench and back) Pt transferred back to recliner with min assist, FWW and legs elevated. All needs met. Education OT Patient Education: Modified ADL techniques, Progress toward Goal/Update tx plan, Purpose of tx/functional activities, Transfer techniques, Use of adapted equipment Teaching Recipient: Patient Teaching Methods: Demonstration, Discussion Response to Teaching: Verbalize Understanding, Return Demonstration, Reinforcement Needed OT Short Term Goals Short Term Goals Time Frame: Mar 25, 2017 Lower Body Dressing(FIM): 3 Toilet/Commode Transfer(FIM): 3 Shower Transfer(FIM): 3 Additional Short Term Goals: 1-Demonstrate ADL Tasks, 2-Verbalize Understanding , 3-ImproveStrength/Lalo 1=Demonstrate adherence to instructed precautions during ADL tasks. 2=Patient will verbalize/demonstrate understanding of assistive devices/ modifications for ADL. 3=Patient will improve strength/tolerance for activity to enable patient to perform ADL's. OT Database Programmer Analyst Goals Group Home Goals Time Frame: Apr 08, 2017 Eating (FIM): 6 Eating (QC): 6 Groomin Oral Hygiene (QC): 6 Bathing(FIM): 5 Shower/Bathe Self (QC): 4 Upper Body Dressing(FIM): 5 Upper Body Dressing (QC): 5 Lower Body Dressing(FIM): 5 Lower Body Dressing (QC): 4 On/Off Footwear (QC): 5 Toileting(FIM): 5 Toileting Hygiene (QC): 4 Toilet/Commode Transfer(FIM): 5 Toilet/Commode Transfer (QC): 4 Shower Transfer(FIM): 5 Additional Goals: 2-Verbalize Understanding, 3-ImproveStrength/Lalo 1=Demonstrate adherence to instructed precautions during ADL tasks. 2=Patient will verbalize/demonstrate understanding of assistive devices/ modifications for ADL. 3=Patient will improve strength/tolerance for activity to enable patient to perform ADL's. OT Education/Plan Problem List/Assessment Pt would benefit from skilled OT to increase her independence in basic self care to allow her to safely return to her apartment and to decrease caregiver burden. Discharge Recommendations Plan/Recommendations: Continue POC Treatment Plan/Plan of Care Patient would benefit from OT for education, treatment and training to promote independence in ADL's, mobility, safety and/or upper extremity function for ADL' s. Plan of Care: ADL Retraining, Functional Mobility, Group Exercise/Act as Ind ( education, exercise, activ tolerance, funct activities, socialization), UE Funct Exercise/Act, UE Neuromus Re-Ed/Coord Treatment Duration: Apr 08, 2017 Frequency: At least 5 of 7 days/Wk (IRF) Estimated Hrs Per Day: 1.5 hours per day Agreement: Yes Rehab Potential: Fair Time/GCodes Start Time: 09:30 Stop Time: 10:47 Total Time Billed (hr/min): 77 Billed Treatment Time visit, 77 minutes ADL JOSE ANGEL ORLANDO OT Mar 21, 2017 13:50
--- NOTE | 2017-03-21 14:11 | Occupational Ther Daily Note ---
OT Current Status-Daily Note Subjective Pt sitting in chair. No c/o pain. Agrees to therapy. Mental Status/Objective Patient Orientation: Person, Place, Time, Situation Functional [place] Measure 0=Not Assessed/NA 4=Minimal Assistance 1=Total Assistance 5=Supervision or Setup 2=Maximal Assistance 6=Modified [place] 3=Moderate Assistance 7=Complete [place] ADL-Treatment Functional [place] Measure 0=Not Assessed/NA 4=Minimal Assistance 1=Total Assistance 5=Supervision or Setup 2=Maximal Assistance 6=Modified [place] 3=Moderate Assistance 7=Complete IndependenceIRFPAI Quality Coding Scale 6 Independent with activity with or without an assistive device 5 Patient requires set up or clean up by helper. Patient completes activity by themselves 4 Supervision or touching assist (CGA). [place] provide cues , steadying assist 3 The helper provides less than half the effort to complete the activity 2 The helper provides more than half the effort to complete the activity 1 Dependent. The helper does all the effort to complete an activity 7 Patient refused to complete or attempt activity 9 The patient did not perform the activity before the current illness or injury 88 Not attempted due to Medical conditions or safety concerns Other Treatment Pt completed 5 B UE exercises 2 sets of 10 reps, using min resistive theraband to increase strength and activity tolerance for daily functional tasks. Pt tolerated well. After therapy, pt sitting in recliner with phone and call light in reach. All needs met. OT Short Term Goals Short Term Goals Time Frame: Mar 25, 2017 Lower Body Dressing(FIM): 3 Toilet/Commode Transfer(FIM): 3 Shower Transfer(FIM): 3 Additional Short Term Goals: 1-Demonstrate ADL Tasks, 2-Verbalize Understanding , 3-ImproveStrength/Lalo 1=Demonstrate adherence to instructed precautions during ADL tasks. 2=Patient will verbalize/demonstrate understanding of assistive devices/ modifications for ADL. 3=Patient will improve strength/tolerance for activity to enable patient to perform ADL's. OT Replanting Machine Crew Goals Detention Goals Time Frame: Apr 08, 2017 Eating (FIM): 6 Eating (QC): 6 Groomin Oral Hygiene (QC): 6 Bathing(FIM): 5 Shower/Bathe Self (QC): 4 Upper Body Dressing(FIM): 5 Upper Body Dressing (QC): 5 Lower Body Dressing(FIM): 5 Lower Body Dressing (QC): 4 On/Off Footwear (QC): 5 Toileting(FIM): 5 Toileting Hygiene (QC): 4 Toilet/Commode Transfer(FIM): 5 Toilet/Commode Transfer (QC): 4 Shower Transfer(FIM): 5 Additional Goals: 2-Verbalize Understanding, 3-ImproveStrength/Lalo 1=Demonstrate adherence to instructed precautions during ADL tasks. 2=Patient will verbalize/demonstrate understanding of assistive devices/ modifications for ADL. 3=Patient will improve strength/tolerance for activity to enable patient to perform ADL's. OT Education/Plan Problem List/Assessment Pt would benefit from skilled OT to increase her independence in basic self care to allow her to safely return to her apartment and to decrease caregiver burden. Discharge Recommendations Plan/Recommendations: Continue POC Treatment Plan/Plan of Care Patient would benefit from OT for education, treatment and training to promote independence in ADL's, mobility, safety and/or upper extremity function for ADL' s. Plan of Care: ADL Retraining, Functional Mobility, Group Exercise/Act as Ind ( education, exercise, activ tolerance, funct activities, socialization), UE Funct Exercise/Act, UE Neuromus Re-Ed/Coord Treatment Duration: Apr 08, 2017 Frequency: At least 5 of 7 days/Wk (IRF) Estimated Hrs Per Day: 1.5 hours per day Agreement: Yes Rehab Potential: Fair Time/GCodes Start Time: 12:38 Stop Time: 12:54 Total Time Billed (hr/min): 16 Billed Treatment Time 1 visit, EX 1 (16 minutes) MARYLIN VILLARREAL Mar 21, 2017 14:11
--- NOTE | 2017-03-21 14:22 | Physical Therapy Daily Note ---
PT Daily Note-Current Subjective Pt states she has never been in a NH or facility. Agrees to Rx Pain Numeric Pain Scale: 5-Moderate Pain Location: Right Location Body Site: Thigh Pain Description: Pressure Mental Status forgetful Transfers Functional [place] Measure 0=Not Assessed/NA 4=Minimal Assistance 1=Total Assistance 5=Supervision or Setup 2=Maximal Assistance 6=Modified [place] 3=Moderate Assistance 7=Complete IndependenceIRFPAI Quality Coding Scale 6 Independent with activity with or without an assistive device 5 Patient requires set up or clean up by helper. Patient completes activity by themselves 4 Supervision or touching assist (CGA). [place] provide cues , steadying assist 3 The helper provides less than half the effort to complete the activity 2 The helper provides more than half the effort to complete the activity 1 Dependent. The helper does all the effort to complete an activity 7 Patient refused to complete or attempt activity 9 The patient did not perform the activity before the current illness or injury 88 Not attempted due to Medical conditions or safety concerns Transfers (B, C, W/C) (FIM): 5 Scootin Rollin Supine to/from Sit: 5 Sit to/from Stand: 6 SPTs w/c to chair very slow, laborious and require cuing and encouragement Weight Bearing Right Lower Extremity: Right Partial Weight Bearing Left Lower Extremity: Left Full Weight Bearing Gait Training Does the Patient Walk?: Yes Gait (FIM): 1 Distance (FIM): 1=up to 49 ft (8ftx2) Gait Assistive Device: FWW Wheelchair Training Type of Wheelchair: Manual 70-80 ft x3 locks chair indep Exercises Supine Ex: Ankle pumps, Quad Set, Rolling, Glut sets, Heel Slides, Short Arc Quads, Scooting, Straight leg raise (assist x 5 reps), Hip abd/add Supine Reps: 15 Assessment Current Status: Fair Progress struggles with function, gait, TRFs and w/c mob PT Short Term Goals Short Term Goals Wheelchair Distance: 150' PT Peoplesoft Programmer Goals Chcf Goals PT Peoplesoft Programmer Goals Time Frame: Apr 08, 2017 Transfers (B,C,W/C) (FIM): 6 Sit to Lying (QC): 5 Lying-Sitting on Side/Bed(QC): 5 Sit to Stand (QC): 5 Rollin Roll Left to Right (QC): 5 Chair/Zoz-py-Hhhvp Xfer(QC): 5 Car Transfer (QC): 5 Does the Patient Walk: Yes Gait (FIM): 2 Gait distance (FIM): 2=165-17 ft (75') Distance: 75' Walk 10 feet (QC): 5 Walk 10ft-Uneven Surface(QC): 5 Walk 50ft with 2 Turns (QC): 5 Walk 150 ft (QC): 88 Gait Level of Assist: 6 Gait Assistive Device: FWW # of Steps: 1 1 Step (curb) (QC): 4 4 Steps (QC): 88 12 Steps (QC): 88 Stairs Level Of Assist: 5 Picking up an Object (QC): 4 PT Plan Treatment/Plan Treatment Plan: Continue Plan of Care Treatment Plan: Bed Mobility, Concurrent Therapy, Education, Functional Activity Lalo, Functional Strength, Group Therapy, Gait, Safety, Therapeutic Exercise, Transfers Treatment Duration: Apr 08, 2017 Frequency: At least 5 of 7 days/Wk (IRF) Estimated Hrs Per Day: 1.5 hours per day Patient and/or Family Agrees t: Yes Safety Risks/Education Patient Education: Gait Training, Transfer Techniques, Correct Positioning, W/ C Management, Safety Issues Teaching Recipient: Patient Teaching Methods: Demonstration, Discussion Response to Teaching: Verbalize Understanding, Return Demonstration, Reinforcement Needed Time/GCodes Time In: 1345 Time Out: 1430 Total Billed Treatment Time: 45 Total Billed Treatment 1,FA15m,EX15m,WC15m G Codes Necessary: AMANDA Singletary CAKE FORMER Mar 21, 2017 14:22
[2017-03-21 17:15] VITALS: BP 147/71
--- NOTE | 2017-03-21 20:17 | PM & R (SOAP) Progress Note ---
Subjective Time Seen by Provider: 19:15 Subjective/Events-last exam Patient was seen in her room this evening Patient Modified Independent for transfers Accucheks oK Objective Exam Last Set of Vital Signs Vital Signs Date Time Temp Pulse Resp B/P (MAP) Pulse Ox O2 Delivery O2 Flow Rate FiO2 03/21/17 19:00 Room Air 03/21/17 17:15 98.0 62 18 147/71 98 03/19/17 14:09 21 Capillary Refill : Less Than 3 Seconds I&O Intake and Output 03/21/17 23:59 Intake Total 1980 ml Balance 1980 ml Intake Oral 1980 ml # Voids 7 # Bowel Movements 1 General: Alert, Oriented X3, Cooperative, No Acute Distress HEENT: Atraumatic, PERRLA, EOMI, Mucous Memb Moist/[place] Neck: Supple, No JVD Lungs: Clear to Auscultation Heart: Regular Rate Abdomen: Normal Bowel Sounds, Soft, No Tenderness, Other (obese) Extremities: Other (normal postop swelling rt leg) Skin: Other ([place] dressing in place clean and dry) Neuro: Other (RT LE Strength 2/5 Left LE 3+/5) Results Lab Laboratory Tests 03/18/17 20:47: Glucometer 198H 03/19/17 05:35: Glucometer 142H 03/19/17 11:10: Glucometer 234H 03/19/17 16:09: Glucometer 193H 03/19/17 20:07: Glucometer 202H 03/20/17 05:28: Glucometer 100 03/20/17 11:20: Glucometer 171H 03/20/17 16:19: Glucometer 241H 03/20/17 20:16: Glucometer 171H 03/21/17 04:55: Glucometer 131H 03/21/17 10:57: Glucometer 214H 03/21/17 15:46: Glucometer 163H Assessment/Plan Assessment Fall with fracture rt distal femur s/p ORIF DR Garduno PWB RLE Nausea meds adjusted further-improved HTN controlled DM controlled Dizziness-will change pain meds-improved -See orders Plan Continue PT/ Monitor labs and adjust meds as appropriate with Hospitalist service following Trial of Tramadol-done D/C [id number] better Schedule [id number] better See orders F/U with DR Garduno and Hospitalist PRN-Appreciate their notes Next Team Conference 03-23-17 BETTY IGNACIO MD Mar 21, 2017 20:17
[2017-03-21] MEDS: ATENOLOL 50 MG (TENORMIN) TAB PO SCH (20:22)
[2017-03-21] MEDS: inSUlin DETERMIR 1 UNIT/0.01 ML (LEVEMIR) CHARGE PER UNIT SQ SCH (20:22)
[2017-03-22 05:35] VITALS: BP 155/75
[2017-03-22] MEDS: inSUlin ASPART (NovoLOG) 1 UNIT/0.01 ML (CHARGE PER UNIT) SC SCH ×4 (05:50→20:20)
[2017-03-22] MEDS: LEVOTHYROXINE 88 MCG (LEVOTHORID) TAB PO SCH (06:19)
[2017-03-22] MEDS: PANTOPRAZOLE 20 MG TABLET (PROTONIX) PO SCH (06:19)
[2017-03-22] MEDS: glipiZIDE 5 MG (GLUCOTROL) TAB PO SCH ×2 (06:19→16:15)
[2017-03-22] MEDS: ENOXAPARIN 30 MG/0.3 ML (LOVENOX) SYR SC SCH (08:08)
[2017-03-22] MEDS: LACTULOSE SYRUP 10GM/15ML (ENULOSE) 30ML UDC PO SCH ×2 (08:08→20:15)
--- NOTE | 2017-03-22 09:10 | Physical Therapy Daily Note ---
PT Daily Note-Current Subjective Pt laying Supine in bed upon arrival. Pt agrees to PT. Pain Numeric Pain Scale: 5-Moderate Pain Location: Right Location Body Site: Thigh Pain Description: Ache Mental Status Patient Orientation: Person, Place, Situation Transfers Functional [place] Measure 0=Not Assessed/NA 4=Minimal Assistance 1=Total Assistance 5=Supervision or Setup 2=Maximal Assistance 6=Modified [place] 3=Moderate Assistance 7=Complete IndependenceIRFPAI Quality Coding Scale 6 Independent with activity with or without an assistive device 5 Patient requires set up or clean up by helper. Patient completes activity by themselves 4 Supervision or touching assist (CGA). [place] provide cues , steadying assist 3 The helper provides less than half the effort to complete the activity 2 The helper provides more than half the effort to complete the activity 1 Dependent. The helper does all the effort to complete an activity 7 Patient refused to complete or attempt activity 9 The patient did not perform the activity before the current illness or injury 88 Not attempted due to Medical conditions or safety concerns Scootin Rollin Roll Left to Right (QC): 5 Supine to/from Sit: 5 Sit to/from Stand: 5 Sit to Stand (QC): 5 Chair/Zqe-li-Ddxgs Xfer(QC): 4 Bed to/from Chair: 4 Weight Bearing Right Lower Extremity: Right Partial Weight Bearing Left Lower Extremity: Left Full Weight Bearing Gait Training Does the Patient Walk?: Yes Distance (FIM): 1=up to 49 ft Distance: 10' Walk 10 feet (QC): 4 Gait Level of Assist: 4 Gait Persons Needed: 1 Gait Assistive Device: FWW Pt walks with slow ingrid for Weight shifting difficulty. Pt fatigues easy and reports increase in pain w/WB. Wheelchair Training Does the Pt Use a Wheelchair?: Yes Exercises Seated Therapy Exercises: Ankle pumps, Long arc quads, Chair press-ups Seated Reps: 20 Treatments Pt transfers from Supine to EOB to Standing using FWW at A. Pt ambulates from bed to recliner using FWW at [facility]. Pt receives VC to advance LE. Pt completes Seated Ex in recliner. PT and pt discuss Weekly Meeting for tomorrow and what happens as well as what housing is like so pt can prepare/what equipment may be needed. Assessment Current Status: Good Progress Pt has improved with independence and safety of transfers and ambulation. Pt still fatigues easy and has difficulty advancing LE due to WB. PT Short Term Goals Short Term Goals Wheelchair Distance: 150' PT Jail Goals Jail Goals PT Java Software Engineer Goals Time Frame: Apr 08, 2017 Transfers (B,C,W/C) (FIM): 6 Sit to Lying (QC): 5 Lying-Sitting on Side/Bed(QC): 5 Sit to Stand (QC): 5 Rollin Roll Left to Right (QC): 5 Chair/Dtd-vp-Sfrdz Xfer(QC): 5 Car Transfer (QC): 5 Does the Patient Walk: Yes Gait (FIM): 2 Gait distance (FIM): 7=898-49 ft (75') Distance: 75' Walk 10 feet (QC): 5 Walk 10ft-Uneven Surface(QC): 5 Walk 50ft with 2 Turns (QC): 5 Walk 150 ft (QC): 88 Gait Level of Assist: 6 Gait Assistive Device: FWW # of Steps: 1 1 Step (curb) (QC): 4 4 Steps (QC): 88 12 Steps (QC): 88 Stairs Level Of Assist: 5 Picking up an Object (QC): 4 PT Plan Problem List Problem List: Activity Tolerance, Functional Strength, Balance, Gait Treatment/Plan Treatment Plan: Continue Plan of Care Treatment Plan: Bed Mobility, Concurrent Therapy, Education, Functional Activity Lalo, Functional Strength, Group Therapy, Gait, Safety, Therapeutic Exercise, Transfers Treatment Duration: Apr 08, 2017 Frequency: At least 5 of 7 days/Wk (IRF) Estimated Hrs Per Day: 1.5 hours per day Patient and/or Family Agrees t: Yes Safety Risks/Education Patient Education: Gait Training, Transfer Techniques, Correct Positioning, Safety Issues Teaching Recipient: Patient Teaching Methods: Discussion Response to Teaching: Verbalize Understanding Time/GCodes Time In: 805 Time Out: 905 Total Billed Treatment Time: 60 Total Billed Treatment visit, FA x2 (30m), EX (20m) & GT (10m) ANTHONY ELY PTA Mar 22, 2017 09:10
[2017-03-22 09:12] VITALS: BP 155/75
--- NOTE | 2017-03-22 10:46 | PM & R (SOAP) Progress Note ---
Subjective Time Seen by Provider: 08:15 Subjective/Events-last exam Patient was seen in her room this AM Patient min assist for transfers Patient without nausea and havinmg BMS Objective Exam Last Set of Vital Signs Vital Signs Date Time Temp Pulse Resp B/P (MAP) Pulse Ox O2 Delivery O2 Flow Rate FiO2 03/22/17 09:26 Room Air 03/22/17 09:12 95 03/22/17 09:12 63 03/22/17 05:35 90.0 18 155/75 03/19/17 14:09 21 Capillary Refill : Less Than 3 Seconds I&O Intake and Output 03/23/17 00:00 Intake Total 400 ml Balance 400 ml Intake Oral 400 ml # Voids 4 # Bowel Movements 1 General: Alert, Oriented X3, Cooperative, No Acute Distress HEENT: Atraumatic, PERRLA, EOMI, Mucous Memb Moist/[place] Neck: Supple, No JVD Lungs: Clear to Auscultation Heart: Regular Rate Abdomen: Normal Bowel Sounds, Soft, No Tenderness, Other (obese) Extremities: Other (normal postop swelling rt leg) Skin: Other ([place] dressing in place clean and dry) Neuro: Other (RT LE Strength 2/5 Left LE 3+/5) Results Lab Laboratory Tests 03/19/17 11:10: Glucometer 234H 03/19/17 16:09: Glucometer 193H 03/19/17 20:07: Glucometer 202H 03/20/17 05:28: Glucometer 100 03/20/17 11:20: Glucometer 171H 03/20/17 16:19: Glucometer 241H 03/20/17 20:16: Glucometer 171H 03/21/17 04:55: Glucometer 131H 03/21/17 10:57: Glucometer 214H 03/21/17 15:46: Glucometer 163H 03/21/17 20:39: Glucometer 200H 03/22/17 05:15: Glucometer 142H Assessment/Plan Assessment Fall with fracture rt distal femur s/p ORIF DR Garduno PWB RLE Nausea meds adjusted further-improved HTN controlled DM controlled Dizziness-will change pain meds-improved -See orders Plan Continue PT/OT Monitor labs and adjust meds as appropriate with Hospitalist service following Trial of Tramadol-done D/C Mrxieyct-slbs-qchgf better Schedule [id number]-[id number] better See orders F/U with DR Garduno and Hospitalist PRN-Appreciate their notes Next Team Conference tomorrow 03-23-17 BETTY IGNACIO MD Mar 22, 2017 10:46
[2017-03-22] MEDS: FUROSEMIDE 20 MG (LASIX) TAB PO SCH (11:13)
[2017-03-22] MEDS: ROSUVASTATIN 5 MG (CRESTOR) TABLET PO SCH (11:13)
--- NOTE | 2017-03-22 13:45 | Occupational Ther Daily Note ---
OT Current Status-Daily Note Subjective Pt seen in room, up in recliner, agreeable to OT. wants to change clothes and brush teeth but not shower. Appearance Alert, cooperative Mental Status/Objective Functional [place] Measure 0=Not Assessed/NA 4=Minimal Assistance 1=Total Assistance 5=Supervision or Setup 2=Maximal Assistance 6=Modified [place] 3=Moderate Assistance 7=Complete [place] ADL-Treatment Pt agreed to wash under arms and edwin areas with bath pack. She also washed her face and hands with setup. Setup to wash under arms and SBA to stand with FWW to wash dewin and bottom areas. SBA when standing to wash bottom, FWW. Functional [place] Measure 0=Not Assessed/NA 4=Minimal Assistance 1=Total Assistance 5=Supervision or Setup 2=Maximal Assistance 6=Modified [place] 3=Moderate Assistance 7=Complete IndependenceIRFPAI Quality Coding Scale 6 Independent with activity with or without an assistive device 5 Patient requires set up or clean up by helper. Patient completes activity by themselves 4 Supervision or touching assist (CGA). [place] provide cues , steadying assist 3 The helper provides less than half the effort to complete the activity 2 The helper provides more than half the effort to complete the activity 1 Dependent. The helper does all the effort to complete an activity 7 Patient refused to complete or attempt activity 9 The patient did not perform the activity before the current illness or injury 88 Not attempted due to Medical conditions or safety concerns Grooming (FIM): 5 (Pt brushed her teeth and combed her hair with setup to position w/c at sink. washed face and hands with setup) Upper Body (FIM): 5 (Pt education modified technique for donning bra (she said that she usually put it on in standing). Pt educ modified technique for donning bra, which was successful. No difficulty putting pullover shirt on) Lower Body Dressing (FIM): 4 (Pt able to get pants on over both feet using dressing stick, Pt educ use of dressing stick but she recalled technique for using sock aid and was able to get slipper socks on with setup. Pt's slacks dropped to her knees when she stood up. Pt educ to sit to pull pants up to knees if this happens again. Stood SBA, FWW with no LOB) Transfers (B, C, W/C) (FIM): 3 (Pt still needed mod assist to transfer from recliner to w/c but was more purposeful with trying to bear some weight on R LE (within limits). Still has difficulty lifting and moving L foot but did better backing up to recliner than going forward) Other Treatment Pt transported to gym per w/c. Pt did 10 minutes bilat UE exercise on arm bike set at 15W, working at steady pace with one break. To strengthen arms to assist with weight bearing. Pt returned to room and transferred from w/c to recliner, mod-min assist, FWW. pt left up in recliner, legs elevated, all needs met. Education OT Patient Education: Exercise program, Modified ADL techniques, Purpose of tx/ functional activities, Safety issues, Transfer techniques, Use of adapted equipment Teaching Recipient: Patient Teaching Methods: Demonstration, Discussion Response to Teaching: Reinforcement Needed OT Short Term Goals Short Term Goals Time Frame: Mar 25, 2017 Lower Body Dressing(FIM): 3 Toilet/Commode Transfer(FIM): 3 Shower Transfer(FIM): 3 Additional Short Term Goals: 1-Demonstrate ADL Tasks, 2-Verbalize Understanding , 3-ImproveStrength/Lalo 1=Demonstrate adherence to instructed precautions during ADL tasks. 2=Patient will verbalize/demonstrate understanding of assistive devices/ modifications for ADL. 3=Patient will improve strength/tolerance for activity to enable patient to perform ADL's. OT Fdc Goals Pantomimist Goals Time Frame: Apr 08, 2017 Eating (FIM): 6 Eating (QC): 6 Groomin Oral Hygiene (QC): 6 Bathing(FIM): 5 Shower/Bathe Self (QC): 4 Upper Body Dressing(FIM): 5 Upper Body Dressing (QC): 5 Lower Body Dressing(FIM): 5 Lower Body Dressing (QC): 4 On/Off Footwear (QC): 5 Toileting(FIM): 5 Toileting Hygiene (QC): 4 Toilet/Commode Transfer(FIM): 5 Toilet/Commode Transfer (QC): 4 Shower Transfer(FIM): 5 Additional Goals: 2-Verbalize Understanding, 3-ImproveStrength/Lalo 1=Demonstrate adherence to instructed precautions during ADL tasks. 2=Patient will verbalize/demonstrate understanding of assistive devices/ modifications for ADL. 3=Patient will improve strength/tolerance for activity to enable patient to perform ADL's. OT Education/Plan Problem List/Assessment Pt would benefit from skilled OT to increase her independence in basic self care to allow her to safely return to her apartment and to decrease caregiver burden. Discharge Recommendations Plan/Recommendations: Continue POC Treatment Plan/Plan of Care Patient would benefit from OT for education, treatment and training to promote independence in ADL's, mobility, safety and/or upper extremity function for ADL' s. Plan of Care: ADL Retraining, Functional Mobility, Group Exercise/Act as Ind ( education, exercise, activ tolerance, funct activities, socialization), UE Funct Exercise/Act, UE Neuromus Re-Ed/Coord Treatment Duration: Apr 08, 2017 Frequency: At least 5 of 7 days/Wk (IRF) Estimated Hrs Per Day: 1.5 hours per day Agreement: Yes Rehab Potential: Fair Time/GCodes Start Time: 09:00 Stop Time: 10:01 Total Time Billed (hr/min): 61 Billed Treatment Time visit, 45 minutes ADL, 16 minutes exercise JOSE ANGEL ORLANDO OT Mar 22, 2017 13:45
--- NOTE | 2017-03-22 14:10 | Occupational Ther Daily Note ---
OT Current Status-Daily Note Subjective Pt seen in room, up in recliner, agreeable to OT and room exercises. No pain mentioned. Mental Status/Objective Functional [employer] Measure 0=Not Assessed/NA 4=Minimal Assistance 1=Total Assistance 5=Supervision or Setup 2=Maximal Assistance 6=Modified [employer] 3=Moderate Assistance 7=Complete [employer] ADL-Treatment Functional [employer] Measure 0=Not Assessed/NA 4=Minimal Assistance 1=Total Assistance 5=Supervision or Setup 2=Maximal Assistance 6=Modified [employer] 3=Moderate Assistance 7=Complete IndependenceIRFPAI Quality Coding Scale 6 Independent with activity with or without an assistive device 5 Patient requires set up or clean up by helper. Patient completes activity by themselves 4 Supervision or touching assist (CGA). [place] provide cues , steadying assist 3 The helper provides less than half the effort to complete the activity 2 The helper provides more than half the effort to complete the activity 1 Dependent. The helper does all the effort to complete an activity 7 Patient refused to complete or attempt activity 9 The patient did not perform the activity before the current illness or injury 88 Not attempted due to Medical conditions or safety concerns Other Treatment Pt did 15 reps bilat UE exercise with yellow theraband (gentle resistance), with educ on each exercise and occasional physical assistance. Pt also did 10 reps bilat UE exercise with 2# weight, with pt ed on each exercise and skilled cues and assistance to do them correctly. Exercise to strengthen arms to help with weight bearing through arms during standing and transfers. Pt left up in recliner, all needs met. Education OT Patient Education: Energy conservation Teaching Methods: Demonstration, Discussion Response to Teaching: Reinforcement Needed OT Short Term Goals Short Term Goals Time Frame: Mar 25, 2017 Lower Body Dressing(FIM): 3 Toilet/Commode Transfer(FIM): 3 Shower Transfer(FIM): 3 Additional Short Term Goals: 1-Demonstrate ADL Tasks, 2-Verbalize Understanding , 3-ImproveStrength/Lalo 1=Demonstrate adherence to instructed precautions during ADL tasks. 2=Patient will verbalize/demonstrate understanding of assistive devices/ modifications for ADL. 3=Patient will improve strength/tolerance for activity to enable patient to perform ADL's. OT Molecular Biologist Goals Molecular Biologist Goals Time Frame: Apr 08, 2017 Eating (FIM): 6 Eating (QC): 6 Groomin Oral Hygiene (QC): 6 Bathing(FIM): 5 Shower/Bathe Self (QC): 4 Upper Body Dressing(FIM): 5 Upper Body Dressing (QC): 5 Lower Body Dressing(FIM): 5 Lower Body Dressing (QC): 4 On/Off Footwear (QC): 5 Toileting(FIM): 5 Toileting Hygiene (QC): 4 Toilet/Commode Transfer(FIM): 5 Toilet/Commode Transfer (QC): 4 Shower Transfer(FIM): 5 Additional Goals: 2-Verbalize Understanding, 3-ImproveStrength/Lalo 1=Demonstrate adherence to instructed precautions during ADL tasks. 2=Patient will verbalize/demonstrate understanding of assistive devices/ modifications for ADL. 3=Patient will improve strength/tolerance for activity to enable patient to perform ADL's. OT Education/Plan Problem List/Assessment Pt would benefit from skilled OT to increase her independence in basic self care to allow her to safely return to her apartment and to decrease caregiver burden. Discharge Recommendations Plan/Recommendations: Continue POC Treatment Plan/Plan of Care Patient would benefit from OT for education, treatment and training to promote independence in ADL's, mobility, safety and/or upper extremity function for ADL' s. Plan of Care: ADL Retraining, Functional Mobility, Group Exercise/Act as Ind ( education, exercise, activ tolerance, funct activities, socialization), UE Funct Exercise/Act, UE Neuromus Re-Ed/Coord Treatment Duration: Apr 08, 2017 Frequency: At least 5 of 7 days/Wk (IRF) Estimated Hrs Per Day: 1.5 hours per day Agreement: Yes Rehab Potential: Fair Time/GCodes Start Time: 11:31 Stop Time: 12:00 Total Time Billed (hr/min): 29 Billed Treatment Time visit, 29 minute exercise JOSE ANGEL ORLANDO OT Mar 22, 2017 14:10
--- NOTE | 2017-03-22 16:03 | Physical Therapy Daily Note ---
PT Daily Note-Current Subjective Pt sitting in recliner upon arrival. Pt agreed to PT. Pain Numeric Pain Scale: 5-Moderate Pain Location: Right Location Body Site: Thigh Pain Description: Ache Mental Status Patient Orientation: Person, Place, Time, Situation Transfers Functional [place] Measure 0=Not Assessed/NA 4=Minimal Assistance 1=Total Assistance 5=Supervision or Setup 2=Maximal Assistance 6=Modified [place] 3=Moderate Assistance 7=Complete IndependenceIRFPAI Quality Coding Scale 6 Independent with activity with or without an assistive device 5 Patient requires set up or clean up by helper. Patient completes activity by themselves 4 Supervision or touching assist (CGA). [place] provide cues , steadying assist 3 The helper provides less than half the effort to complete the activity 2 The helper provides more than half the effort to complete the activity 1 Dependent. The helper does all the effort to complete an activity 7 Patient refused to complete or attempt activity 9 The patient did not perform the activity before the current illness or injury 88 Not attempted due to Medical conditions or safety concerns Scootin Sit to/from Stand: 5 Sit to Stand (QC): 5 Weight Bearing Right Lower Extremity: Right Partial Weight Bearing Left Lower Extremity: Left Full Weight Bearing Gait Training Does the Patient Walk?: Yes Distance (FIM): 1=up to 49 ft Distance: 25' Walk 10 feet (QC): 3 Gait Level of Assist: 3 Gait Persons Needed: 1 Gait Assistive Device: FWW Pt has very slow ingrid and has difficulty Weight shifting and advancing LLE due to having to WB on RLE. Wheelchair Training Does the Pt Use a Wheelchair?: Yes Wheelchair Distance: 6=774-60 ft Distance: 60' Wheelchair Level of Assist: 5 Wheel 50 ft with 2 turns (QC): 5 Type of Wheelchair: Manual Treatments Pt transferred recliner to standing using FWW at [facility]. Pt ambulates in room to [facility] using FWW at Mod A to advance LLE forward while WBing on RLE. Pt propels [facility] in hallway at [facility]. Pt returns to room to rest and have Wound Care Nurse monitor if any Pressure Sores present. Pt transfers back to recliner using FWW at Mod A. Pt rests in recliner after Nurse check backside and heels with all needs met at end of tx. Assessment Pt has improved with transfers but still has difficulty advancing LLE due to pain on RLE. PT Short Term Goals Short Term Goals Wheelchair Distance: 150' PT Long-Term Goals Long-Term Goals PT Long-Term Goals Time Frame: Apr 08, 2017 Transfers (B,C,W/C) (FIM): 6 Sit to Lying (QC): 5 Lying-Sitting on Side/Bed(QC): 5 Sit to Stand (QC): 5 Rollin Roll Left to Right (QC): 5 Chair/Ync-tr-Wgmzt Xfer(QC): 5 Car Transfer (QC): 5 Does the Patient Walk: Yes Gait (FIM): 2 Gait distance (FIM): 3=997-07 ft (75') Distance: 75' Walk 10 feet (QC): 5 Walk 10ft-Uneven Surface(QC): 5 Walk 50ft with 2 Turns (QC): 5 Walk 150 ft (QC): 88 Gait Level of Assist: 6 Gait Assistive Device: FWW # of Steps: 1 1 Step (curb) (QC): 4 4 Steps (QC): 88 12 Steps (QC): 88 Stairs Level Of Assist: 5 Picking up an Object (QC): 4 PT Plan Problem List Problem List: Activity Tolerance, Functional Strength, Safety, Balance, Gait Treatment/Plan Treatment Plan: Continue Plan of Care Treatment Plan: Bed Mobility, Concurrent Therapy, Education, Functional Activity Lalo, Functional Strength, Group Therapy, Gait, Safety, Therapeutic Exercise, Transfers Treatment Duration: Apr 08, 2017 Frequency: At least 5 of 7 days/Wk (IRF) Estimated Hrs Per Day: 1.5 hours per day Patient and/or Family Agrees t: Yes Safety Risks/Education Patient Education: Gait Training, Transfer Techniques, Correct Positioning, Safety Issues Teaching Recipient: Patient Teaching Methods: Discussion Response to Teaching: Verbalize Understanding Time/GCodes Time In: 1400 Time Out: 1430 Total Billed Treatment Time: 30 Total Billed Treatment visit, FA (20m) & [facility] (10m) ANTHONY ELY PTA Mar 22, 2017 16:03
[2017-03-22 18:00] VITALS: BP 151/71
[2017-03-22] MEDS: inSUlin DETERMIR 1 UNIT/0.01 ML (LEVEMIR) CHARGE PER UNIT SQ SCH (20:15)
[2017-03-22] MEDS: ATENOLOL 50 MG (TENORMIN) TAB PO SCH (20:16)
[2017-03-23 06:01] VITALS: BP 138/65
[2017-03-23] MEDS: LEVOTHYROXINE 88 MCG (LEVOTHORID) TAB PO SCH (06:35)
[2017-03-23] MEDS: PANTOPRAZOLE 20 MG TABLET (PROTONIX) PO SCH (06:35)
[2017-03-23] MEDS: glipiZIDE 5 MG (GLUCOTROL) TAB PO SCH ×2 (06:35→16:48)
[2017-03-23] MEDS: inSUlin ASPART (NovoLOG) 1 UNIT/0.01 ML (CHARGE PER UNIT) SC SCH ×4 (06:35→21:29)
--- NOTE | 2017-03-23 08:54 | Physical Therapy Daily Note ---
PT Daily Note-Current Subjective Agrees to Rx. States she realizes she is vulnerable for falling and has been for quite some time and will consider what she might do if she cannot progress to safe walking and TRFs soon. no c/o pain Pain Numeric Pain Scale: 0-No Pain Mental Status forgets routines, techniques and safety issues that have been reviewed and instructed numerous times Transfers Functional [place] Measure 0=Not Assessed/NA 4=Minimal Assistance 1=Total Assistance 5=Supervision or Setup 2=Maximal Assistance 6=Modified [place] 3=Moderate Assistance 7=Complete IndependenceIRFPAI Quality Coding Scale 6 Independent with activity with or without an assistive device 5 Patient requires set up or clean up by helper. Patient completes activity by themselves 4 Supervision or touching assist (CGA). [place] provide cues , steadying assist 3 The helper provides less than half the effort to complete the activity 2 The helper provides more than half the effort to complete the activity 1 Dependent. The helper does all the effort to complete an activity 7 Patient refused to complete or attempt activity 9 The patient did not perform the activity before the current illness or injury 88 Not attempted due to Medical conditions or safety concerns Transfers (B, C, W/C) (FIM): 4 Scootin Rollin Supine to/from Sit: 5 Sit to/from Stand: 5 Bed to/from Chair: 4 pt. needs w/c right beside chair or bed and still has much difficulty thinking through safe SPT and positioning self safely , attempts to sit before she is at the chair etc Weight Bearing Right Lower Extremity: Right Partial Weight Bearing Left Lower Extremity: Left Full Weight Bearing pt. maintains PWB but appears fearful each step, has to be encouraged to go ahead Gait Training Does the Patient Walk?: Yes Gait (FIM): 1 Distance (FIM): 1=up to 49 ft (25x3,10x1) Gait Level of Assist: 4 (w/c follow) Gait Persons Needed: 1 Gait Assistive Device: FWW needs cues and instruction every step, extreme toe out bilat with heels bumping in to one another each step Wheelchair Training Does the Pt Use a Wheelchair?: Yes Wheelchair (FIM): 5 Wheelchair Distance: 3=150 ft Wheelchair Level of Assist: 5 Type of Wheelchair: Manual needs cues for turns , to lock etc Stair Training unsafe to attempt Exercises Supine Ex: Ankle pumps, Quad Set, Glut sets, Heel Slides, Short Arc Quads, Scooting, Straight leg raise (ssist), Hip abd/add (assist) Supine Reps: 15 Seated Therapy Exercises: Ankle pumps, Sit to stand, Long arc quads Seated Reps: 12 Assessment Current Status: Fair Progress gait and TRFs still not functional without assist, dependent for mobility, memory and safety habits poor PT Short Term Goals Short Term Goals Wheelchair Distance: 60' PT Nuclear Physician Goals Nuclear Physician Goals PT Fdc Goals Time Frame: Apr 08, 2017 Transfers (B,C,W/C) (FIM): 6 Sit to Lying (QC): 5 Lying-Sitting on Side/Bed(QC): 5 Sit to Stand (QC): 5 Rollin Roll Left to Right (QC): 5 Chair/Def-sl-Fhyzq Xfer(QC): 5 Car Transfer (QC): 5 Does the Patient Walk: Yes Gait (FIM): 2 Gait distance (FIM): 5=122-28 ft (75') Distance: 75' Walk 10 feet (QC): 5 Walk 10ft-Uneven Surface(QC): 5 Walk 50ft with 2 Turns (QC): 5 Walk 150 ft (QC): 88 Gait Level of Assist: 6 Gait Assistive Device: FWW # of Steps: 1 1 Step (curb) (QC): 4 4 Steps (QC): 88 12 Steps (QC): 88 Stairs Level Of Assist: 5 Picking up an Object (QC): 4 PT Plan Treatment/Plan Treatment Plan: Continue Plan of Care Treatment Plan: Bed Mobility, Concurrent Therapy, Education, Functional Activity Lalo, Functional Strength, Group Therapy, Gait, Safety, Therapeutic Exercise, Transfers Treatment Duration: Apr 08, 2017 Frequency: At least 5 of 7 days/Wk (IRF) Estimated Hrs Per Day: 1.5 hours per day Patient and/or Family Agrees t: Yes Safety Risks/Education Patient Education: Gait Training, Transfer Techniques, Correct Positioning, W/ C Management, Disease Process, Safety Issues Teaching Recipient: Patient Teaching Methods: Demonstration, Discussion Response to Teaching: Verbalize Understanding, Return Demonstration, Reinforcement Needed Time/GCodes Time In: 800 Time Out: 900 Total Billed Treatment Time: 60 Total Billed Treatment 1GT30m,FA15m,EX15m G Codes Necessary: AMANDA Singletary PTA Mar 23, 2017 08:54
--- NOTE | 2017-03-23 09:04 | Progress Note-Standard ---
Standard Progress Note Progress Notes/Assess & Plan Date Seen by Provider: Mar 23, 2017 Time Seen by Provider: 09:03 Progress/Assessment & Plan No complaints RLE dressing in place no calf tenderness. Neg Polo's s/p ORIF R femur PT/OT Final Diagnosis patient is progressing RLE--incision benign able to flex R hip without pain no calf tenderness. Neg Polo's s/p ORIF R distal femur DC harpal continue PT/OT CRISTÓBAL SOLIS MD Mar 23, 2017 09:04
[2017-03-23] MEDS: LACTULOSE SYRUP 10GM/15ML (ENULOSE) 30ML UDC PO SCH ×2 (09:55→21:27)
[2017-03-23] MEDS: ENOXAPARIN 30 MG/0.3 ML (LOVENOX) SYR SC SCH (09:55)
--- NOTE | 2017-03-23 10:19 | Occupational Ther Daily Note ---
OT Current Status-Daily Note Mental Status/Objective Functional [place] Measure 0=Not Assessed/NA 4=Minimal Assistance 1=Total Assistance 5=Supervision or Setup 2=Maximal Assistance 6=Modified [place] 3=Moderate Assistance 7=Complete [place] ADL-Treatment Pt wanted to shower today. All ADLs took longer than usual. Functional [place] Measure 0=Not Assessed/NA 4=Minimal Assistance 1=Total Assistance 5=Supervision or Setup 2=Maximal Assistance 6=Modified [place] 3=Moderate Assistance 7=Complete IndependenceIRFPAI Quality Coding Scale 6 Independent with activity with or without an assistive device 5 Patient requires set up or clean up by helper. Patient completes activity by themselves 4 Supervision or touching assist (CGA). [place] provide cues , steadying assist 3 The helper provides less than half the effort to complete the activity 2 The helper provides more than half the effort to complete the activity 1 Dependent. The helper does all the effort to complete an activity 7 Patient refused to complete or attempt activity 9 The patient did not perform the activity before the current illness or injury 88 Not attempted due to Medical conditions or safety concerns Bathing (FIM): 4 (Pt was able to wash and dry all parts, with CGA when standing to wash/dry bottom. Shower bench, grab bars, hand held shower. Setup) Upper Body (FIM): 4 (Help to turn bra around when fastened in front (could use bra technical writer). Doffed and donned top with setup) Lower Body Dressing (FIM): 5 (Pt was able to get pants over feet usign dressing stick. Uses stick to get slipper socks and pants off. Uses sock aid to get slipper socks on. SBA when standing to pull pant sup and down. FWW) Transfers (B, C, W/C) (FIM): 4 (Transferring from w/c to EOB, to the right, using FWW. Difficulty weight shifting to move L UE) Shower Transfer(FIM): 3 (Pt had difficulty putting weight on R leg to be able to move L leg during stand pivot transfer on and off shower bench from w/c. Uses grab bar which doesn't facilitate weight bearing through arms. her feet get too close together so she has a very narrow base of support for transfer. Skilled cues needed) Pt is making progress in dressing and bathing but transfers continue to be difficult, especially shower transfers. She lives alone and will need to be able to toilet herself to go home safely. Pt transferred into bed so that harpal could be taken out. Care transferred to RN Education OT Patient Education: Modified ADL techniques, Progress toward Goal/Update tx plan, Purpose of tx/functional activities, Transfer techniques Teaching Recipient: Patient Teaching Methods: Demonstration, Discussion Response to Teaching: Verbalize Understanding, Return Demonstration, Reinforcement Needed OT Short Term Goals Short Term Goals Time Frame: Mar 25, 2017 Lower Body Dressing(FIM): 3 Toilet/Commode Transfer(FIM): 3 Shower Transfer(FIM): 3 Additional Short Term Goals: 1-Demonstrate ADL Tasks, 2-Verbalize Understanding , 3-ImproveStrength/Lalo 1=Demonstrate adherence to instructed precautions during ADL tasks. 2=Patient will verbalize/demonstrate understanding of assistive devices/ modifications for ADL. 3=Patient will improve strength/tolerance for activity to enable patient to perform ADL's. OT Penitentiary Goals Leather Staker Goals Time Frame: Apr 08, 2017 Eating (FIM): 6 Eating (QC): 6 Groomin Oral Hygiene (QC): 6 Bathing(FIM): 5 Shower/Bathe Self (QC): 4 Upper Body Dressing(FIM): 5 Upper Body Dressing (QC): 5 Lower Body Dressing(FIM): 5 Lower Body Dressing (QC): 4 On/Off Footwear (QC): 5 Toileting(FIM): 5 Toileting Hygiene (QC): 4 Toilet/Commode Transfer(FIM): 5 Toilet/Commode Transfer (QC): 4 Shower Transfer(FIM): 5 Additional Goals: 2-Verbalize Understanding, 3-ImproveStrength/Lalo 1=Demonstrate adherence to instructed precautions during ADL tasks. 2=Patient will verbalize/demonstrate understanding of assistive devices/ modifications for ADL. 3=Patient will improve strength/tolerance for activity to enable patient to perform ADL's. OT Education/Plan Problem List/Assessment Pt would benefit from skilled OT to increase her independence in basic self care to allow her to safely return to her apartment and to decrease caregiver burden. Discharge Recommendations Plan/Recommendations: Continue POC Treatment Plan/Plan of Care Patient would benefit from OT for education, treatment and training to promote independence in ADL's, mobility, safety and/or upper extremity function for ADL' s. Plan of Care: ADL Retraining, Functional Mobility, Group Exercise/Act as Ind ( education, exercise, activ tolerance, funct activities, socialization), UE Funct Exercise/Act, UE Neuromus Re-Ed/Coord Treatment Duration: Apr 08, 2017 Frequency: At least 5 of 7 days/Wk (IRF) Estimated Hrs Per Day: 1.5 hours per day Agreement: Yes Rehab Potential: Fair Time/GCodes Start Time: 09:00 Stop Time: 10:00 Total Time Billed (hr/min): 60 Billed Treatment Time visit, 60 minutes ADL JOSE ANGEL ORLANDO OT Mar 23, 2017 10:19
--- NOTE | 2017-03-23 11:01 | PM & R (SOAP) Progress Note ---
Subjective Time Seen by Provider: 09:45 Subjective/Events-last exam Patient was seen in her room this AM with RN Incision rt leg viewed Has healed well Enochs to come out today.Patient MIN assist for transfers Objective Exam Last Set of Vital Signs Vital Signs Date Time Temp Pulse Resp B/P (MAP) Pulse Ox O2 Delivery O2 Flow Rate FiO2 03/23/17 08:00 Room Air 03/23/17 07:10 98.0 03/23/17 06:01 61 20 138/65 95 03/19/17 14:09 21 Capillary Refill : Less Than 3 Seconds I&O Intake and Output 03/24/17 00:00 Intake Total 700 ml Balance 700 ml Intake Oral 700 ml # Voids 5 General: Alert, Oriented X3, Cooperative, No Acute Distress HEENT: Atraumatic, PERRLA, EOMI, Mucous Memb Moist/[place] Neck: Supple, No JVD Lungs: Clear to Auscultation Heart: Regular Rate Abdomen: Normal Bowel Sounds, Soft, No Tenderness, Other (obese) Extremities: Other (normal postop swelling rt leg) Skin: Other (Is[place] dressing in place clean and dry) Neuro: Other (RT LE Strength 2/5 Left LE 3+/5) Results Lab Laboratory Tests 03/20/17 11:20: Glucometer 171H 03/20/17 16:19: Glucometer 241H 03/20/17 20:16: Glucometer 171H 03/21/17 04:55: Glucometer 131H 03/21/17 10:57: Glucometer 214H 03/21/17 15:46: Glucometer 163H 03/21/17 20:39: Glucometer 200H 03/22/17 05:15: Glucometer 142H 03/22/17 10:57: Glucometer 140H 03/22/17 16:00: Glucometer 188H 03/22/17 20:15: Glucometer 268H 03/23/17 05:21: Glucometer 90 Assessment/Plan Assessment Fall with fracture rt distal femur s/p ORIF DR Garduno PWB RLE Nausea meds adjusted further-improved HTN controlled DM controlled Dizziness-will change pain meds-improved -See orders Plan Continue PT/OT Monitor labs and adjust meds as appropriate with Hospitalist service following Trial of Tramadol-done D/C [id number] better Schedule [id number] better See orders F/U with DR Garduno and Hospitalist PRN-Appreciate their notes Next Team Conference later today-See report for full functional update and POC and KENNETH D/C BETTY Diaz MD Mar 23, 2017 11:00
[2017-03-23] MEDS: FUROSEMIDE 20 MG (LASIX) TAB PO SCH (11:48)
[2017-03-23] MEDS: ROSUVASTATIN 5 MG (CRESTOR) TABLET PO SCH (11:48)
--- NOTE | 2017-03-23 13:30 | Physical Therapy Daily Note ---
PT Daily Note-Current Subjective C/O fatigue but willing to work Pain Numeric Pain Scale: 0-No Pain Mental Status needs near constant cues, poor recall Transfers Functional [place] Measure 0=Not Assessed/NA 4=Minimal Assistance 1=Total Assistance 5=Supervision or Setup 2=Maximal Assistance 6=Modified [place] 3=Moderate Assistance 7=Complete IndependenceIRFPAI Quality Coding Scale 6 Independent with activity with or without an assistive device 5 Patient requires set up or clean up by helper. Patient completes activity by themselves 4 Supervision or touching assist (CGA). [place] provide cues , steadying assist 3 The helper provides less than half the effort to complete the activity 2 The helper provides more than half the effort to complete the activity 1 Dependent. The helper does all the effort to complete an activity 7 Patient refused to complete or attempt activity 9 The patient did not perform the activity before the current illness or injury 88 Not attempted due to Medical conditions or safety concerns sit to stand and sup to sit all 'SBA however pt needs repeated cues for SPT, feet crossed up and much struggle Weight Bearing Right Lower Extremity: Right Partial Weight Bearing Left Lower Extremity: Left Full Weight Bearing pt. maintains PWB but appears fearful each step, has to be encouraged to go ahead Gait Training 6-7 ft FWW CGA PWB again much struggle as described in AM note Exercises Supine Ex: Bridging, Ankle pumps, Quad Set, Rolling, Glut sets, Heel Slides, Short Arc Quads, Scooting, Straight leg raise (assist), Hip abd/add (assist) Supine Reps: 12 Treatments w/c mobility with cues and instruction as per AM Assessment Current Status: Fair Progress dependent jones when fatigued PT Short Term Goals Short Term Goals Wheelchair Distance: 60' PT Photovoltaic Testing Technician Goals Penitentiary Goals PT Penitentiary Goals Time Frame: Apr 08, 2017 Transfers (B,C,W/C) (FIM): 6 Sit to Lying (QC): 5 Lying-Sitting on Side/Bed(QC): 5 Sit to Stand (QC): 5 Rollin Roll Left to Right (QC): 5 Chair/Saj-cv-Rxdtr Xfer(QC): 5 Car Transfer (QC): 5 Does the Patient Walk: Yes Gait (FIM): 2 Gait distance (FIM): 3=632-64 ft (75') Distance: 75' Walk 10 feet (QC): 5 Walk 10ft-Uneven Surface(QC): 5 Walk 50ft with 2 Turns (QC): 5 Walk 150 ft (QC): 88 Gait Level of Assist: 6 Gait Assistive Device: FWW # of Steps: 1 1 Step (curb) (QC): 4 4 Steps (QC): 88 12 Steps (QC): 88 Stairs Level Of Assist: 5 Picking up an Object (QC): 4 PT Plan Treatment/Plan Treatment Plan: Continue Plan of Care Treatment Plan: Bed Mobility, Concurrent Therapy, Education, Functional Activity Lalo, Functional Strength, Group Therapy, Gait, Safety, Therapeutic Exercise, Transfers Treatment Duration: Apr 08, 2017 Frequency: At least 5 of 7 days/Wk (IRF) Estimated Hrs Per Day: 1.5 hours per day Patient and/or Family Agrees t: Yes Time/GCodes Time In: 1300 Time Out: 1330 Total Billed Treatment Time: 30 Total Billed Treatment 1,FA15m,EX15m G Codes Necessary: AMANDA Singletary LOGISTICS SYSTEM ENGINEER Mar 23, 2017 13:30
--- NOTE | 2017-03-23 14:26 | Occupational Ther Daily Note ---
OT Current Status-Daily Note Subjective Pt seen in room, agreeable to OT but requested a little time to visit with her friends first. Schedule was accommodated. Appearance Alert, cooperative Mental Status/Objective Functional [place] Measure 0=Not Assessed/NA 4=Minimal Assistance 1=Total Assistance 5=Supervision or Setup 2=Maximal Assistance 6=Modified [place] 3=Moderate Assistance 7=Complete [place] ADL-Treatment Functional [place] Measure 0=Not Assessed/NA 4=Minimal Assistance 1=Total Assistance 5=Supervision or Setup 2=Maximal Assistance 6=Modified [place] 3=Moderate Assistance 7=Complete IndependenceIRFPAI Quality Coding Scale 6 Independent with activity with or without an assistive device 5 Patient requires set up or clean up by helper. Patient completes activity by themselves 4 Supervision or touching assist (CGA). [place] provide cues , steadying assist 3 The helper provides less than half the effort to complete the activity 2 The helper provides more than half the effort to complete the activity 1 Dependent. The helper does all the effort to complete an activity 7 Patient refused to complete or attempt activity 9 The patient did not perform the activity before the current illness or injury 88 Not attempted due to Medical conditions or safety concerns Other Treatment Pt transferred min assist from recliner to w/c, using FWW, with skilled cues for walker placement. She was transported to gym and did 12 minutes bilat UE exercise on arm bike set at 15W resistance (increased time). Exercise is to strengthen arms to help with weight bearing during transfers and ADLs. Pt took only one brief recovery break. She was returned to her room per w/c and transferred from w/c to recliner with min/CGA assist and FWW, with skilled cues for motor planning sequence for transfer. She tends to try to sit before she is in a safe position. Pt left up in recliner, all needs met, legs elevated. Education OT Patient Education: Exercise program, Progress toward Goal/Update tx plan, Purpose of tx/functional activities Teaching Recipient: Patient Teaching Methods: Discussion Response to Teaching: Verbalize Understanding OT Short Term Goals Short Term Goals Time Frame: Mar 25, 2017 Lower Body Dressing(FIM): 3 Toilet/Commode Transfer(FIM): 3 Shower Transfer(FIM): 3 Additional Short Term Goals: 1-Demonstrate ADL Tasks, 2-Verbalize Understanding , 3-ImproveStrength/Lalo 1=Demonstrate adherence to instructed precautions during ADL tasks. 2=Patient will verbalize/demonstrate understanding of assistive devices/ modifications for ADL. 3=Patient will improve strength/tolerance for activity to enable patient to perform ADL's. OT Fish House Worker Goals Fish House Worker Goals Time Frame: Apr 08, 2017 Eating (FIM): 6 Eating (QC): 6 Groomin Oral Hygiene (QC): 6 Bathing(FIM): 5 Shower/Bathe Self (QC): 4 Upper Body Dressing(FIM): 5 Upper Body Dressing (QC): 5 Lower Body Dressing(FIM): 5 Lower Body Dressing (QC): 4 On/Off Footwear (QC): 5 Toileting(FIM): 5 Toileting Hygiene (QC): 4 Toilet/Commode Transfer(FIM): 5 Toilet/Commode Transfer (QC): 4 Shower Transfer(FIM): 5 Additional Goals: 2-Verbalize Understanding, 3-ImproveStrength/Lalo 1=Demonstrate adherence to instructed precautions during ADL tasks. 2=Patient will verbalize/demonstrate understanding of assistive devices/ modifications for ADL. 3=Patient will improve strength/tolerance for activity to enable patient to perform ADL's. OT Education/Plan Problem List/Assessment Pt would benefit from skilled OT to increase her independence in basic self care to allow her to safely return to her apartment and to decrease caregiver burden. Discharge Recommendations Plan/Recommendations: Continue POC Treatment Plan/Plan of Care Patient would benefit from OT for education, treatment and training to promote independence in ADL's, mobility, safety and/or upper extremity function for ADL' s. Plan of Care: ADL Retraining, Functional Mobility, Group Exercise/Act as Ind ( education, exercise, activ tolerance, funct activities, socialization), UE Funct Exercise/Act, UE Neuromus Re-Ed/Coord Treatment Duration: Apr 08, 2017 Frequency: At least 5 of 7 days/Wk (IRF) Estimated Hrs Per Day: 1.5 hours per day Agreement: Yes Rehab Potential: Fair Time/GCodes Start Time: 13:50 Stop Time: 14:20 Total Time Billed (hr/min): 30 Billed Treatment Time visit, 30 minutes exercise JOSE ANGEL ORLANDO OT Mar 23, 2017 14:26
[2017-03-23 15:52] VITALS: BP 151/73
[2017-03-23] MEDS: inSUlin DETERMIR 1 UNIT/0.01 ML (LEVEMIR) CHARGE PER UNIT SQ SCH (21:28)
[2017-03-23] MEDS: ATENOLOL 50 MG (TENORMIN) TAB PO SCH (21:29)
[2017-03-24 05:25] VITALS: BP 138/70
[2017-03-24] MEDS: inSUlin ASPART (NovoLOG) 1 UNIT/0.01 ML (CHARGE PER UNIT) SC SCH ×4 (06:49→20:40)
[2017-03-24] MEDS: LEVOTHYROXINE 88 MCG (LEVOTHORID) TAB PO SCH (06:50)
[2017-03-24] MEDS: PANTOPRAZOLE 20 MG TABLET (PROTONIX) PO SCH (06:50)
[2017-03-24] MEDS: glipiZIDE 5 MG (GLUCOTROL) TAB PO SCH ×2 (06:50→17:44)
[2017-03-24] MEDS: DICLOFENAC 1% GEL 100 GM (VOLTAREN) TUBE TOP PRN (08:39)
[2017-03-24] MEDS: ENOXAPARIN 30 MG/0.3 ML (LOVENOX) SYR SC SCH (08:40)
[2017-03-24] MEDS: LACTULOSE SYRUP 10GM/15ML (ENULOSE) 30ML UDC PO SCH ×2 (08:40→20:01)
--- NOTE | 2017-03-24 10:08 | PM & R (SOAP) Progress Note ---
Subjective Time Seen by Provider: 09:50 Subjective/Events-last exam Patient was seen in GYM this AM.Patient SBA for transfers . Objective Exam Last Set of Vital Signs Vital Signs Date Time Temp Pulse Resp B/P (MAP) Pulse Ox O2 Delivery O2 Flow Rate FiO2 03/24/17 05:25 98.2 63 18 138/70 96 Room Air 03/19/17 14:09 21 Capillary Refill : Less Than 3 Seconds I&O Intake and Output 03/25/17 00:00 Intake Total 1000 ml Balance 1000 ml Intake Oral 1000 ml # Voids 5 General: Alert, Oriented X3, Cooperative, No Acute Distress HEENT: Atraumatic, PERRLA, EOMI, Mucous Memb Moist/[place] Neck: Supple, No JVD Lungs: Clear to Auscultation Heart: Regular Rate Abdomen: Normal Bowel Sounds, Soft, No Tenderness, Other (obese) Extremities: Other (normal postop swelling rt leg) Skin: Other ([place] dressing in place clean and dry) Neuro: Other (RT LE Strength 2/5 Left LE 3+/5) Results Lab Laboratory Tests 03/21/17 10:57: Glucometer 214H 03/21/17 15:46: Glucometer 163H 03/21/17 20:39: Glucometer 200H 03/22/17 05:15: Glucometer 142H 03/22/17 10:57: Glucometer 140H 03/22/17 16:00: Glucometer 188H 03/22/17 20:15: Glucometer 268H 03/23/17 05:21: Glucometer 90 03/23/17 11:04: Glucometer 159H 03/23/17 16:49: Glucometer 156H 03/23/17 21:12: Glucometer 195H 03/24/17 05:07: Glucometer 118H Assessment/Plan Assessment Fall with fracture rt distal femur s/p ORIF DR Garduno PWB RLE Nausea meds adjusted further-improved HTN controlled DM controlled Dizziness-will change pain meds-improved -See orders Plan Continue PT/OT Monitor labs and adjust meds as appropriate with Hospitalist service following Trial of Tramadol-done D/C [id number] better Schedule [id number] better See orders F/U with DR Garduno and Hospitalist PRN-Appreciate their notes Team Conference held yesterday--See report for full functional update and POC and KENNETH Ackerman d/cd Discharge set tentatively for next Tuesday03-28-17 Current meds reviewed BETTY IGNACIO MD Mar 24, 2017 10:08
--- NOTE | 2017-03-24 11:11 | Occupational Ther Daily Note ---
OT Current Status-Daily Note Subjective Pt seen in room, up in w/c, agreeable to OT. No paiin mentioned but she was observed to rub her R lateral knee and said it hurt with prolonged standing. Appearance Alert, cooperative Mental Status/Objective Functional [place] Measure 0=Not Assessed/NA 4=Minimal Assistance 1=Total Assistance 5=Supervision or Setup 2=Maximal Assistance 6=Modified [place] 3=Moderate Assistance 7=Complete [place] ADL-Treatment ADLs took longer than usual. Functional [place] Measure 0=Not Assessed/NA 4=Minimal Assistance 1=Total Assistance 5=Supervision or Setup 2=Maximal Assistance 6=Modified [place] 3=Moderate Assistance 7=Complete IndependenceIRFPAI Quality Coding Scale 6 Independent with activity with or without an assistive device 5 Patient requires set up or clean up by helper. Patient completes activity by themselves 4 Supervision or touching assist (CGA). [place] provide cues , steadying assist 3 The helper provides less than half the effort to complete the activity 2 The helper provides more than half the effort to complete the activity 1 Dependent. The helper does all the effort to complete an activity 7 Patient refused to complete or attempt activity 9 The patient did not perform the activity before the current illness or injury 88 Not attempted due to Medical conditions or safety concerns Grooming (FIM): 6 (Pt brushed her teeth, combed her hair and washed face and hands, w/c level. Able to get up to sink herself and recalled to lock brakes on w/c) Bathing (FIM): 5 (Pt positioned herself at sink for sponge bath, setup. Washed under arms, under breasts and [place] areas with SBA when standing at sink, balancing on counter top. ) Upper Body (FIM): 5 (Pt doffed and donned bra and shirt. Some difficulty with mod technique for hooking bra in front and turning it around because bra is too tight. ) Lower Body Dressing (FIM): 5 (SBA when standing to push pants down and pull pants up. Used dressing stick to get pants off/on over feet. Pushed up from w/c and balanced at sink. Socks and shoes were already on. ) Other Treatment Pt transported to gym per w/c and she did 13 minutes bilat UE exercise with arm bike set at 15W resistance (increased time), taking one brief break. She worked at steady pace and said that she used this bike when she did cardiac rehab. Pt returned to room and walked a few feet from w/c to recliner. She had difficulty weight shifting to be able to advance her L foot and struggled with sequencing. At times her L foot was too far behind her or walker pushed too far out in front for successful weight bearing through arms. Her feet were often touching each other, with extremely narrow base of support. Pt left up in recliner, legs elevated, all needs met. Education OT Patient Education: Progress toward Goal/Update tx plan, Purpose of tx/ functional activities, Safety issues, Transfer techniques Teaching Recipient: Patient Teaching Methods: Demonstration, Discussion Response to Teaching: Verbalize Understanding, Reinforcement Needed OT Short Term Goals Short Term Goals Time Frame: Mar 25, 2017 Lower Body Dressing(FIM): 3 Toilet/Commode Transfer(FIM): 3 Shower Transfer(FIM): 3 Additional Short Term Goals: 1-Demonstrate ADL Tasks, 2-Verbalize Understanding , 3-ImproveStrength/Lalo 1=Demonstrate adherence to instructed precautions during ADL tasks. 2=Patient will verbalize/demonstrate understanding of assistive devices/ modifications for ADL. 3=Patient will improve strength/tolerance for activity to enable patient to perform ADL's. OT Ballistics Expert Forensic Goals Ballistics Expert Forensic Goals Time Frame: Apr 08, 2017 Eating (FIM): 6 Eating (QC): 6 Groomin Oral Hygiene (QC): 6 Bathing(FIM): 5 Shower/Bathe Self (QC): 4 Upper Body Dressing(FIM): 5 Upper Body Dressing (QC): 5 Lower Body Dressing(FIM): 5 Lower Body Dressing (QC): 4 On/Off Footwear (QC): 5 Toileting(FIM): 5 Toileting Hygiene (QC): 4 Toilet/Commode Transfer(FIM): 5 Toilet/Commode Transfer (QC): 4 Shower Transfer(FIM): 5 Additional Goals: 2-Verbalize Understanding, 3-ImproveStrength/Lalo 1=Demonstrate adherence to instructed precautions during ADL tasks. 2=Patient will verbalize/demonstrate understanding of assistive devices/ modifications for ADL. 3=Patient will improve strength/tolerance for activity to enable patient to perform ADL's. OT Education/Plan Problem List/Assessment Pt would benefit from skilled OT to increase her independence in basic self care to allow her to safely return to her apartment and to decrease caregiver burden. Discharge Recommendations Plan/Recommendations: Continue POC Treatment Plan/Plan of Care Patient would benefit from OT for education, treatment and training to promote independence in ADL's, mobility, safety and/or upper extremity function for ADL' s. Plan of Care: ADL Retraining, Functional Mobility, Group Exercise/Act as Ind ( education, exercise, activ tolerance, funct activities, socialization), UE Funct Exercise/Act, UE Neuromus Re-Ed/Coord Treatment Duration: Apr 08, 2017 Frequency: At least 5 of 7 days/Wk (IRF) Estimated Hrs Per Day: 1.5 hours per day Agreement: Yes Rehab Potential: Fair Time/GCodes Start Time: 09:00 Stop Time: 10:05 Total Time Billed (hr/min): 65 Billed Treatment Time visit, 35 minutes ADL, 30 minutes exercise JOSE ANGEL ORLANDO OT Mar 24, 2017 11:11
--- NOTE | 2017-03-24 12:02 | Physical Therapy Daily Note ---
PT Daily Note-Current Subjective Pt sitting in recliner upon arrival. Pt agreed to PT. Pain Numeric Pain Scale: 5-Moderate Pain Location: Right Location Body Site: Knee Pain Description: Ache Mental Status Patient Orientation: Person, Place, Situation Transfers Functional [place] Measure 0=Not Assessed/NA 4=Minimal Assistance 1=Total Assistance 5=Supervision or Setup 2=Maximal Assistance 6=Modified [place] 3=Moderate Assistance 7=Complete IndependenceIRFPAI Quality Coding Scale 6 Independent with activity with or without an assistive device 5 Patient requires set up or clean up by helper. Patient completes activity by themselves 4 Supervision or touching assist (CGA). [place] provide cues , steadying assist 3 The helper provides less than half the effort to complete the activity 2 The helper provides more than half the effort to complete the activity 1 Dependent. The helper does all the effort to complete an activity 7 Patient refused to complete or attempt activity 9 The patient did not perform the activity before the current illness or injury 88 Not attempted due to Medical conditions or safety concerns Scootin Rollin Supine to/from Sit: 5 Sit to/from Stand: 5 Sit to Lying (QC): 5 Sit to Stand (QC): 5 Weight Bearing Right Lower Extremity: Right Partial Weight Bearing Left Lower Extremity: Left Full Weight Bearing pt. maintains PWB but appears fearful each step, has to be encouraged to go ahead Gait Training Does the Patient Walk?: Yes Distance (FIM): 3=531-61 ft Distance: 50' Walk 10 feet (QC): 4 Walk 50 ft with 2 Turns(QC): 4 Gait Level of Assist: 4 Gait Persons Needed: 1 Gait Assistive Device: FWW Pt continues to have difficulty advancing LLE due to having to Weight shift to RLE and having pain. Pt ambulates very slowly and fatigues easy. Wheelchair Training Does the Pt Use a Wheelchair?: Yes Wheelchair Distance: 3=150 ft Distance: 150' Wheelchair Level of Assist: 5 Wheel 50 ft with 2 turns (QC): 5 Wheel 150 ft (QC): 5 Type of Wheelchair: Manual Exercises Supine Ex: Rolling, Scooting Seated Therapy Exercises: Sit to stand Treatments Pt transfers from recliner to standing using FWW at [place]. Pt transfers from standing to laying Supine in bed at [place]. Pt ambulates from recliner in room to hallway at CGA-Min A, rests then ambulates short distance again before resting in WC which followed. Pt propels WCH at SBA in hallway before returning to room to rest for OT tx. Pt resting in WCH with all needs met at end of tx. Assessment Current Status: Good Progress Pt is making progress with transfers and bed mobility but continues to have difficulty advancing LLE due to pain in RLE. PT Short Term Goals Short Term Goals Wheelchair Distance: 60' PT Computer Hardware Engineer Goals Care Home Goals PT Care Home Goals Time Frame: Apr 08, 2017 Transfers (B,C,W/C) (FIM): 6 Sit to Lying (QC): 5 Lying-Sitting on Side/Bed(QC): 5 Sit to Stand (QC): 5 Rollin Roll Left to Right (QC): 5 Chair/Ere-ic-Tvtyg Xfer(QC): 5 Car Transfer (QC): 5 Does the Patient Walk: Yes Gait (FIM): 2 Gait distance (FIM): 1=147-84 ft (75') Distance: 75' Walk 10 feet (QC): 5 Walk 10ft-Uneven Surface(QC): 5 Walk 50ft with 2 Turns (QC): 5 Walk 150 ft (QC): 88 Gait Level of Assist: 6 Gait Assistive Device: FWW # of Steps: 1 1 Step (curb) (QC): 4 4 Steps (QC): 88 12 Steps (QC): 88 Stairs Level Of Assist: 5 Picking up an Object (QC): 4 PT Plan Problem List Problem List: Activity Tolerance, Functional Strength, Safety, Balance, Gait Treatment/Plan Treatment Plan: Continue Plan of Care Treatment Plan: Bed Mobility, Concurrent Therapy, Education, Functional Activity Lalo, Functional Strength, Group Therapy, Gait, Safety, Therapeutic Exercise, Transfers Treatment Duration: Apr 08, 2017 Frequency: At least 5 of 7 days/Wk (IRF) Estimated Hrs Per Day: 1.5 hours per day Patient and/or Family Agrees t: Yes Safety Risks/Education Patient Education: Gait Training, Transfer Techniques, Correct Positioning, Safety Issues Teaching Recipient: Patient Teaching Methods: Discussion Response to Teaching: Verbalize Understanding Time/GCodes Time In: 800 Time Out: 900 Total Billed Treatment Time: 60 Total Billed Treatment visit, FA x2 (30m) & GT x2 (30m) ANTHONY ELY GRINDING WHEEL DRESSER Mar 24, 2017 12:02
[2017-03-24] MEDS: ROSUVASTATIN 5 MG (CRESTOR) TABLET PO SCH (13:04)
[2017-03-24] MEDS: FUROSEMIDE 20 MG (LASIX) TAB PO SCH (13:05)
--- NOTE | 2017-03-24 14:35 | Therapy Group Daily Note ---
Therapy Daily Group Note Patient Education Topic Home Safety Exercises LE Seated Exercise, UE Exercise Other/Notes Pt propelled self in w/c to group therapy. Pt participated in group introductions (name, where pt is from, first car). Pt participated in activity for education on common indoor signs and home safety awareness. Pt engaged in conversation and responded to questions appropriately in peer interactions and conversed with the people around her. Pt participated in seated LE and UE exercises and demonstrated understanding and correct form. Pt transported back to room in w/c and transferred into recliner with assistance. After therapy, pt sitting in recliner with phone and call light in reach. Start Time: 12:59 Stop Time: 14:11 Total Billed Treatment Time: 72 Total Billed Treatment 1-GRP MARYLIN VILLARREAL Mar 24, 2017 14:35
[2017-03-24] MEDS: ACETAMINOPHEN 325 MG TABLET/CAPLET (TYLENOL) PO PRN (17:49)
[2017-03-24 18:47] VITALS: BP 126/67
[2017-03-24] MEDS: ATENOLOL 50 MG (TENORMIN) TAB PO SCH (20:01)
[2017-03-24] MEDS: inSUlin DETERMIR 1 UNIT/0.01 ML (LEVEMIR) CHARGE PER UNIT SQ SCH (20:01)
[2017-03-25 05:00] VITALS: BP 152/70
[2017-03-25] MEDS: inSUlin ASPART (NovoLOG) 1 UNIT/0.01 ML (CHARGE PER UNIT) SC SCH ×4 (05:38→21:24)
[2017-03-25] MEDS: glipiZIDE 5 MG (GLUCOTROL) TAB PO SCH ×2 (06:02→16:07)
[2017-03-25] MEDS: PANTOPRAZOLE 20 MG TABLET (PROTONIX) PO SCH (06:02)
[2017-03-25] MEDS: LEVOTHYROXINE 88 MCG (LEVOTHORID) TAB PO SCH (06:02)
[2017-03-25 07:39] VITALS: BP 152/70
[2017-03-25] MEDS: ENOXAPARIN 30 MG/0.3 ML (LOVENOX) SYR SC SCH (08:00)
[2017-03-25] MEDS: LACTULOSE SYRUP 10GM/15ML (ENULOSE) 30ML UDC PO SCH ×2 (08:00→21:19)
[2017-03-25] MEDS ORDERED: TRAM50TA2 PO (08:59)
[2017-03-25] MEDS ORDERED: LACT20SO2 PO (08:59)
[2017-03-25] MEDS ORDERED: DICL100G18 TOP (08:59)
--- NOTE | 2017-03-25 09:06 | PM & R (SOAP) Progress Note ---
Subjective Time Seen by Provider: 07:45 Subjective/Events-last exam Patient was seen in her room this AM Case discussed with SW Patient SBA for transfers and unable to retuirn home alone until WBS is advanced by Ortho and patient more Independent Patient thus being discharged to a SNU on Tuesday the Patient tolerating RX of TRamadol fo pain and current meds reviewed as well as accuchecks Objective Exam Last Set of Vital Signs Vital Signs Date Time Temp Pulse Resp B/P (MAP) Pulse Ox O2 Delivery O2 Flow Rate FiO2 03/25/17 08:19 Room Air 03/25/17 07:39 93 03/25/17 07:39 63 03/25/17 05:00 98.7 20 152/70 03/19/17 14:09 21 Capillary Refill : Less Than 3 Seconds I&O Intake and Output 03/26/17 00:00 Intake Total 990 ml Balance 990 ml Intake Oral 990 ml # Voids 4 # Bowel Movements 1 General: Alert, Oriented X3, Cooperative, No Acute Distress HEENT: Atraumatic, PERRLA, EOMI, Mucous Memb Moist/[place] Neck: Supple, No JVD Lungs: Clear to Auscultation Heart: Regular Rate Abdomen: Normal Bowel Sounds, Soft, No Tenderness, Other (obese) Extremities: Other (normal postop swelling rt leg) Skin: Other ([place] dressing in place clean and dry) Neuro: Other (RT LE Strength 2/5 Left LE 3+/5) Results Lab Laboratory Tests 03/22/17 10:57: Glucometer 140H 03/22/17 16:00: Glucometer 188H 03/22/17 20:15: Glucometer 268H 03/23/17 05:21: Glucometer 90 03/23/17 11:04: Glucometer 159H 03/23/17 16:49: Glucometer 156H 03/23/17 21:12: Glucometer 195H 03/24/17 05:07: Glucometer 118H 03/24/17 10:54: Glucometer 105 03/24/17 15:59: Glucometer 132H 03/24/17 20:16: Glucometer 239H 03/25/17 05:34: Glucometer 106 Assessment/Plan Assessment Fall with fracture rt distal femur s/p ORIF DR Garduno PWB RLE Nausea meds adjusted further-improved HTN controlled DM controlled Dizziness-will change pain meds-improved -See orders Plan Continue PT/OT Monitor labs and adjust meds as appropriate with Hospitalist service following Trial of Tramadol-done D/C Pzmrosws-nzfv-[id number] better Schedule Xotcdibq-cbsx-[id number] better See orders F/U with DR Garduno and Hospitalist PRN-Appreciate their notes Team Conference 03-23-17--See report for full functional update and POC and KENNETH Ackerman d/cd Discharge remains set for next Tuesday03-28-17-to a snu for ongoing care Current meds reviewed Patient will have f/u with PT/OT at SN[facility] and with DR Garduno and Phyllis See orders. BETTY IGNACIO MD Mar 25, 2017 09:06
[2017-03-25] MEDS: FUROSEMIDE 20 MG (LASIX) TAB PO SCH (11:27)
[2017-03-25] MEDS: ROSUVASTATIN 5 MG (CRESTOR) TABLET PO SCH (11:27)
--- NOTE | 2017-03-25 12:10 | Physical Therapy Daily Note ---
PT Daily Note-Current Subjective Pt. states she feels good knowing she has made the decision to go to [facility] skilled from here. "I still have so far to go" Pain Numeric Pain Scale: 0-No Pain Appearance appears tired Transfers Functional [place] Measure 0=Not Assessed/NA 4=Minimal Assistance 1=Total Assistance 5=Supervision or Setup 2=Maximal Assistance 6=Modified [place] 3=Moderate Assistance 7=Complete IndependenceIRFPAI Quality Coding Scale 6 Independent with activity with or without an assistive device 5 Patient requires set up or clean up by helper. Patient completes activity by themselves 4 Supervision or touching assist (CGA). [place] provide cues , steadying assist 3 The helper provides less than half the effort to complete the activity 2 The helper provides more than half the effort to complete the activity 1 Dependent. The helper does all the effort to complete an activity 7 Patient refused to complete or attempt activity 9 The patient did not perform the activity before the current illness or injury 88 Not attempted due to Medical conditions or safety concerns Transfers (B, C, W/C) (FIM): 4 Scootin Rollin Supine to/from Sit: 5 Sit to/from Stand: 5 Bed to/from Chair: 4 Weight Bearing Right Lower Extremity: Right Partial Weight Bearing Left Lower Extremity: Left Full Weight Bearing pt. maintains PWB but appears fearful each step, has to be encouraged to go ahead Gait Training Does the Patient Walk?: Yes Gait (FIM): 1 Distance (FIM): 1=up to 49 ft (25ftx3) Gait Level of Assist: 4 Gait Persons Needed: 1 Gait Assistive Device: FWW slow, extreme toe out bilat with knees and trunk flexed. heels getting caught on each other as she attempts to advance Wheelchair Training Does the Pt Use a Wheelchair?: Yes Wheelchair (FIM): 4 Wheelchair Distance: 3=150 ft Wheelchair Level of Assist: 4 Type of Wheelchair: Manual Stair Training unsafe to attempt steps Exercises Supine Ex: Ankle pumps, Rolling, Heel Slides, Hip abd/add Supine Reps: 12 Seated Therapy Exercises: Ankle pumps, Sit to stand, Long arc quads, Hip flexion Seated Reps: 12 Treatments many SPTs training today Assessment Current Status: Good Progress little progress noted today with TRFs and gait however pt. fatigues very quickly PT Short Term Goals Short Term Goals Wheelchair Distance: 150' PT Residential Goals Residential Goals PT Actuarial Associate Goals Time Frame: Apr 08, 2017 Transfers (B,C,W/C) (FIM): 6 Sit to Lying (QC): 5 Lying-Sitting on Side/Bed(QC): 5 Sit to Stand (QC): 5 Rollin Roll Left to Right (QC): 5 Chair/Bem-mj-Rbhoh Xfer(QC): 5 Car Transfer (QC): 5 Does the Patient Walk: Yes Gait (FIM): 2 Gait distance (FIM): 9=750-35 ft (75') Distance: 75' Walk 10 feet (QC): 5 Walk 10ft-Uneven Surface(QC): 5 Walk 50ft with 2 Turns (QC): 5 Walk 150 ft (QC): 88 Gait Level of Assist: 6 Gait Assistive Device: FWW # of Steps: 1 1 Step (curb) (QC): 4 4 Steps (QC): 88 12 Steps (QC): 88 Stairs Level Of Assist: 5 Picking up an Object (QC): 4 PT Plan Treatment/Plan Treatment Plan: Continue Plan of Care Treatment Plan: Bed Mobility, Concurrent Therapy, Education, Functional Activity Lalo, Functional Strength, Group Therapy, Gait, Safety, Therapeutic Exercise, Transfers Treatment Duration: Apr 08, 2017 Frequency: At least 5 of 7 days/Wk (IRF) Estimated Hrs Per Day: 1.5 hours per day Patient and/or Family Agrees t: Yes Safety Risks/Education Patient Education: Gait Training, Transfer Techniques, Correct Positioning, W/ C Management, Disease Process, Safety Issues Teaching Recipient: Patient, Primary Caregiver Teaching Methods: Discussion Response to Teaching: Verbalize Understanding, Return Demonstration, Reinforcement Needed needs repeated education, forgets, does not retain Time/GCodes Time In: 1100 Time Out: 1200 Total Billed Treatment Time: 60 Total Billed Treatment 1,FA15m,WC20m,GT25m G Codes Necessary: AMANDA Singletary PTA Mar 25, 2017 12:10
[2017-03-25] MEDS: ACETAMINOPHEN 325 MG TABLET/CAPLET (TYLENOL) PO PRN (13:48)
--- NOTE | 2017-03-25 14:59 | Physical Therapy Daily Note ---
PT Daily Note-Current Subjective Pt. states she is now settled to be going to [facility] for the rest of her rehab. Pain Numeric Pain Scale: 0-No Pain Transfers Functional [place] Measure 0=Not Assessed/NA 4=Minimal Assistance 1=Total Assistance 5=Supervision or Setup 2=Maximal Assistance 6=Modified [place] 3=Moderate Assistance 7=Complete IndependenceIRFPAI Quality Coding Scale 6 Independent with activity with or without an assistive device 5 Patient requires set up or clean up by helper. Patient completes activity by themselves 4 Supervision or touching assist (CGA). [place] provide cues , steadying assist 3 The helper provides less than half the effort to complete the activity 2 The helper provides more than half the effort to complete the activity 1 Dependent. The helper does all the effort to complete an activity 7 Patient refused to complete or attempt activity 9 The patient did not perform the activity before the current illness or injury 88 Not attempted due to Medical conditions or safety concerns sit to stand SBA, SPTs min assist Weight Bearing Right Lower Extremity: Right Partial Weight Bearing Left Lower Extremity: Left Full Weight Bearing pt. maintains PWB but appears fearful each step, has to be encouraged to go ahead Exercises Supine Ex: Bridging, Ankle pumps, Quad Set, Rolling, Glut sets, Heel Slides, Knee to chest, Scooting, Straight leg raise, Hip abd/add Supine Reps: 12 Seated Therapy Exercises: Ankle pumps, Sit to stand, Long arc quads, Hip flexion Seated Reps: 12 Assessment Current Status: Good Progress PT Short Term Goals Short Term Goals Wheelchair Distance: 150' PT Critical Care Nurse Specialist Goals Longterm Goals PT Longterm Goals Time Frame: Apr 08, 2017 Transfers (B,C,W/C) (FIM): 6 Sit to Lying (QC): 5 Lying-Sitting on Side/Bed(QC): 5 Sit to Stand (QC): 5 Rollin Roll Left to Right (QC): 5 Chair/Hmf-io-Fbnym Xfer(QC): 5 Car Transfer (QC): 5 Does the Patient Walk: Yes Gait (FIM): 2 Gait distance (FIM): 1=115-18 ft (75') Distance: 75' Walk 10 feet (QC): 5 Walk 10ft-Uneven Surface(QC): 5 Walk 50ft with 2 Turns (QC): 5 Walk 150 ft (QC): 88 Gait Level of Assist: 6 Gait Assistive Device: FWW # of Steps: 1 1 Step (curb) (QC): 4 4 Steps (QC): 88 12 Steps (QC): 88 Stairs Level Of Assist: 5 Picking up an Object (QC): 4 PT Plan Treatment/Plan Treatment Plan: Continue Plan of Care Treatment Plan: Bed Mobility, Concurrent Therapy, Education, Functional Activity Lalo, Functional Strength, Group Therapy, Gait, Safety, Therapeutic Exercise, Transfers Treatment Duration: Apr 08, 2017 Frequency: At least 5 of 7 days/Wk (IRF) Estimated Hrs Per Day: 1.5 hours per day Patient and/or Family Agrees t: Yes Safety Risks/Education Patient Education: Transfer Techniques, Issued Written HEP Teaching Recipient: Patient Teaching Methods: Demonstration, Discussion Response to Teaching: Verbalize Understanding, Return Demonstration, Reinforcement Needed Time/GCodes Time In: 1430 Time Out: 1500 Total Billed Treatment Time: 30 Total Billed Treatment 1,EX20m,FA10m G Codes Necessary: AMANDA Singletary RAILROAD INSPECTOR Mar 25, 2017 14:59
--- NOTE | 2017-03-25 15:09 | Occupational Ther Daily Note ---
OT Current Status-Daily Note Subjective Pt seen in room, up in recliner, agreeable to OT. No pain mentioned. Appearance Alert, cooperative Mental Status/Objective Functional [place] Measure 0=Not Assessed/NA 4=Minimal Assistance 1=Total Assistance 5=Supervision or Setup 2=Maximal Assistance 6=Modified [place] 3=Moderate Assistance 7=Complete [place] ADL-Treatment All ADLs took longer than usual. After showering, pt transferred into w/c and brushed teeth. Pt propelled w/c into room and transferred to BSC. After toileting, walked to recliner and was left up in recliner, all needs met. Functional [place] Measure 0=Not Assessed/NA 4=Minimal Assistance 1=Total Assistance 5=Supervision or Setup 2=Maximal Assistance 6=Modified [place] 3=Moderate Assistance 7=Complete IndependenceIRFPAI Quality Coding Scale 6 Independent with activity with or without an assistive device 5 Patient requires set up or clean up by helper. Patient completes activity by themselves 4 Supervision or touching assist (CGA). [place] provide cues , steadying assist 3 The helper provides less than half the effort to complete the activity 2 The helper provides more than half the effort to complete the activity 1 Dependent. The helper does all the effort to complete an activity 7 Patient refused to complete or attempt activity 9 The patient did not perform the activity before the current illness or injury 88 Not attempted due to Medical conditions or safety concerns Grooming (FIM): 6 (Pt brushed teeth and combed hair at sink, w/c level. Washed face and hands in shower. ) Bathing (FIM): 5 (Pt washed and dried all parts with setup. Shower bench, grab bars, hand held shower. Stood to wash bottom SBA.) Upper Body (FIM): 5 (Pt was able to hook bra in back and doff/don shirt with setup) Lower Body Dressing (FIM): 5 (Pt used dressing stick to take slipper socks off and to don underwear and slacks. Stood with SBA, FWW to pull pants up and down) Toileting (FIM): 5 (Pt managed clothing and hygiene, using BSC, FWW. SBA when managing clothing. ) Transfers (B, C, W/C) (FIM): 4 (Min assist to transfer from BS to recliner, with skilled cues throughout for walker placement, foot placement, moving L foot , FWW) Toilet/Commode Transfer (FIM): 5 (SBA getting on/off BSC, using FWW. USes arm rests to get up and down. ) Shower Transfer(FIM): 4 (Walked with min assist from bed to shower, with skilled cues throughout for walker and foot placement. Skilled cues and assist to turn to sidestep into shower. Needs walker to be able to weight bear to move L foot. SHower bench, grab bar) Education OT Patient Education: Modified ADL techniques, Purpose of tx/functional activities, Safety issues, Transfer techniques Teaching Recipient: Patient Teaching Methods: Demonstration, Discussion Response to Teaching: Verbalize Understanding, Return Demonstration, Reinforcement Needed OT Short Term Goals Short Term Goals Time Frame: Mar 25, 2017 Lower Body Dressing(FIM): 3 Toilet/Commode Transfer(FIM): 3 Shower Transfer(FIM): 3 Additional Short Term Goals: 1-Demonstrate ADL Tasks, 2-Verbalize Understanding , 3-ImproveStrength/Lalo 1=Demonstrate adherence to instructed precautions during ADL tasks. 2=Patient will verbalize/demonstrate understanding of assistive devices/ modifications for ADL. 3=Patient will improve strength/tolerance for activity to enable patient to perform ADL's. OT Intermediate Goals Cubing Machine Tender Goals Time Frame: Apr 08, 2017 Eating (FIM): 6 Eating (QC): 6 Groomin Oral Hygiene (QC): 6 Bathing(FIM): 5 Shower/Bathe Self (QC): 4 Upper Body Dressing(FIM): 5 Upper Body Dressing (QC): 5 Lower Body Dressing(FIM): 5 Lower Body Dressing (QC): 4 On/Off Footwear (QC): 5 Toileting(FIM): 5 Toileting Hygiene (QC): 4 Toilet/Commode Transfer(FIM): 5 Toilet/Commode Transfer (QC): 4 Shower Transfer(FIM): 5 Additional Goals: 2-Verbalize Understanding, 3-ImproveStrength/Lalo 1=Demonstrate adherence to instructed precautions during ADL tasks. 2=Patient will verbalize/demonstrate understanding of assistive devices/ modifications for ADL. 3=Patient will improve strength/tolerance for activity to enable patient to perform ADL's. OT Education/Plan Problem List/Assessment Pt would benefit from skilled OT to increase her independence in basic self care to allow her to safely return to her apartment and to decrease caregiver burden. Discharge Recommendations Plan/Recommendations: Continue POC Treatment Plan/Plan of Care Patient would benefit from OT for education, treatment and training to promote independence in ADL's, mobility, safety and/or upper extremity function for ADL' s. Plan of Care: ADL Retraining, Functional Mobility, Group Exercise/Act as Ind ( education, exercise, activ tolerance, funct activities, socialization), UE Funct Exercise/Act, UE Neuromus Re-Ed/Coord Treatment Duration: Apr 08, 2017 Frequency: At least 5 of 7 days/Wk (IRF) Estimated Hrs Per Day: 1.5 hours per day Agreement: Yes Rehab Potential: Fair Time/GCodes Start Time: 09:00 Stop Time: 10:02 Total Time Billed (hr/min): 62 Billed Treatment Time visit, 62 minutes ADL JOSE ANGEL ORLANDO OT Mar 25, 2017 15:09
--- NOTE | 2017-03-25 15:20 | Occupational Ther Daily Note ---
OT Current Status-Daily Note Subjective Pt seen in room, up in recliner, agreeable to OT. No pain mentioned. Appearance Alert, cooperative Mental Status/Objective Functional [place] Measure 0=Not Assessed/NA 4=Minimal Assistance 1=Total Assistance 5=Supervision or Setup 2=Maximal Assistance 6=Modified [place] 3=Moderate Assistance 7=Complete [place] ADL-Treatment Functional [place] Measure 0=Not Assessed/NA 4=Minimal Assistance 1=Total Assistance 5=Supervision or Setup 2=Maximal Assistance 6=Modified [place] 3=Moderate Assistance 7=Complete IndependenceIRFPAI Quality Coding Scale 6 Independent with activity with or without an assistive device 5 Patient requires set up or clean up by helper. Patient completes activity by themselves 4 Supervision or touching assist (CGA). [place] provide cues , steadying assist 3 The helper provides less than half the effort to complete the activity 2 The helper provides more than half the effort to complete the activity 1 Dependent. The helper does all the effort to complete an activity 7 Patient refused to complete or attempt activity 9 The patient did not perform the activity before the current illness or injury 88 Not attempted due to Medical conditions or safety concerns Other Treatment Pt did 15 reps bilat UE exercise with 2# weight, working on shoulders, elbows, forearms and wrists. Also did 15 reps with red theraband (increased resistance) various exercises working on UEs. Exercises to strengthen arms to help with weight bearing through arms when using walker for ADLs. Pt left up in recliner, all needs met. Education OT Patient Education: Exercise program Teaching Recipient: Patient Teaching Methods: Discussion Response to Teaching: Return Demonstration OT Short Term Goals Short Term Goals Time Frame: Mar 25, 2017 Lower Body Dressing(FIM): 3 Toilet/Commode Transfer(FIM): 3 Shower Transfer(FIM): 3 Additional Short Term Goals: 1-Demonstrate ADL Tasks, 2-Verbalize Understanding , 3-ImproveStrength/Lalo 1=Demonstrate adherence to instructed precautions during ADL tasks. 2=Patient will verbalize/demonstrate understanding of assistive devices/ modifications for ADL. 3=Patient will improve strength/tolerance for activity to enable patient to perform ADL's. OT Marketing Operations Consultant Goals Marketing Operations Consultant Goals Time Frame: Apr 08, 2017 Eating (FIM): 6 Eating (QC): 6 Groomin Oral Hygiene (QC): 6 Bathing(FIM): 5 Shower/Bathe Self (QC): 4 Upper Body Dressing(FIM): 5 Upper Body Dressing (QC): 5 Lower Body Dressing(FIM): 5 Lower Body Dressing (QC): 4 On/Off Footwear (QC): 5 Toileting(FIM): 5 Toileting Hygiene (QC): 4 Toilet/Commode Transfer(FIM): 5 Toilet/Commode Transfer (QC): 4 Shower Transfer(FIM): 5 Additional Goals: 2-Verbalize Understanding, 3-ImproveStrength/Lalo 1=Demonstrate adherence to instructed precautions during ADL tasks. 2=Patient will verbalize/demonstrate understanding of assistive devices/ modifications for ADL. 3=Patient will improve strength/tolerance for activity to enable patient to perform ADL's. OT Education/Plan Problem List/Assessment Pt would benefit from skilled OT to increase her independence in basic self care to allow her to safely return to her apartment and to decrease caregiver burden. Discharge Recommendations Plan/Recommendations: Continue POC Treatment Plan/Plan of Care Patient would benefit from OT for education, treatment and training to promote independence in ADL's, mobility, safety and/or upper extremity function for ADL' s. Plan of Care: ADL Retraining, Functional Mobility, Group Exercise/Act as Ind ( education, exercise, activ tolerance, funct activities, socialization), UE Funct Exercise/Act, UE Neuromus Re-Ed/Coord Treatment Duration: Apr 08, 2017 Frequency: At least 5 of 7 days/Wk (IRF) Estimated Hrs Per Day: 1.5 hours per day Agreement: Yes Rehab Potential: Fair Time/GCodes Start Time: 13:00 Stop Time: 13:30 Total Time Billed (hr/min): 30 Billed Treatment Time visit, 30 minutes exercise JOSE ANGEL ORLANDO OT Mar 25, 2017 15:20
[2017-03-25 18:48] VITALS: BP 153/67
[2017-03-25] MEDS: ATENOLOL 50 MG (TENORMIN) TAB PO SCH (21:20)
[2017-03-25] MEDS: inSUlin DETERMIR 1 UNIT/0.01 ML (LEVEMIR) CHARGE PER UNIT SQ SCH (21:20)
[2017-03-26 05:00] VITALS: BP 146/77
[2017-03-26] MEDS: inSUlin ASPART (NovoLOG) 1 UNIT/0.01 ML (CHARGE PER UNIT) SC SCH ×5 (05:54→20:33)
[2017-03-26] MEDS: glipiZIDE 5 MG (GLUCOTROL) TAB PO SCH ×2 (06:40→17:15)
[2017-03-26] MEDS: LEVOTHYROXINE 88 MCG (LEVOTHORID) TAB PO SCH (06:40)
[2017-03-26] MEDS: PANTOPRAZOLE 20 MG TABLET (PROTONIX) PO SCH (06:40)
[2017-03-26] MEDS: ENOXAPARIN 30 MG/0.3 ML (LOVENOX) SYR SC SCH (08:37)
[2017-03-26] MEDS: LACTULOSE SYRUP 10GM/15ML (ENULOSE) 30ML UDC PO SCH ×2 (08:37→20:34)
[2017-03-26] MEDS: DICLOFENAC 1% GEL 100 GM (VOLTAREN) TUBE TOP PRN (11:10)
[2017-03-26] MEDS: ROSUVASTATIN 5 MG (CRESTOR) TABLET PO SCH (12:21)
[2017-03-26] MEDS: FUROSEMIDE 20 MG (LASIX) TAB PO SCH (12:21)
--- NOTE | 2017-03-26 13:52 | Physical Therapy Daily Note ---
PT Daily Note-Current Subjective Pt rates femur pain 5/10 (R) LE. Pt requests "analgesic" to be rubbed on her knee. Nurse notified who arrived and fulfilled request. Pt agreeable to treatment. Mental Status Patient Orientation: Person, Place, Situation Transfers Functional [place] Measure 0=Not Assessed/NA 4=Minimal Assistance 1=Total Assistance 5=Supervision or Setup 2=Maximal Assistance 6=Modified [place] 3=Moderate Assistance 7=Complete IndependenceIRFPAI Quality Coding Scale 6 Independent with activity with or without an assistive device 5 Patient requires set up or clean up by helper. Patient completes activity by themselves 4 Supervision or touching assist (CGA). [place] provide cues , steadying assist 3 The helper provides less than half the effort to complete the activity 2 The helper provides more than half the effort to complete the activity 1 Dependent. The helper does all the effort to complete an activity 7 Patient refused to complete or attempt activity 9 The patient did not perform the activity before the current illness or injury 88 Not attempted due to Medical conditions or safety concerns Transfers: recliner <-> [facility] PWB (R) LE, CGA and vc's for sequence required. Weight Bearing Right Lower Extremity: Right Partial Weight Bearing Left Lower Extremity: Left Full Weight Bearing pt. maintains PWB but appears fearful each step, has to be encouraged to go ahead Wheelchair Training Type of Wheelchair: Manual Practiced [facility] mobility in common area around people and obstacles x 200ft Exercises Supine Ex: LE Protocol Supine Reps: 15 Seated Therapy Exercises: LE Protocol Seated Reps: 15 Assessment Current Status: Good Progress Pt back to recliner with all needs met and call light in reach. PT Short Term Goals Short Term Goals Wheelchair Distance: 150' PT Longterm Goals Petroleum Inspector Supervisor Goals PT Longterm Goals Time Frame: Apr 08, 2017 Transfers (B,C,W/C) (FIM): 6 Sit to Lying (QC): 5 Lying-Sitting on Side/Bed(QC): 5 Sit to Stand (QC): 5 Rollin Roll Left to Right (QC): 5 Chair/Kfu-lp-Jbuau Xfer(QC): 5 Car Transfer (QC): 5 Does the Patient Walk: Yes Gait (FIM): 2 Gait distance (FIM): 6=563-23 ft (75') Distance: 75' Walk 10 feet (QC): 5 Walk 10ft-Uneven Surface(QC): 5 Walk 50ft with 2 Turns (QC): 5 Walk 150 ft (QC): 88 Gait Level of Assist: 6 Gait Assistive Device: FWW # of Steps: 1 1 Step (curb) (QC): 4 4 Steps (QC): 88 12 Steps (QC): 88 Stairs Level Of Assist: 5 Picking up an Object (QC): 4 PT Plan Treatment/Plan Treatment Plan: Continue Plan of Care Treatment Plan: Bed Mobility, Concurrent Therapy, Education, Functional Activity Lalo, Functional Strength, Group Therapy, Gait, Safety, Therapeutic Exercise, Transfers Treatment Duration: Apr 08, 2017 Frequency: At least 5 of 7 days/Wk (IRF) Estimated Hrs Per Day: 1.5 hours per day Patient and/or Family Agrees t: Yes Time/GCodes Time In: 1105 Time Out: 1130 Total Billed Treatment Time: 25 Total Billed Treatment 1, Ex x 10min, [facility] x 15min ALBA YU CPTA Mar 26, 2017 13:52
[2017-03-26 18:00] VITALS: BP 167/81
[2017-03-26] MEDS: ATENOLOL 50 MG (TENORMIN) TAB PO SCH (20:34)
[2017-03-26] MEDS: inSUlin DETERMIR 1 UNIT/0.01 ML (LEVEMIR) CHARGE PER UNIT SQ SCH (20:35)
[2017-03-26] MEDS: ACETAMINOPHEN 325 MG TABLET/CAPLET (TYLENOL) PO PRN (22:54)
[2017-03-27 05:02] VITALS: BP 146/76
[2017-03-27] MEDS: inSUlin ASPART (NovoLOG) 1 UNIT/0.01 ML (CHARGE PER UNIT) SC SCH ×4 (05:09→20:49)
[2017-03-27] MEDS: glipiZIDE 5 MG (GLUCOTROL) TAB PO SCH ×2 (05:57→16:55)
[2017-03-27] MEDS: LEVOTHYROXINE 88 MCG (LEVOTHORID) TAB PO SCH (05:57)
[2017-03-27] MEDS: PANTOPRAZOLE 20 MG TABLET (PROTONIX) PO SCH (05:57)
[2017-03-27] MEDS: LACTULOSE SYRUP 10GM/15ML (ENULOSE) 30ML UDC PO SCH ×2 (08:54→20:44)
[2017-03-27] MEDS: ENOXAPARIN 30 MG/0.3 ML (LOVENOX) SYR SC SCH (08:54)
[2017-03-27] MEDS: FUROSEMIDE 20 MG (LASIX) TAB PO SCH (12:02)
[2017-03-27] MEDS: ROSUVASTATIN 5 MG (CRESTOR) TABLET PO SCH (12:02)
[2017-03-27 18:00] VITALS: BP 179/72
[2017-03-27] MEDS: ATENOLOL 50 MG (TENORMIN) TAB PO SCH (20:44)
[2017-03-27] MEDS: inSUlin DETERMIR 1 UNIT/0.01 ML (LEVEMIR) CHARGE PER UNIT SQ SCH (20:49)
[2017-03-28 05:31] VITALS: BP 160/74
[2017-03-28] MEDS: inSUlin ASPART (NovoLOG) 1 UNIT/0.01 ML (CHARGE PER UNIT) SC SCH (05:34)
[2017-03-28] MEDS: PANTOPRAZOLE 20 MG TABLET (PROTONIX) PO SCH (06:16)
[2017-03-28] MEDS: LEVOTHYROXINE 88 MCG (LEVOTHORID) TAB PO SCH (06:16)
[2017-03-28] MEDS: glipiZIDE 5 MG (GLUCOTROL) TAB PO SCH (06:17)
[2017-03-28] MEDS: LACTULOSE SYRUP 10GM/15ML (ENULOSE) 30ML UDC PO SCH (08:10)
[2017-03-28] MEDS: ENOXAPARIN 30 MG/0.3 ML (LOVENOX) SYR SC SCH (08:10)
--- NOTE | 2017-03-28 08:56 | Physical Therapy Daily Note ---
PT Daily Note-Current Subjective Pt was sitting in chair prior to tx and agreeable to PT. Pt had no complaints of pain. Pt was sitting in wheelchair (has OT next) with nurse call, phone, tray , all needs met post tx. Pain Numeric Pain Scale: 0-No Pain Location: No Pain Reported Mental Status Patient Orientation: Normal For Age Transfers Functional [place] Measure 0=Not Assessed/NA 4=Minimal Assistance 1=Total Assistance 5=Supervision or Setup 2=Maximal Assistance 6=Modified [place] 3=Moderate Assistance 7=Complete IndependenceIRFPAI Quality Coding Scale 6 Independent with activity with or without an assistive device 5 Patient requires set up or clean up by helper. Patient completes activity by themselves 4 Supervision or touching assist (CGA). [place] provide cues , steadying assist 3 The helper provides less than half the effort to complete the activity 2 The helper provides more than half the effort to complete the activity 1 Dependent. The helper does all the effort to complete an activity 7 Patient refused to complete or attempt activity 9 The patient did not perform the activity before the current illness or injury 88 Not attempted due to Medical conditions or safety concerns Transfers (B, C, W/C) (FIM): 6 Scootin Rollin Roll Left to Right (QC): 6 Supine to/from Sit: 6 Sit to/from Stand: 5 Sit to Lying (QC): 6 Sit to Stand (QC): 4 Chair/Nic-oz-Rymzk Xfer(QC): 4 Bed to/from Chair: 5 Pt completes all bed mobility with mod I and transfers with SBA. Weight Bearing Right Lower Extremity: Right Partial Weight Bearing Left Lower Extremity: Left Full Weight Bearing pt. maintains PWB but appears fearful each step, has to be encouraged to go ahead Gait Training Does the Patient Walk?: Yes Gait (FIM): 1 Distance (FIM): 1=up to 49 ft Distance: 25' Walk 10 feet (QC): 4 Walk 50 ft with 2 Turns(QC): 88 Walk 150 ft (QC): 88 Walking 10ft/uneven surface-QC: 88 Gait Level of Assist: 4 Gait Persons Needed: 1 Gait Assistive Device: FWW Pt ambulates 25' with FWW and CGA for safety. Pt ambulates with slow, antalgic gait. Wheelchair Training Does the Pt Use a Wheelchair?: Yes Wheelchair (FIM): 5 Wheelchair Distance: 0=318-75 ft Distance: 150' Wheelchair Level of Assist: 5 Wheel 50 ft with 2 turns (QC): 5 Wheel 150 ft (QC): 5 Type of Wheelchair: Manual Pt propels wheelchair with supervision for safety. Stair Training 1 Step (curb) (QC): 88 4 Steps (QC): 88 12 Steps (QC): 88 Treatments Pt completes transfers, bed mobility, and gait training to increase functional mobility and independence. Assessment Current Status: Good Progress Pt has made improvements with bed mobility, transfers, and gait training. However, she cannot perform stairs or brain picker and object from the floor at this time. PT Short Term Goals Short Term Goals Wheelchair Distance: 150' PT Adjunct Professor Of Law Goals Adjunct Professor Of Law Goals PT Half-Way Goals Time Frame: Apr 08, 2017 Transfers (B,C,W/C) (FIM): 6 Sit to Lying (QC): 5 (met) Lying-Sitting on Side/Bed(QC): 5 (met) Sit to Stand (QC): 5 Rollin (met) Roll Left to Right (QC): 5 Chair/Spg-cn-Eytto Xfer(QC): 5 Car Transfer (QC): 5 Does the Patient Walk: Yes Gait (FIM): 2 Gait distance (FIM): 2=647-53 ft (75') Distance: 75' Walk 10 feet (QC): 5 Walk 10ft-Uneven Surface(QC): 5 Walk 50ft with 2 Turns (QC): 5 Walk 150 ft (QC): 88 Gait Level of Assist: 6 Gait Assistive Device: FWW # of Steps: 1 1 Step (curb) (QC): 4 4 Steps (QC): 88 12 Steps (QC): 88 Stairs Level Of Assist: 5 Picking up an Object (QC): 4 PT Plan Problem List Problem List: Activity Tolerance, Functional Strength, Safety, Balance, Gait, Transfer, Bed Mobility, ROM Treatment/Plan Treatment Plan: Continue Plan of Care Treatment Plan: Bed Mobility, Concurrent Therapy, Education, Functional Activity Lalo, Functional Strength, Group Therapy, Gait, Safety, Therapeutic Exercise, Transfers Treatment Duration: Apr 08, 2017 Frequency: At least 5 of 7 days/Wk (IRF) Estimated Hrs Per Day: 1.5 hours per day Patient and/or Family Agrees t: Yes Safety Risks/Education Patient Education: Gait Training, Transfer Techniques, Reviewed Precautions, Correct Positioning, W/C Management, Safety Issues Teaching Recipient: Patient Teaching Methods: Demonstration, Discussion Response to Teaching: Verbalize Understanding, Reinforcement Needed Time/GCodes Time In: 835 Time Out: 855 Total Billed Treatment Time: 20 Total Billed Treatment 1 visit 20 MIKAELA JULIO PT Mar 28, 2017 08:56
--- NOTE | 2017-03-28 09:12 | Therapy Team Discharge Summary ---
Therapy Discharge Summary Discharge Recommendations Date of Discharge Therapy D/C Recommendations: Physical Therapy Home Care Physical Therapy Patient came to rehab following a right femur fracture. Upon evaluation patient performed bed mobility and transfers with max assist, no ambulation, dependent for wheelchair mobility. Patient has been performing bed mobility and transfer training, balance and endurance training, functional strengthening , gait training, and education. Patient has made fair progress but has only met her bed mobility and transfer legal support assistant goals. Now, patient performs bed mobility with mod I, transfers with SBA, ambulates 25' with a rolling walker with CGA, and propels a manual wheelchair 150' with SBA. Patient is being discharged from this facility today and will be discharged from PT at this time. Occupational Therapy Decreased Activ Tolerance, Decreased UE Strength, Dependent Transfers, Impaired Bed Mobility, Impaired Funct Balance, Impaired I ADL's, Impaired Self-Care Skills PT Jail Goals Jail Goals PT Aerial Photographer Goals Time Frame: Apr 08, 2017 Transfers (B,C,W/C) (FIM): 6 Roll Left to Right (QC): 5 Sit to Lying (QC): 5 (met) Lying-Sitting on Side/Bed(QC): 5 (met) Sit to Stand (QC): 5 Chair/Gph-xd-Dazfi Xfer(QC): 5 Car Transfer (QC): 5 Does the Patient Walk: Yes Gait (FIM): 2 Gait distance (FIM): 9=006-72 ft (75') Distance: 75' Walk 10 feet (QC): 5 Walk 10ft-Uneven Surface(QC): 5 Walk 50ft with 2 Turns (QC): 5 Walk 150 ft (QC): 88 Gait Level of Assist: 6 Gait Assistive Device: FWW # of Steps: 1 1 Step (curb) (QC): 4 4 Steps (QC): 88 12 Steps (QC): 88 Stairs Level Of Assist: 5 Picking up an Object (QC): 4 OT Jail Goals Aerial Photographer Goals Time Frame: Apr 08, 2017 Eating (FIM): 6 Eating (QC): 6 Oral Hygiene (QC): 6 Grooming(FIM): 6 Bathing(FIM): 5 Shower/Bathe Self (QC): 4 Upper Body Dressing(FIM): 5 Upper Body Dressing (QC): 5 Lower Body Dressing(FIM): 5 Lower Body Dressing (QC): 4 On/Off Footwear (QC): 5 Toileting(FIM): 5 Toileting Hygiene (QC): 4 Toilet/Commode Transfer(FIM): 5 Toilet/Commode Transfer (QC): 4 Shower Transfer(FIM): 5 Additional Goals: 2-Verbalize Understanding, 3-ImproveStrength/Lalo 1=Demonstrate adherence to instructed precautions during ADL tasks. 2=Patient will verbalize/demonstrate understanding of assistive devices/ modifications for ADL. 3=Patient will improve strength/tolerance for activity to enable patient to perform ADL's. MIKAELA GUO PT Mar 28, 2017 09:12
--- NOTE | 2017-03-28 10:46 | Progress Note-Hospitalist ---
Subjective HPI/CC On Admission Date Seen by Provider: Mar 28, 2017 Time Seen by Provider: 10:00 Subjective/Events-last exam Pt reports doing well. Ready for discharge. She denied any needs or complaints. Objective Exam Vital Signs Vital Sign - Last 12Hours 03/22/17 05:35 Temp 90.0 Pulse 68 Resp 18 B/P (MAP) 155/75 Pulse Ox 96 O2 Delivery Room Air Capillary Refill : Less Than 3 Seconds General Appearance: No Apparent Distress, WD/WN Respiratory: Lungs Clear, Normal Breath Sounds Cardiovascular: Regular Rate, Rhythm, No Murmur Assessment/Plan Assessment and Plan Assess & Plan/Chief Complaint R femur ORIF Diagnosis/Problems Diagnosis/Problems (1) Closed right femoral fracture Status: Acute Assessment & Plan: s/p ORIF by Dr. Garduno Completed rehab, planned to be DC home today (2) Diabetes mellitus Status: Chronic Assessment & Plan: Labile, 93 fasting this morning so will not adjust (3) CAD (coronary artery disease) Status: Chronic Assessment & Plan: Continue ASA and statin at discharge (4) Hypothyroidism Status: Chronic (5) Essential (primary) hypertension Status: Chronic Assessment & Plan: Continue home synthroid NANI MONGE MD Mar 28, 2017 10:46
--- NOTE | 2017-03-28 12:57 | Occupational Ther Daily Note ---
OT Current Status-Daily Note Subjective Pt seen in room, up in chair, agreeable to OT. No pain mentioned. Said she hopes that she doesn't have to stay at [facility] for long because she is looking forward to going home. Appearance Alert, cooperative. Mental Status/Objective Functional [place] Measure 0=Not Assessed/NA 4=Minimal Assistance 1=Total Assistance 5=Supervision or Setup 2=Maximal Assistance 6=Modified [place] 3=Moderate Assistance 7=Complete [place] ADL-Treatment Pt walked from w/c at doorway to bathroom to [facility] [place] toilet. First 4 or so steps were good and then she got walker too far out in front of her. When she has to think about process, has more difficulty moving L foot and skilled cues required to move forward. Still gets L foot behind R one and can't move forward without cues. Better at weight bearing through arms and swinging L foot through unweighted. Functional [place] Measure 0=Not Assessed/NA 4=Minimal Assistance 1=Total Assistance 5=Supervision or Setup 2=Maximal Assistance 6=Modified [place] 3=Moderate Assistance 7=Complete IndependenceIRFPAI Quality Coding Scale 6 Independent with activity with or without an assistive device 5 Patient requires set up or clean up by helper. Patient completes activity by themselves 4 Supervision or touching assist (CGA). [place] provide cues , steadying assist 3 The helper provides less than half the effort to complete the activity 2 The helper provides more than half the effort to complete the activity 1 Dependent. The helper does all the effort to complete an activity 7 Patient refused to complete or attempt activity 9 The patient did not perform the activity before the current illness or injury 88 Not attempted due to Medical conditions or safety concerns Eating (FIM): 7 (Pt is able to cut up food and open packages, feed herself without help or devices. No dentures) Eating (QC): 6 Grooming (FIM): 6 (Brushed teeth and combed hair at sink, at w/c level. Mild safety concerns to lock brakes consistently. Washed face and hands in shower. ) Oral Hygiene (QC): 6 Bathing (FIM): 5 (Washed and dried all parts with setup (due to decreased vision). Shower bench, grab bars, hand held shower, long handled sponge. help to turn water on and off. Stood to wash bottom, using grab bar) Shower/Bathe Self (QC): 5 Upper Body (FIM): 5 (Doffed shirt and donned shirt and bra with setup. Able to hook bra in back) Upper Body Dressing (QC): 5 Lower Body Dressing (FIM): 5 (Doffed pants and slipper socks with dressing stick, donned pants, slacks and slipper socks with setup. Dressing stick, sock aid. recalls modified techniques) Lower Body Dressing (QC): 5 On/Off Footwear (QC): 5 Toileting (FIM): 5 (SBA to manage clothing and hygiene. BSC over toilet, FWW, grab bars) Toileting Hygiene (QC): 5 Toilet/Commode Transfer (FIM): 5 (Sidestepped to get to BSC over toilet, FWW, SBA. Able to get on/off BSC with SBA) Toilet Transfer (QC): 5 Shower Transfer(FIM): 5 (SBA, skilled cues for foot and hand placement during transfer. Shower bench, grab bars, FWW) All ADLs took longer than usual. Skilled cues required during ambulation portions of ADLs. Pt left up in recliner, all needs met. Education OT Patient Education: Modified ADL techniques, Progress toward Goal/Update tx plan, Purpose of tx/functional activities, Safety issues, Transfer techniques Teaching Recipient: Patient Teaching Methods: Demonstration, Discussion Response to Teaching: Verbalize Understanding, Return Demonstration, Reinforcement Needed OT Short Term Goals Short Term Goals Time Frame: Mar 25, 2017 Lower Body Dressing(FIM): 3 Toilet/Commode Transfer(FIM): 3 (met) Shower Transfer(FIM): 3 (met) Additional Short Term Goals: 1-Demonstrate ADL Tasks, 2-Verbalize Understanding , 3-ImproveStrength/Lalo 1=Demonstrate adherence to instructed precautions during ADL tasks. 2=Patient will verbalize/demonstrate understanding of assistive devices/ modifications for ADL. 3=Patient will improve strength/tolerance for activity to enable patient to perform ADL's. OT Residential Goals Residential Goals Time Frame: Apr 08, 2017 Eating (FIM): 6 (Goal met 03-28-17) Eating (QC): 6 (Goal met 03-28-17) Groomin (Goal met 03-28-17) Oral Hygiene (QC): 6 (Goal met 03-28-17) Bathing(FIM): 5 (Goal met 03-28-17) Shower/Bathe Self (QC): 4 (Goal met 03-28-17) Upper Body Dressing(FIM): 5 (Goal met 03-28-17) Upper Body Dressing (QC): 5 (Goal met 03-28-17) Lower Body Dressing(FIM): 5 (Goal met 03-28-17) Lower Body Dressing (QC): 4 (Goal met 03-28-17) On/Off Footwear (QC): 5 (Goal met 03-28-17) Toileting(FIM): 5 (Goal met 03-28-17) Toileting Hygiene (QC): 4 (Goal met 03-28-17) Toilet/Commode Transfer(FIM): 5 (Goal met 03-28-17) Toilet/Commode Transfer (QC): 4 (Goal met 03-28-17) Shower Transfer(FIM): 5 (Goal met 03-28-17) Additional Goals: 2-Verbalize Understanding, 3-ImproveStrength/Lalo 1=Demonstrate adherence to instructed precautions during ADL tasks. 2=Patient will verbalize/demonstrate understanding of assistive devices/ modifications for ADL. 3=Patient will improve strength/tolerance for activity to enable patient to perform ADL's. OT Education/Plan Problem List/Assessment Pt would benefit from skilled OT to increase her independence in basic self care to allow her to safely return to her apartment and to decrease caregiver burden. Discharge Recommendations Plan/Recommendations: Discharge/Goals Met (See tx plan for goals met) Therapy D/C Recommendations: Prison (TCU/NH) (OT) Equpiment Recommendations-D/C: Sock Aide, Dressing Stick Treatment Plan/Plan of Care Patient would benefit from OT for education, treatment and training to promote independence in ADL's, mobility, safety and/or upper extremity function for ADL' s. Plan of Care: ADL Retraining, Functional Mobility, Group Exercise/Act as Ind ( education, exercise, activ tolerance, funct activities, socialization), UE Funct Exercise/Act, UE Neuromus Re-Ed/Coord Treatment Duration: Apr 08, 2017 Frequency: At least 5 of 7 days/Wk (IRF) Estimated Hrs Per Day: 1.5 hours per day Agreement: Yes Rehab Potential: Fair Time/GCodes Start Time: 09:00 Stop Time: 10:00 Total Time Billed (hr/min): 60 Billed Treatment Time visit, 60 minutes ADL JOSE ANGEL ORLANDO OT Mar 28, 2017 12:57
--- NOTE | 2017-03-28 13:17 | Therapy Team Discharge Summary ---
Therapy Discharge Summary Discharge Recommendations Date of Discharge Mar 28, 2017 at 10:30 Therapy D/C Recommendations: Nursing Home (TCU/NH) (OT) Occupational Therapy Pt seen for skilled OT to increase her independence in basic self care to allow her to safely return to her home and to decrease caregiver burden after a fall with femur fx. Pt has had difficulty with moving L leg during ADLs and this had limited her ability to transfer. On admission she needed two people to help her get on the toilet, max assist for toileting and lower body dressing, mod assist upper body dressing and bathing and mod I for grooming and eating. By discharge she was mod I still for grooming and eating and needed mostly setup assistance for bathing, dressing, toileting ad grooming. Equipment used included dressing stick, sock aide, BSC, shower bench, grab bars, hand held shower. Pt met all STG and LTG. Pt needs to be able to toilet herself independently to go home so discharged to skilled care for continued therapy. DC OT. Decreased Activ Tolerance, Decreased UE Strength, Dependent Transfers, Impaired Bed Mobility, Impaired Funct Balance, Impaired I ADL's, Impaired Self-Care Skills PT Photographer Portrait Goals Photographer Portrait Goals PT Photographer Portrait Goals Time Frame: Apr 08, 2017 Transfers (B,C,W/C) (FIM): 6 Roll Left to Right (QC): 5 Sit to Lying (QC): 5 (met) Lying-Sitting on Side/Bed(QC): 5 (met) Sit to Stand (QC): 5 Chair/[id number]-[id number] Xfer(QC): 5 Car Transfer (QC): 5 Does the Patient Walk: Yes Gait (FIM): 2 Gait distance (FIM): 9=950-44 ft (75') Distance: 75' Walk 10 feet (QC): 5 Walk 10ft-Uneven Surface(QC): 5 Walk 50ft with 2 Turns (QC): 5 Walk 150 ft (QC): 88 Gait Level of Assist: 6 Gait Assistive Device: FWW # of Steps: 1 1 Step (curb) (QC): 4 4 Steps (QC): 88 12 Steps (QC): 88 Stairs Level Of Assist: 5 Picking up an Object (QC): 4 OT Photographer Portrait Goals Photographer Portrait Goals Time Frame: Apr 08, 2017 Eating (FIM): 6 (Goal met 03-28-17) Eating (QC): 6 (Goal met 03-28-17) Oral Hygiene (QC): 6 (Goal met 03-28-17) Grooming(FIM): 6 (Goal met 03-28-17) Bathing(FIM): 5 (Goal met 03-28-17) Shower/Bathe Self (QC): 4 (Goal met 03-28-17) Upper Body Dressing(FIM): 5 (Goal met 03-28-17) Upper Body Dressing (QC): 5 (Goal met 03-28-17) Lower Body Dressing(FIM): 5 (Goal met 03-28-17) Lower Body Dressing (QC): 4 (Goal met 03-28-17) On/Off Footwear (QC): 5 (Goal met 03-28-17) Toileting(FIM): 5 (Goal met 03-28-17) Toileting Hygiene (QC): 4 (Goal met 03-28-17) Toilet/Commode Transfer(FIM): 5 (Goal met 03-28-17) Toilet/Commode Transfer (QC): 4 (Goal met 03-28-17) Shower Transfer(FIM): 5 (Goal met 03-28-17) Additional Goals: 2-Verbalize Understanding, 3-ImproveStrength/Lalo 1=Demonstrate adherence to instructed precautions during ADL tasks. 2=Patient will verbalize/demonstrate understanding of assistive devices/ modifications for ADL. 3=Patient will improve strength/tolerance for activity to enable patient to perform ADL's. JOSE ANGEL ORLANDO OT Mar 28, 2017 13:17
--- NOTE | 2017-03-28 16:58 | PM & R (SOAP) Progress Note ---
Subjective Time Seen by Provider: 12:00 Subjective/Events-last exam Patient discharged to local SNU Appreciate DR Ruggiero note and orders Objective Exam Last Set of Vital Signs Vital Signs Date Time Temp Pulse Resp B/P (MAP) Pulse Ox O2 Delivery O2 Flow Rate FiO2 03/28/17 09:00 97 Room Air 03/28/17 05:31 99.1 61 20 160/74 Capillary Refill : Less Than 3 Seconds I&O Intake and Output 03/29/17 00:00 Intake Total 300 ml Balance 300 ml Intake Oral 300 ml # Voids 4 General: Alert, Oriented X3, Cooperative, No Acute Distress HEENT: Atraumatic, PERRLA, EOMI, Mucous Memb Moist/[place] Neck: Supple, No JVD Lungs: Clear to Auscultation Heart: Regular Rate Abdomen: Normal Bowel Sounds, Soft, No Tenderness, Other (obese) Extremities: Other (normal postop swelling rt leg) Skin: Other ([place] dressing in place clean and dry) Neuro: Other (RT LE Strength 2/5 Left LE 3+/5) Results Lab Laboratory Tests 03/25/17 20:33: Glucometer 279H 03/26/17 05:21: Glucometer 85 03/26/17 11:58: Glucometer 137H 03/26/17 15:31: Glucometer 246H 03/26/17 20:32: Glucometer 187H 03/27/17 04:32: Glucometer 136H 03/27/17 11:44: Glucometer 231H 03/27/17 16:03: Glucometer 192H 03/27/17 20:46: Glucometer 328H 03/28/17 05:33: Glucometer 93 Assessment/Plan Assessment Fall with fracture rt distal femur s/p ORIF DR Garduno PWB RLE Nausea meds adjusted further-improved HTN controlled DM controlled Dizziness-will change pain meds-improved -See orders Plan Discharge to [facility] today for f/u therapies F/U with DR Garduno and Phyllis See orders BETTY IGNACIO MD Mar 28, 2017 16:58
[2017-03-28] MEDS ORDERED: ATENOLOL 50 MG (TENORMIN) TAB PO SCH (21:00)
== END 2017-03-28 10:30 | DRG 560 ==
PROVIDERS: ADMIT Physical Medicine & Rehabilitation; ATTEND Physical Medicine & Rehabilitation
DX: S72.351D Displaced comminuted fracture of shaft of right femur, subsequent encounter for closed fracture with routine healing (principal); R06.89 Other abnormalities of breathing; E11.9 Type 2 diabetes mellitus without complications; I10 Essential (primary) hypertension; J44.9 Chronic obstructive pulmonary disease, unspecified; G47.33 Obstructive sleep apnea (adult) (pediatric); I25.10 Atherosclerotic heart disease of native coronary artery without angina pectoris; E66.9 Obesity, unspecified; Z68.41 Body mass index [BMI] 40.0-44.9, adult; D64.9 Anemia, unspecified; Z91.19 Patient's noncompliance with other medical treatment and regimen; Z99.81 Dependence on supplemental oxygen; Z79.4 Long term (current) use of insulin; W18.09XD Striking against other object with subsequent fall, subsequent encounter; Y92.000 Kitchen of unspecified non-institutional (private) residence as the place of occurrence of the external cause; Y92.009 Unspecified place in unspecified non-institutional (private) residence as the place of occurrence of the external cause; R42 Dizziness and giddiness
CPT/HCPCS: 36415; 80048; 82962; 94640; 94760

== ENCOUNTER 2017-09-21 10:21 | Outpatient (RCR) | payer MEDICARE ==
[~2017-09-21 10:21] MED LIST changes: +DICL100G18 TOP; +LACT20SO2 PO; +LOSA1TAB23 PO; -LOSA1TAB70 PO; +ROSU5TAB11 PO; -ROSU5TAB9 PO; +TRAM50TA2 PO
== END 2017-09-26 | disposition home or self-care (01) ==
PROVIDERS: ATTEND Internal Medicine
DX: S72.351D Displaced comminuted fracture of shaft of right femur, subsequent encounter for closed fracture with routine healing (principal); W18.09XD Striking against other object with subsequent fall, subsequent encounter

== ENCOUNTER 2017-10-20 11:49 | Outpatient (CLI) | payer MEDICARE ==
[~2017-10-20] VITALS: Ht 162.6 cm; Wt 102.1 kg
[~2017-10-20 11:49] MED LIST changes: -METF500T4 PO; +METF500T5 PO
[2017-10-20 12:08] VITALS: BP 160/61
[2017-10-20] MEDS ORDERED: ATOR10TA66 PO (12:14)
[2017-10-20] MEDS ORDERED: ASPI-479 PO (12:14)
[2017-10-20] MEDS ORDERED: AMLO2.5T PO (12:14)
[2017-10-20] MEDS ORDERED: INSU100I14 SQ (12:17)
[2017-10-20 12:49] LABS: BASOPHILS % (AUTO) 0 % (0-10); EOSINOPHILS # (AUTO) 0.3 10^3/uL (0.0-0.3); EOSINOPHILS % (AUTO) 4 % (0-10); HEMATOCRIT 32 % (35-52); HEMOGLOBIN 10.3 G/DL (11.5-16.0); LYMPHOCYTES # (AUTO) 1.7 X 10^3 (1.0-4.0); LYMPHOCYTES % (AUTO) 22 % (12-44); MEAN CORPUSCULAR HEMOGLOBIN 30 PG (25-34); MEAN CORPUSCULAR HGB CONC 33 G/DL (32-36); MEAN CORPUSCULAR VOLUME 91 FL (80-99); MEAN PLATELET VOLUME 10.6 FL (7.4-10.4); MONOCYTES # (AUTO) 0.5 X 10^3 (0.0-1.0); MONOCYTES % (AUTO) 6 % (0-12); NEUTROPHILS # (AUTO) 5.2 X 10^3 (1.8-7.8); NEUTROPHILS % (AUTO) 68 % (42-75); PLATELET COUNT 258 10^3/uL (130-400); RED BLOOD COUNT 3.45 10^6/uL (4.35-5.85); RED CELL DISTRIBUTION WIDTH 13.7 % (10.0-14.5); WHITE BLOOD COUNT 7.7 10^3/uL (4.3-11.0)
[2017-10-20 13:11] LABS: CALCIUM 9.5 MG/DL (8.5-10.1); CREATININE SERUM 1.55 MG/DL (0.60-1.30); POTASSIUM 5.2 MMOL/L (3.6-5.0)
[2017-10-30] MEDS ORDERED: OXYC-197 PO (10:15)
== END 2017-10-20 12:35 | disposition home or self-care (01) ==
LOC: PREOP 11:49
PROVIDERS: ATTEND Orthopaedic Surgery
DX: Z01.812 Encounter for preprocedural laboratory examination (principal); Z11.2 Encounter for screening for other bacterial diseases; S72.91XA Unspecified fracture of right femur, initial encounter for closed fracture; X58.XXXA Exposure to other specified factors, initial encounter
CPT/HCPCS: 36415; 80048; 85025; 87081

== ENCOUNTER 2017-10-26 08:45 | Inpatient (IN) | payer MEDICARE, MEDICAID ==
--- NOTE | 2017-10-19 06:07 | HISTORY AND PHYSICAL ---
DATE OF SERVICE: 10/26/2017 ADMISSION HISTORY AND PHYSICAL DATE OF ADMISSION: 10/26/2017. This will be for inpatient admission on 10/26/2017 for revision of internal fixation with bone grafting in the right femur. HISTORY OF PRESENT ILLNESS: The patient is an 82-year-old female, who underwent internal fixation for right femur fracture 7 months ago. The fracture as demonstrated a hypertrophic nonunion and most recent radiographs revealed a fracture of the plate at the fracture site. Because of this, it was recommended the patient undergo revision fixation. She denies fever, chills, or night sweats. Her wound healed uneventfully. REVIEW OF SYSTEMS: No chest pain, no shortness of breath. No dysuria. MEDICATIONS: Amlodipine, aspirin, atenolol, glipizide, hydrochlorothiazide, levothyroxine, loratadine, metformin, niacin, omeprazole, simvastatin. ALLERGIEIS: To LISINOPRIL. PAST MEDICAL HISTORY: Diabetes mellitus, hypothyroidism, hypercholesterolemia, hypertension. PHYSICAL EXAMINATION: GENERAL: The patient is well developed, well nourished, no acute distress. HEENT: Normocephalic, atraumatic. Pupils are equal, round and reactive to light. Oropharynx is clear. NECK: Supple, no lymphadenopathy. LUNGS: Clear to auscultation bilaterally. HEART: Regular rate and rhythm. ABDOMEN: Soft, nontender, nondistended. EXTREMITIES: The patient is tender at her fracture site. Her incision is well healed. There is no erythema, warmth or discharge. She has no pain with knee range of motion. She does have pain with resisted hip flexion at her fracture site. IMPRESSION: Hypertrophic nonunion right femur fracture, status post internal fixation. Plan is revision fixation. The risks, benefits, options, ramification and recovery were discussed at length with the patient. She understands and wishes to proceed. She will require inpatient admission due to pain management issues, gait abnormalities, weakness and comorbidities including obesity, diabetes, hypertension. Job ID: [id number] DocumentID: [id number] Dictated Date: 10/17/2017 16:21:41 Sales Administrator Date: 10/17/2017 17:54:20 Dictated By: CRISTÓBAL SOLIS MD
[~2017-10-26] VITALS: Ht 162.6 cm; Wt 102.1 kg
[~2017-10-26 08:45] MED LIST changes: +AMLO2.5T PO; +ASPI-479 PO; +ATOR10TA66 PO; +INSU100I14 SQ
[2017-10-26] MEDS ORDERED: ceFAZolin INJECTION 1,000 MG in NS (IVPB) 100 ML IV ONE (09:00)
--- NOTE | 2017-10-26 09:21 | Progress Note-Pre Operative ---
Pre-Operative Progress Note H&P Reviewed The H&P was reviewed, patient examined and no changes noted. Date Seen by Provider: October 26, 2017 Time Seen by Provider: 09:20 Date H&P Reviewed: October 26, 2017 Time H&P Reviewed: :20 Pre-Operative Diagnosis: right femur shaft fracture non union CRISTÓBAL SOLIS MD October 26, 2017 09:21
--- NOTE | 2017-10-26 09:24 | Progress Note-Post Operative ---
Post-Operative Progess Note Surgeon (s)/Mail List Processor (s) Surgeon CRISTÓBAL SOLIS MD Mail List Processor: Fareed Earl Pre-Operative Diagnosis right femur shaft fracture hypertrophic non union Post-Operative Diagnosis right femur shaft fracture hypertrophic non union Procedure & Operative Findings Date of Procedure 10/26/17 Procedure Performed/Findings right femur hardware removal and open reduction and internal fixation with local bone graft and allograft Anesthesia Type GETA Estimated Blood Loss Estimated blood loss (mL): 300ml Specimens/Packing Specimens Removed none Packing: none CRISTÓBAL SOLIS MD October 26, 2017 09:24
[2017-10-26] MEDS ORDERED: ONDANSETRON 4 MG/2 ML (SDV) Z0FRAN IVP PRN (09:30)
[2017-10-26] MEDS ORDERED: ACETAMINOPHEN 325 MG TABLET/CAPLET (TYLENOL) PO PRN (09:30)
[2017-10-26] MEDS: LACTATED RINGERS 1,000 ML IV PRN ×2 (09:43→11:30)
[2017-10-26] MEDS ORDERED: LIDOCAINE PF 2% 5 ML (XYLOCAINE) VIAL ONE (09:55)
[2017-10-26] MEDS ORDERED: proPOfol 200 MG/20 ML (DIPRIVAN) VIAL IV ONE (09:55)
[2017-10-26] MEDS ORDERED: ONDANSETRON 4 MG/2 ML (SDV) Z0FRAN ONE (09:55)
[2017-10-26] MEDS ORDERED: SEVOFLURANE (ULTANE) 15 ML INHAL SOLN ONE ×6 (09:55→11:48)
[2017-10-26] MEDS ORDERED: fentaNYL INJECTION 100 MCG/2 ML AMP ONE ×2 (09:56→11:37)
[2017-10-26] MEDS ORDERED: GLYCOPYRROLATE 0.2 MG/ML (ROBINUL) 2 ML VIAL ONE ×2 (11:10→12:17)
[2017-10-26] MEDS ORDERED: BUPIVACAINE 0.5% 30 ML (SENSORCAINE) VIAL ONE (11:13)
--- NOTE | 2017-10-26 14:12 | Diagnostic Imaging Report ---
INDICATION: Right femur ORIF revision. COMPARISON: 03/09/2017. FINDINGS: Multiple intraoperative image intensifier views of the distal right femur were obtained during ORIF revision. Note is made that one of the more proximal screws is fractured. There is gross deformity of the distal right femur in the area of previously described fracture. Please note, the interpreting radiologist was not present during the procedure. IMPRESSION: Fluoroscopic guidance was provided during right femur ORIF revision. Dictated by: Dictated on workstation # [id number]
[2017-10-26 14:40] VITALS: BP 163/72
[2017-10-26 15:15] VITALS: BP 174/70
[2017-10-26] MEDS: morphine INJ 4 MG/ML 1 ML (VIAL/SYRINGE) IVP PRN ×2 (15:20→17:30)
[2017-10-26] MEDS ORDERED: AMLO5TAB2 PO (15:27)
--- NOTE | 2017-10-26 16:02 | Physical Therapy Evaluation ---
PT Evaluation-General Medical Diagnosis Admission Date October 26, 2017 at 08:45 Medical Diagnosis: ORIF right femur Onset Date: October 26, 2017 Therapy Diagnosis Therapy Diagnosis: impaired mobility, strength, endurance, ROM Height/Weight Height (Feet): 5 Height (Inches): 4.00 Weight (Pounds): 225 Weight (Ounces): 0.0 Precautions Precautions/Isolations: Standard Precautions Weight Bear Status Right Lower Extremity: Right Touch Toe Bearing Left Lower Extremity: Left Full Weight Bearing Referral Physician: Fareed Earl Reason for Referral: Evaluation/Treatment Medical History Pertinent Medical History: CAD, COPD, DM, HTN, Hypothroidism Reviewed History: Yes Social History Home: Single Level Current Living Status: Alone Entry Into Home: Level Entry Prior/Core FIM Prior Level of Function Functional [place] Measure 0=Not Assessed/NA 4=Minimal Assistance 1=Total Assistance 5=Supervision or Setup 2=Maximal Assistance 6=Modified [place] 3=Moderate Assistance 7=Complete [place] Bed Mobility: 6 Transfers (B,C,W/C) (FIM): 6 Gait: 6 Patient states she has been using a rolling walker previously. PT Evaluation-Current Subjective Patient in bed pre tx, she reluctantly agrees to exercises in bed but states that she does not want to get out of bed at this time or sit at the edge of the bed due to her pain. She has received pain meds. Pt/Family Goals to be independent at home Objective Patient Orientation: Person, Place, Situation Attachments: SCD's, IV ROM/Strength ROM Lower Extremities NT Strength Lower Extremities NT Neuromuscular (Tone, Coordination, Reflexes) NT Sensory Vision: Functional Hearing: Functional Sensation Right Lower Extremit: Intact Sensation Left Lower Extremity: Intact Transfers Functional [place] Measure 0=Not Assessed/NA 4=Minimal Assistance 1=Total Assistance 5=Supervision or Setup 2=Maximal Assistance 6=Modified [place] 3=Moderate Assistance 7=Complete [place] Treatment supine right side AP x10, QS x10, GS x10, HS x10, hip abd x10. Exercises were AAROM and patient could provide very little assistance and therapist could move the leg very little during exercises due to pain. Assessment/Needs Patient has impaired mobility, strength, endurance, ROM post ORIF of right femur. She has a lot of pain and would not get out of the bed or sit at the edge of the bed at this time. Rehab Potential: Fair PT Short Term Goals Short Term Goals Time Frame: November 02, 2017 Transfers (B,C,W/C) (FIM): 3 Gait (FIM): 1 Gait Distance Comment: 20' Gait Level of Assist: 4 Gait Assistive Device: FWW PT Plan Problem List Problem List: Activity Tolerance, Functional Strength, Safety, Balance, Gait, Transfer, Bed Mobility, ROM Treatment/Plan Treatment Plan: Continue Plan of Care Treatment Plan: Bed Mobility, Education, Functional Activity Lalo, Functional Strength, Gait, Safety, Therapeutic Exercise, Transfers Treatment Duration: November 02, 2017 Frequency: At least 5 of 7 days/Wk (IRF) Estimated Hrs Per Day: 1.5 hours per day Patient and/or Family Agrees t: Yes Safety Risks/Education Patient Education: Correct Positioning, Disease Process, Safety Issues Teaching Recipient: Patient Teaching Methods: Demonstration, Discussion Response to Teaching: Reinforcement Needed Discharge Recommendations Plan Patient will perform bed mobility and transfer training, balance and endurance training, functional strengthening, stair training, gait training, and education , to improve functional mobility and independence at home. Therapy D/C Recommendations: Home w/ Family Support, Senior Care (TCU/NH) Time/GCodes Time In: 1530 Time Out: 1545 Total Billed Treatment Time: 15 Total Billed Treatment 1 visit JUANY 15' MIKAELA GUO PT October 26, 2017 16:02
[2017-10-26] MEDS: ceFAZolin INJECTION 1,000 MG in NS (IVPB) 100 ML IV SCH (17:30)
[2017-10-26 19:20] VITALS: BP 150/68
[2017-10-26] MEDS: oxyCODONE/APAP 5/325MG (PERCOCET 5) TABLET PO PRN (22:30)
[2017-10-27] VITALS (7 sets, daily range): BP systolic 119–188; BP diastolic 54–76
--- NOTE | 2017-10-27 01:04 | OPERATIVE REPORT ---
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 PROCEDURE: 1. Right femur hardware removal. 2. Right femur open reduction and internal fixation with local bone graft and allograft. SURGEON: Cristóbal Solis MD. ROLLER MAN: ALBERTO Eddy, who assisted throughout the procedure and closed the incision. ANESTHESIA: General endotracheal. TOURNIQUET TIME: Not applicable. ESTIMATED BLOOD LOSS: 300 mL. DRAINS: None. COMPLICATIONS: None. MATERIALS: Synthes 4.5 large fragment of femoral plate. The patient was transferred to the recovery room awake in stable condition. POSTOPERATIVE PLAN: Strict toe touch weightbearing right lower extremity. STATEMENT OF MEDICAL NECESSITY: The patient is an 82-year-old female who previously underwent open reduction and internal fixation for right femoral shaft fracture. The fracture extended intraarticularly. 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 Because of this, it was recommended the patient undergo operative fixation. DESCRIPTION OF PROCEDURE: After risks and benefits of procedure were discussed and questions were answered and informed consent was signed and placed on chart, operative site was confirmed in the preoperative holding area initialed by the surgeon. The patient was then transferred to the operating room and after adequate levels of general endotracheal anesthetic were obtained, a timeout was called confirming the operative site. The right lower extremity was prepped and draped in the usual sterile fashion. The previous incision was utilized. Underlying soft tissues were carefully dissected. The iliotibial band was incised in line with the incision. The underlying soft tissues were carefully dissected. There was marked scar throughout the lateral aspect of the femur with bony overgrowth of the plate. This was excised. The plate and screws were removed. There was found to be a fibrous union anteriorly and laterally on the femoral shaft fracture. This was taken down and then a drill was used to decorticate the fracture site throughout. The overgrown bone was used as local bone graft. A 12-hole plate was then placed with 5 cortical screws placed distally and 6 cortical screws placed proximally with excellent purchase obtained. The fracture was well aligned in the medial lateral plane; in the anterior posterior plane, there was slight extension of the fracture site, but this was felt to be adequate. Cultures were taken of the fibrous union and sent for examination. The wound was irrigated with pulse lavage and demineralized bone matrix was packed throughout the fracture site and then local bone graft was placed over this. The iliotibial band was then closed in a running fashion with #1 Vicryl. Subcutaneous tissue was then irrigated with pulse lavage. 0 Vicryl was used for deep subcutaneous tissue, 2-0 Vicryl for the superficial subcutaneous tissue, harpal used on the skin. A soft dressing was applied. The patient was transferred to recovery room awake and in stable condition. Job ID: [id number] DocumentID: [id number] Dictated Date: 10/26/2017 13:27:33 Dean Of Instruction Date: 10/27/2017 01:03:08 Dictated By: CRISTÓBAL SOLIS MD
[2017-10-27] MEDS: ceFAZolin INJECTION 1,000 MG in NS (IVPB) 100 ML IV SCH (01:15)
[2017-10-27 07:19] LABS: HEMOGLOBIN 8.5 G/DL (11.5-16.0)
--- NOTE | 2017-10-27 07:26 | Anesthesia-General Post-Op ---
General Patient Condition Mental Status/LOC: Same as Preop Cardiovascular: Satisfactory Nausea/Vomiting: Absent Respiratory: Satisfactory Pain: Controlled Complications: Absent Post Op Complications Complications None Follow Up Care/Instructions Patient Instructions None needed. Anesthesia/Patient Condition Patient Condition Patient is doing well, no complaints, stable vital signs, no apparent adverse anesthesia problems. No complications reported per nursing. D/C home per [facility] Criteria: Yes SCARLET LINDO CRNA October 27, 2017 07:26
--- NOTE | 2017-10-27 07:44 | Progress Note-Standard ---
Standard Progress Note Progress Notes/Assess & Plan Date Seen by Provider: October 27, 2017 Time Seen by Provider: 07:43 Progress/Assessment & Plan No complaints RLE Vital Signs Date Time Temp Pulse Resp B/P (MAP) Pulse Ox O2 Delivery O2 Flow Rate FiO2 10/27/17 04:15 98.4 60 18 133/61 (85) 95 Room Air 10/27/17 00:00 98.2 66 18 188/76 (113) 95 Room Air 10/26/17 19:31 Room Air 10/26/17 19:20 98.2 58 18 150/68 (95) 100 Room Air 10/26/17 15:15 96.8 58 18 174/70 (104) 97 Room Air 10/26/17 14:40 96.9 60 16 163/72 (102) 95 Room Air I & O 10/27/17 07:00 Intake Total 2100 ml Output Total 250 ml Balance 1850 ml Laboratory Tests Test 10/26/17 09:08 10/26/17 15:54 10/26/17 20:56 10/27/17 07:06 Range/Units Glucometer 99 123 H 142 H 70-110 MG/DL Hemoglobin 8.5 L 11.5-16.0 G/DL Hematocrit 26 L 35-52 % Test 10/27/17 07:19 Range/Units Glucometer 131 H 70-110 MG/DL RLE--dressing intact. Intact DF and PF of toes and ankle. Sensation intact throughout pulses symmetric S/P ORIF R femur strict TTWB IRU CRISTÓBAL Santiago MD October 27, 2017 07:44
[2017-10-27] MEDS: oxyCODONE/APAP 5/325MG (PERCOCET 5) TABLET PO PRN ×2 (08:40→13:46)
[2017-10-27] MEDS: ENOXAPARIN 30 MG/0.3 ML (LOVENOX) SYR SC SCH ×2 (08:40→20:47)
[2017-10-27 09:31] LABS: BASOPHILS % (AUTO) 0 % (0-10); EOSINOPHILS # (AUTO) 0.1 10^3/uL (0.0-0.3); EOSINOPHILS % (AUTO) 1 % (0-10); HEMATOCRIT 26 % (35-52); HEMOGLOBIN 8.4 G/DL (11.5-16.0); LYMPHOCYTES # (AUTO) 1.5 X 10^3 (1.0-4.0); LYMPHOCYTES % (AUTO) 15 % (12-44); MEAN CORPUSCULAR HEMOGLOBIN 30 PG (25-34); MEAN CORPUSCULAR HGB CONC 32 G/DL (32-36); MEAN CORPUSCULAR VOLUME 93 FL (80-99); MEAN PLATELET VOLUME 10.7 FL (7.4-10.4); MONOCYTES # (AUTO) 0.9 X 10^3 (0.0-1.0); MONOCYTES % (AUTO) 9 % (0-12); NEUTROPHILS # (AUTO) 7.1 X 10^3 (1.8-7.8); NEUTROPHILS % (AUTO) 75 % (42-75); PLATELET COUNT 236 10^3/uL (130-400); WHITE BLOOD COUNT 9.5 10^3/uL (4.3-11.0)
[2017-10-27 09:44] LABS: ALBUMIN 3.2 GM/DL (3.2-4.5); BILIRUBIN,TOTAL 0.6 MG/DL (0.1-1.0); CALCIUM 8.2 MG/DL (8.5-10.1); CREATININE SERUM 1.49 MG/DL (0.60-1.30); TOTAL PROTEIN 5.8 GM/DL (6.4-8.2)
--- NOTE | 2017-10-27 09:45 | Physical Therapy Daily Note ---
PT Daily Note-Current Subjective Patient is in bed and agrees to PT. Pain Numeric Pain Scale: 5-Moderate Pain Location: Right Location Body Site: Thigh (femur) Pain Description: Acute Mental Status Patient Orientation: Normal For Age Transfers Functional [place] Measure 0=Not Assessed/NA 4=Minimal Assistance 1=Total Assistance 5=Supervision or Setup 2=Maximal Assistance 6=Modified [place] 3=Moderate Assistance 7=Complete IndependenceIRFPAI Quality Coding Scale 6 Independent with activity with or without an assistive device 5 Patient requires set up or clean up by helper. Patient completes activity by themselves 4 Supervision or touching assist (CGA). [place] provide cues , steadying assist 3 The helper provides less than half the effort to complete the activity 2 The helper provides more than half the effort to complete the activity 1 Dependent. The helper does all the effort to complete an activity 7 Patient refused to complete or attempt activity 9 The patient did not perform the activity before the current illness or injury 88 Not attempted due to Medical conditions or safety concerns Transfers (B, C, W/C) (FIM): 2 Scootin Supine to/from Sit: 2 Sit to/from Stand: 2 Bed to/from Chair: 2 Patient has difficulty with maintaining TTWB right LE Weight Bearing Right Lower Extremity: Right Touch Toe Bearing Left Lower Extremity: Left Full Weight Bearing Gait Training Gait (FIM): 1 Distance (FIM): 1=up to 49 ft Distance: 5 steps Gait Level of Assist: 2 Gait Persons Needed: 2 Gait Assistive Device: FWW trunk flexed posture with inability to maintain TTWB right LE Exercises Supine Ex: Ankle pumps, Quad Set, Heel Slides Supine Reps: 15 (AAROM right LE) Seated Therapy Exercises: Long arc quads Seated Reps: 15 (AAROM right LE) Assessment Patient had failed ORIF right femur from previous surgery resulting in repair. From a PT standpoint, patient will requires extended care to allow proper healing of right femur. Dr. Treadwell notified. PT Short Term Goals Short Term Goals Time Frame: November 02, 2017 Transfers (B,C,W/C) (FIM): 3 Gait (FIM): 1 Gait Distance Comment: 20' Gait Level of Assist: 4 Gait Assistive Device: FWW PT Plan Treatment/Plan Treatment Plan: Continue Plan of Care Treatment Plan: Bed Mobility, Education, Functional Activity Lalo, Functional Strength, Gait, Safety, Therapeutic Exercise, Transfers Treatment Duration: November 02, 2017 Frequency: At least 5 of 7 days/Wk (IRF) Estimated Hrs Per Day: 1.5 hours per day Patient and/or Family Agrees t: Yes Discharge Recommendations Therapy D/C Recommendations: Prison Placement, Alf (TCU/NH) Time/GCodes Time In: 900 Time Out: 923 Total Billed Treatment Time: 23 Total Billed Treatment 1 visit EX 13 min FA 10min AGUSTÍN PHILLIPS PT October 27, 2017 09:45
--- NOTE | 2017-10-27 11:09 | Consultation-Hospitalist ---
HPI History of Present Illness: HPI/Chief Complaint CC: Medical management following right femur fracture due to failed hardware HPI: This is an 82-year-old white female clinic patient of Dr. Ferguson who has a past medical history of diabetes mellitus and hypertension who presented to the hospital after an uncomplicated repair of a right femur fracture after failed hardware. Apparently she had had the right hip surgery in the past still had pain for an extended period of time and she was followed up closely and x-ray ultimately revealed fracture and she was in need of revision of the hardware. At this current time she denies any significant pain pain medication is helping her. She is urinating well and using her incentive spirometer. She has not had a bowel movement postoperatively. I reconcile all of her home medication and restart all of them with Accu-Cheks. Source: patient Exam Limitations: no limitations Date Seen 10/27/17 Attending Physician Tyree Garduno MD PCP Carlos Ferguson MD Referring Physician Date of Admission October 26, 2017 at 08:45 Home Medications & Allergies Home Medications Reviewed patient Home Medication Reconciliation performed by pharmacy medication reconciliations instrumentation technician and/or nursing. Patients Allergies have been reviewed. Allergies Allergies Coded Allergies Iodinated Contrast- Oral and IV Dye (Verified Allergy, Unknown, HIVES, 10/20/17) lisinopril (Unverified Allergy, Unknown, 10/22/14) DRY COUGH Past Ifwwnha-Fgmvaj-Lcfvfm Hx Past Med/Social Hx: Reviewed Nursing Past Med/Soc Hx, Reviewed and Corrections made Patient Social History Marrital Status: single Employed/Student: retired Alcohol Use: Denies Use Recreational Drug Use: No Smoking Status: Never a Smoker Physical Abuse Screen: No Sexual Abuse: No Recent Foreign Travel: No Contact w/other who traveled: No Recent Hopitalizations: Yes Immunizations Up To Date Date of Pneumonia Vaccine: October 18, 2014 Seasonal Allergies Seasonal Allergies: Yes Past Medical History Surgeries: Coronary Stent, Orthopedic Currently Using CPAP: No (has machine but doesn't tolerate using it) Currently Using BIPAP: No Cardiac: Coronary Artery Disease, Hypertension Musculoskeletal: Arthritis, Fractures Endocrine: Diabetes, Insulin dep HEENT: Macular Degeneration Loss of Vision: Bilateral History of Blood Disorders: Yes (ANEMIA) Adverse Reaction to Blood [place]: No Family History Cardiovascular disease 19 FATHER 19 MOTHER Diabetes mellitus 19 FATHER 19 MOTHER G8 SISTER Kidney disease 19 FATHER Diabetes Review of Systems Constitutional: see HPI EENTM: no symptoms reported Respiratory: no symptoms reported Cardiovascular: no symptoms reported Gastrointestinal: loss of appetite Genitourinary: no symptoms reported Musculoskeletal: joint pain Skin: no symptoms reported Psychiatric/Neurological: No Symptoms Reported All Other Systems Reviewed Negative Unless Noted: Yes Physical Exam Physical Exam Vital Signs Vital Signs - First Documented 10/26/17 14:40 Temp 96.9 Pulse 60 Resp 16 B/P (MAP) 163/72 (102) Pulse Ox 95 O2 Delivery Room Air Capillary Refill : Less Than 3 Seconds General Appearance: No Apparent Distress, WD/WN, Chronically ill, Obese Eyes: Bilateral Eye Normal Inspection, Bilateral Eye PERRL HEENT: PERRL/EOMI, Normal ENT Inspection, Pharynx Normal Neck: Full Range of Motion, Normal Inspection, Non Tender, Supple, Carotid Bruit Respiratory: Chest Non Tender, Lungs Clear, Normal Breath Sounds, No Accessory Muscle Use, No Respiratory Distress Cardiovascular: Regular Rate, Rhythm, No Edema, No Gallop, No JVD, No Murmur, Normal Peripheral Pulses Gastrointestinal: Normal Bowel Sounds, No Organomegaly, No Pulsatile Mass, Non Tender, Soft Back: Normal Inspection, No CVA Tenderness, No Vertebral Tenderness Extremity: Normal Capillary Refill, Normal Inspection, Non Tender, No Calf Tenderness, No Pedal Edema, Other (Decreased range of motion due to hip surgery) Neurologic/Psychiatric: Alert, Oriented x3, No Motor/Sensory Deficits, Depressed Affect Skin: Normal Color, Warm/Dry Lymphatic: No Adenopathy Results Results/Procedures Labs Laboratory Tests 10/27/17 07:06 Patient resulted labs reviewed. Assessment/Plan Assessment and Plan Assess & Plan/Chief Complaint Assessment: Right hip fracture due to failed hardware POD # 1 DM HTN HLP Plan: Home meds Accuchecks Pain control Diagnosis/Problems Diagnosis/Problems (1) Femur fracture, right Status: Acute Qualifiers: Encounter type: subsequent encounter Fracture type: closed Fracture morphology: unspecified fracture morphology Fracture healing: with routine healing (2) Diabetes mellitus Status: Chronic Qualifiers: Diabetes mellitus type: type 2 Diabetes mellitus skilled nursing insulin use: without termite treater helper use Diabetes mellitus complication status: with circulatory complication Diabetes mellitus complication detail: with other circulatory complications Qualified Codes: E11.59 - Type 2 diabetes mellitus with other circulatory complications (3) CAD (coronary artery disease) Status: Chronic Qualifiers: Coronary Disease-Associated Artery/Lesion type: [place] artery [place] vs. transplanted heart: [place] heart Associated angina: without angina Qualified Codes: I25.10 - Atherosclerotic heart disease of [place] coronary artery without angina pectoris (4) Hypothyroidism Status: Chronic Qualifiers: Hypothyroidism type: acquired Qualified Codes: E03.9 - Hypothyroidism, unspecified (5) Essential (primary) hypertension Status: Chronic (6) Acute on chronic renal insufficiency Status: Resolved (7) Anemia due to acute blood loss Status: Acute Clinical Quality Measures DVT/VTE Risk/Contraindication: Risk Factor Score Per Nursin RFS Level Per Nursing on Admit: 4+=Very High JOSE FINLEY DO October 27, 2017 11:09
[2017-10-27] MEDS ORDERED: PANTOPRAZOLE 20 MG TABLET (PROTONIX) PO PRN (12:00)
[2017-10-27] MEDS ORDERED: LORATADINE (CLARITIN) 10 MG TAB PO PRN (12:01)
[2017-10-27] MEDS ORDERED: ARTIFICAL TEARS 0.4 ML UNIT DOSE (REFRESH PLUS) OU PRN (12:15)
[2017-10-27] MEDS: FUROSEMIDE 20 MG (LASIX) TAB PO SCH (13:21)
[2017-10-27] MEDS: amLODIPine 5 MG (NORVASC) TAB PO SCH (13:21)
[2017-10-27] MEDS: LEVOTHYROXINE 88 MCG (LEVOTHORID) TAB PO SCH (13:22)
[2017-10-27] MEDS: inSUlin ASPART (NovoLOG) 1 UNIT/0.01 ML (CHARGE PER UNIT) SC SCH ×3 (13:22→20:47)
[2017-10-27] MEDS: ATORVASTATIN 10 MG (LIPITOR) TABLET PO SCH (13:23)
--- NOTE | 2017-10-27 13:57 | Physical Therapy Daily Note ---
PT Daily Note-Current Subjective Patient was still in the recliner and requested to return to bed. Pain Numeric Pain Scale: 4 Location: Right Location Body Site: Thigh Pain Description: Acute Mental Status Patient Orientation: Normal For Age Transfers Functional [place] Measure 0=Not Assessed/NA 4=Minimal Assistance 1=Total Assistance 5=Supervision or Setup 2=Maximal Assistance 6=Modified [place] 3=Moderate Assistance 7=Complete IndependenceIRFPAI Quality Coding Scale 6 Independent with activity with or without an assistive device 5 Patient requires set up or clean up by helper. Patient completes activity by themselves 4 Supervision or touching assist (CGA). [place] provide cues , steadying assist 3 The helper provides less than half the effort to complete the activity 2 The helper provides more than half the effort to complete the activity 1 Dependent. The helper does all the effort to complete an activity 7 Patient refused to complete or attempt activity 9 The patient did not perform the activity before the current illness or injury 88 Not attempted due to Medical conditions or safety concerns Transfers (B, C, W/C) (FIM): 2 Scootin Rollin Supine to/from Sit: 2 Sit to/from Stand: 2 Bed to/from Chair: 2 Max assist with all due to TTWB right LE and weakness Weight Bearing Right Lower Extremity: Right Touch Toe Bearing Left Lower Extremity: Left Full Weight Bearing Exercises Supine Ex: Ankle pumps, Quad Set, Heel Slides, Straight leg raise, Hip abd/add Supine Reps: 15 (2 sets AAROM bilaterally) Assessment Patient tolerated treatment well and is in bed with needs met. Patient progressing very slowly with treatment plan. PT Short Term Goals Short Term Goals Time Frame: November 02, 2017 Transfers (B,C,W/C) (FIM): 3 Gait (FIM): 1 Gait Distance Comment: 20' Gait Level of Assist: 4 Gait Assistive Device: FWW PT Plan Treatment/Plan Treatment Plan: Continue Plan of Care Treatment Plan: Bed Mobility, Education, Functional Activity Lalo, Functional Strength, Gait, Safety, Therapeutic Exercise, Transfers Treatment Duration: November 02, 2017 Frequency: At least 5 of 7 days/Wk (IRF) Estimated Hrs Per Day: 1.5 hours per day Patient and/or Family Agrees t: Yes Time/GCodes Time In: 1336 Time Out: 1347 Total Billed Treatment Time: 11 Total Billed Treatment 1 visit EX 11 min AGUSTÍN PHILLIPS PT October 27, 2017 13:56
[2017-10-27] MEDS: glipiZIDE 5 MG (GLUCOTROL) TAB PO SCH (16:48)
[2017-10-27] MEDS: ATENOLOL 50 MG (TENORMIN) TAB PO SCH (20:46)
[2017-10-27] MEDS: inSUlin DETERMIR 1 UNIT/0.01 ML (LEVEMIR) CHARGE PER UNIT SQ SCH (20:47)
[2017-10-28] MEDS: inSUlin ASPART (NovoLOG) 1 UNIT/0.01 ML (CHARGE PER UNIT) SC SCH ×4 (05:49→21:27)
[2017-10-28 05:51] LABS: BASOPHILS % (AUTO) 0 % (0-10); EOSINOPHILS # (AUTO) 0.2 10^3/uL (0.0-0.3); EOSINOPHILS % (AUTO) 2 % (0-10); HEMATOCRIT 24 % (35-52); HEMOGLOBIN 7.6 G/DL (11.5-16.0); LYMPHOCYTES # (AUTO) 1.5 X 10^3 (1.0-4.0); LYMPHOCYTES % (AUTO) 15 % (12-44); MEAN CORPUSCULAR HEMOGLOBIN 30 PG (25-34); MEAN CORPUSCULAR HGB CONC 32 G/DL (32-36); MEAN CORPUSCULAR VOLUME 94 FL (80-99); MEAN PLATELET VOLUME 11.3 FL (7.4-10.4); MONOCYTES % (AUTO) 11 % (0-12); NEUTROPHILS # (AUTO) 6.9 X 10^3 (1.8-7.8); NEUTROPHILS % (AUTO) 72 % (42-75); PLATELET COUNT 181 10^3/uL (130-400); RED BLOOD COUNT 2.51 10^6/uL (4.35-5.85); RED CELL DISTRIBUTION WIDTH 13.7 % (10.0-14.5); WHITE BLOOD COUNT 9.6 10^3/uL (4.3-11.0)
[2017-10-28] MEDS: glipiZIDE 5 MG (GLUCOTROL) TAB PO SCH ×2 (06:00→16:37)
[2017-10-28] MEDS: LEVOTHYROXINE 88 MCG (LEVOTHORID) TAB PO SCH (06:00)
[2017-10-28 06:19] LABS: ALANINE AMINOTRANSFERASE < 6 U/L (0-55); ALBUMIN 3.1 GM/DL (3.2-4.5); ALKALINE PHOSPHATASE 110 U/L (40-136); BILIRUBIN,TOTAL 0.4 MG/DL (0.1-1.0); BUN/CREATININE RATIO 26; CALCIUM 7.7 MG/DL (8.5-10.1); CARBON DIOXIDE 16 MMOL/L (21-32); CHLORIDE 106 MMOL/L (98-107); CREATININE SERUM 1.93 MG/DL (0.60-1.30); GFR ESTIMATED 25; GLUCOSE 154 MG/DL (70-105); POTASSIUM 4.7 MMOL/L (3.6-5.0); SODIUM 135 MMOL/L (135-145); TOTAL PROTEIN 5.1 GM/DL (6.4-8.2)
--- NOTE | 2017-10-28 07:04 | Progress Note-Standard ---
Standard Progress Note Progress Notes/Assess & Plan Date Seen by Provider: October 28, 2017 Time Seen by Provider: 07:02 Progress/Assessment & Plan No complaints RLE Vital Signs Date Time Temp Pulse Resp B/P (MAP) Pulse Ox O2 Delivery O2 Flow Rate FiO2 10/27/17 04:15 98.4 60 18 133/61 (85) 95 Room Air 10/27/17 00:00 98.2 66 18 188/76 (113) 95 Room Air 10/26/17 19:31 Room Air 10/26/17 19:20 98.2 58 18 150/68 (95) 100 Room Air 10/26/17 15:15 96.8 58 18 174/70 (104) 97 Room Air 10/26/17 14:40 96.9 60 16 163/72 (102) 95 Room Air I & O 10/27/17 07:00 Intake Total 2100 ml Output Total 250 ml Balance 1850 ml Laboratory Tests Test 10/26/17 09:08 10/26/17 15:54 10/26/17 20:56 10/27/17 07:06 Range/Units Glucometer 99 123 H 142 H 70-110 MG/DL Hemoglobin 8.5 L 11.5-16.0 G/DL Hematocrit 26 L 35-52 % Test 10/27/17 07:19 Range/Units Glucometer 131 H 70-110 MG/DL RLE--dressing intact. Intact DF and PF of toes and ankle. Sensation intact throughout pulses symmetric S/P ORIF R femur strict TTWB IRU eval Final Diagnosis No complaints only requiring Tyleno cultures negative thus far Vital Signs Date Time Temp Pulse Resp B/P (MAP) Pulse Ox O2 Delivery O2 Flow Rate FiO2 10/27/17 23:03 98.2 61 16 140/62 (88) 95 Room Air 10/27/17 20:59 96.5 64 16 119/54 (75) 93 Room Air 10/27/17 20:47 Room Air 10/27/17 17:13 98.7 60 20 162/73 (102) 96 Room Air 10/27/17 12:00 98.5 59 20 131/63 (85) 97 Room Air 10/27/17 08:40 Room Air 10/27/17 08:00 98.5 65 20 122/60 (80) 94 Room Air I & O 10/28/17 07:00 Intake Total 1205 ml Output Total 1500 ml Balance -295 ml Laboratory Tests Test 10/27/17 07:06 10/27/17 07:19 10/27/17 11:08 10/27/17 17:15 Range/Units White Blood Count 9.5 4.3-11.0 10^3/uL Red Blood Count 2.80 L 4.35-5.85 10^6/uL Hemoglobin 8.4 L 11.5-16.0 G/DL Hematocrit 26 L 35-52 % Mean Corpuscular Volume 93 80-99 FL Mean Corpuscular Hemoglobin 30 25-34 PG Mean Corpuscular Hemoglobin Concent 32 32-36 G/DL Red Cell Distribution Width 14.0 10.0-14.5 % Platelet Count 236 130-400 10^3/uL Mean Platelet Volume 10.7 H 7.4-10.4 FL Neutrophils (%) (Auto) 75 42-75 % Lymphocytes (%) (Auto) 15 12-44 % Monocytes (%) (Auto) 9 0-12 % Eosinophils (%) (Auto) 1 0-10 % Basophils (%) (Auto) 0 0-10 % Neutrophils # (Auto) 7.1 1.8-7.8 X 10^3 Lymphocytes # (Auto) 1.5 1.0-4.0 X 10^3 Monocytes # (Auto) 0.9 0.0-1.0 X 10^3 Eosinophils # (Auto) 0.1 0.0-0.3 10^3/uL Basophils # (Auto) 0.0 0.0-0.1 10^3/uL Sodium Level 141 135-145 MMOL/L Potassium Level 5.0 3.6-5.0 MMOL/L Chloride Level 110 H 98-107 MMOL/L Carbon Dioxide Level 22 21-32 MMOL/L Anion Gap 9 5-14 MMOL/L Blood Urea Nitrogen 41 H 7-18 MG/DL Creatinine 1.49 H 0.60-1.30 MG/DL Estimat Glomerular Filtration Rate 34 BUN/Creatinine Ratio 28 Glucose Level 121 H 70-105 MG/DL Calcium Level 8.2 L 8.5-10.1 MG/DL Total Bilirubin 0.6 0.1-1.0 MG/DL Aspartate Amino Transf (AST/SGOT) 14 5-34 U/L Alanine Aminotransferase (ALT/SGPT) 8 0-55 U/L Alkaline Phosphatase 118 40-136 U/L Total Protein 5.8 L 6.4-8.2 GM/DL Albumin 3.2 3.2-4.5 GM/DL Glucometer 131 H 220 H 126 H 70-110 MG/DL Test 10/27/17 20:37 10/28/17 04:54 10/28/17 05:48 Range/Units Glucometer 172 H 147 H 70-110 MG/DL White Blood Count 9.6 4.3-11.0 10^3/uL Red Blood Count 2.51 L 4.35-5.85 10^6/uL Hemoglobin 7.6 L 11.5-16.0 G/DL Hematocrit 24 L 35-52 % Mean Corpuscular Volume 94 80-99 FL Mean Corpuscular Hemoglobin 30 25-34 PG Mean Corpuscular Hemoglobin Concent 32 32-36 G/DL Red Cell Distribution Width 13.7 10.0-14.5 % Platelet Count 181 130-400 10^3/uL Mean Platelet Volume 11.3 H 7.4-10.4 FL Neutrophils (%) (Auto) 72 42-75 % Lymphocytes (%) (Auto) 15 12-44 % Monocytes (%) (Auto) 11 0-12 % Eosinophils (%) (Auto) 2 0-10 % Basophils (%) (Auto) 0 0-10 % Neutrophils # (Auto) 6.9 1.8-7.8 X 10^3 Lymphocytes # (Auto) 1.5 1.0-4.0 X 10^3 Monocytes # (Auto) 1.0 0.0-1.0 X 10^3 Eosinophils # (Auto) 0.2 0.0-0.3 10^3/uL Basophils # (Auto) 0.0 0.0-0.1 10^3/uL Sodium Level 135 135-145 MMOL/L Potassium Level 4.7 3.6-5.0 MMOL/L Chloride Level 106 98-107 MMOL/L Carbon Dioxide Level 16 L 21-32 MMOL/L Anion Gap 13 5-14 MMOL/L Blood Urea Nitrogen 50 H 7-18 MG/DL Creatinine 1.93 H 0.60-1.30 MG/DL Estimat Glomerular Filtration Rate 25 BUN/Creatinine Ratio 26 Glucose Level 154 H 70-105 MG/DL Calcium Level 7.7 L 8.5-10.1 MG/DL Total Bilirubin 0.4 0.1-1.0 MG/DL Aspartate Amino Transf (AST/SGOT) 12 5-34 U/L Alanine Aminotransferase (ALT/SGPT) < 6 0-55 U/L Alkaline Phosphatase 110 40-136 U/L Total Protein 5.1 L 6.4-8.2 GM/DL Albumin 3.1 L 3.2-4.5 GM/DL Laboratory Tests Test 10/27/17 07:06 10/27/17 07:19 10/27/17 11:08 10/27/17 17:15 Range/Units White Blood Count 9.5 4.3-11.0 10^3/uL Red Blood Count 2.80 L 4.35-5.85 10^6/uL Hemoglobin 8.4 L 11.5-16.0 G/DL Hematocrit 26 L 35-52 % Mean Corpuscular Volume 93 80-99 FL Mean Corpuscular Hemoglobin 30 25-34 PG Mean Corpuscular Hemoglobin Concent 32 32-36 G/DL Red Cell Distribution Width 14.0 10.0-14.5 % Platelet Count 236 130-400 10^3/uL Mean Platelet Volume 10.7 H 7.4-10.4 FL Neutrophils (%) (Auto) 75 42-75 % Lymphocytes (%) (Auto) 15 12-44 % Monocytes (%) (Auto) 9 0-12 % Eosinophils (%) (Auto) 1 0-10 % Basophils (%) (Auto) 0 0-10 % Neutrophils # (Auto) 7.1 1.8-7.8 X 10^3 Lymphocytes # (Auto) 1.5 1.0-4.0 X 10^3 Monocytes # (Auto) 0.9 0.0-1.0 X 10^3 Eosinophils # (Auto) 0.1 0.0-0.3 10^3/uL Basophils # (Auto) 0.0 0.0-0.1 10^3/uL Sodium Level 141 135-145 MMOL/L Potassium Level 5.0 3.6-5.0 MMOL/L Chloride Level 110 H 98-107 MMOL/L Carbon Dioxide Level 22 21-32 MMOL/L Anion Gap 9 5-14 MMOL/L Blood Urea Nitrogen 41 H 7-18 MG/DL Creatinine 1.49 H 0.60-1.30 MG/DL Estimat Glomerular Filtration Rate 34 BUN/Creatinine Ratio 28 Glucose Level 121 H 70-105 MG/DL Calcium Level 8.2 L 8.5-10.1 MG/DL Total Bilirubin 0.6 0.1-1.0 MG/DL Aspartate Amino Transf (AST/SGOT) 14 5-34 U/L Alanine Aminotransferase (ALT/SGPT) 8 0-55 U/L Alkaline Phosphatase 118 40-136 U/L Total Protein 5.8 L 6.4-8.2 GM/DL Albumin 3.2 3.2-4.5 GM/DL Glucometer 131 H 220 H 126 H 70-110 MG/DL Test 10/27/17 20:37 10/28/17 04:54 10/28/17 05:48 Range/Units Glucometer 172 H 147 H 70-110 MG/DL White Blood Count 9.6 4.3-11.0 10^3/uL Red Blood Count 2.51 L 4.35-5.85 10^6/uL Hemoglobin 7.6 L 11.5-16.0 G/DL Hematocrit 24 L 35-52 % Mean Corpuscular Volume 94 80-99 FL Mean Corpuscular Hemoglobin 30 25-34 PG Mean Corpuscular Hemoglobin Concent 32 32-36 G/DL Red Cell Distribution Width 13.7 10.0-14.5 % Platelet Count 181 130-400 10^3/uL Mean Platelet Volume 11.3 H 7.4-10.4 FL Neutrophils (%) (Auto) 72 42-75 % Lymphocytes (%) (Auto) 15 12-44 % Monocytes (%) (Auto) 11 0-12 % Eosinophils (%) (Auto) 2 0-10 % Basophils (%) (Auto) 0 0-10 % Neutrophils # (Auto) 6.9 1.8-7.8 X 10^3 Lymphocytes # (Auto) 1.5 1.0-4.0 X 10^3 Monocytes # (Auto) 1.0 0.0-1.0 X 10^3 Eosinophils # (Auto) 0.2 0.0-0.3 10^3/uL Basophils # (Auto) 0.0 0.0-0.1 10^3/uL Sodium Level 135 135-145 MMOL/L Potassium Level 4.7 3.6-5.0 MMOL/L Chloride Level 106 98-107 MMOL/L Carbon Dioxide Level 16 L 21-32 MMOL/L Anion Gap 13 5-14 MMOL/L Blood Urea Nitrogen 50 H 7-18 MG/DL Creatinine 1.93 H 0.60-1.30 MG/DL Estimat Glomerular Filtration Rate 25 BUN/Creatinine Ratio 26 Glucose Level 154 H 70-105 MG/DL Calcium Level 7.7 L 8.5-10.1 MG/DL Total Bilirubin 0.4 0.1-1.0 MG/DL Aspartate Amino Transf (AST/SGOT) 12 5-34 U/L Alanine Aminotransferase (ALT/SGPT) < 6 0-55 U/L Alkaline Phosphatase 110 40-136 U/L Total Protein 5.1 L 6.4-8.2 GM/DL Albumin 3.1 L 3.2-4.5 GM/DL RLE--incision clean and dry no calf tenderness s/p ORIF R femur to IRF if qualifies CRISTÓBAL SOLIS MD October 28, 2017 07:04
[2017-10-28 08:00] VITALS: BP 131/60
--- NOTE | 2017-10-28 09:28 | Physical Therapy Daily Note ---
PT Daily Note-Current Subjective Patient agrees to PT. Pain Numeric Pain Scale: 7 Location: Right Location Body Site: Thigh Pain Description: Acute Comment: meds issued Mental Status Patient Orientation: Normal For Age Transfers Functional [place] Measure 0=Not Assessed/NA 4=Minimal Assistance 1=Total Assistance 5=Supervision or Setup 2=Maximal Assistance 6=Modified [place] 3=Moderate Assistance 7=Complete IndependenceIRFPAI Quality Coding Scale 6 Independent with activity with or without an assistive device 5 Patient requires set up or clean up by helper. Patient completes activity by themselves 4 Supervision or touching assist (CGA). [place] provide cues , steadying assist 3 The helper provides less than half the effort to complete the activity 2 The helper provides more than half the effort to complete the activity 1 Dependent. The helper does all the effort to complete an activity 7 Patient refused to complete or attempt activity 9 The patient did not perform the activity before the current illness or injury 88 Not attempted due to Medical conditions or safety concerns Transfers (B, C, W/C) (FIM): 2 Scootin Rollin Supine to/from Sit: 2 Sit to/from Stand: 2 Bed to/from Chair: 2 Max assist with all and SPT to left x 2 sets with patient having difficulty with maintaining strict TTWB right LE Weight Bearing Right Lower Extremity: Right Touch Toe Bearing (STRICT balance only) Left Lower Extremity: Left Full Weight Bearing Exercises Supine Ex: Ankle pumps, Heel Slides, Straight leg raise, Hip abd/add Supine Reps: 10 (AAROM right and left LE 2 sets) Seated Therapy Exercises: Long arc quads Seated Reps: 15 (AAROM right LE x 2 sets) Assessment Patient tolerated treatment and is up in recliner with needs met. From a PT standpoint, patient will require extended care to allow proper healing due to failed ORIF from last year right LE. PT Short Term Goals Short Term Goals Time Frame: November 02, 2017 Transfers (B,C,W/C) (FIM): 3 Gait (FIM): 1 Gait Distance Comment: 20' Gait Level of Assist: 4 Gait Assistive Device: FWW PT Plan Treatment/Plan Treatment Plan: Continue Plan of Care Treatment Plan: Bed Mobility, Education, Functional Activity Lalo, Functional Strength, Gait, Safety, Therapeutic Exercise, Transfers Treatment Duration: November 02, 2017 Frequency: At least 5 of 7 days/Wk (IRF) Estimated Hrs Per Day: 1.5 hours per day Patient and/or Family Agrees t: Yes Time/GCodes Time In: 851 Time Out: 915 Total Billed Treatment Time: 24 Total Billed Treatment 1 visit FA 10 min EX 14 min AGUSTÍN PHILLIPS PT October 28, 2017 09:28
[2017-10-28] MEDS: ENOXAPARIN 30 MG/0.3 ML (LOVENOX) SYR SC SCH (09:39)
[2017-10-28] MEDS: oxyCODONE/APAP 5/325MG (PERCOCET 5) TABLET PO PRN ×3 (09:40→21:28)
--- NOTE | 2017-10-28 11:05 | Progress Note-Hospitalist ---
Subjective HPI/CC On Admission Date Seen by Provider: October 28, 2017 Time Seen by Provider: 10:00 CC: Medical management following right femur fracture due to failed hardware HPI: This is an 82-year-old white female clinic patient of Dr. Ferguson who has a past medical history of diabetes mellitus and hypertension who presented to the hospital after an uncomplicated repair of a right femur fracture after failed hardware. Apparently she had had the right hip surgery in the past still had pain for an extended period of time and she was followed up closely and x-ray ultimately revealed fracture and she was in need of revision of the hardware. At this current time she denies any significant pain pain medication is helping her. She is urinating well and using her incentive spirometer. She has not had a bowel movement postoperatively. I reconcile all of her home medication and restart all of them with Accu-Cheks. Subjective/Events-last exam Patient doing well overall Pain is controlled Eating and drinking well Still has not had bowel movement so will increase regimen Using I-S We'll need a residential placement at discharge Review of Systems Gastrointestinal: Constipation Objective Exam Vital Signs Vital Signs Date Time Temp Pulse Resp B/P (MAP) Pulse Ox O2 Delivery O2 Flow Rate FiO2 10/28/17 16:15 96.5 59 20 142/64 (90) 96 Room Air Capillary Refill : Less Than 3 Seconds General Appearance: No Apparent Distress, WD/WN, Chronically ill, Obese HEENT: PERRL/EOMI, TMs Normal, Normal ENT Inspection, Pharynx Normal, Moist Mucous Membranes Neck: Full Range of Motion, Normal Inspection, Non Tender, Supple, Carotid Bruit Respiratory: Chest Non Tender, Lungs Clear, Normal Breath Sounds, No Accessory Muscle Use, No Respiratory Distress Cardiovascular: Regular Rate, Rhythm, No Edema, No Gallop, No JVD, No Murmur, Normal Peripheral Pulses Gastrointestinal: Normal Bowel Sounds, No Organomegaly, No Pulsatile Mass, Non Tender, Soft Back: Normal Inspection, No CVA Tenderness, No Vertebral Tenderness Extremity: Normal Capillary Refill, Normal Inspection, Normal Range of Motion ( limited legs), Non Tender, No Calf Tenderness, No Pedal Edema Neurologic/Psychiatric: Alert, Oriented x3, No Motor/Sensory Deficits, Normal Mood/Affect Skin: Normal Color, Warm/Dry Lymphatic: No Adenopathy Results/Procedures Lab Laboratory Tests 10/28/17 04:54 Patient resulted labs reviewed. Assessment/Plan Assessment and Plan Assess & Plan/Chief Complaint Assessment: Right hip fracture due to failed hardware POD # 2 DM HTN HLP Plan: Home meds Accuchecks Pain control Diagnosis/Problems Diagnosis/Problems (1) Femur fracture, right Status: Acute Qualifiers: Encounter type: subsequent encounter Fracture type: closed Fracture morphology: unspecified fracture morphology Fracture healing: with routine healing (2) Diabetes mellitus Status: Chronic Qualifiers: Diabetes mellitus type: type 2 Diabetes mellitus [facility] insulin use: without [facility] use Diabetes mellitus complication status: with circulatory complication Diabetes mellitus complication detail: with other circulatory complications Qualified Codes: E11.59 - Type 2 diabetes mellitus with other circulatory complications (3) CAD (coronary artery disease) Status: Chronic Qualifiers: Coronary Disease-Associated Artery/Lesion type: [place] artery [place] vs. transplanted heart: [place] heart Associated angina: without angina Qualified Codes: I25.10 - Atherosclerotic heart disease of [place] coronary artery without angina pectoris (4) Hypothyroidism Status: Chronic Qualifiers: Hypothyroidism type: acquired Qualified Codes: E03.9 - Hypothyroidism, unspecified (5) Essential (primary) hypertension Status: Chronic (6) Acute on chronic renal insufficiency Status: Resolved (7) Anemia due to acute blood loss Status: Acute (8) Constipation Status: Acute Qualifiers: Constipation type: drug induced constipation Qualified Codes: K59.03 - Drug induced constipation Clinical Quality Measures DVT/VTE Risk/Contraindication: Risk Factor Score Per Nursin RFS Level Per Nursing on Admit: 4+=Very High JOSE FINLEY DO October 28, 2017 11:05
[2017-10-28] MEDS: FUROSEMIDE 20 MG (LASIX) TAB PO SCH (12:09)
[2017-10-28] MEDS: amLODIPine 5 MG (NORVASC) TAB PO SCH (12:09)
[2017-10-28] MEDS: LACTULOSE SYRUP 10GM/15ML (ENULOSE) 30ML UDC PO SCH ×2 (12:09→21:26)
[2017-10-28] MEDS: ATORVASTATIN 10 MG (LIPITOR) TABLET PO SCH (12:09)
[2017-10-28] MEDS: SENNA W/DOCUSATE (SENOKOT S) TABLET PO SCH ×2 (12:16→21:27)
[2017-10-28] MEDS: POLYETHYLENE GLYCOL 17 GM (MIRALAX) PACK PO SCH ×2 (12:16→21:26)
--- NOTE | 2017-10-28 14:32 | Physical Therapy Daily Note ---
PT Daily Note-Current Subjective Patient in recliner pre tx, agrees to PT, no complaints of pain at rest. Appearance Patient in bed post tx with nurse call, phone, tray, family in the room. Mental Status Patient Orientation: Person, Place, Situation Transfers Functional [place] Measure 0=Not Assessed/NA 4=Minimal Assistance 1=Total Assistance 5=Supervision or Setup 2=Maximal Assistance 6=Modified [place] 3=Moderate Assistance 7=Complete IndependenceIRFPAI Quality Coding Scale 6 Independent with activity with or without an assistive device 5 Patient requires set up or clean up by helper. Patient completes activity by themselves 4 Supervision or touching assist (CGA). Mcgrann provide cues , steadying assist 3 The helper provides less than half the effort to complete the activity 2 The helper provides more than half the effort to complete the activity 1 Dependent. The helper does all the effort to complete an activity 7 Patient refused to complete or attempt activity 9 The patient did not perform the activity before the current illness or injury 88 Not attempted due to Medical conditions or safety concerns Transfers (B, C, W/C) (FIM): 2 Scootin Rollin Supine to/from Sit: 2 Sit to/from Stand: 2 Bed to/from Chair: 2 Patient was able to pivot on her left leg to turn and sit on the bed. She seemed to be compliant with her weight bearing status. Weight Bearing Right Lower Extremity: Right Touch Toe Bearing (STRICT balance only) Left Lower Extremity: Left Full Weight Bearing Exercises Supine Ex: Ankle pumps, Quad Set, Glut sets, Heel Slides Supine Reps: 15 Treatments transfers, bed mobility, functional strengthening Assessment Current Status: Fair Progress improving transfers PT Short Term Goals Short Term Goals Time Frame: November 02, 2017 Transfers (B,C,W/C) (FIM): 3 Gait (FIM): 1 Gait Distance Comment: 20' Gait Level of Assist: 4 Gait Assistive Device: FWW PT Plan Problem List Problem List: Activity Tolerance, Functional Strength, Safety, Balance, Gait, Transfer, Bed Mobility, ROM Treatment/Plan Treatment Plan: Continue Plan of Care Treatment Plan: Bed Mobility, Education, Functional Activity Lalo, Functional Strength, Gait, Safety, Therapeutic Exercise, Transfers Treatment Duration: November 02, 2017 Frequency: At least 5 of 7 days/Wk (IRF) Estimated Hrs Per Day: 1.5 hours per day Patient and/or Family Agrees t: Yes Safety Risks/Education Patient Education: Transfer Techniques, Reviewed Precautions, Correct Positioning, Safety Issues Teaching Recipient: Patient Teaching Methods: Demonstration, Discussion Response to Teaching: Reinforcement Needed Time/GCodes Time In: 1415 Time Out: 1430 Total Billed Treatment Time: 15 Total Billed Treatment 1 visit FA Gianfranco' MIKAELA GUO PT October 28, 2017 14:32
[2017-10-28 16:15] VITALS: BP 142/64
[2017-10-28] MEDS: inSUlin DETERMIR 1 UNIT/0.01 ML (LEVEMIR) CHARGE PER UNIT SQ SCH (21:26)
[2017-10-28] MEDS: ATENOLOL 50 MG (TENORMIN) TAB PO SCH (21:27)
[2017-10-29] VITALS (9 sets, daily range): BP systolic 125–173; BP diastolic 59–75
[2017-10-29 04:33] LABS: BASOPHILS % (AUTO) 0 % (0-10); EOSINOPHILS # (AUTO) 0.4 10^3/uL (0.0-0.3); EOSINOPHILS % (AUTO) 4 % (0-10); HEMATOCRIT 23 % (35-52); HEMOGLOBIN 7.3 G/DL (11.5-16.0); LYMPHOCYTES # (AUTO) 1.8 X 10^3 (1.0-4.0); LYMPHOCYTES % (AUTO) 22 % (12-44); MEAN CORPUSCULAR HEMOGLOBIN 30 PG (25-34); MEAN CORPUSCULAR HGB CONC 32 G/DL (32-36); MEAN CORPUSCULAR VOLUME 93 FL (80-99); MEAN PLATELET VOLUME 10.7 FL (7.4-10.4); MONOCYTES # (AUTO) 0.8 X 10^3 (0.0-1.0); MONOCYTES % (AUTO) 9 % (0-12); NEUTROPHILS # (AUTO) 5.5 X 10^3 (1.8-7.8); NEUTROPHILS % (AUTO) 65 % (42-75); PLATELET COUNT 215 10^3/uL (130-400); RED BLOOD COUNT 2.43 10^6/uL (4.35-5.85); RED CELL DISTRIBUTION WIDTH 13.8 % (10.0-14.5); WHITE BLOOD COUNT 8.5 10^3/uL (4.3-11.0)
[2017-10-29 05:34] LABS: ALANINE AMINOTRANSFERASE < 6 U/L (0-55); ALKALINE PHOSPHATASE 95 U/L (40-136); BILIRUBIN,TOTAL 0.4 MG/DL (0.1-1.0); BUN/CREATININE RATIO 28; CALCIUM 8.3 MG/DL (8.5-10.1); CARBON DIOXIDE 20 MMOL/L (21-32); CHLORIDE 106 MMOL/L (98-107); CREATININE SERUM 1.77 MG/DL (0.60-1.30); GFR ESTIMATED 27; GLUCOSE 77 MG/DL (70-105); POTASSIUM 4.4 MMOL/L (3.6-5.0); SODIUM 136 MMOL/L (135-145); TOTAL PROTEIN 5.6 GM/DL (6.4-8.2)
[2017-10-29] MEDS: inSUlin ASPART (NovoLOG) 1 UNIT/0.01 ML (CHARGE PER UNIT) SC SCH ×3 (05:39→16:40)
[2017-10-29] MEDS: LEVOTHYROXINE 88 MCG (LEVOTHORID) TAB PO SCH (06:06)
[2017-10-29] MEDS: glipiZIDE 5 MG (GLUCOTROL) TAB PO SCH ×2 (06:06→16:40)
[2017-10-29] MEDS: oxyCODONE/APAP 5/325MG (PERCOCET 5) TABLET PO PRN ×3 (06:07→20:10)
[2017-10-29] MEDS ORDERED: NS IV 500 ML 500 ML IV ONE (08:15)
--- NOTE | 2017-10-29 08:21 | Progress Note-Standard ---
Standard Progress Note Progress Notes/Assess & Plan Date Seen by Provider: October 29, 2017 Time Seen by Provider: 08:19 Progress/Assessment & Plan No complaints RLE Vital Signs Date Time Temp Pulse Resp B/P (MAP) Pulse Ox O2 Delivery O2 Flow Rate FiO2 10/27/17 04:15 98.4 60 18 133/61 (85) 95 Room Air 10/27/17 00:00 98.2 66 18 188/76 (113) 95 Room Air 10/26/17 19:31 Room Air 10/26/17 19:20 98.2 58 18 150/68 (95) 100 Room Air 10/26/17 15:15 96.8 58 18 174/70 (104) 97 Room Air 10/26/17 14:40 96.9 60 16 163/72 (102) 95 Room Air I & O 10/27/17 07:00 Intake Total 2100 ml Output Total 250 ml Balance 1850 ml Laboratory Tests Test 10/26/17 09:08 10/26/17 15:54 10/26/17 20:56 10/27/17 07:06 Range/Units Glucometer 99 123 H 142 H 70-110 MG/DL Hemoglobin 8.5 L 11.5-16.0 G/DL Hematocrit 26 L 35-52 % Test 10/27/17 07:19 Range/Units Glucometer 131 H 70-110 MG/DL RLE--dressing intact. Intact DF and PF of toes and ankle. Sensation intact throughout pulses symmetric S/P ORIF R femur strict TTWB IRU eval Final Diagnosis No complaints Vital Signs Date Time Temp Pulse Resp B/P (MAP) Pulse Ox O2 Delivery O2 Flow Rate FiO2 10/29/17 00:29 97.8 64 17 147/69 (95) 96 Room Air 10/28/17 20:30 Room Air 10/28/17 16:15 96.5 59 20 142/64 (90) 96 Room Air 10/28/17 09:00 Room Air I & O 10/29/17 07:00 Intake Total 1830 ml Output Total 1202 ml Balance 628 ml Laboratory Tests Test 10/28/17 11:13 10/28/17 16:15 10/28/17 20:27 10/29/17 03:45 Range/Units Glucometer 235 H 110 248 H 70-110 MG/DL White Blood Count 8.5 4.3-11.0 10^3/uL Red Blood Count 2.43 L 4.35-5.85 10^6/uL Hemoglobin 7.3 L 11.5-16.0 G/DL Hematocrit 23 L 35-52 % Mean Corpuscular Volume 93 80-99 FL Mean Corpuscular Hemoglobin 30 25-34 PG Mean Corpuscular Hemoglobin Concent 32 32-36 G/DL Red Cell Distribution Width 13.8 10.0-14.5 % Platelet Count 215 130-400 10^3/uL Mean Platelet Volume 10.7 H 7.4-10.4 FL Neutrophils (%) (Auto) 65 42-75 % Lymphocytes (%) (Auto) 22 12-44 % Monocytes (%) (Auto) 9 0-12 % Eosinophils (%) (Auto) 4 0-10 % Basophils (%) (Auto) 0 0-10 % Neutrophils # (Auto) 5.5 1.8-7.8 X 10^3 Lymphocytes # (Auto) 1.8 1.0-4.0 X 10^3 Monocytes # (Auto) 0.8 0.0-1.0 X 10^3 Eosinophils # (Auto) 0.4 H 0.0-0.3 10^3/uL Basophils # (Auto) 0.0 0.0-0.1 10^3/uL Sodium Level 136 135-145 MMOL/L Potassium Level 4.4 3.6-5.0 MMOL/L Chloride Level 106 98-107 MMOL/L Carbon Dioxide Level 20 L 21-32 MMOL/L Anion Gap 10 5-14 MMOL/L Blood Urea Nitrogen 50 H 7-18 MG/DL Creatinine 1.77 H 0.60-1.30 MG/DL Estimat Glomerular Filtration Rate 27 BUN/Creatinine Ratio 28 Glucose Level 77 70-105 MG/DL Calcium Level 8.3 L 8.5-10.1 MG/DL Total Bilirubin 0.4 0.1-1.0 MG/DL Aspartate Amino Transf (AST/SGOT) 12 5-34 U/L Alanine Aminotransferase (ALT/SGPT) < 6 0-55 U/L Alkaline Phosphatase 95 40-136 U/L Total Protein 5.6 L 6.4-8.2 GM/DL Albumin 3.0 L 3.2-4.5 GM/DL Test 5/12/18 05:18 Range/Units Glucometer 82 70-110 MG/DL cultures negative RLE--no calf tenderness. Neg Polo's. Incision benign s/p ORIF R femur progressing well anemia secondary to surgical blood loss--transfuse 2 units PRBC TO [facility] Tuesday CRISTÓBAL SOLIS MD October 29, 2017 08:21
[2017-10-29] MEDS: POLYETHYLENE GLYCOL 17 GM (MIRALAX) PACK PO SCH ×2 (08:42→20:08)
[2017-10-29] MEDS: SENNA W/DOCUSATE (SENOKOT S) TABLET PO SCH ×2 (08:42→20:08)
[2017-10-29] MEDS: LACTULOSE SYRUP 10GM/15ML (ENULOSE) 30ML UDC PO SCH ×2 (08:42→20:08)
[2017-10-29] MEDS: ENOXAPARIN 30 MG/0.3 ML (LOVENOX) SYR SC SCH (08:43)
--- NOTE | 2017-10-29 10:07 | Progress Note-Hospitalist ---
Subjective HPI/CC On Admission Date Seen by Provider: October 29, 2017 Time Seen by Provider: 08:45 CC: Medical management following right femur fracture due to failed hardware HPI: This is an 82-year-old white female clinic patient of Dr. Ferguson who has a past medical history of diabetes mellitus and hypertension who presented to the hospital after an uncomplicated repair of a right femur fracture after failed hardware. Apparently she had had the right hip surgery in the past still had pain for an extended period of time and she was followed up closely and x-ray ultimately revealed fracture and she was in need of revision of the hardware. At this current time she denies any significant pain pain medication is helping her. She is urinating well and using her incentive spirometer. She has not had a bowel movement postoperatively. I reconcile all of her home medication and restart all of them with Accu-Cheks. Subjective/Events-last exam Patient reports hip discomfort a little better today and is had no symptoms to suggest hypoglycemia. She denies chest pain and abdominal pain or shortness of breath but has noticed some diminishment in exercise tolerance during rehabilitation sessions over the past 2 weeks. She has a parent chronic history of anemia without any issues with GI bleeding and has had no melena or bright red blood per rectum. She reports her last transfusion was in February and she's required several over the past several years. She does not know the etiology of her anemia is. Objective Exam Vital Signs Vital Signs Date Time Temp Pulse Resp B/P (MAP) Pulse Ox O2 Delivery O2 Flow Rate FiO2 10/29/17 00:29 97.8 64 17 147/69 (95) 96 Room Air Capillary Refill : Less Than 3 Seconds General Appearance: No Apparent Distress, Chronically ill, Obese Respiratory: Chest Non Tender, Lungs Clear, Normal Breath Sounds, No Accessory Muscle Use, No Respiratory Distress Cardiovascular: Regular Rate, Rhythm, No Edema, No Gallop, No JVD, No Murmur, Normal Peripheral Pulses Gastrointestinal: Normal Bowel Sounds, Non Tender, Soft Extremity: No Pedal Edema, Other (Normal postoperative amount of swelling right thigh for ORIF no bruising noted. Incision bandaged dry no erythema) Neurologic/Psychiatric: Alert, Oriented x3 Skin: Warm/Dry, Pallor Results/Procedures Lab Laboratory Tests 10/29/17 03:45 Patient resulted labs reviewed. Assessment/Plan Assessment and Plan Assess & Plan/Chief Complaint Right hip fracture due to failed hardware POD # 2 doing as well as can be expected considering premorbid medical conditions and age DM 2 insulin requiring we'll start her average pre-meal insulin dose for units and DC sliding scale. Continue before meals at bedtime monitoring. HTN HLP Chronic normocytic anemia suspect myelodysplastic syndrome versus chronic disease hemoglobin down to 7.3 patient to receive 2 units of packed cells today. Clinical Quality Measures DVT/VTE Risk/Contraindication: Risk Factor Score Per Nursin RFS Level Per Nursing on Admit: 4+=Very High INDIO COOPER MD October 29, 2017 10:07
[2017-10-29] MEDS: ATORVASTATIN 10 MG (LIPITOR) TABLET PO SCH (11:35)
[2017-10-29] MEDS: FUROSEMIDE 20 MG (LASIX) TAB PO SCH (11:35)
[2017-10-29] MEDS: amLODIPine 5 MG (NORVASC) TAB PO SCH (11:35)
--- NOTE | 2017-10-29 13:48 | Physical Therapy Daily Note ---
PT Daily Note-Current Subjective Pt up in chair, receiving blood. RN okay with exercises, no attempt to transfer due to IV placement in hand and frequent occlusion with movement. Mental Status Patient Orientation: Person, Place, Time, Situation Transfers Functional [place] Measure 0=Not Assessed/NA 4=Minimal Assistance 1=Total Assistance 5=Supervision or Setup 2=Maximal Assistance 6=Modified [place] 3=Moderate Assistance 7=Complete IndependenceIRFPAI Quality Coding Scale 6 Independent with activity with or without an assistive device 5 Patient requires set up or clean up by helper. Patient completes activity by themselves 4 Supervision or touching assist (CGA). Elsie provide cues , steadying assist 3 The helper provides less than half the effort to complete the activity 2 The helper provides more than half the effort to complete the activity 1 Dependent. The helper does all the effort to complete an activity 7 Patient refused to complete or attempt activity 9 The patient did not perform the activity before the current illness or injury 88 Not attempted due to Medical conditions or safety concerns Weight Bearing Right Lower Extremity: Right Touch Toe Bearing (STRICT balance only) Left Lower Extremity: Left Full Weight Bearing Exercises Supine Ex: Quad Set, Heel Slides Supine Reps: 15 Seated Therapy Exercises: Ankle pumps, Long arc quads (Assist on (R)) Seated Reps: 15 Treatments Exercises in recliner this date due to receiving blood. In chair with needs met post treatment. Assessment Current Status: Fair Progress Pt tolerated fair. Resisted, guarding with (R) LE movement. PT Short Term Goals Short Term Goals Time Frame: November 02, 2017 Transfers (B,C,W/C) (FIM): 3 Gait (FIM): 1 Gait Distance Comment: 20' Gait Level of Assist: 4 Gait Assistive Device: FWW PT Plan Problem List Problem List: Activity Tolerance, Functional Strength, Safety, Balance, Gait, Transfer, Bed Mobility, ROM Treatment/Plan Treatment Plan: Continue Plan of Care Treatment Plan: Bed Mobility, Education, Functional Activity Lalo, Functional Strength, Gait, Safety, Therapeutic Exercise, Transfers Treatment Duration: November 02, 2017 Frequency: At least 5 of 7 days/Wk (IRF) Estimated Hrs Per Day: 1.5 hours per day Patient and/or Family Agrees t: Yes Time/GCodes Time In: 1122 Time Out: 1138 Total Billed Treatment Time: 16 Total Billed Treatment 1, Ex x 16' G Codes Necessary: SENA Pollard DPT October 29, 2017 13:48
[2017-10-29] MEDS: ATENOLOL 50 MG (TENORMIN) TAB PO SCH (20:09)
[2017-10-29] MEDS: inSUlin DETERMIR 1 UNIT/0.01 ML (LEVEMIR) CHARGE PER UNIT SQ SCH (21:23)
[2017-10-30] VITALS: BP 148/68
[2017-10-30] MEDS: LEVOTHYROXINE 88 MCG (LEVOTHORID) TAB PO SCH (06:17)
[2017-10-30] MEDS: inSUlin ASPART (NovoLOG) 1 UNIT/0.01 ML (CHARGE PER UNIT) SC SCH ×3 (06:17→16:11)
[2017-10-30] MEDS: glipiZIDE 5 MG (GLUCOTROL) TAB PO SCH ×2 (06:17→16:10)
[2017-10-30 08:00] VITALS: BP 149/66
[2017-10-30] MEDS: LACTULOSE SYRUP 10GM/15ML (ENULOSE) 30ML UDC PO SCH ×2 (08:27→20:49)
[2017-10-30] MEDS: SENNA W/DOCUSATE (SENOKOT S) TABLET PO SCH ×2 (08:28→08:59)
[2017-10-30] MEDS: POLYETHYLENE GLYCOL 17 GM (MIRALAX) PACK PO SCH ×2 (08:28→20:49)
[2017-10-30] MEDS: ENOXAPARIN 30 MG/0.3 ML (LOVENOX) SYR SC SCH (08:30)
[2017-10-30] MEDS: oxyCODONE/APAP 5/325MG (PERCOCET 5) TABLET PO PRN ×2 (08:57→21:57)
--- NOTE | 2017-10-30 09:41 | Physical Therapy Daily Note ---
PT Daily Note-Current Subjective Pt up in recliner, agreeable to LE ex in recliner only with encouragement. Pt reports "I just can't seem to keep the weight off". Pt repeatedly drifting off to sleep during exercise despite VCS Mental Status Patient Orientation: Person, Place, Time, Situation Transfers Functional [place] Measure 0=Not Assessed/NA 4=Minimal Assistance 1=Total Assistance 5=Supervision or Setup 2=Maximal Assistance 6=Modified [place] 3=Moderate Assistance 7=Complete IndependenceIRFPAI Quality Coding Scale 6 Independent with activity with or without an assistive device 5 Patient requires set up or clean up by helper. Patient completes activity by themselves 4 Supervision or touching assist (CGA). [place] provide cues , steadying assist 3 The helper provides less than half the effort to complete the activity 2 The helper provides more than half the effort to complete the activity 1 Dependent. The helper does all the effort to complete an activity 7 Patient refused to complete or attempt activity 9 The patient did not perform the activity before the current illness or injury 88 Not attempted due to Medical conditions or safety concerns Weight Bearing Right Lower Extremity: Right Touch Toe Bearing (STRICT balance only) Left Lower Extremity: Left Full Weight Bearing Exercises Supine Ex: Ankle pumps, Quad Set, Glut sets, Heel Slides Supine Reps: 20 Treatments LE ex (B). Pt up in recliner, needs met. Assessment Current Status: Fair Progress Pt reluctant to move out of chair due to reporting she is unable to keep weight off the leg with transfers. Re-educated on performing SPT to (L) with nursing to minimize weightbearing; Pt verbalized understanding. PT Short Term Goals Short Term Goals Time Frame: November 02, 2017 Transfers (B,C,W/C) (FIM): 3 Gait (FIM): 1 Gait Distance Comment: 20' Gait Level of Assist: 4 Gait Assistive Device: FWW PT Plan Problem List Problem List: Activity Tolerance, Functional Strength, Safety, Balance, Gait, Transfer, Bed Mobility, ROM Treatment/Plan Treatment Plan: Continue Plan of Care Treatment Plan: Bed Mobility, Education, Functional Activity Lalo, Functional Strength, Gait, Safety, Therapeutic Exercise, Transfers Treatment Duration: November 02, 2017 Frequency: At least 5 of 7 days/Wk (IRF) Estimated Hrs Per Day: 1.5 hours per day Patient and/or Family Agrees t: Yes Discharge Recommendations Therapy D/C Recommendations: Group Home (TCU/NH) Time/GCodes Time In: 843 Time Out: 0854 Total Billed Treatment Time: 10 Total Billed Treatment 1, Ex x 10' G Codes Necessary: SENA Pollard DPT October 30, 2017 09:41
[2017-10-30] MEDS ORDERED: OXYC-197 PO (10:15)
--- NOTE | 2017-10-30 10:16 | Progress Note-Standard ---
Standard Progress Note Progress Notes/Assess & Plan Date Seen by Provider: October 30, 2017 Time Seen by Provider: 10:15 Progress/Assessment & Plan No complaints RLE Vital Signs Date Time Temp Pulse Resp B/P (MAP) Pulse Ox O2 Delivery O2 Flow Rate FiO2 10/27/17 04:15 98.4 60 18 133/61 (85) 95 Room Air 10/27/17 00:00 98.2 66 18 188/76 (113) 95 Room Air 10/26/17 19:31 Room Air 10/26/17 19:20 98.2 58 18 150/68 (95) 100 Room Air 10/26/17 15:15 96.8 58 18 174/70 (104) 97 Room Air 10/26/17 14:40 96.9 60 16 163/72 (102) 95 Room Air I & O 10/27/17 07:00 Intake Total 2100 ml Output Total 250 ml Balance 1850 ml Laboratory Tests Test 10/26/17 09:08 10/26/17 15:54 10/26/17 20:56 10/27/17 07:06 Range/Units Glucometer 99 123 H 142 H 70-110 MG/DL Hemoglobin 8.5 L 11.5-16.0 G/DL Hematocrit 26 L 35-52 % Test 10/27/17 07:19 Range/Units Glucometer 131 H 70-110 MG/DL RLE--dressing intact. Intact DF and PF of toes and ankle. Sensation intact throughout pulses symmetric S/P ORIF R femur strict TTWB IRU eval Final Diagnosis No complaints Vital Signs Date Time Temp Pulse Resp B/P (MAP) Pulse Ox O2 Delivery O2 Flow Rate FiO2 10/30/17 08:00 96.9 53 14 149/66 (93) 96 Room Air 10/30/17 08:00 Room Air 10/30/17 00:00 98.2 60 18 148/68 (94) 94 Room Air 10/29/17 20:05 Room Air 10/29/17 16:30 96.5 64 18 171/75 (107) 97 Room Air 10/29/17 15:41 97.1 60 173/75 10/29/17 13:31 96.9 60 153/71 10/29/17 13:14 96.9 60 148/67 10/29/17 13:03 96.9 60 148/67 10/29/17 10:35 97.0 54 16 132/70 10/29/17 10:22 96.8 53 16 134/62 I & O 10/30/17 07:00 Intake Total 1520 ml Output Total 1400 ml Balance 120 ml Laboratory Tests Test 10/29/17 11:26 10/29/17 16:33 10/29/17 20:52 10/30/17 05:50 Range/Units Glucometer 174 H 147 H 175 H 126 H 70-110 MG/DL RLE incision clean and dry. no calf tenderness. Neg Polo's s/p ORIF R femur DC to [facility] tomorrow CRISTÓBAL SOLIS MD October 30, 2017 10:16
--- NOTE | 2017-10-30 11:59 | Progress Note-Hospitalist ---
Subjective HPI/CC On Admission Date Seen by Provider: October 30, 2017 Time Seen by Provider: 09:00 CC: Medical management following right femur fracture due to failed hardware HPI: This is an 82-year-old white female clinic patient of Dr. Ferguson who has a past medical history of diabetes mellitus and hypertension who presented to the hospital after an uncomplicated repair of a right femur fracture after failed hardware. Apparently she had had the right hip surgery in the past still had pain for an extended period of time and she was followed up closely and x-ray ultimately revealed fracture and she was in need of revision of the hardware. At this current time she denies any significant pain pain medication is helping her. She is urinating well and using her incentive spirometer. She has not had a bowel movement postoperatively. I reconcile all of her home medication and restart all of them with Accu-Cheks. Subjective/Events-last exam Patient was sleeping comfortably upon arrival around 9 o'clock. She just finished breakfast denied nausea with improving appetite. She denies chest pain or shortness of breath was slightly less right lower extremity pain today. Objective Exam Vital Signs Vital Signs Date Time Temp Pulse Resp B/P (MAP) Pulse Ox O2 Delivery O2 Flow Rate FiO2 10/30/17 08:00 96.9 53 14 149/66 (93) 96 Room Air Capillary Refill : Less Than 3 Seconds General Appearance: No Apparent Distress, Obese Respiratory: Chest Non Tender, Lungs Clear, Normal Breath Sounds, No Accessory Muscle Use, No Respiratory Distress Cardiovascular: Regular Rate, Rhythm, No Edema, No Gallop, No JVD, Normal Peripheral Pulses, Other (1 to 2/6 systolic ejection murmur heard best at second intercostal space and left lower sternal border. There is a little blunting of S2 with questionable soft diastolic murmur of aortic insufficiency.) Extremity: Other (Mild right thigh pain without ecchymosis bandages dry unchanged from yesterday. No pedal edema is noted) Neurologic/Psychiatric: Alert, Oriented x3 Results/Procedures Lab Patient resulted labs reviewed. Assessment/Plan Assessment and Plan Assess & Plan/Chief Complaint Right hip fracture due to failed hardware POD # 3 doing as well as can be expected considering premorbid medical conditions and age DM 2 insulin doing well on yesterday's initiated basal bolus therapy will continue. No hypoglycemic symptoms or levels noted. Continue before meals at bedtime monitoring. HTN HLP Chronic normocytic anemia suspect myelodysplastic syndrome versus chronic disease patient received 2 units of packed cells hasn't yet had postprocedural CBC will obtain. Iron levels pending. If her further workup to primary care provider as the patient is not sure what type of workup she's had in the past for her chronic anemia. Clinical Quality Measures DVT/VTE Risk/Contraindication: Risk Factor Score Per Nursin RFS Level Per Nursing on Admit: 4+=Very High INDIO COOPER MD October 30, 2017 11:59
[2017-10-30] MEDS: amLODIPine 5 MG (NORVASC) TAB PO SCH (12:12)
[2017-10-30] MEDS: FUROSEMIDE 20 MG (LASIX) TAB PO SCH (12:12)
[2017-10-30] MEDS: ATORVASTATIN 10 MG (LIPITOR) TABLET PO SCH (12:12)
[2017-10-30 12:20] LABS: BASOPHILS % (AUTO) 0 % (0-10); EOSINOPHILS # (AUTO) 0.5 10^3/uL (0.0-0.3); EOSINOPHILS % (AUTO) 5 % (0-10); HEMATOCRIT 33 % (35-52); HEMOGLOBIN 10.9 G/DL (11.5-16.0); LYMPHOCYTES # (AUTO) 1.5 X 10^3 (1.0-4.0); LYMPHOCYTES % (AUTO) 16 % (12-44); MEAN CORPUSCULAR HEMOGLOBIN 30 PG (25-34); MEAN CORPUSCULAR HGB CONC 33 G/DL (32-36); MEAN CORPUSCULAR VOLUME 91 FL (80-99); MEAN PLATELET VOLUME 10.3 FL (7.4-10.4); MONOCYTES # (AUTO) 0.7 X 10^3 (0.0-1.0); MONOCYTES % (AUTO) 7 % (0-12); NEUTROPHILS # (AUTO) 6.7 X 10^3 (1.8-7.8); NEUTROPHILS % (AUTO) 71 % (42-75); PLATELET COUNT 288 10^3/uL (130-400); RED BLOOD COUNT 3.62 10^6/uL (4.35-5.85); RED CELL DISTRIBUTION WIDTH 14.7 % (10.0-14.5); WHITE BLOOD COUNT 9.4 10^3/uL (4.3-11.0)
[2017-10-30 15:41] VITALS: BP 144/65
--- NOTE | 2017-10-30 17:48 | DISCHARGE SUMMARY ---
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 2. Diabetes mellitus. 3. Hypothyroidism. 4. . 5. Hypertension. 6. Postoperative anemia secondary to surgical blood loss. PROCEDURES: 1. Right femur hardware removal with revision internal fixation and bone grafting. 2. Transfusion 2 units packed red blood cells. HOSPITAL COURSE: The patient is an 82-year-old female who underwent revision internal fixation with hardware removal and allograft bone graft on the day of admission. Postoperatively, her hematocrit dropped to 23 and she was given two units of packed red blood cells. Otherwise, her postoperative course was uncomplicated. At the time of discharge, she was tolerating her diet well and tolerating pain with oral pain medication. CONDITION ON DISCHARGE: Good. DISCHARGE DIET: Diabetic. FOLLOWUP: Is in two weeks. ACTIVITY: Strict toe touch weightbearing right lower extremity with knee range of motion and hip range of motion exercises. Job ID: [id number] DocumentID: [id number] Dictated Date: 10/30/2017 10:13:40 Histologist Technologist Date: 10/30/2017 17:47:28 Dictated By: CRISTÓBAL SOLIS MD
[2017-10-30 20:12] VITALS: BP 149/66
[2017-10-30] MEDS: ATENOLOL 50 MG (TENORMIN) TAB PO SCH (20:48)
[2017-10-30] MEDS: inSUlin DETERMIR 1 UNIT/0.01 ML (LEVEMIR) CHARGE PER UNIT SQ SCH (20:49)
[2017-10-31 00:10] VITALS: BP 136/75
[2017-10-31] MEDS: LEVOTHYROXINE 88 MCG (LEVOTHORID) TAB PO SCH (06:13)
[2017-10-31] MEDS: glipiZIDE 5 MG (GLUCOTROL) TAB PO SCH (06:13)
[2017-10-31] MEDS: inSUlin ASPART (NovoLOG) 1 UNIT/0.01 ML (CHARGE PER UNIT) SC SCH ×2 (06:16→12:04)
--- NOTE | 2017-10-31 07:59 | Progress Note-Standard ---
Standard Progress Note Progress Notes/Assess & Plan Date Seen by Provider: October 31, 2017 Time Seen by Provider: 07:58 Progress/Assessment & Plan No complaints RLE Vital Signs Date Time Temp Pulse Resp B/P (MAP) Pulse Ox O2 Delivery O2 Flow Rate FiO2 10/27/17 04:15 98.4 60 18 133/61 (85) 95 Room Air 10/27/17 00:00 98.2 66 18 188/76 (113) 95 Room Air 10/26/17 19:31 Room Air 10/26/17 19:20 98.2 58 18 150/68 (95) 100 Room Air 10/26/17 15:15 96.8 58 18 174/70 (104) 97 Room Air 10/26/17 14:40 96.9 60 16 163/72 (102) 95 Room Air I & O 10/27/17 07:00 Intake Total 2100 ml Output Total 250 ml Balance 1850 ml Laboratory Tests Test 10/26/17 09:08 10/26/17 15:54 10/26/17 20:56 10/27/17 07:06 Range/Units Glucometer 99 123 H 142 H 70-110 MG/DL Hemoglobin 8.5 L 11.5-16.0 G/DL Hematocrit 26 L 35-52 % Test 10/27/17 07:19 Range/Units Glucometer 131 H 70-110 MG/DL RLE--dressing intact. Intact DF and PF of toes and ankle. Sensation intact throughout pulses symmetric S/P ORIF R femur strict TTWB IRU eval Final Diagnosis No complaints Vital Signs Date Time Temp Pulse Resp B/P (MAP) Pulse Ox O2 Delivery O2 Flow Rate FiO2 10/31/17 00:10 97.8 57 17 136/75 (95) 96 Room Air 10/30/17 20:12 98.1 58 16 149/66 (93) 96 Room Air 10/30/17 15:41 98.2 54 16 144/65 (91) 96 Room Air 10/30/17 08:00 96.9 53 14 149/66 (93) 96 Room Air 10/30/17 08:00 Room Air I & O 10/31/17 07:00 Intake Total 1470 ml Output Total 1450 ml Balance 20 ml Laboratory Tests Test 10/30/17 11:31 10/30/17 12:10 10/30/17 15:44 10/30/17 20:15 Range/Units Glucometer 134 H 196 H 126 H 70-110 MG/DL White Blood Count 9.4 4.3-11.0 10^3/uL Red Blood Count 3.62 L 4.35-5.85 10^6/uL Hemoglobin 10.9 #L 11.5-16.0 G/DL Hematocrit 33 L 35-52 % Mean Corpuscular Volume 91 80-99 FL Mean Corpuscular Hemoglobin 30 25-34 PG Mean Corpuscular Hemoglobin Concent 33 32-36 G/DL Red Cell Distribution Width 14.7 H 10.0-14.5 % Platelet Count 288 130-400 10^3/uL Mean Platelet Volume 10.3 7.4-10.4 FL Neutrophils (%) (Auto) 71 42-75 % Lymphocytes (%) (Auto) 16 12-44 % Monocytes (%) (Auto) 7 0-12 % Eosinophils (%) (Auto) 5 0-10 % Basophils (%) (Auto) 0 0-10 % Neutrophils # (Auto) 6.7 1.8-7.8 X 10^3 Lymphocytes # (Auto) 1.5 1.0-4.0 X 10^3 Monocytes # (Auto) 0.7 0.0-1.0 X 10^3 Eosinophils # (Auto) 0.5 H 0.0-0.3 10^3/uL Basophils # (Auto) 0.0 0.0-0.1 10^3/uL Test 10/31/17 05:29 Range/Units Glucometer 110 70-110 MG/DL RLE--no calf tenderness. Neg Polo's Neg SLR s/p ORIF R femur dc to [facility] FU 2 weeks TTWB RLE CRISTÓBAL SOLIS MD October 31, 2017 07:59
[2017-10-31 08:00] VITALS: BP 148/63
[2017-10-31] MEDS: oxyCODONE/APAP 5/325MG (PERCOCET 5) TABLET PO PRN (09:49)
[2017-10-31] MEDS: SENNA W/DOCUSATE (SENOKOT S) TABLET PO SCH (09:49)
[2017-10-31] MEDS: LACTULOSE SYRUP 10GM/15ML (ENULOSE) 30ML UDC PO SCH (09:50)
[2017-10-31] MEDS: ENOXAPARIN 30 MG/0.3 ML (LOVENOX) SYR SC SCH (09:50)
[2017-10-31] MEDS: POLYETHYLENE GLYCOL 17 GM (MIRALAX) PACK PO SCH (09:50)
--- NOTE | 2017-10-31 10:08 | Physical Therapy Daily Note ---
PT Daily Note-Current Subjective Patient c/o /10 right LE pain with exercise. Pain Numeric Pain Scale: 7 Location: Right Location Body Site: Thigh Pain Description: Acute Mental Status Patient Orientation: Normal For Age Transfers Functional [place] Measure 0=Not Assessed/NA 4=Minimal Assistance 1=Total Assistance 5=Supervision or Setup 2=Maximal Assistance 6=Modified [place] 3=Moderate Assistance 7=Complete IndependenceIRFPAI Quality Coding Scale 6 Independent with activity with or without an assistive device 5 Patient requires set up or clean up by helper. Patient completes activity by themselves 4 Supervision or touching assist (CGA). [place] provide cues , steadying assist 3 The helper provides less than half the effort to complete the activity 2 The helper provides more than half the effort to complete the activity 1 Dependent. The helper does all the effort to complete an activity 7 Patient refused to complete or attempt activity 9 The patient did not perform the activity before the current illness or injury 88 Not attempted due to Medical conditions or safety concerns Weight Bearing Right Lower Extremity: Right Touch Toe Bearing (STRICT balance only) Left Lower Extremity: Left Full Weight Bearing Exercises Supine Ex: Ankle pumps, Quad Set, Heel Slides Supine Reps: 10 (3 sets AAROM right LE) Seated Therapy Exercises: Ankle pumps, Long arc quads Seated Reps: 15 (3 sets AAROM right LE) Assessment Patient declined sit to stand transfer training, however, completed bilateral LE exercises. Patient to dismiss to MI on this date for continued therapies. PT Short Term Goals Short Term Goals Time Frame: November 02, 2017 Transfers (B,C,W/C) (FIM): 3 Gait (FIM): 1 Gait Distance Comment: 20' Gait Level of Assist: 4 Gait Assistive Device: FWW PT Plan Treatment/Plan Treatment Plan: Continue Plan of Care Treatment Plan: Bed Mobility, Education, Functional Activity [place], Functional Strength, Gait, Safety, Therapeutic Exercise, Transfers Treatment Duration: November 02, 2017 Frequency: At least 5 of 7 days/Wk (IRF) Estimated Hrs Per Day: 1.5 hours per day Patient and/or Family Agrees t: Yes Time/GCodes Time In: 914 Time Out: 937 Total Billed Treatment Time: 23 Total Billed Treatment 1 visit EX x 2 23 min AGUSTÍN PHILLIPS PT October 31, 2017 10:08
--- NOTE | 2017-10-31 10:36 | Progress Note-Hospitalist ---
Subjective HPI/CC On Admission Date Seen by Provider: October 31, 2017 Time Seen by Provider: 10:35 CC: Medical management following right femur fracture due to failed hardware HPI: This is an 82-year-old white female clinic patient of Dr. Raymond who has a past medical history of diabetes mellitus and hypertension who presented to the hospital after an uncomplicated repair of a right femur fracture after failed hardware. Apparently she had had the right hip surgery in the past still had pain for an extended period of time and she was followed up closely and x-ray ultimately revealed fracture and she was in need of revision of the hardware. At this current time she denies any significant pain pain medication is helping her. She is urinating well and using her incentive spirometer. She has not had a bowel movement postoperatively. I reconcile all of her home medication and restart all of them with Accu-Cheks. Subjective/Events-last exam Having some hip pain. Just worked with PT and rates it a 6/7. She is ready to DC back to [facility]. No other complaints or concerns. Objective Exam Vital Signs Vital Signs Date Time Temp Pulse Resp B/P (MAP) Pulse Ox O2 Delivery O2 Flow Rate FiO2 10/31/17 11:18 55 18 148/63 98 Room Air 10/31/17 08:00 98.1 Capillary Refill : Less Than 3 Seconds General Appearance: No Apparent Distress, WD/WN Respiratory: Lungs Clear, No Respiratory Distress Cardiovascular: Regular Rate, Rhythm, No Murmur Gastrointestinal: Normal Bowel Sounds, Non Tender, Soft Extremity: No Calf Tenderness, No Pedal Edema Neurologic/Psychiatric: Alert, Oriented x3, Normal Mood/Affect Results/Procedures Lab Patient resulted labs reviewed. Assessment/Plan Assessment and Plan Assess & Plan/Chief Complaint Right hip fracture due to failed hardware POD # 4 doing well IDDM 2 doing well on yesterday's initiated basal bolus therapy will continue. No hypoglycemic symptoms or levels noted. FSBS ACHS HTN for age HLP Chronic normocytic anemia- improved s/p 2 units pRBCs Clinical Quality Measures DVT/VTE Risk/Contraindication: Risk Factor Score Per Nursin RFS Level Per Nursing on Admit: 4+=Very High Copy Copies To 1: FELIX RAYMOND MD, KATELYN M MD October 31, 2017 10:36 am
[2017-10-31 11:18] VITALS: BP 148/63
[2017-10-31] MEDS: ATORVASTATIN 10 MG (LIPITOR) TABLET PO SCH (12:04)
[2017-10-31] MEDS: amLODIPine 5 MG (NORVASC) TAB PO SCH (12:04)
[2017-10-31] MEDS: FUROSEMIDE 20 MG (LASIX) TAB PO SCH (12:04)
--- NOTE | 2017-10-31 13:55 | Discharge Inst-Skilled Nursing ---
Discharge Inst-Skilled NF Consult/Follow Up/Orders Skilled NF Admit to: [facility] Certification (SNF) I certify that SNF services are required to be given on an inpatient basis because of the above named patient's need for prison care on a continuing basis for the conditions(s) for which he/she was receiving inpatient hospital services prior to his/her transfer to the SNF. New & Resume Previous Orders Fareed Boswell October 31, 2017 13:49 FAREED BOSWELL October 31, 2017 13:54
== END 2017-10-31 13:30 | DRG 940 ==
LOC: 4TH 08:45 → SURG 08:46 → 4TH 14:40
PROVIDERS: ADMIT Orthopaedic Surgery; ATTEND Orthopaedic Surgery
PROC: 0QU807Z Supplement Right Femoral Shaft with Autologous Tissue Substitute, Open Approach (ICD-10-PCS; 2017-10-26)
PROC: 0QP804Z Removal of Internal Fixation Device from Right Femoral Shaft, Open Approach (ICD-10-PCS; 2017-10-26)
PROC: 0QH804Z Insertion of Internal Fixation Device into Right Femoral Shaft, Open Approach (ICD-10-PCS; principal; 2017-10-26 10:50)
DX: T84.19 Other mechanical complication of internal fixation device of bones of limb (principal); S72.301K Unspecified fracture of shaft of right femur, subsequent encounter for closed fracture with nonunion; I12.9 Hypertensive chronic kidney disease with stage 1 through stage 4 chronic kidney disease, or unspecified chronic kidney disease; D62 Acute posthemorrhagic anemia; E11.9 Type 2 diabetes mellitus without complications; E03.9 Hypothyroidism, unspecified; E78.5 Hyperlipidemia, unspecified; E66.9 Obesity, unspecified; Z68.38 Body mass index [BMI] 38.0-38.9, adult; I25.10 Atherosclerotic heart disease of native coronary artery without angina pectoris; Z95.5 Presence of coronary angioplasty implant and graft; H35.30 Unspecified macular degeneration; N18.9 Chronic kidney disease, unspecified; K59.03 Drug induced constipation; Z79.4 Long term (current) use of insulin
CPT/HCPCS: 36415; 80053; 82962; 83540; 85014; 85018; 85025; 86850; 86900; 86901; 86920; 87070; 87075; 87205; 94664

== ENCOUNTER 2018-03-16 09:54 | Outpatient (RCR) | payer MEDICARE ==
[~2018-03-16 09:54] MED LIST changes: -AMLO10TA2 PO; +AMLO10TA6 PO; -AMLO2.5T PO; +AMLO2.5T3 PO; +AMLO5TAB7 PO; +METF-397 PO; -METF500T5 PO; +OXYC1TAB87 PO; -ROSU5TAB11 PO; +ROSU5TAB12 PO
== END 2018-03-20 13:23 | disposition home or self-care (01) ==
PROVIDERS: ATTEND Orthopaedic Surgery
DX: S72.354 Nondisplaced comminuted fracture of shaft of right femur (principal); E11.9 Type 2 diabetes mellitus without complications; Z79.4 Long term (current) use of insulin; I51.9 Heart disease, unspecified; Z95.5 Presence of coronary angioplasty implant and graft

== ENCOUNTER → 2018-03-31 | Outpatient (CLI) | payer MEDICARE ==
[~2018-03-31] MED LIST changes: +ACET-168 PO; +ATEN25TA PO; +LEVO100T7 PO
== END ==
LOC: CARD 09:40
PROVIDERS: ATTEND Internal Medicine Cardiovascular Disease
DX: I25.10 Atherosclerotic heart disease of native coronary artery without angina pectoris (principal); I10 Essential (primary) hypertension; E78.5 Hyperlipidemia, unspecified; E11.9 Type 2 diabetes mellitus without complications; I08.1 Rheumatic disorders of both mitral and tricuspid valves
CPT/HCPCS: 93306

== ENCOUNTER → 2018-04-03 | Outpatient (CLI) | payer MEDICARE ==
[~2018-04-03] VITALS: Ht 167.6 cm; Wt 104.3 kg
[~2018-04-03] MED LIST changes: +REGADENOSON 0.4 MG/5 ML SYR (LEXISCAN) IV ONE
[2018-04-03] MEDS: CATHETER FLUSH 10 ML SYR IV PRN ×2 (08:09→09:13)
[2018-04-03 09:12] VITALS: BP 197/81
--- NOTE | 2018-04-03 15:01 | STRESS TEST ---
DATE OF SERVICE: 04/03/2018 LEXISCAN MYOVIEW STRESS TEST REPORT Baseline heart rate is 59, baseline blood pressure 197/80. Baseline EKG is sinus rhythm with no ischemic changes. In summary, the patient was injected with 10.35 mCi of technetium-99 Myoview and the resting images were obtained. Then, the patient received 0.4 mg of Lexiscan followed by 29.7 mCi of technetium-99 Myoview. Throughout the test, there were no EKG changes. The resting and stress images were reviewed and compared in the short axis, horizontal long axis, and vertical long axis views. Review of the images showed breast attenuation with reversible ischemia involving the whole inferior wall, inferolateral wall and basal to mid anterior wall. SSS is 12. SDS is 8. TID value 1.07. On the gated images, the left ventricle appeared to be normal size with normal contractility. Calculated ejection fraction 73%. CONCLUSION: 1. The patient tolerated Lexiscan well. 2. Reversible ischemia involving the whole inferior wall and inferolateral wall. 3. Mild ischemia involving the basal to mid anterior wall. 4. Normal left ventricular size with normal contractility. Calculated ejection fraction 73%. Job ID: [id number] DocumentID: [id number] Dictated Date: 04/03/2018 11:55:55 Freelance Makeup Artist Date: 04/03/2018 15:01:41 Dictated By: CRISS BANUELOS MD
== END ==
LOC: CARD 07:48
PROVIDERS: ATTEND Internal Medicine Cardiovascular Disease
DX: I25.10 Atherosclerotic heart disease of native coronary artery without angina pectoris (principal); I10 Essential (primary) hypertension; E78.5 Hyperlipidemia, unspecified; E11.9 Type 2 diabetes mellitus without complications
CPT/HCPCS: 78452; 93017

== ENCOUNTER 2018-04-11 13:25 | Outpatient (RCR) | payer MEDICARE ==
[~2018-04-11 13:25] MED LIST changes: -ACET-168 PO; -ATEN25TA PO; -LEVO100T7 PO; -REGADENOSON 0.4 MG/5 ML SYR (LEXISCAN) IV ONE
[2018-04-12] MEDS ORDERED: GLIP5TAB13 PO (09:00)
[2018-04-12] MEDS ORDERED: LEVO100T7 PO (09:01)
[2018-04-12] MEDS ORDERED: AMLO5TAB7 PO (09:02)
[2018-04-12] MEDS ORDERED: ATEN25TA PO (09:02)
[2018-04-12] MEDS ORDERED: ACET-168 PO (09:03)
== END 2018-06-19 15:26 | disposition home or self-care (01) ==
PROVIDERS: ATTEND Orthopaedic Surgery
DX: S72.354 Nondisplaced comminuted fracture of shaft of right femur (principal); E11.9 Type 2 diabetes mellitus without complications; Z79.4 Long term (current) use of insulin; I51.9 Heart disease, unspecified; Z95.5 Presence of coronary angioplasty implant and graft

== ENCOUNTER 2018-04-12 07:55 | Day surgery (SDC) | payer MEDICARE ==
[2018-04-12] VITALS (10 sets, daily range): BP systolic 175–193; BP diastolic 79–88
[~2018-04-12] VITALS: Ht 165.1 cm; Wt 103.4 kg
[2018-04-12] MEDS ORDERED: NS IV 1000 ML 1,000 ML ONE (08:09)
[2018-04-12] MEDS ORDERED: LIDOCAINE 1% INJ 20 ML 20 ML VIAL ONE (08:09)
[2018-04-12] MEDS ORDERED: HEParin (CATH LAB) 2,000 ML IV ONE (08:09)
[2018-04-12] MEDS ORDERED: NS IV 1000 ML 1,000 ML IV SCH ×2 (08:15→10:37)
[2018-04-12] MEDS ORDERED: methylPREDNISolone 125 MG (Solu-MEDROL) VIAL ONE (08:36)
--- NOTE | 2018-04-12 08:44 | Diagnostic Imaging Report ---
INDICATION: Preop for heart catheterization. Patient's coronary artery disease and hypertension. Time of exam 8:28 AM Correlation is made with prior study from 03/08/2017. The heart size is stable. Lungs appear clear. No infiltrates are seen. No effusion or pneumothorax is identified. IMPRESSION: No acute cardiopulmonary process is detected. Dictated by: Dictated on workstation # [id number]
[2018-04-12 08:47] LABS: BILIRUBIN,URINE NEGATIVE (NEGATIVE); CLARITY,URINE CLEAR; COLOR,URINE YELLOW; GLUCOSE, URINE (UA) 1+ (NEGATIVE); KETONES,URINE NEGATIVE (NEGATIVE); LEUKOCYTE ESTERASE ,URINE 1+ (NEGATIVE); NITRITE,URINE NEGATIVE (NEGATIVE); PH,URINE 5 (5-9); PROTEIN,URINE 4+ (NEGATIVE); UROBILINOGEN,URINE NORMAL (NORMAL)
[2018-04-12 08:55] LABS: BACTERIA,URINE FEW /HPF; GRANULAR CASTS,URINE 0-2 /LPF; RBC,URINE RARE /HPF
[2018-04-12 08:55] LABS: HEMOGLOBIN 10.9 G/DL (11.5-16.0); MEAN PLATELET VOLUME 10.2 FL (7.4-10.4); RED BLOOD COUNT 3.71 10^6/uL (4.35-5.85); RED CELL DISTRIBUTION WIDTH 14.3 % (10.0-14.5); WHITE BLOOD COUNT 6.7 10^3/uL (4.3-11.0)
[2018-04-12] MEDS ORDERED: GLIP5TAB13 PO (09:00)
[2018-04-12] MEDS ORDERED: LEVO100T7 PO (09:01)
[2018-04-12] MEDS ORDERED: AMLO5TAB7 PO (09:02)
[2018-04-12] MEDS ORDERED: ATEN25TA PO (09:02)
[2018-04-12] MEDS ORDERED: ACET-168 PO (09:03)
[2018-04-12 09:08] LABS: PROTHROMBIN TIME PATIENT 13.6 SEC (12.2-14.7)
[2018-04-12 09:14] LABS: ALBUMIN 4.1 GM/DL (3.2-4.5); BILIRUBIN,TOTAL 0.5 MG/DL (0.1-1.0); CALCIUM 9.4 MG/DL (8.5-10.1); CREATININE SERUM 1.74 MG/DL (0.60-1.30); POTASSIUM 4.5 MMOL/L (3.6-5.0); TOTAL PROTEIN 7.5 GM/DL (6.4-8.2)
[2018-04-12] MEDS ORDERED: fentaNYL INJECTION 100 MCG/2 ML AMP ONE (09:43)
[2018-04-12] MEDS ORDERED: HEParin 1000 UNIT/ML (10ML VIAL) FOR BOLUS ONE (09:43)
[2018-04-12] MEDS ORDERED: diphenhydrAMINE 50 MG/ML INJ (BENADRYL) ONE (09:43)
[2018-04-12] MEDS ORDERED: MIDAZOLAM 5 MG/5 ML (VERSED) VIAL ONE (09:43)
--- NOTE | 2018-04-12 09:43 | Cardiac Procedure Note-CS/ASA ---
Pre-Procedure Note Pre-Op Procedure Note H&P Reviewed The H&P was reviewed, patient examined and no changes noted. Date H&P Reviewed: Apr 12, 2018 Time H&P Reviewed: 09:43 Conscious Sedation Pre-Proced Time 09:43 ASA Score 3 For ASA 3 and 4: Consider anesthesia and medical clearance. Also, for patients with a history of failed moderate sedation consider anesthesia. Airway Lungs Heart ASA score ASA 1: a normal healthy patient ASA 2: a patient with a mild systemic disease (mid diabetes, controlled hypertension, obesity x ASA 3: a patient with a severe systemic disease that limits activity (angina , COPD, prior Myocardial infarction) ASA 4: a patient with an incapacitating disease that is a constant threat to life (CHF, renal failure) ASA 5: a moribund patient not expected to survive 24 hrs. (ruptured aneurysm) ASA 6: a declared brain patient whose organs are being harvested. For emergent operations, add the letter E after the classification Mallampati Classification Grade 3 Sedation Plan Analgesia, Amnesia, Plan communicated to team members, Discussed options with patient/fam, Discussed risks with patient/fam The patient is an appropriate candidate to undergo the planned procedure, sedation, and anesthesia. The patient immediately re-assessed prior to indication. CRISS BANUELOS MD Apr 12, 2018 09:43
--- NOTE | 2018-04-12 10:39 | Discharge Inst-Post CATH ---
Discharge Inst-CATH Post Cardiac Cath D/C Inst Follow Up/Plan Appointment with Dr. Bojorquez's office in 2-4 weeks CARDIAC CATH DISCHARGE INSTRUCTIONS *Hold Metformin for 48 hours post heart cath. ACTIVITY * Go Home directly and rest. * Limit activity of the leg (or wrist if it was used) for 7 days including aerobics, swimming, jogging, bicycling, etc. * Restrict stair-climbing for 7 days if possible, if not, climb up with your non -cath leg, then bring together on the same step. * Avoid lifting, pushing, pulling or excessive movement of the affected extremity for 7 days. * Customary sexual activity may be resumed after 2 days-use caution not to use a position that strains or causes pain to the affected extremity. * No driving for 24 hours. * NO SMOKING. * Avoid straining for bowel movements for 7 days. * Gentle walking on level ground is allowed. * Returning to work will depend on the type of procedure and the results. Your doctor will discuss this with you. CALL YOUR DOCTOR FOR ANY OF THE FOLLOWING: *If bleeding from the puncture site occurs- Apply gentle pressure to site with clean cloth and call your doctor or EMS. * If a knot or lump forms under the skin, increases in size, or causes pain. * If bruising appears to be worsening or moving further down your leg instead of disappearing. * Temperature above 101 F. CARE OF YOUR GROIN INCISION; * Bruising or purple discoloration of the skin near the puncture site is common. * You may shower only, no bathtub bathing for 5 days. Be careful to avoid slipping as your leg may feel stiff. * If a closure device was used on your femoral artery, please see the attached guide regarding care of the device and your leg. * Leave the dressing on, until removed by office staff. CARE OF YOUR WRIST INCISION; * Bruising or purple discoloration of the skin near the puncture site is common. * You may shower. * DO NOT submerge wrist. * Leave dressing on, until removed by office staff.. CRISS BOJORQUEZ MD Apr 12, 2018 10:39
--- NOTE | 2018-04-12 10:42 | Cardiac Cath Report ---
Cardiac Cath Report Physician (s)/Second Cutter (s) Physician CRISS BANUELOS MD Pre-Procedure Diagnosis Pre-Procedure Diagnosis: Coronary artery disease Post-Procedure Note Procedure Start Date: Apr 12, 2018 Name of Procedure: Left heart catheterization Findings/Procedure Note PROCEDURE NOTE: 83 years old lady known to have coronary artery disease and stent to the LAD, had an abnormal stress test, she has severe allergic to IV contrast, she was started on prednisone yesterday with 20 mg orally and given Solu-Medrol today one hour before the heart catheterization and received Benadryl on the catheter lab table and I will give her another oral dose of Benadryl after the procedure. After explaining the procedure to the patient, all pros and cons were explained , all questions were answered. The patient signed the consent and then she was placed on the cardiac catheterization laboratory. Groin was prepped SL fashion local anesthesia was used. Sheath placed in the right femoral artery. Kimo right and left catheter were used to access the coronary system. Kimo right was used to cross the aortic valve, pressure was measured no left ventriculogram was done At the end of the procedure the sheath was removed. Closure device was used FINDINGS: Hemodynamics LV 152/10, end-diastolic pressure of 10 Aorta 150/61 mean of 91 ANATOMY: Left Main is free of obstructive disease Left Anterior Descending has patent stent in the mid LAD with 40-50 percent stenosis nonobstructive disease Left Circumflex has mild disease nonobstructive disease Right Coronory Artery is dominant artery with mild disease nonobstructive disease CONCLUSION: 1. Patent stent in the mid LAD with 40-50 percent in-stent restenosis, mild disease in the distal LAD nonobstructive disease 2. Mild disease in the circumflex and right coronary artery nonobstructive disease 3. Normal left ventricular end-diastolic pressure DISCUSSION AND RECOMMENDATION: Medical therapy is recommended no intervention is needed Anesthesia Type: Conscious Sedation Estimated blood loss (mL): 10 ml Contrast Amount: 15 ml Total Radiation Dose: 319 mGy Post-Procedure Diagnosis Post-operative diagnosis: Coronary artery disease Hypertension Hyperlipidemia Diabetes mellitus CRISS BANUELOS MD Apr 12, 2018 10:42
[2018-04-12] MEDS ORDERED: PATIENT MAY USE OWN MEDS, ALL PO SCH (10:45)
[2018-04-12] MEDS ORDERED: diphenhydrAMINE 25 MG TAB (BENADRYL) PO ONE (12:45)
== END 2018-04-12 15:10 | disposition home or self-care (01) ==
LOC: CATH 07:55 → SDC 10:53 → CATH 15:10
PROVIDERS: ATTEND Internal Medicine Cardiovascular Disease
DX: I25.10 Atherosclerotic heart disease of native coronary artery without angina pectoris (principal); I10 Essential (primary) hypertension; E78.5 Hyperlipidemia, unspecified; E11.9 Type 2 diabetes mellitus without complications; I65.23 Occlusion and stenosis of bilateral carotid arteries; E66.9 Obesity, unspecified; Z79.899 Other long term (current) drug therapy; Z79.4 Long term (current) use of insulin; Z86.73 Personal history of transient ischemic attack (TIA), and cerebral infarction without residual deficits; G47.33 Obstructive sleep apnea (adult) (pediatric); E03.9 Hypothyroidism, unspecified; Z91.041 Radiographic dye allergy status; Z68.37 Body mass index [BMI] 37.0-37.9, adult
CPT/HCPCS: 36415; 36430; 71045; 80053; 80061; 81000; 85027; 85610; 85730; 87081; 87088; 93458

== ENCOUNTER 2018-04-12 22:38 | Emergency (ER) | payer MEDICARE ==
[~2018-04-12] VITALS: Ht 165.1 cm; Wt 103.4 kg
[~2018-04-12 22:38] MED LIST changes: +ACET-168 PO; +ATEN25TA PO; +LEVO100T7 PO
[2018-04-12 23:22] VITALS: BP 151/70
--- OUTSIDE RECORDS SUMMARY | 2018-04-13 | XMS REPORT ---
Author Author DORIS CLAYTON Organization [facility] Address [address] [place] [address] Care Team Providers Care Benefits Advisor Name Role Phone FORRESTUSAMAA Unavailable PROBLEMS Unknown Problems ALLERGIES No Information ENCOUNTERS Encounter Location Date Diagnosis [facility] [id number] [place] [address] [id number] Apr, [facility] [address] [id number] Feb, Dental examination Z01.20 [facility] [id number] [place] [address] [id number] Apr, Dental caries K02.9 [facility] [id number] [place] [address] [id number] Apr, Encounter for dental examination Z01.20 [facility] [id number] [place] [address] [id number] Apr, Dental examination Z01.20 [facility] [id number] [place] [address] [id number] Aug, Encounter for dental examination Z01.20 [facility] [id number] [place] [address] [id number] Jul, Dental examination Z01.20 [facility] [id number] [place] [address] [phone] Mar, IMMUNIZATIONS No Known Immunizations SOCIAL HISTORY Never Assessed REASON FOR VISIT EST CARE PLAN OF CARE VITAL SIGNS MEDICATIONS Unknown Medications RESULTS No Results PROCEDURES Procedure Date Ordered Result Body Site Billing Notes on claim Feb 22, 2018 INSTRUCTIONS MEDICATIONS ADMINISTERED No Known Medications MEDICAL (GENERAL) HISTORY Type Description Date Medical History Diabetes Medical History Stent placed November 2014 Medical History high blood pressure Medical History heart disease Medical History thyroid problems Medical History Surgery requiring rods, pins or screws Medical History blood thinners Medical History blood transfusions Surgical History Stent placed November 2014 Surgical History Fractured femur Feb 2017 Surgical History lazer treatments to both eyes 2004 Hospitalization History Fractured femur 2016
--- OUTSIDE RECORDS SUMMARY | 2018-04-13 00:01 | XMS REPORT ---
Author Author JAVI DEVINE Organization [facility] Address [address] [place] [address] Care Team Providers Care Surveillance Specialist Name Role Phone JAVI DEVINE Unavailable PROBLEMS Unknown Problems ALLERGIES No Information ENCOUNTERS Encounter Location Date Diagnosis [facility] [id number] [place] [address] [id number] Apr, Dental caries K02.9 [facility] [id number] [place] [address] [id number] Apr, Encounter for dental examination Z01.20 [facility] [id number] [place] [address] [id number] Apr, Dental examination Z01.20 [facility] [id number] [place] [address] [id number] Aug, Encounter for dental examination Z01.20 [facility] [id number] [place] [address] [id number] Jul, Dental examination Z01.20 [facility] [address] [place] [address] [phone] Mar, IMMUNIZATIONS No Known Immunizations SOCIAL HISTORY Never Assessed REASON FOR VISIT TE PLAN OF CARE Activity Details Follow Up prn Reason:exam/prophy VITAL SIGNS Blood pressure systolic 156 mmHg 2017-05-10 Blood pressure diastolic 71 mmHg 2017-05-10 MEDICATIONS Unknown Medications RESULTS No Results PROCEDURES Procedure Date Ordered Result Body Site EXTRAC ERUPTED TOOTH/EXPOSED ROOT May 10, 2017 INSTRUCTIONS MEDICATIONS ADMINISTERED No Known Medications MEDICAL [...] both eyes 2004 Hospitalization History Fractured femur 2017
--- OUTSIDE RECORDS SUMMARY | 2018-04-13 00:01 | XMS REPORT ---
Author Author JAVI DEVINE Organization [facility] Address [address] [place] [address] Care Team Providers Care Attorney Law Clerk Name Role Phone JAVI DEVINE Unavailable PROBLEMS Unknown Problems ALLERGIES Substance Reaction Event Type Date Status zestril Unknown Non Drug Allergy Apr, Active ENCOUNTERS Encounter Location Date Diagnosis [facility] [id number] [place] [address] [id number] Apr, Dental caries K02.9 [facility] [id number] [place] [address] [id number] Apr, Encounter for dental examination Z01.20 [facility] [id number] [place] [address] [id number] Apr, Dental examination Z01.20 [facility] [id number] [place] [address] [id number] Aug, Encounter for dental examination Z01.20 [facility] [id number] [place] [address] [id number] Jul, Dental examination Z01.20 [facility] [address] [place] [phone] Mar, IMMUNIZATIONS No Known Immunizations SOCIAL HISTORY Never Assessed REASON FOR VISIT GAURI/LOST FILLING PLAN OF CARE Activity Details Follow Up prn Reason:TE- #20 VITAL SIGNS Blood pressure systolic 147 mmHg 2017-05-09 Blood pressure diastolic 82 mmHg 2017-05-09 MEDICATIONS Medication Instructions Dosage Frequency Start Date End Date Duration Status Amlodipine & Diet Manage Prod Not-Taking Omeprazole Active Aspirin Active Atenolol Active Metformin HCl Active Crestor Active Lantus Active Lisinopril-Hydrochlorothiazide Not-Taking Amoxicillin 500 MG Orally 4 TABS BY MOUTH AT ONCE 4 capsule Apr, Apr, 1 days Active Amoxicillin 500 MG Orally every 8 hrs 1 tablet 8h Apr, 7 days Active Effient Not-Taking Metformin & Diet Manage Prod Active GlipiZIDE Active Synthroid Active tylenol Active RESULTS No Results PROCEDURES Procedure Date Ordered Result Body Site LTD ORAL EVALUATION - PROBLEM FOCUS May 09, 2017 INTRAORL-PERIAPICAL 1 FILM [id number] May 09, 2017 Billing Notes on claim May 09, 2017 INSTRUCTIONS MEDICATIONS ADMINISTERED No Known Medications [...]
[2018-04-13] MEDS ORDERED: inSUlin DETERMIR 1 UNIT/0.01 ML (LEVEMIR) CHARGE PER UNIT SQ ONE (00:15)
[2018-04-13] MEDS ORDERED: inSUlin ASPART (NovoLOG) 1 UNIT/0.01 ML (CHARGE PER UNIT) SC ONE (00:15)
--- NOTE | 2018-04-13 01:54 | ED General ---
General Chief Complaint: Glucose Problems Stated Complaint: BLOOD SUGAR Nursing Triage Note: AMBULATORY TO ED VIA WALKER TO ED WITH C/O BLOOD SUGAR 547 MG/DL AT HOME. BLOOD SUGAR HAS BEEN HIGH SINCE LAST NOC AFTER TAKING PREDNISONE PROPHYLACTICALLY PRIOR TO HEART CATH DONE TODAY. HAS NOT TAKEN NOVOLOG SS INSULIN OR HS LANTUS [employer]LE [employer]ICER. Nursing Sepsis Screen: No Definite Risk Source of Information: Patient, Family Exam Limitations: No Limitations History of Present Illness Date Seen by Provider: Apr 12, 2018 Time Seen by Provider: 22:50 Initial Comments Patient states she had a heart catheter today but because of her stated allergy to the contrast media she had taken 2 tablets of prednisone last night per Dr. Galvan instructions. Her blood sugars were up but she took her insulin last night and it was 271 and the morning. She said tonight around 10:00 it was a little over 500 she checked it with her sisters blood glucometer and it was 494 at about 10:15 approximately 45 minutes ago. Shes not having any nausea fevers chills vomiting diarrhea abdominal pain chest pain weakness tiredness sweats or rash. She thinks it is due to her prednisone usage is why she has high blood sugar. She has not taken any of her sliding scale NovoLog or her Lantus today. Allergies and Home Medications Allergies Coded Allergies: Iodinated Contrast- Oral and IV Dye (Verified Allergy, Unknown, HIVES, 10/20) lisinopril (Unverified Allergy, Unknown, 10/22/14) DRY COUGH Home Medications Acetaminophen 500 Mg Tablet, 500 MG PO Q8H PRN for PAIN-MILD, (Reported) Amlodipine Besylate 5 Mg Tablet, 2.5 MG PO HS, (Reported) Aspirin 81 Mg Tablet.dr, 81 MG PO HS, (Reported) Atenolol 25 Mg Tablet, 25 MG PO DAILY, (Reported) Atorvastatin Calcium 10 Mg Tablet, 10 MG PO DAILY@1200, (Reported) Furosemide 20 Mg Tablet, 20 MG PO 1200, (Reported) Glipizide 5 Mg Tablet, 5 MG PO BID, (Reported) Insulin Aspart 300 Units/3 Ml Solution, 1-10 UNIT SQ TIDAC, (Reported) SLIDING SCALE Insulin Glargine,Hum.rec.anlog 100 Unit/1 Ml Insuln.pen, 6 UNITS SC HS, ( Reported) Levothyroxine Sodium 100 Mcg Tablet, 100 MCG PO DAILY, (Reported) Propylene Glycol/Peg 400 15 Ml Drops, 1-2 DROPS OU QID PRN for DRY EYES, ( Reported) Patient Home Medication List Home Medication List Reviewed: Yes Review of Systems Review of Systems Constitutional: No chills, No fever EENTM: No ear discharge, No ear pain Respiratory: No cough, No short of breath Cardiovascular: No chest pain, No edema Gastrointestinal: No abdominal pain, No constipation, No diarrhea Genitourinary: No discharge, No dysuria Musculoskeletal: No back pain, No joint pain Past Gxtgjse-Jrgrom-Iwmgke Hx Patient Social History Alcohol Use: Denies Use Recreational Drug Use: No Smoking Status: Never a Smoker Recent Foreign Travel: No Contact w/Someone Who Travel: No Recent Infectious Disease Expo: No Recent Hopitalizations: Yes Immunizations Up To Date Tetanus Booster (TDap): Unknown Date of Pneumonia Vaccine: October 18, 2014 Date of Influenza Vaccine: Mar 17, 2018 Seasonal Allergies Seasonal Allergies: Yes Past Medical History Surgeries: Yes (HEART STENT, EYE SURGERY (CATARACT) , RIGHT EYE SURGERY TO REMOVE FLUID) Coronary Stent, Orthopedic Respiratory: Yes Sleep Apnea Currently Using CPAP: No (has machine but doesn't tolerate using it) Currently Using BIPAP: No Cardiac: Yes (pulmonary hypertension) Coronary Artery Disease, Hypertension Neurological: No Genitourinary: No Gastrointestinal: No Musculoskeletal: Yes Arthritis, Fractures Endocrine: Yes Diabetes, Insulin dep HEENT: Yes Macular Degeneration Loss of Vision: Bilateral Cancer: No Psychosocial: No Integumentary: No Blood Disorders: Yes (ANEMIA) Adverse Reaction/Blood Tranf: No Family Medical History Cardiovascular disease 19 FATHER 19 MOTHER Diabetes mellitus 19 FATHER 19 MOTHER G8 SISTER Kidney disease 19 FATHER Diabetes Physical Exam Vital Signs Vital Signs - First Documented 04/12/18 04/12/18 22:55 23:22 Pulse 61 Resp 17 B/P (MAP) 151/70 (97) Pulse Ox 100 Capillary Refill : Less Than 3 Seconds Height, Weight, BMI Height: 5'5.00" Weight: 228lbs. 0.0oz. 103.058127cr; 37.9 BMI Method:Stated General Appearance: No Apparent Distress, WD/WN Eyes: Bilateral Eye Normal Inspection, Bilateral Eye PERRL HEENT: PERRL/EOMI, Pharynx Normal, Moist Mucous Membranes Respiratory: Lungs Clear, Normal Breath Sounds, No Accessory Muscle Use Cardiovascular: Regular Rate, Rhythm, No Murmur Gastrointestinal: Non Tender, Soft Progress/Results/Core Measures Suspected Sepsis Recent Fever Within 48 Hours: No Infection Criteria Present: None New/Unexplained Altered Menta: No Sepsis Screen: No Definite Risk SIRS Temperature: Pulse: 61 Respiratory Rate: 17 Blood Pressure 151 /70 Mean: 97 Results/Orders My Orders Orders - ANGELINA QUIJANO Insulin Aspart (Novolog) (Novolog (Charg (04/13/18 00:15) Insulin Determir (Per Unit) (Levemir (Pe (04/13/18 00:15) Medications Given in ED Current Medications Medications Dose Ordered Sig/Michael Route Start Time Stop Time Status Last Admin Dose Admin Insulin Aspart 15 unit ONCE ONCE SC 04/13/18 00:15 04/13/18 00:16 DC 04/12/18 23:19 15 UNIT Insulin Detemir 12 unit ONCE ONCE SQ 04/13/18 00:15 04/13/18 00:16 DC 04/12/18 23:19 12 UNIT Vital Signs/I&O 04/12/18 04/12/18 22:55 23:22 Pulse 61 61 Resp 17 17 B/P (MAP) 151/70 (97) 151/70 (97) Pulse Ox 100 Capillary Refill : Less Than 3 Seconds Blood Pressure Mean: 97 Progress Note : Time: 23:50 Progress Note Glucometer demonstrated a 402 blood glucose so we gave her a double dose of her Lantus 12 units and a full 15 units of NovoLog subcutaneous. Give her instructions and sent her home with the expectation that her prednisone will continue to cause her sugars to be high for another day or so. She has a sliding scale insulin. Departure Impression Primary Impression: Diabetes mellitus Qualified Codes: E11.8 - Type 2 diabetes mellitus with unspecified complications Additional Impression: Hyperglycemia Disposition: HOME, SELF-CARE Condition: Improved Departure-Patient Inst. Decision time for Depature: 01:54 Referrals: FELIX RAYMOND MD (PCP) Primary Care Physician Patient Instructions: Hyperglycemia, Adult (DC) Add. Discharge Instructions: You have cold clammy skin or sweats or chills or feel off then you should check your sugar immediately. If it's below 70 and you should get something to eat or drink especially something protein in it such as peanut butter or cheese. Otherwise check your blood glucose at regular intervals as prescribed and take your insulin as prescribed and expect your blood sugars to improve over the next couple days. All discharge instructions reviewed with patient and/or family. Voiced understanding. ANGELINA QUIJANO Apr 13, 2018 01:54
== END 2018-04-12 23:25 | disposition home or self-care (01) ==
LOC: ER 22:38 → EDUNIT# 22:38 → ER 23:25
DX: E11.65 Type 2 diabetes mellitus with hyperglycemia (principal); G47.33 Obstructive sleep apnea (adult) (pediatric); I25.10 Atherosclerotic heart disease of native coronary artery without angina pectoris; I10 Essential (primary) hypertension; I27.0 Primary pulmonary hypertension; D64.9 Anemia, unspecified; Z82.49 Family history of ischemic heart disease and other diseases of the circulatory system; Z91.041 Radiographic dye allergy status; Z88.8 Allergy status to other drugs, medicaments and biological substances; Z79.82 Long term (current) use of aspirin; Z79.4 Long term (current) use of insulin; Z95.5 Presence of coronary angioplasty implant and graft
CPT/HCPCS: 96372

== ENCOUNTER → 2018-04-18 | Outpatient (CLI) | payer MEDICARE ==
--- NOTE | 2018-04-18 15:57 | Diagnostic Imaging Report ---
INDICATION: Right femur fracture, followup. TIME OF EXAMINATION: 10:58 AM. COMPARISON: 03/08/2017. FINDINGS: Since the prior study, a lateral plate and screws have been placed transfixing the distal right femur fracture. A large amount of callus formation is noted transfixing the fracture site. There is some minimal residual lucency, consistent with some residual fracture line, noted on today's radiographs. The alignment is near-anatomic. No new fracture is seen. IMPRESSION: Postsurgical changes of ORIF involving the right femur fracture. There is a large amount of callus formation, consistent with healing. There is very minimal residual lucency at the fracture site, consistent with incomplete healing. The alignment is anatomic. Dictated by: Dictated on workstation # [id number]
== END ==
LOC: RAD 09:54
PROVIDERS: ATTEND Orthopaedic Surgery
DX: S72.354 Nondisplaced comminuted fracture of shaft of right femur (principal); Z96.7 Presence of other bone and tendon implants
CPT/HCPCS: 73552

== ENCOUNTER → 2018-08-25 | Outpatient (CLI) | payer MEDICARE ==
[~2018-08-25] MED LIST changes: -AMLO10TA6 PO; +AMLO10TA7 PO; -AMLO2.5T3 PO; +AMLO2.5T4 PO; -AMLO5TAB7 PO; +AMLO5TAB9 PO
--- NOTE | 2018-08-25 12:59 | Diagnostic Imaging Report ---
INDICATION: Routine screening. COMPARISON: 01/07/2017 and 12/16/2015. TECHNIQUE: 2D and 3D bilateral screening mammography was performed with CAD. FINDINGS: Both breasts are heterogeneously dense, limiting the sensitivity of mammography. There are scattered benign-appearing calcifications. No dominant mass or malignant appearing microcalcifications are seen. The axillae are unremarkable. IMPRESSION: No mammographic features suspicious for malignancy are identified. ACR BI-RADS Category 2: Benign findings. Result letter will be mailed to the patient. Note: At least 10% of breast cancer is not imaged by mammography. Dictated by: Dictated on workstation # [id number]
== END ==
LOC: RAD 10:00
PROVIDERS: ATTEND Physician Assistant
DX: Z12.31 Encounter for screening mammogram for malignant neoplasm of breast (principal)
CPT/HCPCS: 77067

== ENCOUNTER → 2018-09-19 | Outpatient (CLI) | payer MEDICARE ==
--- NOTE | 2018-09-19 16:43 | Diagnostic Imaging Report ---
PROCEDURE: US Renal Bilateral. TECHNIQUE: Multiple real-time grayscale images were obtained over the kidneys in various projections bilaterally. INDICATION: Chronic kidney disease stage IV. Right kidney measures 9.9 x 5.1 x 5.4 cm and the left kidney measures 10.6 x 5.7 x 5.3 cm. Cortical thickness and echogenicity is normal. No calculi or hydronephrosis is seen. There appears to be a small cyst involving the right kidney approximately 1.3 mm x 1.0 cm in size. Bladder demonstrates a right ureteral jet. Left ureteral jet was not visualized. IMPRESSION: 1. Small right renal cyst. The study is otherwise unremarkable. No hydronephrosis is detected. Dictated by: Dictated on workstation # [id number]
== END ==
LOC: RAD 15:10
PROVIDERS: ATTEND Internal Medicine Nephrology
DX: N18.4 Chronic kidney disease, stage 4 (severe) (principal); N28.1 Cyst of kidney, acquired
CPT/HCPCS: 76770

== ENCOUNTER → 2019-02-23 | Outpatient (CLI) | payer MEDICARE, MEDICAID ==
[~2019-02-23] MED LIST changes: -ROSU5TAB12 PO; +ROSU5TAB13 PO
== END ==
LOC: CARD 11:42
PROVIDERS: ATTEND Internal Medicine Cardiovascular Disease
DX: I51.7 Cardiomegaly (principal); I35.8 Other nonrheumatic aortic valve disorders; I25.10 Atherosclerotic heart disease of native coronary artery without angina pectoris; I65.29 Occlusion and stenosis of unspecified carotid artery; I10 Essential (primary) hypertension; E78.5 Hyperlipidemia, unspecified; E11.9 Type 2 diabetes mellitus without complications
CPT/HCPCS: 93306

== ENCOUNTER → 2019-11-19 | Outpatient (CLI) | payer MEDICARE, MEDICAID ==
[~2019-11-19] MED LIST changes: -TRAM50TA2 PO; +TRM50T PO
--- NOTE | 2019-11-19 13:32 | Diagnostic Imaging Report ---
EXAMINATION: Digital mammogram bilateral screening. INDICATION: Screening. COMPARISON: This study was compared to the prior exam of 08/25/2018 and 01/07/2017. PERSONAL HISTORY: At this time, there are no current complaints. FINDINGS: The fibroglandular tissue in both breasts is heterogeneously dense. This does limit the sensitivity of this exam. In the upper outer quadrant of the left breast approximately 16 cm from the nipple, there is a group of microcalcifications. These do seem more numerous than noted on the prior exam. I would recommend that a compression/magnification view of these calcifications be obtained in the ML and CC projections so they can be better characterized. The overall appearance of the breasts has not changed significantly otherwise. There is no primary or secondary sign of malignancy noted. IMPRESSION: Additional mammographic views and ultrasound of the microcalcifications in the upper outer quadrant of the left breast would be recommended for further study. ACR BI-RADS Category 0: Incomplete. (Needs additional imaging evaluation). Result letter will be mailed to the patient. Note: At least 10% of breast cancer is not imaged by mammography. Dictated by: Dictated on workstation # [id number]
== END ==
LOC: RAD 09:47
PROVIDERS: ATTEND Physician Assistant
DX: Z12.31 Encounter for screening mammogram for malignant neoplasm of breast (principal); R92.0 Mammographic microcalcification found on diagnostic imaging of breast
CPT/HCPCS: 77063; 77067

== ENCOUNTER → 2019-11-28 | Outpatient (CLI) | payer MEDICARE, MEDICAID ==
--- NOTE | 2019-11-28 13:15 | Diagnostic Imaging Report ---
INDICATION: Left breast calcifications. Patient presents for additional views. COMPARISON: Correlation is made with recent screening study from 11/19/2019 and prior mammogram from 08/25/2018. TECHNIQUE: Unilateral left 2D and 3D diagnostic mammography was performed. This included magnification CC and ML views as well as conventional 90 degree lateral view. The current study was evaluated with a Computer Aided Detection (CAD) system. FINDINGS: Additional views confirm the presence of a cluster of microcalcifications in the upper and outer aspect of the left breast at posterior depth. These are much more numerous than on the mammogram of 1 year earlier. A majority of these calcifications are coarse and likely benign although there is some questionable pleomorphism. No soft tissue mass is seen. The left axilla is unremarkable. IMPRESSION: Increasing cluster of microcalcifications in the upper outer left breast at posterior depth. DCIS cannot be entirely excluded. Tissue sampling is recommended. This would be amenable to stereotactic biopsy. ACR BI-RADS Category 4: Suspicious abnormality. Result letter will be mailed to the patient. Note: At least 10% of breast cancer is not imaged by mammography. Dictated by: Dictated on workstation # [id number]
== END ==
LOC: RAD 12:24
PROVIDERS: ATTEND Internal Medicine
DX: R92.0 Mammographic microcalcification found on diagnostic imaging of breast (principal)
CPT/HCPCS: 77065; G0279

== ENCOUNTER → 2019-12-10 | Outpatient (CLI) | payer MEDICARE, MEDICAID ==
[~2019-12-10] VITALS: Ht 62 cm; Wt 113.0 kg
[~2019-12-10] MED LIST changes: +LIDOCAINE 1% INJ 20 ML 20 ML VIAL INJ ONE
[2019-12-10 09:09] VITALS: BP 137/80
[2019-12-10 10:37] VITALS: BP 130/70
--- NOTE | 2019-12-10 12:21 | Diagnostic Imaging Report ---
INDICATION: Left breast calcifications. Patient presents for left breast stereotactic biopsy. Patient was brought to the stereotactic suite and placed in a chair in the sitting upright position. The left breast was positioned lateral medial. The cluster of microcalcifications in the outer slightly upper left breast posterior depth were stereotactically targeted. The lateral left breast was then prepped and draped in usual sterile fashion. Small amount of 1% lidocaine was utilized for local anesthesia. 8-gauge stereotactic needle was advanced into the left breast via a lateral medial approach and placed per stereotactic coordinates. Additional lidocaine was administered. A total of 4 core biopsies were obtained with the vacuum-assisted device. Specimen radiograph was obtained demonstrating numerous calcifications within sample labeled #5 as well as several calcifications in #4. Marker clip was then deployed. Needle was removed and hemostasis was obtained utilizing manual compression. Followup postprocedure 2-D mammography was performed demonstrating a marker clip in the slightly lateral left breast at posterior depth. There has been removal of the majority of the calcifications noted in the cluster at this location. Patient tolerated the procedure well. IMPRESSION: Successful stereotactic biopsy of a cluster of microcalcifications in the outer posterior left breast. Pathology results are currently pending. Dictated by: Dictated on workstation # [id number]
== END ==
LOC: RAD 09:03
PROVIDERS: ATTEND Physician Assistant
DX: R92.0 Mammographic microcalcification found on diagnostic imaging of breast (principal)
CPT/HCPCS: 19081; A4648

== ENCOUNTER 2020-01-28 18:44 | Observation (INO) | payer MEDICARE, MEDICAID ==
[~2020-01-28] VITALS: Ht 162.6 cm; Wt 101.6 kg
[~2020-01-28 18:44] MED LIST changes: -LIDOCAINE 1% INJ 20 ML 20 ML VIAL INJ ONE
--- NOTE | 2020-01-28 19:36 | ED Cardiac General ---
History of Present Illness General Chief Complaint: Cardiac/General Problems Stated Complaint: HIGH BP - 190/78 Source: patient Exam Limitations: no limitations (YESENIA MACKENZIE STUDENT) History of Present Illness Date Seen by Provider: Jan 28, 2020 Time Seen by Provider: 19:20 Initial Comments Liz Harrington is a 84 year old female seen today due to high blood pressure readings at home. She reports a reading of around 170/100 on a wrist cuff at home yesterday, and 190/100 taken manually by her sister today. She reports her baseline has been 150/70 recently. She had a fistula placed for dialysis last Tuesday and was instructed to monitor her blood pressure closely. She has CKD, for which she sees nephrology, Dr. Armas. She reports taking furosemide and amlodipine for her blood pressure, as well as one other new medication she cannot remember the name of. She reports having a headache located on the sides of her head superior to her ears that she describes as pressure. Reports having SOB that she attributes to her anemia, which is being treated by Dr. Armas, has iron infusions scheduled. Denies having any fevers or chills, n/v, CP. Timing/Duration: 1-2 days Severity: mild (YESENIA MACKENZIE STUDENT) Initial Comments Cardiac catheterization [address] Bojorquez: Patent stent in the mid LAD with 40-50% in-stent restenosis and mild disease in the distal LAD nonobstructing. Mild disease in the circumflex and right coronary artery nonobstructive. Normal left ventricular end diastolic pressure History of CAD, hypertension, hyperlipidemia, diabetes. Echocardiogram [address] Bojorquez: Ejection fraction 55-65% with rate 2 diastolic dysfunction. (ANGELINA QUIJANO) Allergies and Home Medications Allergies Coded Allergies: Iodinated Contrast Media (Verified Allergy, Unknown, HIVES, 10/20/17) lisinopril (Unverified Allergy, Unknown, 10/22/14) DRY COUGH Home Medications Acetaminophen 500 Mg Tablet, 500 MG PO Q8H PRN for PAIN-MILD, (Reported) Amlodipine Besylate 5 Mg Tablet, 2.5 MG PO HS, (Reported) Aspirin 81 Mg Tablet.dr, 81 MG PO HS, (Reported) Atenolol 25 Mg Tablet, 25 MG PO DAILY, (Reported) Atorvastatin Calcium 10 Mg Tablet, 10 MG PO DAILY@1200, (Reported) Furosemide 20 Mg Tablet, 20 MG PO 1200, (Reported) Glipizide 5 Mg Tablet, 5 MG PO BID, (Reported) Insulin Aspart 300 Units/3 Ml Solution, 1-10 UNIT SQ TIDAC, (Reported) SLIDING SCALE Insulin Glargine,Hum.rec.anlog 100 Unit/1 Ml Insuln.pen, 6 UNITS SC HS, (Reported) Levothyroxine Sodium 100 Mcg Tablet, 100 MCG PO DAILY, (Reported) Propylene Glycol/Peg 400 15 Ml Drops, 1-2 DROPS OU QID PRN for DRY EYES, (Reported) Patient Home Medication List Home Medication List Reviewed: Yes (ANGELINA QUIJANO) Review of Systems Review of Systems Constitutional: No chills, No fever EENTM: No Nose Congestion, No Throat Pain Respiratory: Denies Cough; Shortness of Air (attributes to anemia) Cardiovascular: Denies Chest Pain, Denies Lightheadedness; Palpitations (unable to describe, denies heart racing or chest discomfort, attributes to anemia) Gastrointestinal: Denies Abdomen Distended, Denies Abdominal Pain, Denies Constipated, Denies Diarrhea, Denies Nausea, Denies Vomiting Genitourinary: Denies Frequency (YESENIA MACKENZIE) All Other Systems Reviewed Negative Unless Noted: Yes (ANGELINA QUIJANO) Past Vnndxcx-Hdnflq-Rcariv Hx Patient Social History Alcohol Use: Denies Use Recreational Drug Use: No Smoking Status: Never a Smoker Recent Foreign Travel: No Contact w/Someone Who Travel: No Recent Hopitalizations: Yes (YESENIA MACKENZIE [employer] STUDENT) Immunizations Up To Date Tetanus Booster (TDap): Unknown Date of Pneumonia Vaccine: October 18, 2014 Date of Influenza Vaccine: Mar 17, 2018 (YESENIA MACKENZIE [employer] STUDENT) Seasonal Allergies Seasonal Allergies: Yes (GURDEEPYESENIA [employer] STUDENT) Past Medical History Surgeries: Yes (HEART STENT, EYE SURGERY (CATARACT) , RIGHT EYE SURGERY TO REMOVE FLUID) Coronary Stent, Orthopedic Respiratory: Yes Sleep Apnea Currently Using CPAP: No (has machine but doesn't tolerate using it) Currently Using BIPAP: No Cardiac: Yes (pulmonary hypertension) Coronary Artery Disease, Hypertension Neurological: No Genitourinary: No Gastrointestinal: No Musculoskeletal: Yes Arthritis, Fractures Endocrine: Yes Diabetes, Insulin dep HEENT: Yes Macular Degeneration Loss of Vision: Bilateral Cancer: No Psychosocial: No Integumentary: No Blood Disorders: Yes (ANEMIA) Adverse Reaction/Blood Tranf: No (YESENIA MACKENZIE [employer] STUDENT) Family Medical History Cardiovascular disease 19 FATHER 19 MOTHER Diabetes mellitus 19 FATHER 19 MOTHER G8 SISTER Kidney disease 19 FATHER Diabetes (YESENIA MACKENZIE [employer] STUDENT) Physical Exam Vital Signs Vital Signs - First Documented 01/28/20 19:20 Temp 36.5 Pulse 76 Resp 18 B/P (MAP) 197/83 (121) Pulse Ox 97 O2 Delivery Room Air (ANGELINA QUIJANO) Vital Signs Capillary Refill : (YESENIA MACKENZIE [employer] STUDENT) Height, Weight, BMI Height: 5'5.00" Weight: 228lbs. 0.0oz. 103.591991rk; 293.96 BMI Method:Stated General Appearance: No Apparent Distress, Obese HEENT: PERRL/EOMI; No Scleral Icterus (L), No Scleral Icterus (R) Neck: Full Range of Motion, Normal Inspection, Non Tender, Supple Respiratory: Lungs Clear, Normal Breath Sounds, No Accessory Muscle Use, No Respiratory Distress Cardiovascular: Regular Rate, Rhythm, No Edema, No JVD, Normal Peripheral Pulses, Systolic Murmur Gastrointestinal: Normal Bowel Sounds, No Organomegaly, No Pulsatile Mass, Non Tender, Soft Extremity: Normal Capillary Refill, Normal Inspection, Non Tender, No Calf Tenderness, Pedal Edema (2+) Neurologic/Psychiatric: Alert, Oriented x3, Normal Mood/Affect Skin: Normal Color, Warm/Dry (YESENIA MACKENZIE [employer] STUDENT) Progress/Results/Core Measures Results/Orders Lab Results Laboratory Tests Test 01/28/20 19:25 01/28/20 19:46 Range/Units White Blood Count 11.8 H 4.3-11.0 10^3/uL Red Blood Count 2.67 L 4.35-5.85 10^6/uL Hemoglobin 8.0 L 11.5-16.0 G/DL Hematocrit 25 L 35-52 % Mean Corpuscular Volume 92 80-99 FL Mean Corpuscular Hemoglobin 30 25-34 PG Mean Corpuscular Hemoglobin Concent 33 32-36 G/DL Red Cell Distribution Width 14.2 10.0-14.5 % Platelet Count 273 130-400 10^3/uL Mean Platelet Volume 9.7 7.4-10.4 FL Neutrophils (%) (Auto) 72 42-75 % Lymphocytes (%) (Auto) 17 12-44 % Monocytes (%) (Auto) 7 0-12 % Eosinophils (%) (Auto) 4 0-10 % Basophils (%) (Auto) 0 0-10 % Neutrophils # (Auto) 8.5 H 1.8-7.8 X 10^3 Lymphocytes # (Auto) 2.0 1.0-4.0 X 10^3 Monocytes # (Auto) 0.8 0.0-1.0 X 10^3 Eosinophils # (Auto) 0.4 H 0.0-0.3 10^3/uL Basophils # (Auto) 0.0 0.0-0.1 10^3/uL Sodium Level 135 135-145 MMOL/L Potassium Level 4.7 3.6-5.0 MMOL/L Chloride Level 105 98-107 MMOL/L Carbon Dioxide Level 18 L 21-32 MMOL/L Anion Gap 12 5-14 MMOL/L Blood Urea Nitrogen 77 H 7-18 MG/DL Creatinine 3.30 H 0.60-1.30 MG/DL Estimat Glomerular Filtration Rate 13 BUN/Creatinine Ratio 23 Glucose Level 177 H 70-105 MG/DL Calcium Level 8.1 L 8.5-10.1 MG/DL Corrected Calcium 8.2 L 8.5-10.1 MG/DL Total Bilirubin 0.4 0.1-1.0 MG/DL Aspartate Amino Transf (AST/SGOT) 14 5-34 U/L Alanine Aminotransferase (ALT/SGPT) 6 0-55 U/L Alkaline Phosphatase 74 40-136 U/L Troponin I 0.042 H <0.028 NG/ML Total Protein 7.1 6.4-8.2 GM/DL Albumin 3.9 3.2-4.5 GM/DL Urine Color YELLOW Urine Clarity CLEAR Urine pH 5.5 5-9 Urine Specific [place] 1.010 L 1.016-1.022 Urine Protein 1+ H NEGATIVE Urine Glucose (UA) NEGATIVE NEGATIVE Urine Ketones NEGATIVE NEGATIVE Urine Nitrite NEGATIVE NEGATIVE Urine Bilirubin NEGATIVE NEGATIVE Urine Urobilinogen 0.2 < = 1.0 MG/DL Urine Leukocyte Esterase NEGATIVE NEGATIVE Urine RBC (Auto) NEGATIVE NEGATIVE Urine RBC NONE /HPF Urine WBC 0-2 /HPF Urine Crystals PRESENT H /LPF Urine Amorphous Sediment RARE ROSA URATES H /LPF Urine Bacteria TRACE /HPF Urine Casts NONE /LPF Urine Mucus NEGATIVE /LPF Urine Culture Indicated NO (ANGELINA QUIJANO) My Orders Orders - ANGELINA QUIJANO Cbc With Automated Diff (01/28/20 19:32) Comprehensive Metabolic Panel (01/28/20 19:32) Ua Culture If Indicated (01/28/20 19:32) Continuous Ekg Monitoring (01/28/20 20:10) Ekg Tracing (01/28/20 20:10) Troponin I (01/28/20 20:10) Acetaminophen Tablet/Caplet (Tylenol T (01/28/20 20:15) Amlodipine Tablet (Norvasc Tablet) (01/28/20 20:15) Hydralazine Injection (Apresoline Inject (01/28/20 20:15) (ANGELINA QUIJANO) Medications Given in ED Current Medications Medications Dose Ordered Sig/Michael Route Start Time Stop Time Status Last Admin Dose Admin Acetaminophen 650 mg ONCE ONCE PO 01/28/20 20:15 01/28/20 20:16 DC 01/28/20 20:43 650 MG Amlodipine Besylate 5 mg ONCE ONCE PO 01/28/20 20:15 01/28/20 20:16 DC 01/28/20 20:43 5 MG Hydralazine HCl 10 mg ONCE ONCE IV 01/28/20 20:15 01/28/20 20:16 DC 01/28/20 20:42 10 MG (ANGELINA QUIJANO) Vital Signs/I&O 01/28/20 19:20 Temp 36.5 Pulse 76 Resp 18 B/P (MAP) 197/83 (121) Pulse Ox 97 O2 Delivery Room Air (ANGELINA QUIJANO) Progress Progress Note : Time: 21:03 Progress Note Blood pressure is coming down systolics in the 160s. We discussed the mildly elevated troponin with both the boat rental clerk and the patient and are in agreement with the plan to do an observation and serial troponins overnight. I attest that I saw this patient alongside the medical student and agree with his documented history, physical exam and review of systems except as otherwise noted. (ANGELINA QUIJANO) Initial ECG Impression Date: Jan 28, 2020 Initial ECG Impression Time: 20:18 Initial ECG Rate: 67 Initial ECG Rhythm: Normal Sinus Initial ECG Intervals: Normal Initial ECG Impression: Normal Comment Normal sinus rhythm without clinically relevant ST elevation or depression (ANGELINA QUIJANO) Departure Communication (Admissions) Time/Spoke to Admitting Phy: 21:00 Discussed the case with Dr. Rose and he agrees to observe the patient in cardiac stepdown and serial troponins with consultation to cardiology. Time/Spoke to Consulting Phy: 20:30 Discussed the case with Dr. Ernandez and he agrees with serial troponins overnight and he would see the patient. (ANGELINA QUIJANO) Impression Primary Impression: Hypertensive urgency Additional Impression: Elevated troponin I level Disposition: ADMITTED INPATIENT Condition: Stable Admissions Decision to Admit Reason: Admit from ER (General) Decision to Admit/Date: Jan 28, 2020 Time/Decision to Admit Time: 20:40 (ANGELINA QUIJANO) Departure-Patient Inst. Referrals: FELIX RAYMOND MD (PCP/Family) Primary Care Physician YESENIA MACKENZIE MED STUDENT Jan 28, 2020 19:36 ANGELINA QUIJANO Jan 28, 2020 20:10
[2020-01-28 19:39] LABS: BASOPHILS % (AUTO) 0 % (0-10); EOSINOPHILS # (AUTO) 0.4 10^3/uL (0.0-0.3); EOSINOPHILS % (AUTO) 4 % (0-10); HEMATOCRIT 25 % (35-52); LYMPHOCYTES % (AUTO) 17 % (12-44); MEAN CORPUSCULAR HEMOGLOBIN 30 PG (25-34); MEAN CORPUSCULAR HGB CONC 33 G/DL (32-36); MEAN CORPUSCULAR VOLUME 92 FL (80-99); MEAN PLATELET VOLUME 9.7 FL (7.4-10.4); MONOCYTES # (AUTO) 0.8 X 10^3 (0.0-1.0); MONOCYTES % (AUTO) 7 % (0-12); NEUTROPHILS # (AUTO) 8.5 X 10^3 (1.8-7.8); NEUTROPHILS % (AUTO) 72 % (42-75); PLATELET COUNT 273 10^3/uL (130-400); RED CELL DISTRIBUTION WIDTH 14.2 % (10.0-14.5); WHITE BLOOD COUNT 11.8 10^3/uL (4.3-11.0)
[2020-01-28 20:02] LABS: BILIRUBIN,URINE NEGATIVE (NEGATIVE); CLARITY,URINE CLEAR; COLOR,URINE YELLOW; GLUCOSE, URINE (UA) NEGATIVE (NEGATIVE); KETONES,URINE NEGATIVE (NEGATIVE); LEUKOCYTE ESTERASE ,URINE NEGATIVE (NEGATIVE); NITRITE,URINE NEGATIVE (NEGATIVE); PH,URINE 5.5 (5-9); PROTEIN,URINE 1+ (NEGATIVE)
[2020-01-28 20:09] LABS: ALBUMIN 3.9 GM/DL (3.2-4.5); BILIRUBIN,TOTAL 0.4 MG/DL (0.1-1.0); CALCIUM 8.1 MG/DL (8.5-10.1); CREATININE SERUM 3.3 MG/DL (0.60-1.30); POTASSIUM 4.7 MMOL/L (3.6-5.0); TOTAL PROTEIN 7.1 GM/DL (6.4-8.2)
[2020-01-28 20:11] LABS: AMORPHOUS SEDIMENT,UR RARE AMOR URATES /LPF; BACTERIA,URINE TRACE /HPF; WBC,URINE 0-2 /HPF
[2020-01-28] MEDS ORDERED: ACETAMINOPHEN 325 MG TABLET PO ONE (20:15)
[2020-01-28] MEDS ORDERED: amLODIPine 5 MG (NORVASC) TAB PO ONE (20:15)
[2020-01-28] MEDS ORDERED: hydrALAZINE (APESOLINE) 20 MG/ML VIAL IV ONE (20:15)
[2020-01-28 22:15] VITALS: BP 160/60
[2020-01-28 22:30] VITALS: BP 168/62
[2020-01-28 22:45] VITALS: BP 156/58
[2020-01-28 23:00] VITALS: BP 157/59
[2020-01-28 23:30] VITALS: BP 149/61
[2020-01-29] VITALS (14 sets, daily range): BP systolic 152–169; BP diastolic 59–81
[2020-01-29 02:07] LABS: BASOPHILS % (AUTO) 0 % (0-10); EOSINOPHILS # (AUTO) 0.4 10^3/uL (0.0-0.3); EOSINOPHILS % (AUTO) 4 % (0-10); HEMATOCRIT 23 % (35-52); HEMOGLOBIN 7.6 G/DL (11.5-16.0); LYMPHOCYTES % (AUTO) 17 % (12-44); MEAN CORPUSCULAR HEMOGLOBIN 30 PG (25-34); MEAN CORPUSCULAR HGB CONC 33 G/DL (32-36); MEAN CORPUSCULAR VOLUME 92 FL (80-99); MEAN PLATELET VOLUME 9.6 FL (7.4-10.4); MONOCYTES # (AUTO) 0.9 X 10^3 (0.0-1.0); MONOCYTES % (AUTO) 8 % (0-12); NEUTROPHILS # (AUTO) 8.5 X 10^3 (1.8-7.8); NEUTROPHILS % (AUTO) 71 % (42-75); PLATELET COUNT 235 10^3/uL (130-400); WHITE BLOOD COUNT 11.9 10^3/uL (4.3-11.0)
[2020-01-29 02:17] LABS: ALBUMIN 3.5 GM/DL (3.2-4.5); CHLORIDE 106 MMOL/L (98-107)
[2020-01-29 02:18] LABS: POTASSIUM 4.1 MMOL/L (3.6-5.0); SODIUM 134 MMOL/L (135-145)
[2020-01-29 02:19] LABS: CALCIUM 8.2 MG/DL (8.5-10.1)
[2020-01-29 02:20] LABS: GLUCOSE 141 MG/DL (70-105); TOTAL PROTEIN 6.6 GM/DL (6.4-8.2)
[2020-01-29 02:21] LABS: CARBON DIOXIDE 18 MMOL/L (21-32)
[2020-01-29 02:22] LABS: BILIRUBIN,TOTAL 0.4 MG/DL (0.1-1.0)
[2020-01-29 02:23] LABS: ALKALINE PHOSPHATASE 77 U/L (40-136)
[2020-01-29 02:24] LABS: CREATININE SERUM 3.07 MG/DL (0.60-1.30); GFR ESTIMATED 14
[2020-01-29 02:25] LABS: BUN/CREATININE RATIO 25
[2020-01-29 02:26] LABS: ALANINE AMINOTRANSFERASE 7 U/L (0-55)
[2020-01-29] MEDS: inSUlin ASPART (NovoLOG) 1 UNIT/0.01 ML (CHARGE PER UNIT) SC SCH ×2 (05:06→12:39)
--- NOTE | 2020-01-29 08:11 | Short Stay Summary-Hospitalist ---
History of Present Illness HPI/Chief Complaint Pt is an 84yoCF with a PMH of IDDMII, HTN, CKD Stage 5, CAD who presented to the ER due to elevated BP. She states is in preparations for dialysis and since fistula has been advised to watch her BP closely. Last night she had a mild headache and checked her blood pressure and it was 190/87 prompting her to seek evaluation in the ER. She denies misses any meds or any decreased urine output but was out of the house Tuesday and didn't get as much to drink and thinks the stress caused that. She has no complaints today and is feeling well. She was supposed to have an appointment for an iron infusion today with her neph rologist. She was also supposed to have an appointment with [facility] to arrange transportation. Source: patient Exam Limitations: no limitations Date Seen 01/29/20 Time Seen by a Provider: 08:07 Attending Physician Dontrell Rose MD PCP Carlos Ferguson MD Referring Physician Date of Admission Jan 28, 2020 at 20:45 Home Medications & Allergies Home Medications Reviewed patient Home Medication Reconciliation performed by pharmacy medication reconciliations implementation technician and/or nursing. Patients Allergies have been reviewed. Allergies Allergies Coded Allergies Iodinated Contrast Media (Verified Allergy, Unknown, HIVES, 10/20/17) lisinopril (Unverified Allergy, Unknown, 10/22/14) DRY COUGH Past [place]-Hbrynv-Yitnjx Hx Past Med/Social Hx: Reviewed Nursing Past Med/Soc Hx Patient Social History Alcohol Use: Denies Use Recreational Drug Use: No Smoking Status: Never a Smoker 2nd Hand Smoke Exposure: No Recent Foreign Travel: No Contact w/other who traveled: No Recent Hopitalizations: Yes Recent Infectious Disease Expo: No Immunizations Up To Date Tetanus Booster (TDap): Unknown Date of Pneumonia Vaccine: Jan 27, 2019 Date of Influenza Vaccine: Mar 17, 2018 Seasonal Allergies Seasonal Allergies: Yes Past Medical History Surgeries: Coronary Stent, Orthopedic Currently Using CPAP: No (has machine but doesn't tolerate using it) Currently Using BIPAP: No Cardiac: Coronary Artery Disease, High Cholesterol, Hypertension Genitourinary: Renal Failure Musculoskeletal: Arthritis, Fractures Endocrine: Diabetes, Insulin dep HEENT: Macular Degeneration Loss of Vision: Bilateral History of Blood Disorders: Yes (ANEMIA) Adverse Reaction to Blood Mclean: No Family History Reviewed Nursing Family Hx Cardiovascular disease 19 FATHER 19 MOTHER Diabetes mellitus 19 FATHER 19 MOTHER G8 SISTER Kidney disease 19 FATHER Diabetes Review of Systems Constitutional: No chills, No fever, No malaise EENTM: no symptoms reported Respiratory: No cough, No dyspnea on exertion, No orthopnea, No short of breath Cardiovascular: No chest pain; edema (chronic- not worsening), Hx of Intervention; No palpitations Gastrointestinal: No abdominal pain, No constipation, No diarrhea, No nausea, No vomiting Genitourinary: No dysuria, No frequency Musculoskeletal: no symptoms reported Skin: no symptoms reported Psychiatric/Neurological: No Symptoms Reported Physical Exam Physical Exam Vital Signs Vital Signs - First Documented 01/28/20 19:20 Temp 36.5 Pulse 76 Resp 18 B/P (MAP) 197/83 (121) Pulse Ox 97 O2 Delivery Room Air Capillary Refill : Less Than 3 Seconds Height, Weight, BMI Height: 5'5.00" Weight: 228lbs. 0.0oz. 103.868880zl; 38.42 BMI Method:Stated General Appearance: No Apparent Distress, WD/WN, Obese HEENT: PERRL/EOMI, Moist Mucous Membranes; No Scleral Icterus (L), No Scleral I cterus (R) Neck: Normal Inspection, Supple; No JVD Respiratory: Lungs Clear, No Accessory Muscle Use, No Respiratory Distress Cardiovascular: Regular Rate, Rhythm, No Edema, Normal Peripheral Pulses, Systolic Murmur Gastrointestinal: Normal Bowel Sounds, Non Tender, Soft; No Distended, No Guarding, No Rebound Extremity: Normal Capillary Refill, Normal Inspection, Non Tender, No Calf Tend erness, Pedal Edema (trace non pitting) Neurologic/Psychiatric: Alert, Oriented x3, Normal Mood/Affect Skin: Normal Color, Warm/Dry Results Results/Procedures Labs Laboratory Tests 01/28/20 19:25 01/29/20 02:03 Patient resulted labs reviewed. Short Stay Diagnosis Discharge Diagnosis-Short Stay Admission Diagnosis HTN Emergency Final Discharge Diagnosis HTN Emergency Conclusion Plan HTN Emergency Elevated Troponin CAD BP much improved today troponin elevation resolved Cardiology consulted, appreciate recs Will likely DC home this afternoon if ok with cardiology CKD Stage 5 Anemia of CKD Will attempt to contact Dr Armas, nephrology, about iron infusion If able will give iron here Making urine, not acidotic or hypoerkalemic, not fluid overloaded- no indication for emergent HD IDDMII Continue home insulin [facility] Clinical Quality Measures DVT/VTE Risk/Contraindication: Risk Factor Score Per Nursin RFS Level Per Nursing on Admit: 2=Moderate NANI MONGE MD Jan 29, 2020 08:11
--- NOTE | 2020-01-29 08:21 | Discharge Inst-Simple/Standard ---
Discharge Inst-Standard Patient Instructions/Follow Up Plan of Care/Instructions/FU: Please continue to take your medications as written. Please follow up with Dr Armas as scheduled and with your primary care doctor in the next week to follow up this hospital stay. Activity as Tolerated: Yes Discharge Diet: Low Sodium Diet Return to The Hospital For: Chest pain, shortness of breath, confusion, fever, if you feel you are getting worse. NANI MONGE MD Jan 29, 2020 08:21
[2020-01-29] MEDS ORDERED: ASPIRIN 81 MG CHEW (CHILDREN'S ASA) PO SCH (09:00)
[2020-01-29] MEDS ORDERED: amLODIPine 10 MG (NORVASC) TAB PO SCH (09:00)
[2020-01-29] MEDS ORDERED: CARVEDILOL 12.5 MG (COREG) TABLET PO SCH (09:00)
[2020-01-29] MEDS ORDERED: FUROSEMIDE 20 MG (LASIX) TAB PO SCH (12:00)
--- NOTE | 2020-01-29 13:24 | NUR ---
MARYSOL GALEAS demonstrates understanding of discharge instructions and accurately returns instructions upon questioning. Copy of Post-Discharge Instructions and Medication Discharge Instructions given to PATIENT. MARYSOL GALEAS is able to manage continuing needs after discharge. Patients belongings returned to PATIENT. Skin dry and intact; no breakdown noted. IV d/c, tip intact. Follow up care ordered for patient, information given. Patient discharged from 9-1 on 01/29/20 at 1324. MARYSOL GALEAS left floor via , accompanied by THIS RN.
--- NOTE | 2020-01-29 14:00 | Consultation-Cardiology ---
HPI-Cardiology Cardiology Consultation: Date of Consultation 01/29/20 Date of Admission Attending Physician Dontrell Rose MD Admitting Physician Carlos Ferguson MD Consulting Physician Tammy ARMAS MD HPI: Time Seen by a Provider: 09:45 Review of Systems-Cardiology All Other Systems Reviewed Negative Unless Noted: Yes BUI-Mkifxg-Uffdtf Hx Patient Social History Alcohol Use: Denies Use Recreational Drug Use: No Smoking Status: Never a Smoker 2nd Hand Smoke Exposure: No Recent Foreign Travel: No Recent Infectious Disease Expo: No Hospitalization with Isolation: Denies Immunizations Up To Date Tetanus Booster (TDap): Unknown Date of Pneumonia Vaccine: Jan 27, 2019 Date of Influenza Vaccine: Mar 17, 2018 Past Medical History PMH As described under Assessment. Family Medical History Family History: Cardiovascular disease 19 FATHER 19 MOTHER Diabetes mellitus 19 FATHER 19 MOTHER G8 SISTER Kidney disease 19 FATHER Allergies and Home Medications Allergies Coded Allergies: Iodinated Contrast Media (Verified Allergy, Unknown, HIVES, 10/20/17) lisinopril (Unverified Allergy, Unknown, 10/22/14) DRY COUGH Home Medications Acetaminophen 500 Mg Tablet, 500 MG PO Q8H PRN for PAIN-MILD, (Reported) Amlodipine Besylate 5 Mg Tablet, 2.5 MG PO HS, (Reported) Aspirin 81 Mg Tablet.dr, 81 MG PO HS, (Reported) Atenolol 25 Mg Tablet, 25 MG PO DAILY, (Reported) Atorvastatin Calcium 10 Mg Tablet, 10 MG PO DAILY@1200, (Reported) Furosemide 20 Mg Tablet, 20 MG PO 1200, (Reported) Glipizide 5 Mg Tablet, 5 MG PO BID, (Reported) Insulin Aspart 300 Units/3 Ml Solution, 1-10 UNIT SQ TIDAC, (Reported) SLIDING SCALE Insulin Glargine,Hum.rec.anlog 100 Unit/1 Ml Insuln.pen, 6 UNITS SC HS, (Reported) Levothyroxine Sodium 100 Mcg Tablet, 100 MCG PO DAILY, (Reported) Propylene Glycol/Peg 400 15 Ml Drops, 1-2 DROPS OU QID PRN for DRY EYES, (Reported) Physical Exam-Cardiology Physical Exam Vital Signs/I&O 01/29/20 01/29/20 01/29/20 01/29/20 03:00 04:00 04:24 04:25 Temp 36.2 Pulse 59 70 Resp 10 26 B/P (MAP) 161/60 (93) 165/81 (109) Pulse Ox 99 97 O2 Delivery Room Air Room Air Room Air 01/29/20 01/29/20 01/29/20 01/29/20 05:00 06:00 06:41 07:00 Pulse 63 61 62 67 B/P (MAP) 163/63 (96) 169/66 (100) 166/72 (103) Pulse Ox 98 96 96 O2 Delivery Room Air Room Air Room Air 01/29/20 01/29/20 01/29/20 01/29/20 07:00 08:00 08:00 09:00 Temp 35.4 Pulse 72 66 Resp 18 B/P (MAP) 169/68 (101) 166/78 (107) Pulse Ox 98 97 O2 Delivery Room Air Room Air Room Air 01/29/20 01/29/20 01/29/20 01/29/20 09:00 10:00 11:00 12:00 Pulse 59 61 64 B/P (MAP) 160/73 (102) 155/64 (94) 152/63 (92) Pulse Ox 97 94 97 98 O2 Delivery Room Air Room Air Room Air Room Air 01/29/20 01/29/20 12:00 13:24 Temp 35.4 Pulse 64 Resp 18 B/P (MAP) 152/63 Pulse Ox 98 O2 Delivery Room Air Room Air Capillary Refill : Less Than 3 Seconds Data Review Labs Laboratory Tests 01/28/20 19:25: White Blood Count 11.8H, Red Blood Count 2.67L, Hemoglobin 8.0L, Hematocrit 25L, Mean Corpuscular Volume 92, Mean Corpuscular Hemoglobin 30, Mean Corpuscular Hemoglobin Concent 33, Red Cell Distribution Width 14.2, Platelet Count 273, Mean Platelet Volume 9.7, Neutrophils (%) (Auto) 72, Lymphocytes (%) (Auto) 17, Monocytes (%) (Auto) 7, Eosinophils (%) (Auto) 4, Basophils (%) (Auto) 0, Neutrophils # (Auto) 8.5H, Lymphocytes # (Auto) 2.0, Monocytes # (Auto) 0.8, Eosinophils # (Auto) 0.4H, Basophils # (Auto) 0.0, Sodium Level 135, Potassium Level 4.7, Chloride Level 105, Carbon Dioxide Level 18L, Anion Gap 12, Blood Urea Nitrogen 77H, Creatinine 3.30H, Estimat Glomerular Filtration Rate 13, BUN/Creatinine Ratio 23, Glucose Level 177H, Calcium Level 8.1L, Corrected Calcium 8.2L, Total Bilirubin 0.4, Aspartate Amino Transf (AST/SGOT) 14, Alanine Aminotransferase (ALT/SGPT) 6, Alkaline Phosphatase 74, Troponin I 0.042H, Total Protein 7.1, Albumin 3.9 01/28/20 19:46: Urine Color YELLOW, Urine Clarity CLEAR, Urine pH 5.5, Urine Specific [place] 1.010L, Urine Protein 1+H, Urine Glucose (UA) NEGATIVE, Urine Ketones NEGATIVE, Urine Nitrite NEGATIVE, Urine Bilirubin NEGATIVE, Urine Urobilinogen 0.2, Urine Leukocyte Esterase NEGATIVE, Urine RBC (Auto) NEGATIVE, Urine RBC NONE, Urine WBC 0-2, Urine Crystals PRESENTH, Urine Amorphous Sediment RARE ROSA URATESH, Urine Bacteria TRACE, Urine Casts NONE, Urine Mucus NEGATIVE, Urine Culture Indicated NO 01/29/20 02:03: White Blood Count 11.9H, Red Blood Count 2.52L, Hemoglobin 7.6L, Hematocrit 23L, Mean Corpuscular Volume 92, Mean Corpuscular Hemoglobin 30, Mean Corpuscular H emoglobin Concent 33, Red Cell Distribution Width 14.0, Platelet Count 235, Mean Platelet Volume 9.6, Neutrophils (%) (Auto) 71, Lymphocytes (%) (Auto) 17, Monocytes (%) (Auto) 8, Eosinophils (%) (Auto) 4, Basophils (%) (Auto) 0, Neutrophils # (Auto) 8.5H, Lymphocytes # (Auto) 2.0, Monocytes # (Auto) 0.9, Eosinophils # (Auto) 0.4H, Basophils # (Auto) 0.0, Sodium Level 134L, Potassium Level 4.1, Chloride Level 106, Carbon Dioxide Level 18L, Anion Gap 10, Blood Urea Nitrogen 77H, Creatinine 3.07H, Estimat Glomerular Filtration Rate 14, BUN/Creatinine Ratio 25, Glucose Level 141H, Calcium Level 8.2L, Corrected Calcium 8.6, Total Bilirubin 0.4, Aspartate Amino Transf (AST/SGOT) 13, Alanine Aminotransferase (ALT/SGPT) 7, Alkaline Phosphatase 77, Troponin I < 0.028, Total Protein 6.6, Albumin 3.5 8/11/20 07:34: Troponin I < 0.028 A/P-Cardiology Plan Thank you for your consultation. Please call me if you have any questions. Jenelle Armas MD, FACP, FACC, FSCAI, FHRS, CCDS Interventional Cardiology Cardiac Electrophysiology Vascular Medicine and Endovascular Interventions Clinical Quality Measures DVT/VTE Risk/Contraindication: Risk Factor Score Per Nursin RFS Level Per Nursing on Admit: 2=Moderate Tammy ARMAS MD Jan 29, 2020 14:00
== END 2020-01-29 13:24 | disposition home or self-care (01) ==
LOC: EDUNIT# 18:44 → ER 18:45 → ICU 20:45
PROVIDERS: ADMIT Internal Medicine; ATTEND Internal Medicine
DX: I16.1 Hypertensive emergency (principal); I25.10 Atherosclerotic heart disease of native coronary artery without angina pectoris; D63.1 Anemia in chronic kidney disease; E11.22 Type 2 diabetes mellitus with diabetic chronic kidney disease; I12.0 Hypertensive chronic kidney disease with stage 5 chronic kidney disease or end stage renal disease; N18.5 Chronic kidney disease, stage 5; R79.89 Other specified abnormal findings of blood chemistry; E78.00 Pure hypercholesterolemia, unspecified; M19.90 Unspecified osteoarthritis, unspecified site; H35.30 Unspecified macular degeneration; I27.20 Pulmonary hypertension, unspecified; E78.5 Hyperlipidemia, unspecified; Z95.5 Presence of coronary angioplasty implant and graft; Z91.041 Radiographic dye allergy status; Z88.8 Allergy status to other drugs, medicaments and biological substances; Z79.82 Long term (current) use of aspirin; Z79.899 Other long term (current) drug therapy; Z79.4 Long term (current) use of insulin
CPT/HCPCS: 36415; 80053; 81000; 84484; 85025; 93005; 93306

== ENCOUNTER → 2020-09-18 | Outpatient (CLI) | payer MEDICARE, MEDICAID ==
[~2020-09-18] MED LIST changes: +AMLO-250 PO; +AMLO-251 PO; -AMLO10TA7 PO; -AMLO5TAB9 PO; -OXYC-471 PO; +OXYC1TAB11 PO
--- NOTE | 2020-09-19 08:00 | Diagnostic Imaging Report ---
INDICATION: Left breast calcifications, status post stereotactic biopsy with benign result. COMPARISON: 11/19/2019 and 08/25/2018. TECHNIQUE: 2D and 3D unilateral left diagnostic mammography was performed with CAD. FINDINGS: The left breast is heterogeneously dense, limiting sensitivity of mammography. A stereotactic clip in the posterior central left breast is noted from left breast biopsy. The previously noted calcifications have been largely removed with only a few benign-appearing calcifications remaining. There is no mass or malignant appearing microcalcifications. The left axilla is unremarkable. IMPRESSION: No mammographic features suspicious for malignancy are identified. ACR BI-RADS Category 2: Benign findings. Result letter will be mailed to the patient. Note: At least 10% of breast cancer is not imaged by mammography. Dictated by: Dictated on workstation # [id number]
== END ==
LOC: RAD 13:56
PROVIDERS: ATTEND Internal Medicine
DX: R92.1 Mammographic calcification found on diagnostic imaging of breast (principal); Z98.890 Other specified postprocedural states
CPT/HCPCS: 76642; 77065; G0279

== ENCOUNTER → 2020-12-09 | Outpatient (CLI) | payer MEDICARE, MEDICAID ==
--- NOTE | 2020-12-09 15:37 | Diagnostic Imaging Report ---
INDICATION: Routine screening. COMPARISON: 11/19/2019 and 08/25/2018. TECHNIQUE: 2D and 3D bilateral screening mammography was performed with CAD. FINDINGS: Both breasts are heterogeneously dense, limiting the sensitivity of mammography. Benign parenchymal and vascular calcifications are noted bilaterally. A stereotactic marker clip in the left breast is again noted. No dominant mass or malignant appearing microcalcifications are seen. The axillae are unremarkable. IMPRESSION: No mammographic features suspicious for malignancy are identified. ACR BI-RADS Category 2: Benign findings. Result letter will be mailed to the patient. Note: At least 10% of breast cancer is not imaged by mammography. Dictated by: Dictated on workstation # [id number]
== END ==
LOC: RAD 13:28
PROVIDERS: ATTEND Internal Medicine
DX: Z12.31 Encounter for screening mammogram for malignant neoplasm of breast (principal)
CPT/HCPCS: 77063; 77067

== ENCOUNTER 2021-12-29 21:19 | Emergency (ER) | payer MEDICARE, MEDICAID ==
[~2021-12-29 21:19] MED LIST changes: -TRAM-42 PO
--- NOTE | 2021-12-29 22:27 | ED Fall/Injury ---
General Chief Complaint: Trauma-Non Activation Stated Complaint: FALL Nursing Triage Note: TO ED VIA [facility] FROM HOME WITH C/O RIGHT KNEE PAIN AND LEFT FOOT PAIN AFTER FALL THIS MORNING. DENIES HITTING HEAD, DENIES LOC. Source: patient History of Present Illness Date Seen by Provider: Dec 29, 2021 Time Seen by Provider: 21:24 Initial Comments PT ARRIVES VIA EMS FROM HOME STATES SHE LOST HER BALANCE AND FELL AROUND 11:00 AM TODAY LANDED ON HER FEET/KNEES/LEGS DID NOT HIT HEAD OR HAVE ANY LOSS OF CONSCIOUSNESS NO NECK OR BACK PAIN NO HEAD PAIN NO PARESTHESIAS OR MOTOR DEFICITS C/O PAIN TO TOP OF LEFT FOOT--NO ANKLE PAIN C/O PAIN TO RIGHT KNEE--NO THIGH OR LOWER LEG PAIN PT HAS HAD PRIOR RIGHT FEMUR FRACTURE WITH PLATES AND SCREWS IN PLACE. PT IS ON ASPIRIN, BUT NO OTHER BLOOD THINNERS HAS NOT TAKEN ANYTHING FOR PAIN AT ANY TIME. PT HAS A WALKER BUT WAS NOT USING IT AT THE TIME THAT SHE FELL THIS MORNING PCP: DR. RAYMOND Allergies and Home Medications Allergies Coded Allergies: Iodinated Contrast Media (Verified Allergy, Unknown, HIVES, 10/20/17) lisinopril (Unverified Allergy, Unknown, 10/22/14) DRY COUGH Patient Home Medication List Home Medication List Reviewed: Yes Acetaminophen (Acetaminophen Extra Strength) 500 Mg Tablet, 500 MG PO Q8H PRN for PAIN-MILD, (Reported) Entered as Reported by: JIHAN RICE on 04/12/18 09 Amlodipine Besylate (Amlodipine Besylate) 5 Mg Tablet, 2.5 MG PO HS, (Reported) Entered as Reported by: JIHAN RICE on 04/12/18901 Aspirin (Adult Low Dose Aspirin EC) 81 Mg Tablet.dr, 81 MG PO HS, (Reported) Entered as Reported by: COLT MEJIA on 10/20/17 1214 Atenolol (Atenolol) 25 Mg Tablet, 25 MG PO DAILY, (Reported) Entered as Reported by: JIHAN RICE on 04/12/18 09 Atorvastatin Calcium (Atorvastatin Calcium) 10 Mg Tablet, 10 MG PO DAILY@1200, (Reported) Entered as Reported by: COLT MEJIA on 10/20/17 1214 Furosemide (Furosemide) 20 Mg Tablet, 20 MG PO 1200, (Reported) Entered as Reported by: IVY CHASE on 03/08/17 1323 Glipizide (Glipizide) 5 Mg Tablet, 5 MG PO BID, (Reported) Entered as Reported by: JIHAN RICE on 04/12/18 0900 Insulin Aspart (Novolog Flexpen) 300 Units/3 Ml Solution, 1-10 UNIT SQ TIDAC, (Reported) Entered as Reported by: COLT MEJIA on 10/20/17 1217 Insulin Glargine,Hum.rec.anlog (Lantus Solostar) 100 Unit/1 Ml Insuln.pen, 6 UNITS SC HS, (Reported) Entered as Reported by: IVY CHASE on 03/08/17 1323 Levothyroxine Sodium (Levothyroxine Sodium) 100 Mcg Tablet, 100 MCG PO DAILY, (Reported) Entered as Reported by: JIHAN RICE on 04/12/18 0901 Propylene Glycol/Peg 400 (Systane 0.3-0.4% Eye Drops) 15 Ml Drops, 1-2 DROPS OU QID PRN for DRY EYES, (Reported) Entered as Reported by: IVY CHASE on 03/08/17 1356 Tramadol HCl (Ultram) 50 Mg Tablet, 50 MG PO Q4H Prescribed by: JENA MURCIA on 12/29/21 2307 Review of Systems Review of Systems Constitutional: no symptoms reported Respiratory: no symptoms reported Cardiovascular: no symptoms reported Gastrointestinal: no symptoms reported Genitourinary: no symptoms reported Musculoskeletal: see HPI Skin: no symptoms reported Psychiatric/Neurological: No Symptoms Reported Past Evibekn-Yufmrl-Rpykyt Hx Patient Social History Tobacco Use?: No Substance use?: No Alcohol Use?: No Immunizations Up To Date Tetanus Booster (TDap): Unknown Seasonal Allergies Seasonal Allergies: Yes Past Medical History Surgeries: Yes (HEART STENT, EYE SURGERY (CATARACT) , RIGHT EYE SURGERY TO REMOVE FLUID) Coronary Stent, Dialysis, Eye Surgery, Orthopedic, Vascular Surgery Respiratory: Yes Sleep Apnea Currently Using CPAP: No (has machine but doesn't tolerate using it) Currently Using BIPAP: No Cardiac: Yes (pulmonary hypertension) Coronary Artery Disease, High Cholesterol, Hypertension Neurological: No Genitourinary: Yes (ESRD--DIALYSIS M-W-F) Renal Failure, Dialysis Gastrointestinal: Yes Chronic Constipation Musculoskeletal: Yes Arthritis, Fractures Endocrine: Yes (OBESITY) Diabetes, Insulin dep HEENT: Yes Cataract, Macular Degeneration Loss of Vision: Bilateral Cancer: No Psychosocial: No Integumentary: No Blood Disorders: Yes (ANEMIA) Adverse Reaction/Blood Tranf: No Family Medical History Cardiovascular disease 19 FATHER 19 MOTHER Diabetes mellitus 19 FATHER 19 MOTHER G8 SISTER Kidney disease 19 FATHER Diabetes PAST SURGICAL HISTORY: -RIGHT FEMUR FX/ORIF WITH PLATE AND SCREWS -CARDIAC CATH WITH STENT -BILATERAL CATARACT SURGERY -RIGHT EYE SURGERY TO REMOVE FLUID Physical Exam Vital Signs Vital Signs - First Documented 12/29/21 21:19 Temp 36.8 Pulse 59 Resp 18 B/P (MAP) 175/64 (101) Pulse Ox 100 O2 Delivery Room Air Capillary Refill : Less Than 3 Seconds Height, Weight, BMI Height: 5'5.00" Weight: 228lbs. 0.0oz. 103.716138zv; 38.42 BMI Method:Stated General Appearance: WD/WN, no apparent distress, obese Neck: non-tender Cardiovascular: normal peripheral pulses, regular rate, rhythm, no murmur Respiratory: chest non-tender, normal breath sounds Peripheral Pulses: 1+ Dorsalis Pedis (R), 1+ Left Dors-Pedis (L) Gastrointestinal: non tender, soft Back: normal inspection Extremities: other (TENDERNESS TO ANTERIOR ASPECT OF RIGHT KNEE--NO SWELLING OR BRUISING OR EXTERNAL EVIDENCE OF TRAUMA TO KNEE. TENDERNESS TO DORSAL ASPECT OF LEFT FOOT. NO SWELLING OR BRUISING OR EXTERNAL EVIDENCE OF TRAUMA. BOTH LOWER LEGS WIHT 2+ EDEMA. 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 nml as tested, no motor/sensory deficits, alert, normal mood/affect, oriented x 3 Skin: normal color, warm/dry Procedures/Interventions Splinting and Joint Reduction : Sloan wrap: Yes Progress/Results/Core Measures Results/Orders My Orders Orders - JENA MURCIA DO Knee, Right, 3 Views (12/29/21 21:27) Foot, Left, 3 Views (12/29/21 21:27) Ketorolac Injection (Toradol Injection) (12/29/21 23:15) Sloan Bandage (12/29/21 23:03) Rx-Tramadol Hcl (Rx-Ultram) (12/29/21 23:08) Medications Given in ED Current Medications Medications Dose Ordered Sig/Michael Route Start Time Stop Time Status Last Admin Dose Admin Ketorolac Tromethamine 60 mg ONCE ONCE IM 12/29/21 23:15 12/29/21 23:16 DC 12/29/21 23:17 60 MG Vital Signs/I&O 12/29/21 12/29/21 21:19 23:08 Temp 36.8 36.8 Pulse 59 58 Resp 18 16 B/P (MAP) 175/64 (101) 142/80 Pulse Ox 100 98 O2 Delivery Room Air Room Air Blood Pressure Mean: 101 Progress Progress Note : Progress Note PT ADVISED TO USE HER WALKER AT ALL TIMES PT'S BODY HABITUS WOULD NOT ACCOMODATE A KNEE IMMOBILZER TO RIGHT KNEE WALKING BOOT IS TOO BULKY AND CUMBERSOME FOR PT TO AMBULATE WITH, TO PLACE ON LEFT FOOT. Diagnostic Imaging Comments XRAYS--PER RADIOLOGIST REPORTS AT 2256 RIGHT KNEE--FINDINGS: There is no acute fracture or dislocation of the right knee. Prior surgical fixation is seen in the included mid to distal right femur. Large callus formation is seen in the distal diaphysis of the right femur. Moderate joint effusion is seen in the right knee. IMPRESSION: 1. No acute fracture or dislocation in the right knee. Moderate joint effusion is present. 2. Prior surgical fixation in the visualized mid and distal right femur with prominent callus formation in the distal diaphysis of the right femur. LEFT FOOT--FINDINGS: Generalized osteopenia is seen which limits evaluation. No acute displaced fracture seen in the left foot. No suspicious focal osseous lesions. IMPRESSION: 1. No acute displaced fracture or dislocation of the left foot. 2. Generalized osteopenia which limits evaluation. Reviewed: Reviewed by Me Departure Impression Primary Impression: Fall from standing Additional Impressions: Sprain of left foot Contusion of right knee Disposition: 01 HOME, SELF-CARE Condition: Stable Departure-Patient Inst. Decision time for Depature: 23:04 Referrals: FELIX RAYMOND MD (PCP/Family) Primary Care Physician CRISTÓBAL SOLIS MD Patient Instructions: Contusion (DC), Foot Sprain ED, Knee Pain (DC), Preventing Falls ED Add. Discharge Instructions: SLOAN WRAP TO SORE AREAS NEEDED FOR COMFORT USE YOUR WALKER AT ALL TIMES ICE TO SORE AREAS AT 20 MINUTE INTERVALS FOLLOW UP WITH DR. SOLIS IN 5-7 DAYS FOR FURTHER CARE--CALL IN THE MORNING TO SCHEDULE APPOINTMENT All discharge instructions reviewed with patient and/or family. Voiced understanding. Scripts Tramadol HCl (Ultram) 50 Mg Tablet 50 MG PO Q4H for Pain, #20 TAB Prov: JENA MURCIA DO 12/29/21 JENA MURCIA DO Dec 29, 2021 22:27
--- NOTE | 2021-12-29 22:51 | Diagnostic Imaging Report ---
CLINICAL HISTORY: Fall. Left foot pain. COMPARISON: None. TECHNIQUE: 3 views of the left foot. FINDINGS: Generalized osteopenia is seen which limits evaluation. No acute displaced fracture seen in the left foot. No suspicious focal osseous lesions. IMPRESSION: 1. No acute displaced fracture or dislocation of the left foot. 2. Generalized osteopenia which limits evaluation. Dictated by: Dictated on workstation # [id number]
--- NOTE | 2021-12-29 22:51 | Diagnostic Imaging Report ---
CLINICAL HISTORY: Fall. Right knee pain. COMPARISON: None. TECHNIQUE: 3 views of the right knee. FINDINGS: There is no acute fracture or dislocation of the right knee. Prior surgical fixation is seen in the included mid to distal right femur. Large callus formation is seen in the distal diaphysis of the right femur. Moderate joint effusion is seen in the right knee. IMPRESSION: 1. No acute fracture or dislocation in the right knee. Moderate joint effusion is present. 2. Prior surgical fixation in the visualized mid and distal right femur with prominent callus formation in the distal diaphysis of the right femur. Dictated by: Dictated on workstation # [id number]
[2021-12-29] MEDS ORDERED: TRAM-42 PO (23:07)
[2021-12-29 23:08] VITALS: BP 142/80
[2021-12-29] MEDS ORDERED: KETOROLAC 60 MG/2 ML VIAL IM ONE (23:15)
== END 2021-12-29 23:30 | disposition home or self-care (01) ==
LOC: EDUNIT# 21:21 → ER 21:22
DX: S93.602A Unspecified sprain of left foot, initial encounter (principal); S80.01XA Contusion of right knee, initial encounter; E11.9 Type 2 diabetes mellitus without complications; E66.9 Obesity, unspecified; Z68.38 Body mass index [BMI] 38.0-38.9, adult; Z87.81 Personal history of (healed) traumatic fracture; Z79.4 Long term (current) use of insulin; W18.30XA Fall on same level, unspecified, initial encounter; Y92.009 Unspecified place in unspecified non-institutional (private) residence as the place of occurrence of the external cause
CPT/HCPCS: 73562; 73630

== ENCOUNTER → 2021-12-29 | Outpatient (CLI) | payer MEDICARE, MEDICAID ==
[~2021-12-29] MED LIST changes: +OMEP20TA56 PO; -OMEP20TA7 PO; +POTA-164 PO; -POTA10TA14 PO; +TRAM-42 PO
--- NOTE | 2021-12-29 11:37 | Diagnostic Imaging Report ---
Indication: Routine screening. Comparison is made with prior mammogram from 12/09/2020 and 11/19/2019. 2-D and 3-D bilateral screening mammography was performed with CAD. CAD is utilized. The current study was also evaluated with a Computer Aided Detection (CAD) system. Both breasts are heterogeneously dense, limiting the sensitivity of mammography. Extensive vascular and benign parenchyma calcifications are again noted bilaterally. Biopsy marker clip in the left breast is again noted. No mass or malignant-appearing microcalcifications are seen. Axillae are unremarkable. IMPRESSION: BI-RADS Category 2 No mammographic features suspicious for malignancy are identified. ACR BI-RADS Category 2: Benign findings. Result letter will be mailed to the patient. Note: At least 10% of breast cancer is not imaged by mammography. Dictated by: Dictated on workstation # [id number]
== END ==
LOC: RAD 09:00
PROVIDERS: ATTEND Nurse Practitioner Family
DX: Z12.31 Encounter for screening mammogram for malignant neoplasm of breast (principal)
CPT/HCPCS: 77063; 77067

== ENCOUNTER 2022-02-16 13:16 | Outpatient (RCR) | payer MEDICARE, MEDICAID ==
[~2022-02-16 13:16] MED LIST changes: +TRAM-42 PO
== END 2022-02-17 | disposition home or self-care (01) ==
PROVIDERS: ATTEND Orthopaedic Surgery
DX: S80.01XD Contusion of right knee, subsequent encounter (principal); E11.9 Type 2 diabetes mellitus without complications; I11.9 Hypertensive heart disease without heart failure; W19.XXXD Unspecified fall, subsequent encounter

== ENCOUNTER 2022-03-04 13:43 | Outpatient (RCR) | payer MEDICARE, MEDICAID | END 2022-03-04 14:10 | disposition home or self-care (01) | PROVIDERS: ATTEND Orthopaedic Surgery | DX: S80.01XD Contusion of right knee, subsequent encounter (principal); E11.9 Type 2 diabetes mellitus without complications; I11.9 Hypertensive heart disease without heart failure; W19.XXXD Unspecified fall, subsequent encounter ==

== ENCOUNTER 2022-04-06 13:08 | Outpatient (CLI) | payer MEDICARE, MEDICAID ==
[2022-04-06] MEDS ORDERED: ACETAMINOPHEN 500 MG TAB (TYLENOL) PO PRN (13:15)
[2022-04-06] MEDS ORDERED: EPINEPHrine INJECTION 1 MG/ML AMP IM PRN (13:15)
[2022-04-06] MEDS ORDERED: diphenhydrAMINE 50 MG/ML INJ (BENADRYL) IV PRN (13:15)
[2022-04-06] MEDS ORDERED: ONDANSETRON 4 MG/2 ML (SDV) Z0FRAN IV PRN (13:15)
[2022-04-06] MEDS ORDERED: BEBTELOVIMAB 175 MG/2 ML VIAL IV ONE (13:15)
[2022-04-06 13:55] VITALS: BP 128/67
--- NOTE | 2022-04-06 14:16 | Anesthesia-Procedure Note ---
Procedures/Interventions Procedure Start/Stop/Diagnosis Date of Procedure: Apr 06, 2022 Start Time: 14:00 Referring Physician: unknown Preprocedural Diagnosis: covid Brief History Called to infusion clinic to provide IV access for patient to receive monoclonal antibody injection. Pt has history of being difficult stick with past iron infusions. Stop Time: 14:05 Central Line/IV Access IV : Location: Right Site: Forearm IV Catheter Type: Peripheral IV IV Catheter Gauge: 24 Progress Flushed with 20mL of NS. Procedure Conclusion 24G patent PIV VIDA MARTINEZ CRNA Apr 06, 2022 14:16
== END 2022-04-06 14:47 ==
LOC: INFUSION 13:08
PROVIDERS: ATTEND Nurse Practitioner Family
DX: U07.1 COVID-19 (principal)

== ENCOUNTER → 2022-04-22 | Outpatient (CLI) | payer MEDICARE, MEDICAID ==
[~2022-04-22] VITALS: Ht 162 cm; Wt 86.0 kg
[~2022-04-22] MED LIST changes: +REGADENOSON 0.4 MG/5 ML SYR (LEXISCAN) IV ONE
[2022-04-22] MEDS: CATHETER FLUSH 10 ML SYR IVP PRN ×2 (10:31→11:40)
[2022-04-22 11:40] VITALS: BP 201/85
--- NOTE | 2022-04-23 13:39 | Cardiology Stress Test Report ---
Stress Test Report Date of Procedure/Referring: Date of Procedure: Apr 22, 2022 PCP Felix Raymond MD Admitting Physician Admitting Physician: Attending Physician: Deborah Bojorquez MD Baseline Heart Rate: 66 Baseline Blood Pressure: Blood Pressure Systolic: 201 Blood Pressure Diastolic: 85 Baseline Vitals Vital Signs Date Time Temp Pulse Resp B/P (MAP) Pulse Ox O2 Delivery O2 Flow Rate FiO2 04/22/22 11:40 66 20 201/85 (123) 99 Room Air Baseline EKG: Baseline EKG: NSR Summary After explaining the procedure to the patient, she signed a consent and then brought to the stress nuclear laboratory. Patient received 0.4 mg Lexiscan for stress test, ECG, heart rate and blood pressure were monitored continuously. Resting and stress dose of radio tracer were injected, imaging was acquired and reviewed in short axis, horizontal long axis and vertical long axis views. TID: 1.03 SSS: 5 SDS: 5 EF: 75 1. Patient tolerated Lexiscan well 2. Breast attenuation with reversible ischemia involving the mid to apical anterior wall 3. Normal left ventricular size with normal contractility, ejection fraction 75% Copy Copies To 1: FELIX RAYMOND MD, BASHAR J MD Apr 23, 2022 13:39
== END ==
LOC: CARD 08:21
PROVIDERS: ATTEND Internal Medicine Cardiovascular Disease
DX: I11.9 Hypertensive heart disease without heart failure (principal); I25.10 Atherosclerotic heart disease of native coronary artery without angina pectoris; I35.0 Nonrheumatic aortic (valve) stenosis
CPT/HCPCS: 78452; 93017; A9502; C8929; 93306

== ENCOUNTER 2022-05-06 13:33 | Day surgery (SDC) | payer MEDICARE, MEDICAID ==
[~2022-05-06] VITALS: Ht 162.6 cm; Wt 92.6 kg
[2022-05-06] VITALS (13 sets, daily range): BP systolic 100–190; BP diastolic 42–82
[~2022-05-06 13:33] MED LIST changes: -REGADENOSON 0.4 MG/5 ML SYR (LEXISCAN) IV ONE
[2022-05-06] MEDS ORDERED: HEParin (CATH LAB) 2,000 ML IV ONE (13:37)
[2022-05-06] MEDS ORDERED: LIDOCAINE 1% INJ 30 ML (XYLOCAINE) VIAL ONE (13:37)
[2022-05-06] MEDS ORDERED: NS IV 1000 ML 1,000 ML ONE (13:37)
[2022-05-06] MEDS ORDERED: VERAPAMIL 5 MG/2 ML (CALAN) VIAL IV ONE (14:23)
[2022-05-06] MEDS ORDERED: fentaNYL INJ 100 MCG/2 ML AMP ONE (14:23)
[2022-05-06] MEDS ORDERED: MIDAZOLAM 5 MG/5 ML (VERSED) VIAL ONE (14:23)
[2022-05-06] MEDS ORDERED: NITRO DRIP 25000 MCG/D5W 0 ML IV ONE ×2 (14:24→16:19)
[2022-05-06] MEDS ORDERED: HEParin 1000 UNIT/ML (10ML VIAL) FOR BOLUS ONE (14:24)
[2022-05-06] MEDS: NS IV 1000 ML 1,000 ML IV SCH ×3 (14:27→23:26)
[2022-05-06] MEDS ORDERED: diphenhydrAMINE 50 MG/ML INJ (BENADRYL) ONE ×2 (14:27→15:34)
[2022-05-06] MEDS ORDERED: methylPREDNISolone 125 MG (Solu-MEDROL) VIAL ONE (14:28)
--- NOTE | 2022-05-06 14:30 | Diagnostic Imaging Report ---
Indication: Coronary artery disease Frontal chest dated 0213 p.m. COMPARISON: 04/12/2018 Heart and mediastinal silhouette are normal in appearance. The lungs are clear. There is no pneumothorax or pleural fluid. IMPRESSION: Negative chest. Dictated by: Dictated on workstation # [id number]
[2022-05-06 14:31] LABS: HEMATOCRIT 31 % (35-52); HEMOGLOBIN 10.3 g/dL (11.5-16.0); MEAN CORPUSCULAR HEMOGLOBIN 32 pg (25-34); MEAN CORPUSCULAR HGB CONC 33 g/dL (32-36); MEAN CORPUSCULAR VOLUME 98 fL (80-99); MEAN PLATELET VOLUME 9.7 fL (9.0-12.2); PLATELET COUNT 256 10^3/uL (130-400); WHITE BLOOD COUNT 9.7 10^3/uL (4.3-11.0)
[2022-05-06 14:32] LABS: BILIRUBIN,URINE NEGATIVE (NEGATIVE); CLARITY,URINE CLEAR; COLOR,URINE YELLOW; GLUCOSE, URINE (UA) NEGATIVE (NEGATIVE); KETONES,URINE NEGATIVE (NEGATIVE); LEUKOCYTE ESTERASE ,URINE 1+ (NEGATIVE); NITRITE,URINE NEGATIVE (NEGATIVE); PH,URINE 7.5 (5-9); PROTEIN,URINE 2+ (NEGATIVE)
[2022-05-06 14:40] LABS: BACTERIA,URINE MODERATE /HPF
[2022-05-06 14:50] LABS: INR 1.1 (0.8-1.4); PROTHROMBIN TIME PATIENT 14.2 SEC (12.2-14.7)
[2022-05-06] MEDS ORDERED: CINA30TA6 PO (14:50)
[2022-05-06] MEDS ORDERED: INSU100I14 SQ (14:50)
[2022-05-06] MEDS ORDERED: CHOL-34 PO (14:50)
[2022-05-06] MEDS ORDERED: OMEG100032 PO (14:50)
[2022-05-06] MEDS ORDERED: INSU100I29 SQ (14:50)
[2022-05-06] MEDS ORDERED: CARV12.53 PO ×2 (14:50→14:53)
[2022-05-06] MEDS ORDERED: BUME1TAB8 PO (14:50)
[2022-05-06] MEDS ORDERED: GABA-486 PO (14:50)
[2022-05-06] MEDS ORDERED: ASPI-1238 PO (14:50)
[2022-05-06] MEDS ORDERED: SEVE800T13 PO (14:50)
[2022-05-06 14:56] LABS: BILIRUBIN,TOTAL 0.8 MG/DL (0.1-1.0); CREATININE SERUM 3.75 MG/DL (0.60-1.30); POTASSIUM 4.1 MMOL/L (3.6-5.0); TOTAL PROTEIN 7.1 GM/DL (6.4-8.2)
[2022-05-06] MEDS ORDERED: hydrALAZINE (APESOLINE) 20 MG/ML VIAL ONE ×2 (16:09→16:22)
[2022-05-06] MEDS ORDERED: meTOprolol 5 MG/5 ML (LOPRESSOR) VIAL ONE (16:09)
--- NOTE | 2022-05-06 16:20 | Cardiac Procedure Note-CS/ASA ---
Pre-Procedure Note Pre-Op Procedure Note Date of Available H&P: Apr 26, 2022 Date H&P Reviewed: May 06, 2022 Time H&P Reviewed: 15:00 History & Physical: H&P Reviewed, Patient Examed, No changes noted Pre-Operative Diagnosis: Coronary artery disease Conscious Sedation Pre-Proced Time 15:00 ASA Score 3 For ASA 3 and 4: Consider anesthesia and medical clearance. Also, for patients with a history of failed moderate sedation consider anesthesia. Airway Lungs Heart ASA score ASA 1: a normal healthy patient ASA 2: a patient with a mild systemic disease (mid diabetes, controlled hypertension, obesity ASA 3: a patient with a severe systemic disease that limits activity (angina, COPD, prior Myocardial infarction) ASA 4: a patient with an incapacitating disease that is a constant threat to life (CHF, renal failure) ASA 5: a moribund patient not expected to survive 24 hrs. (ruptured aneurysm) ASA 6: a declared brain- patient whose organs are being harvested. For emergent operations, add the letter E after the classification Mallampati Classification Grade 3 Sedation Plan Analgesia, Amnesia, Plan communicated to team members, Discussed options with patient/fam, Discussed risks with patient/fam The patient is an appropriate candidate to undergo the planned procedure, sedation, and anesthesia. The patient immediately re-assessed prior to indication. CRISS BANUELOS MD May 06, 2022 16:20
--- NOTE | 2022-05-06 16:23 | Discharge Inst-Post CATH ---
Discharge Inst-CATH/EP Problems Reviewed?: Yes Post Cardiac Cath/EP D/C Inst Follow Up/Plan Appointment with Dr. Bojorquez's office in 2 to 4 weeks <b>CARDIAC CATH/EP PROCEDURE DISCHARGE INSTRUCTIONS</b> ACTIVITY * Go Home directly and rest. * Limit activity of the leg (or wrist if it was used) for 7 days including aer obics, swimming, jogging, bicycling, etc. * Restrict stair-climbing for 7 days if possible, if not, climb up with your non-cath leg, then bring together on the same step. * Avoid lifting, pushing, pulling or excessive movement of the affected extremi ty for 7 days. * Customary sexual activity may be resumed after 2 days-use caution not to use a position that strains or causes pain to the affected extremity. * No driving for 24 hours. * NO SMOKING. * Avoid straining for bowel movements for 7 days. * Gentle walking on level ground is allowed. * Returning to work will depend on the type of procedure and the results. Your doctor will discuss this with you. CALL YOUR DOCTOR FOR ANY OF THE FOLLOWING: *If bleeding from the puncture site occurs- Apply gentle pressure to site with clean cloth and call your doctor or EMS. * If a knot or lump forms under the skin, increases in size, or causes pain. * If bruising appears to be worsening or moving further down your leg instead of disappearing. * Temperature above 101 F. CARE OF YOUR GROIN INCISION; * Bruising or purple discoloration of the skin near the puncture site is common. * You may shower only, no bathtub bathing for 5 days. Be careful to avoid slipping as your leg may feel stiff. * If a closure device was used on your femoral artery, please see the attached guide regarding care of the device and your leg. * Leave dressing on FOR 24 hours. CARE OF YOUR WRIST INCISION; * Bruising or purple discoloration of the skin near the puncture site is common. * You may shower. * DO NOT submerge wrist. * Leave dressing on FOR 24 hours. CRISS BOJORQUEZ MD May 06, 2022 16:23
--- NOTE | 2022-05-06 16:27 | Cardiac Cath Report ---
Cardiac Cath Report Physician (s)/Chicken Buyer (s) Physician CRISS BANUELOS MD Pre-Procedure Diagnosis Pre-Procedure Diagnosis: Coronary artery disease Post-Procedure Note Procedure Start Date: May 06, 2022 Name of Procedure: Left heart catheterization Findings/Procedure Note PROCEDURE NOTE: 87-year-old lady with history of coronary artery disease, end-stage kidney disease, diabetes mellitus, had an abnormal stress test, scheduled for cardiac catheterization possible PTCA. After explaining the procedure to the patient, all pros and cons were explained, all questions were answered. The patient signed the consent and then she was placed on the cardiac catheterization laboratory. Groin was prepped SL fashion local anesthesia was used. Attempt to access the right radial artery, I was unable to advance the wire beyond the midportion. I felt that it was due to anomaly in the artery. The needle was removed and manual pressure was removed. No sheath was placed in the radial artery. Sheath placed in the right femoral artery and the sheath placed in the right femoral vein due to poor access. Kimo right and left catheter were used to access the coronary system. Pigtail was used to access the left ventricular cavity. Left ventriculogram was not done pressure was measured. Patient required multiple doses of Lopressor and hydralazine given IV to stabilize her blood pressure At the end of the procedure the sheath was removed. Closure device was deployed FINDINGS: Hemodynamics LV 180/27, end-diastolic pressure of 27 Aorta 203/67 mean of 108 ANATOMY: Left Main has severe distal stenosis 95% stenosis distally Left Anterior Descending is calcified artery with 95% stenosis in the proximal portion, 80% stenosis in a diagonal branch Left Circumflex is moderate in size with no obstructive disease Right Coronary Artery is dominant artery with 50% stenosis in the right PDA nonobstructive disease. LV Gram was not done, pressure was measured CONCLUSION: 1. Severe distal left main coronary artery stenosis, severe proximal and mid LAD stenosis and severe diagonal artery stenosis. 2. Severe hypertension with elevated left ventricular end-diastolic pressure DISCUSSION AND RECOMMENDATION: Patient is considered high risk for intervention at the same time she is 87 years old with end-stage kidney disease she is considered high due to risk for intervention. Discussed the management plan with Dr. Carrasco, will arrange for evaluation for possible high risk intervention with atherectomy to the left main Anesthesia Type: Conscious Sedation Estimated blood loss (mL): 15 ml Contrast Amount: 40 ml Total Radiation Dose: 423 mGy Post-Procedure Diagnosis Post-operative diagnosis: Coronary artery disease Malignant hypertension Diabetes mellitus End-stage kidney disease CRISS BANUELOS MD May 06, 2022 16:27
[2022-05-06] MEDS ORDERED: ACETAMINOPHEN 500 MG TAB (TYLENOL) PO PRN (16:30)
[2022-05-06] MEDS ORDERED: PATIENT MAY USE OWN MEDS, ALL PO SCH (16:30)
[2022-05-06 16:34] LABS: TRIGLYCERIDES 108 MG/DL (<150); VLDL CHOLESTEROL 22 MG/DL (5-40)
[2022-05-06 16:39] LABS: CHOLESTEROL 131 MG/DL (< 200)
[2022-05-06 16:40] LABS: HDL CHOLESTEROL 56 MG/DL (40-60)
[2022-05-06] MEDS ORDERED: BUMETANIDE 1 MG (BUMEX) TAB PO PRN (17:15)
[2022-05-06] MEDS ORDERED: GABAPENTIN 100 MG (NEURONTIN) CAP PO SCH (21:00)
[2022-05-06] MEDS ORDERED: AtorvaSTATin TABLET 10 MG TABLET PO SCH (21:00)
[2022-05-07] VITALS (8 sets, daily range): BP systolic 146–160; BP diastolic 65–80
[2022-05-07] MEDS: NS IV 1000 ML 1,000 ML IV SCH (02:20)
[2022-05-07] MEDS ORDERED: LEVOTHYROXINE 100 MCG (LEVOTHROID) TAB PO SCH (06:30)
[2022-05-07] MEDS ORDERED: ASPIRIN E.C. 81 MG (ECOTRIN) TAB PO SCH (09:00)
--- NOTE | 2022-05-07 09:34 | Cardiology Progress Note ---
Subjective Date Seen by Provider: May 07, 2022 Time Seen by Provider: 08:00 Subjective/Events-last exam Patient was seen at bedside, laying down comfortably, feeling better. Review of Systems General: No Chills, No Night Sweats, No Fatigue, No Malaise, No Appetite, No Other HEENT: No Head Aches, No Visual Changes, No Eye Pain, No Ear Pain, No Dysphasia, No Sinus Congestion, No Post Nasal Drip, No Sore Throat, No Other Pulmonary: No Dyspnea, No Cough, No Pleuritic Chest Pain, No Other Cardiovascular: No: Chest Pain, Palpitations, Orthopnea, Paroxysmal Noc. Dyspnea, Edema, Lt Headedness, Other Objective-Cardiology Exam Last Set of Vital Signs Vital Signs 05/07/22 07:49 Temp 36.5 I&O Intake and Output 05/07/22 00:00 Intake Total 250 ml Output Total 250 ml Balance 0 ml Intake Oral 250 ml Output Urine Total 250 ml Daily Weight Change No General: Alert, Oriented X3, Cooperative HEENT: Atraumatic, PERRLA Neck: Supple, No JVD, No Thyromegaly Lungs: Clear to Auscultation, Normal Air Movement Heart: Regular Rate, Normal S1, Normal S2, No Murmurs Abdomen: Normal Bowel Sounds, Soft, No Tenderness, No Hepatosplenomegaly, No Masses Extremities: No Clubbing, No Cyanosis, No Edema, Normal Pulses, No Tenderness/Swelling Skin: No Rashes, No Breakdown, No Significant Lesion Neuro: Normal Gait, Normal Speech, Strength at 5/5 X4 Ext, Normal Tone, Sensation Intact Psych/Mental Status: Mental Status NL, Mood NL Results Lab Laboratory Tests 05/06/22 14:25 A/P-Cardiology Admission Diagnosis Coronary artery disease End-stage kidney disease Hypertension Hyperlipidemia Assessment/Plan Coronary artery disease, multivessel disease involving the left main, LAD and c ircumflex artery. Patient is 87 years old not a suitable candidate for bypass surgery It is considered high risk intervention, I reviewed the case with Dr. Carrasco who is willing to try an intervention on her left main and LAD. End-stage kidney disease maintained on hemodialysis, patient is scheduled for hemodialysis today Hypertension, restart home medication monitor blood pressure Hyperlipidemia, continue on statin Diabetes mellitus. CRISS BANUELOS MD May 07, 2022 09:33
== END 2022-05-07 09:16 | disposition home or self-care (01) ==
LOC: CATH 13:33 → ICU 17:07 → CATH 05-07 09:16
PROVIDERS: ATTEND Internal Medicine Cardiovascular Disease
DX: I25.10 Atherosclerotic heart disease of native coronary artery without angina pectoris (principal); I12.0 Hypertensive chronic kidney disease with stage 5 chronic kidney disease or end stage renal disease; E11.22 Type 2 diabetes mellitus with diabetic chronic kidney disease; N18.6 End stage renal disease; E66.9 Obesity, unspecified; Z68.35 Body mass index [BMI] 35.0-35.9, adult; G47.33 Obstructive sleep apnea (adult) (pediatric); E03.9 Hypothyroidism, unspecified; I65.23 Occlusion and stenosis of bilateral carotid arteries; E78.2 Mixed hyperlipidemia; Z86.73 Personal history of transient ischemic attack (TIA), and cerebral infarction without residual deficits; Z99.2 Dependence on renal dialysis; Z79.4 Long term (current) use of insulin; Z79.899 Other long term (current) drug therapy
CPT/HCPCS: 36140; 71045; 80053; 80061; 81000; 85027; 85610; 85730; 87081; 87088; 93005; 93458; C1760; C1894 ×2; 36415

== ENCOUNTER → 2022-06-24 | Outpatient (CLI) | payer MEDICARE, MEDICAID ==
[~2022-06-24] MED LIST changes: +ASPI-1238 PO; +BUME1TAB8 PO; +CARV12.53 PO; +CHOL-34 PO; +CINA30TA6 PO; +GABA-486 PO; +INSU100I29 SQ; +OMEG100032 PO; +SEVE800T13 PO
--- NOTE | 2022-06-24 13:16 | Diagnostic Imaging Report ---
EXAMINATION: MRI of the abdomen without contrast. MRCP TECHNIQUE: Multiplanar, multisequence MR images of the abdomen were obtained without intravenous contrast including 3D MIP MRCP images. HISTORY: Left adrenal mass COMPARISON: 01/12/2016 FINDINGS: Liver: No suspicious liver lesions. No steatosis. No surface nodularity. There is iron deposition in the liver. Ducts: No biliary ductal dilation. Gallbladder: Normal. Pancreas: Normal. Spleen: Normal. Adrenals: There is a stable 5.2 x 2.7 cm mostly cystic left adrenal nodule. Kidneys: No suspicious lesions. No hydronephrosis. There are simple cysts and hemorrhagic cysts in the kidneys. Bowel: Normal. Other: No lymphadenopathy. Visualized portions of the thorax are normal. No suspicious osseus lesions. There is a small hiatal hernia. IMPRESSION: 1. Stable mostly cystic left adrenal nodule suggestive of a prior hemorrhage. 2. Iron deposition in the liver. Dictated by: Dictated on workstation # [id number]
== END ==
LOC: RAD 06-15 09:00
PROVIDERS: ATTEND Internal Medicine
DX: E27.9 Disorder of adrenal gland, unspecified (principal)
CPT/HCPCS: 74181

== ENCOUNTER → 2022-10-11 | Outpatient (CLI) | payer MEDICARE, MEDICAID ==
[~2022-10-11] MED LIST changes: -INSU100I29 SQ; +INSU100I30 SQ
--- NOTE | 2022-10-11 18:41 | Diagnostic Imaging Report ---
INDICATION: Bronchitis and cough. PA and lateral chest obtained at 0225 p.m. and compared to 05/06/2022. Heart and mediastinal silhouette are normal in appearance. There is minimal infiltrate versus atelectasis in the left lateral base. There is no pneumothorax or pleural fluid. Coronary stents are visualized. IMPRESSION: Minimal infiltrate versus atelectasis in the left lateral base. No pneumothorax or pleural fluid. Dictated by: Dictated on workstation # [id number]
== END ==
LOC: RAD 14:05
PROVIDERS: ATTEND Nurse Practitioner Family
DX: R05.9 Cough, unspecified (principal); J40 Bronchitis, not specified as acute or chronic
CPT/HCPCS: 71046

== ENCOUNTER 2022-12-28 15:14 | Emergency (ER) | payer MEDICARE, MEDICAID ==
[~2022-12-28] VITALS: Ht 162.6 cm; Wt 86.6 kg
[2022-12-28] MEDS ORDERED: ASPIRIN 81 MG CHEW (CHILDREN'S ASA) PO ONE (15:30)
--- NOTE | 2022-12-28 15:34 | ED Chest Pain ---
General Chief Complaint: Chest Pain Stated Complaint: SOB | CHEST DISCOMFORT Source: patient Exam Limitations: no limitations History of Present Illness Date Seen by Provider: Dec 28, 2022 Time Seen by Provider: 15:31 Initial Comments Patient is a 87-year-old female who presents to the ED for substernal chest pressure and shortness of breath. She states she had few episodes over the past weekend. She states the pain and shortness of breath was intermittent. She states she has been pain-free without any shortness of breath over the past 2 days. Patient has a history of coronary artery disease with stents. She had a balloon placed and 2 cardiac stents placed by Dr. Roman in [place] in April of last year. She states her blood pressure has been running a little high 198/85 at home. She denies of any specific cough, wheezing, abdominal pain vomiting, diarrhea, leg swelling. She states she did have some mild swelling over the weekend but that improved. She does do dialysis Tuesday and Tuesday. She has been on dialysis for the past 3 years. History of kidney disease. She does take baby aspirin in the morning. She is currently on carvedilol bumetanide, and atorvastatin and effient. She does produce urine. Allergies and Home Medications Allergies Coded Allergies: Iodinated Contrast Media (Verified Allergy, Unknown, HIVES, 04/06/22) amoxicillin (Verified Allergy, Unknown, Rash, 04/06/22) lisinopril (Verified Allergy, Unknown, 04/06/22) DRY COUGH Patient Home Medication List Home Medication List Reviewed: Yes Acetaminophen (Acetaminophen Extra Strength) 500 Mg Tablet, 1,000 MG PO Q8H PRN for PAIN-MILD, (Reported) Entered as Reported by: JIHAN RICE on 04/12/18 0903 Aspirin (Aspirin EC) 81 Mg Tablet.dr, 81 MG PO DAILY, (Reported) Entered as Reported by: JASMIN GARBER on 05/06/22 1450 Atorvastatin Calcium (Atorvastatin Calcium) 10 Mg Tablet, 10 MG PO HS, (Reported) Entered as Reported by: COLT MEJIA on 10/20/17 1214 Bumetanide (Bumetanide) 1 Mg Tablet, 1 MG PO BID PRN for DIALYSIS, (Reported) Entered as Reported by: JASMIN GARBER on 05/06/22 1450 Carvedilol (Carvedilol) 12.5 Mg Tablet, 12.5 MG PO BID PRN for DIALYSIS, (Reported) Entered as Reported by: JASMIN GARBER on 05/06/22 145 Carvedilol (Carvedilol) 12.5 Mg Tablet, 12.5 MG PO HS PRN for DIALYSIS, (Reported) Entered as Reported by: JASMIN GARBER on 05/06/22 1453 Cholecalciferol (Vitamin D3) (Vitamin D3) 25 Mcg (1000 Unit) Tablet, 25 MCG PO DAILY, (Reported) Entered as Reported by: JASMIN GARBER on 05/06/22 145 Cinacalcet HCl (Cinacalcet HCl) 30 Mg Tablet, 30 MG PO DAILY PRN for DIALYSIS, (Reported) Entered as Reported by: JASMIN GARBER on 05/06/22 145 Gabapentin (Gabapentin) 100 Mg Capsule, 100 MG PO HS, (Reported) Entered as Reported by: JASMIN GARBER on 05/06/22 145 Insulin Aspart (Novolog Flexpen) 100 Unit/Ml (3 Ml) Solution, Unknown Dose SQ UD, (Reported) Entered as Reported by: JASMIN GARBER on 05/06/22 145 Insulin Detemir (Levemir Flextouch) 100 Unit/Ml (3 Ml) Insuln.pen, 4 UNITS SQ HS, (Reported) Entered as Reported by: JASMIN GARBER on 05/06/22 145 Levothyroxine Sodium (Levothyroxine Sodium) 100 Mcg Tablet, 100 MCG PO DAILY, (Reported) Entered as Reported by: JIHAN RICE on 04/12/18 0901 [place]-3/Dha/Epa/Fish Oil (Fish Oil 1,000 mg Softgel) 1,000 Mg (120 Mg-180 Mg) Capsule, 1,000 MG PO HS, (Reported) Entered as Reported by: JASMIN GARBER on 05/06/22 145 Propylene Glycol/Peg 400 (Systane 0.3-0.4% Eye Drops) 15 Ml Drops, 1-2 DROPS OU QID PRN for DRY EYES, (Reported) Entered as Reported by: IVY CHASE on 03/08/17 1356 Sevelamer Carbonate (Sevelamer Carbonate) 800 Mg Tablet, 2,400 MG PO TID, (Reported) Entered as Reported by: JASMIN GARBER on 05/06/22 0264 Review of Systems Review of Systems Constitutional: No chills, No diaphoresis, No malaise, No weakness EENTM: No Double Vision, No Eye Pain Respiratory: Denies Cough; Shortness of Air Cardiovascular: Chest Pain Gastrointestinal: Denies Abdominal Pain, Denies Diarrhea Genitourinary: Denies Burning, Denies Discharge, Denies Drainage, Denies Frequency Musculoskeletal: No back pain, No joint pain Skin: No change in color, No change in hair/nails Psychiatric/Neurological: Denies Anxiety, Denies Depressed All Other Systems Reviewed Negative Unless Noted: Yes Past Pxuceqo-Juekoc-Frdlik Hx Immunizations Up To Date Tetanus Booster (TDap): Unknown Seasonal Allergies Seasonal Allergies: Yes Past Medical History Surgeries: Yes (HEART STENT, EYE SURGERY (CATARACT) , RIGHT EYE SURGERY TO REMOVE FLUID) Coronary Stent, Dialysis, Eye Surgery, Orthopedic, Vascular Surgery Respiratory: Yes Sleep Apnea Currently Using CPAP: No (has machine but doesn't tolerate using it) Currently Using BIPAP: No Cardiac: Yes (pulmonary hypertension) Coronary Artery Disease, High Cholesterol, Hypertension Neurological: No Genitourinary: Yes (ESRD--DIALYSIS M-W-F) Renal Failure, Dialysis Gastrointestinal: Yes Chronic Constipation Musculoskeletal: Yes Arthritis, Fractures Endocrine: Yes (OBESITY) Diabetes, Insulin dep HEENT: Yes Cataract, Macular Degeneration Loss of Vision: Bilateral Cancer: No Psychosocial: No Integumentary: No Blood Disorders: Yes (ANEMIA) Adverse Reaction/Blood Tranf: No Family Medical History Cardiovascular disease 19 FATHER 19 MOTHER Diabetes mellitus 19 FATHER 19 MOTHER G8 SISTER Kidney disease 19 FATHER Diabetes PAST SURGICAL HISTORY: -RIGHT FEMUR FX/ORIF WITH PLATE AND SCREWS -CARDIAC CATH WITH STENT -BILATERAL CATARACT SURGERY -RIGHT EYE SURGERY TO REMOVE FLUID Physical Exam Vital Signs Vital Signs - First Documented 12/28/22 15:19 Temp 36.9 Pulse 70 Resp 14 B/P (MAP) 191/85 (120) Pulse Ox 97 O2 Delivery Room Air Capillary Refill : Height, Weight, BMI Height: 5'5.00" Weight: 228lbs. 0.0oz. 103.423384gb; 35.02 BMI Method:Stated General Appearance: No Apparent Distress, WD/WN HEENT: PERRL/EOMI, TMs Normal, Normal ENT Inspection, Pharynx Normal Neck: Full Range of Motion, Normal Inspection, Non Tender, Supple Respiratory: Chest Non Tender, Lungs Clear, Normal Breath Sounds, No Accessory Muscle Use, No Respiratory Distress Cardiovascular: Regular Rate, Rhythm, No Edema, No Gallop, No JVD, No Murmur Gastrointestinal: Normal Bowel Sounds, No Organomegaly, No Pulsatile Mass, Non Tender Neurologic/Psychiatric: Alert, Oriented x3, No Motor/Sensory Deficits, Normal Mood/Affect, order to delivery supervisor II-XII Norm as Tested Skin: Normal Color, Warm/Dry Progress/Results/Core Measures Results/Orders Lab Results Laboratory Tests Test 12/28/22 15:37 Range/Units White Blood Count 8.6 4.3-11.0 10^3/uL Red Blood Count 3.44 L 3.80-5.11 10^6/uL Hemoglobin 11.1 L 11.5-16.0 g/dL Hematocrit 34 L 35-52 % Mean Corpuscular Volume 100 H 80-99 fL Mean Corpuscular Hemoglobin 32 25-34 pg Mean Corpuscular Hemoglobin Concent 32 32-36 g/dL Red Cell Distribution Width 14.9 H 10.0-14.5 % Platelet Count 205 130-400 10^3/uL Mean Platelet Volume 10.5 9.0-12.2 fL Immature Granulocyte % (Auto) 1 % Neutrophils (%) (Auto) 62 42-75 % Lymphocytes (%) (Auto) 26 12-44 % Monocytes (%) (Auto) 7 0-12 % Eosinophils (%) (Auto) 3 0-10 % Basophils (%) (Auto) 1 0-10 % Neutrophils # (Auto) 5.3 1.8-7.8 X 10^3 Lymphocytes # (Auto) 2.2 1.0-4.0 X 10^3 Monocytes # (Auto) 0.6 0.0-1.0 X 10^3 Eosinophils # (Auto) 0.3 0.0-0.3 10^3/uL Basophils # (Auto) 0.0 0.0-0.1 10^3/uL Immature Granulocyte # (Auto) 0.0 0.0-0.1 10^3/uL Prothrombin Time 12.6 12.2-14.7 SEC INR Comment 0.9 0.8-1.4 Activated Partial Thromboplast Time 33 24-35 SEC Sodium Level 142 135-145 MMOL/L Potassium Level 4.0 3.6-5.0 MMOL/L Chloride Level 103 98-107 MMOL/L Carbon Dioxide Level 27 21-32 MMOL/L Anion Gap 12 5-14 MMOL/L Blood Urea Nitrogen 64 H 7-18 MG/DL Creatinine 5.43 H 0.60-1.30 MG/DL Estimat Glomerular Filtration Rate 7 BUN/Creatinine Ratio 12 Glucose Level 234 H 70-105 MG/DL Calcium Level 8.8 8.5-10.1 MG/DL Corrected Calcium 8.9 8.5-10.1 MG/DL Magnesium Level 1.7 1.6-2.4 MG/DL Total Bilirubin 0.4 0.1-1.0 MG/DL Aspartate Amino Transf (AST/SGOT) 14 5-34 U/L Alanine Aminotransferase (ALT/SGPT) 10 0-55 U/L Alkaline Phosphatase 102 40-136 U/L Myoglobin 148.8 H 10.0-92.0 NG/ML Troponin I 0.135 H <0.028 NG/ML B-Type Natriuretic Peptide 309.3 H <100.0 PG/ML Total Protein 6.8 6.4-8.2 GM/DL Albumin 3.9 3.2-4.5 GM/DL Lipase 31 8-78 U/L My Orders Orders - BLAYNE MEANS PA Cbc With Automated Diff (12/28/22 15:23) Magnesium (12/28/22 15:23) Chest 1 View, Ap/Pa Only (12/28/22 15:23) Ekg Tracing (12/28/22 15:23) Comprehensive Metabolic Panel (12/28/22 15:23) Myoglobin Serum (12/28/22 15:23) Protime With Inr (12/28/22 15:23) Partial Thromboplastin Time (12/28/22 15:23) Monitor-Rhythm Ecg Trace Only (12/28/22 15:23) Ed Iv/Invasive Line Start (12/28/22 15:23) Lipase (12/28/22 15:23) Bnp Ayan (12/28/22 15:23) Troponin I Phelps (12/28/22 15:23) Aspirin Chewable Tablet (Baby Aspirin Ch (12/28/22 15:30) Medications Given in ED Current Medications Medications Dose Ordered Sig/Michael Route Start Time Stop Time Status Last Admin Dose Admin Aspirin 324 mg ONCE ONCE PO 12/28/22 15:30 12/28/22 15:31 DC 12/28/22 15:43 324 MG Vital Signs/I&O 12/28/22 15:19 Temp 36.9 Pulse 70 Resp 14 B/P (MAP) 191/85 (120) Pulse Ox 97 O2 Delivery Room Air Comment Sinus rhythm, moderate voltage criteria for LVH, 60 bpm, QRS duration 90 MS, QTc 445 MS Departure Communication (PCP) Patient with a history of coronary artery disease, CHF, chronic kidney disease requiring dialysis 3 times a week who presents ED for evaluation for chest pain shortness of breath. Reviewed previous ER visits, H&P, lab testing. Differential diagnosis, CHF exacerbation, acute on chronic kidney disease, ACS. Patient is currently asymptomatic since the weekend. She is currently on Eff ient blood thinner. EKG, cardiac work-up, chest x-ray was obtained. CBC was grossly unremarkable. She was hypertensive on arrival 191/85 but did improve without intervention to 161/85. She is currently on carvedilol. EKG was obtained which did note sinus rhythm without evidence of ST elevation, depression or T wave inversion. Reviewed previous cardiology H&P. Patient considered high risk. Had cardiac catheterization performed by Dr. Carrasco at [facility] last April requiring 2 stents and a balloon. She has been admitted for chest pain in the past. Chest x-ray obtained did not show any pneumonia, pneumothorax, pleural effusion. She does have some mild pitting edema bilateral lower extremities. Chemistry showed 5.43, GFR 7, troponin 0.135 , BNP 300. Patient did receive a full aspirin. Consulted cardiology Dr. Hardin on-call. Due to to her dialysis he recommended transfer to [facility] as she is high risk and recommends cardiology evaluation with nephrology consult. Concern for NSTEMI. . Likely secondary to chronic kidney disease versus hypertensive but not able to rule out cardiac in nature. Patient was discussed with Dr. Moreno hospitalist who accept the patient at [facility]. Recommend no further treatment at this time Impression Primary Impression: Chest pain Additional Impressions: NSTEMI (non-ST elevated myocardial infarction) CKD (chronic kidney disease) Disposition: 02 XFER SHT-TRM HOSP Condition: Stable Transfer Transfer Reason: Exceeds level of care Time Spoke to Accepting Phy: 16:28 Transfer Progress Notes accepted Dr. Moreno Transfer Time: 16:28 Transfer Facility: [facility] Method of Transfer: EMS Departure-Patient Inst. Referrals: FELIX RAYMOND MD (PCP/Family) Primary Care Physician BLAYNE MEANS Dec 28, 2022 15:34
[2022-12-28 15:49] LABS: BASOPHILS % (AUTO) 1 % (0-10); EOSINOPHILS # (AUTO) 0.3 10^3/uL (0.0-0.3); EOSINOPHILS % (AUTO) 3 % (0-10); HEMATOCRIT 34 % (35-52); HEMOGLOBIN 11.1 g/dL (11.5-16.0); LYMPHOCYTES # (AUTO) 2.2 X 10^3 (1.0-4.0); LYMPHOCYTES % (AUTO) 26 % (12-44); MEAN CORPUSCULAR HEMOGLOBIN 32 pg (25-34); MEAN CORPUSCULAR HGB CONC 32 g/dL (32-36); MEAN CORPUSCULAR VOLUME 100 fL (80-99); MEAN PLATELET VOLUME 10.5 fL (9.0-12.2); MONOCYTES # (AUTO) 0.6 X 10^3 (0.0-1.0); MONOCYTES % (AUTO) 7 % (0-12); NEUTROPHILS # (AUTO) 5.3 X 10^3 (1.8-7.8); NEUTROPHILS % (AUTO) 62 % (42-75); PLATELET COUNT 205 10^3/uL (130-400); WHITE BLOOD COUNT 8.6 10^3/uL (4.3-11.0)
[2022-12-28 16:01] LABS: ALBUMIN 3.9 GM/DL (3.2-4.5)
[2022-12-28 16:02] LABS: CALCIUM 8.8 MG/DL (8.5-10.1)
[2022-12-28 16:03] LABS: TOTAL PROTEIN 6.8 GM/DL (6.4-8.2)
[2022-12-28 16:05] LABS: BILIRUBIN,TOTAL 0.4 MG/DL (0.1-1.0)
[2022-12-28 16:07] LABS: CREATININE SERUM 5.43 MG/DL (0.60-1.30)
--- NOTE | 2022-12-28 16:07 | Diagnostic Imaging Report ---
EXAMINATION: Chest radiograph, portable AP view. DATE: 12/28/2022 3:36 PM INDICATION: 87-year-old female, chest pain. COMPARISON: May 06, 2022. FINDINGS: Heart size and mediastinal contours are unchanged. There is no identified pneumothorax. There is no large pleural effusion. There is no identified focal airspace consolidation. IMPRESSION: 1. No identified acute cardiopulmonary abnormality. Dictated by: Dictated on workstation # [id number]
[2022-12-28 16:10] LABS: MAGNESIUM 1.7 MG/DL (1.6-2.4)
[2022-12-28 16:26] LABS: INR 0.9 (0.8-1.4); PROTHROMBIN TIME PATIENT 12.6 SEC (12.2-14.7)
[2022-12-28 17:58] VITALS: BP 193/83
== END 2022-12-28 17:58 | disposition short-term general hospital (02) ==
LOC: EDUNIT# 15:14 → ER 15:16
DX: I21.4 Non-ST elevation (NSTEMI) myocardial infarction (principal); E11.22 Type 2 diabetes mellitus with diabetic chronic kidney disease; I12.0 Hypertensive chronic kidney disease with stage 5 chronic kidney disease or end stage renal disease; N18.6 End stage renal disease; D63.1 Anemia in chronic kidney disease; I25.10 Atherosclerotic heart disease of native coronary artery without angina pectoris; E66.9 Obesity, unspecified; E78.00 Pure hypercholesterolemia, unspecified; Z95.5 Presence of coronary angioplasty implant and graft; Z99.2 Dependence on renal dialysis; Z68.35 Body mass index [BMI] 35.0-35.9, adult; Z79.82 Long term (current) use of aspirin; Z79.4 Long term (current) use of insulin; Z79.02 Long term (current) use of antithrombotics/antiplatelets; Z79.899 Other long term (current) drug therapy
CPT/HCPCS: 36415; 71045; 80053; 83690; 83735; 83874; 83880; 84484; 85025; 85610; 85730; 93005; 93041

== ENCOUNTER → 2023-01-04 | Outpatient (CLI) | payer MEDICARE, MEDICAID ==
--- NOTE | 2023-01-05 11:28 | Diagnostic Imaging Report ---
Indication: Routine screening. Comparison is made with prior mammogram from 12/29/2021 and 12/09/2020. 2-D and 3-D bilateral screening mammography was performed with CAD. The current study was also evaluated with a Computer Aided Detection (CAD) system. Both breasts are heterogeneously dense, limiting the sensitivity of mammography. Overall parenchymal pattern is stable. Scattered benign parenchymal and vascular calcifications are again noted. No dominant mass or malignant-appearing microcalcifications are seen. Biopsy marker on the left is again noted. Axillae are unremarkable. IMPRESSION: BI-RADS Category 2 No mammographic features suspicious for malignancy are identified. ACR BI-RADS Category 2: Benign findings. Result letter will be mailed to the patient. Note: At least 10% of breast cancer is not imaged by mammography. Dictated by: Dictated on workstation # [id number]
== END ==
LOC: RAD 14:20
PROVIDERS: ATTEND Internal Medicine
DX: Z12.31 Encounter for screening mammogram for malignant neoplasm of breast (principal)
CPT/HCPCS: 77063; 77067

== ENCOUNTER → 2023-05-04 | Outpatient (CLI) | payer MEDICARE ==
[~2023-05-04] MED LIST changes: -GLIP5TAB13 PO; +GLIP5TAB23 PO
== END ==
LOC: CARD 13:19
PROVIDERS: ATTEND Internal Medicine Cardiovascular Disease
DX: I11.9 Hypertensive heart disease without heart failure (principal); I35.0 Nonrheumatic aortic (valve) stenosis; I34.0 Nonrheumatic mitral (valve) insufficiency
CPT/HCPCS: 93306